=== PATIENT | male | born 1975 | race Caucasian/White ===

== ENCOUNTER 2023-05-13 14:28 | Outpatient (OUT) | payer OTHER, SELFPAY ==
[2023-05-13 14:43] LABS: Basophils Absolute Auto 0.1 10^3/uL (0.0-0.1); Eosinophils Absolute Auto 0.1 10^3/uL (0.0-0.7); Eosinophils Percent Auto 1.3 % (0.9-7.0); Hematocrit 46.4 % (42.0-54.0); Hemoglobin 15.8 g/dL (14.0-18.0); Immature Granulocytes Abs Auto 0.01 10^3/uL (0.00-0.03); Immature Granulocytes Pct Auto 0.2 % (0.0-0.5); Lymphocytes Absolute Auto 1.1 10^3/uL (1.2-3.8); Lymphocytes Percent Auto 17.2 % (20.5-60.0); Mean Corpuscular HGB Conc 34.1 g/dL (29.9-35.2); Mean Corpuscular Hemoglobin 27.5 pg (25.9-34.0); Mean Corpuscular Volume 80.8 fL (80.0-94.0); Mean Platelet Volume 9.5 fL (9.5-13.5); Monocytes Absolute Auto 0.5 10^3/uL (0.3-0.8); Monocytes Percent Auto 7.7 % (1.7-12.0); Neutrophils Absolute Auto 4.4 10^3/uL (1.4-6.5); Neutrophils Percent Auto 72.6 % (43.0-75.0); Platelet Count 240 10^3/uL (150-450); Red Blood Count 5.74 10^6/uL (4.70-6.10); Red Cell Distribution Width 13.4 % (11.0-15.0); White Blood Count 6.1 10^3/uL (4.0-11.0)
[2023-05-13 15:13] LABS: Estimated Average Glucose 111 mg/dL; Glycohemoglobin A1C 5.5 % (4.5-6.2)
[2023-05-13 15:41] LABS: Alanine Aminotransferase 39 U/L (16-63); Albumin Globulin Ratio 1.1; Albumin Level 3.7 g/dL (3.4-5.0); Alkaline Phosphatase 52 U/L (46-116); Anion Gap 12.8; Aspartate Amino Transferase 15 U/L (15-37); BUN Creatinine Ratio 16.7; Bilirubin Direct 0.1 mg/dL (0.0-0.2); Bilirubin Total 0.6 mg/dL (0.2-1.0); Calcium 8.8 mg/dL (8.5-10.1); Carbon Dioxide 25.1 mmol/L (21.0-32.0); Chloride 104 mmol/L (98-107); Chol HDL Ratio 5.1; Cholesterol 205 mg/dL (<=200); Estimated GFR (African America >60 (>=60); Estimated GFR (Non-African Ame >60 (>=60); Globulin 3.4 g/dL; Glucose 104 mg/dL (74-106); HDL Cholesterol 40 mg/dL (40-60); Potassium 3.9 mmol/L (3.5-5.1); Sodium 138 mmol/L (136-145); Thyroid Stimulating Hormone 0.878 uIU/mL (0.358-3.740); Total Protein 7.1 g/dL (6.4-8.2); Triglycerides 163 mg/dL (<=150); VLDL CHOLESTEROL 32.6 mg/dL
[2023-05-13 15:46] LABS: Prostate Specific Antigen Scrn 0.95 ng/mL (<=4.00)
== END 2023-05-13 14:29 | disposition home or self-care (01) ==
LOC: LAB 14:28
PROVIDERS: PCP Family Medicine; Visit Provider Family Medicine
DX: Z00.00 Encounter for general adult medical examination without abnormal findings (principal); E55.9 Vitamin D deficiency, unspecified
CPT/HCPCS: 36415; 80048; 80061; 80076; 82306; 83036; 84443; 85025; G0103

== ENCOUNTER 2023-05-21 10:21 | Outpatient (RCR) | payer OTHER, SELFPAY | END 2023-07-26 08:00 | disposition home or self-care (01) | LOC: PT 10:21 | PROVIDERS: PCP Family Medicine; Visit Provider Family Medicine | DX: M47.816 Spondylosis without myelopathy or radiculopathy, lumbar region (principal) | CPT/HCPCS: 97010; 97014; 97110; 97161 ==

== ENCOUNTER 2023-06-09 11:55 | Outpatient (OUT) | payer OTHER, SELFPAY ==
--- NOTE | 2023-06-09 12:10 | CA_ITS ---
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: : 1975 Requested By: NATALIA STRICKLAND Order Number: [id number] Reading MD: JAGJIT RAUSCH Interpretive Statements Predominant rhythm is sinus w/ average rate of 76 bpm Tachycardia - max rate of 186 bpm, associated w/ PSVT - 77 episodes of PSVT w/ longest duration of 47 beats - longest episode of 46min 45sec with rates between 115-138 bpm Bradycardia - min rate of 46 bpm - longest episode of 40min 23sec with rates between 51-59 bpm Ventricular ectopy] - 405 PVC Patient triggered events: 1 - not associated w/ symptoms - associated w/ NSR Impression: Predominant rhythm is sinus w/ average rate of 76 bpm FAstest rate of 186 (PSVT) and slowest rate of 46 bpm Episodes of supraventricular bigeminy and trigeminy 405 PVC No atrial fibrillation No pauses of blocks Electronically Signed On 06-28-2023 20:19:11 EST by JAGJIT RAUSCH
== END 2023-06-09 11:56 | disposition home or self-care (01) ==
LOC: CARD 11:58
PROVIDERS: PCP Family Medicine; Visit Provider Family Medicine
DX: R00.2 Palpitations (principal)
CPT/HCPCS: 93246

== ENCOUNTER 2023-07-27 09:55 | Outpatient (RCR) | payer OTHER, SELFPAY | END 2023-08-01 16:10 | disposition home or self-care (01) | LOC: PT 09:55 | PROVIDERS: PCP Family Medicine; Visit Provider Family Medicine | DX: M47.816 Spondylosis without myelopathy or radiculopathy, lumbar region (principal) | CPT/HCPCS: 97010; 97014; 97110 ==

== ENCOUNTER 2023-12-15 13:09 | Outpatient (OUT) | payer OTHER, SELFPAY ==
--- NOTE | 2023-12-15 | CONS_ITS ---
CONSULTATION DATE: 12/15/2023 TO: Reddy Alcantara M.D. CHIEF COMPLAINT: Includes right lower back pain. HISTORY: Patient reports the pain as being 6/10, sharp, squeezing type of pain in her right lower back, increased with activities such as standing, walking and performing transitioning maneuvers. She feels most comfortable in the semi- recumbent position. Denies any change in bowel and bladder habits or new sensorimotor changes in his lower extremities. OLEG has been 73%. MEDICATION: Current medications include Lyrica 100 mg t.i.d., Robaxin 750 q.i.d. and Voltaren gel. EXAMINATION: Notable for patient having no clinical radiculopathy or myelopathy involving the lower extremities. Patient had severe pain with lumbar facet loading maneuvers on the right side from L4-S1 with associated myofascial spasm of the lumbar paravertebral muscles. 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 RECOMMENDATIONS: I recommend a diagnostic right sided L4-5, L5-S1 medial branch block under fluoroscopic guidance. I have weaned him off of Robaxin. Will trial him on Flexeril 10 mg one t.i.d. as tolerated. As part of providing excellent, safe, comprehensive care, the following was completed at our patient's visit: 1. A medication reconciliation and review to ensure accurate knowledge of current/active medications, including asking our patients to inform us about any [id number] medications or herbal remedies/nutritional supplements/alternative remedies. 2. A review to specifically ensure our patients have had annual screening for: elevated body mass index (BMI, see intake chart for exact total), tobacco use, screening for depression, and screening for unhealthy alcohol use. When screening is concerning, patients are provided with education and the specific recommendation to discuss the concerning health issue and treatment options with their primary care provider. LINDA
--- OUTSIDE RECORDS SUMMARY | 2023-12-15 13:14 | XMS_ITS | CCD ---
Author Organization [facility] Inform ion Partnership [facility] Care Team Providers Care Intelligence Operations Specialist Name Role Phone Reddy Strickland MD Primary Care Provider FLEX RAMÍREZ Attending Unavailable REDDY STRICKLAND Primary Care UnavailChandler Cosme Unavailable Darwin Yepez Unavailable Reddy Strickland Primary Care Unavailable Chandler Fuller Attending Unavailable Chandler Fuller Admitting Unavailable MARCO A, DR REDDY Roper Admitting Unavailable MARCO A, DR REDDY Roper Attending Unavailable MARCO A, DR REDDY Roper Primary Care Unavailable MARCO A, DR REDDY Roper Primary Care Unavailable BUD DESAI Admitting Unavailable BUD DESAI Attending Unavailable BUD DESAI Consulting Unavailable SALONI BRAND Consulting Unavailable REDDY STRICKLAND Attending Unavailable Allergies Allergy Classification Reported Allergen(s) Allergy Type Date of Onset Reaction(s) Facility (1 source) Chlorhexidine Drug Allergy 01-26-2020 [facility] Medications Current Medications Medication Drug Class(es) Dates Sig (Normalized) Sig (Original) acetaminophen 325 mg / oxyCODONE hydrochloride 5 mg oral tablet (2 sources) Opioid Agonist Start: 08-22-2021 take 1 tablet by mouth every four hours as needed for pain Percocet 5-325 MG 1 tablet as needed for pain Orally up to every 4 hrs for 5 days Jul, Active cephalexin 500 mg oral capsule (2 sources) Cephalosporin Antibacterial Start: 08-22-2021 take 1 capsule by mouth every eight hours Cephalexin 500 MG 1 capsule Orally every 8 hrs for 2 days Jul, Active clindamycin 300 mg oral capsule (1 source) Lincosamide Antibacterial Start: 10-16-2021 End: 10-23-2021 take 1 capsule by mouth three times daily clindamycin (CLEOCIN) 300 MG capsule Take 1 capsule by mouth 3 times daily for 7 days 21 capsule 0 10/16/2021 10/23/2021 Active Knee Brace - (1 source) Start: 12-30-2021 Knee Brace - as directed neoprene sleeve Dec, Active Medical Marijuana / Cannabinoid Product (1 source) Medical Marijuan a / Cannabinoid Product Active traMADol hydrochloride 50 mg oral tablet (1 source) Opioid Agonist Start: 09-02-2021 take 1 tablet by mouth every four hours as needed for pain Ultram 50 MG 1 tablet as needed for pain Orally up to every 4 hrs for 5 days Aug, Active Completed/Discontinued Medications Medication Drug Class(es) Dates Sig (Normalized) Sig (Original) gabapentin (5 sources) Anti-epileptic Agent Gabapentin Not-Taking Gabapentin Activ e triamcinolone acetonide 40 mg/ml injectable suspension (1 source) Corticosteroid Start: 12-30-2021 Kenalog-40 Dec, 40 mg Vitamin D (5 sources) Vitamin D Not-Ta margie Vitamin D Active Problems Active Problems Problem Classification Problem Date Documented Date Episodic/Chronic Osteoarthritis (2 sources) Osteoarthritis of left knee joint; 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: [Unilateral primary osteoarthritis, left knee] Onset: 12-30-2021 Resolved: 12-30-2021 Chronic Other nutritional; endocrine; and metabolic disorders (1 source) Morbid (severe) obesity due to excess calories; 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: [MORBID SEVERE OBES D/T EXCESS KEAGAN] Onset: 12-12-2021 Chronic Other nutritional; endocrine; and metabolic disorders (1 source) Body mass index (BMI) 45.0-49.9, adult; 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: [BODY MASS INDEX BMI 45.0-49.9 ADULT] Onset: 12-12-2021 Chronic Skin and subcutaneous tissue infections (1 source) Abscess of neck; 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: [Cutaneous abscess of neck] Episodic Spondylosis; intervertebral disc disorders; other back problems (4 sources) Spondylosis without myelopathy or radiculopathy, lumbosacral region; 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: [SPONDYLS W/O MYELO-/RADICULOP LS] Onset: 11-17-2022 Chronic Unclassified (1 source) Z98.890 - Other specified postprocedural states; 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: [Z98.890 - Other specified postprocedural states] Onset: 09-02-2021 Past or Other Problems Problem Classification Problem Date Documented Date Episodic/Chronic E Codes: Fall (1 source) Unspecified fall, initial encounter; 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: [UNSPECIFIED FALL INITIAL ENCOUNTER] Onset: 12-12-2021 Episodic Other aftercare (1 source) Other technician terminal and repeater (current) drug therapy; 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: [OTH ALF CURRENT DRUG THERAPY] Onset: 12-12-2021 Episodic Other injuries and conditions due to external causes (1 source) Unspecified injury of left lower leg, initial encounter; 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: [UNS INJURY LT LOWER LEG INITIAL ENC] Onset: 12-12-2021 Episodic Other non-traumatic joint disorders (3 sources) Pain in left knee; 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: [PAIN IN LEFT KNEE] Onset: 12-10-2021 Episodic Residual codes; unclassified (3 sources) Other specified postprocedural states Onset: 08-27-2021 Resolved: 10-31-2021 Episodic Screening and history of mental health and substance abuse codes (1 source) Personal history of nicotine dependence; 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: [PERSONAL HISTORY OF NICOTINE DEPEND] Onset: 12-12-2021 Episodic Sprains and strains (3 sources) Strain of muscle, fascia and tendon of other parts of biceps, right arm, initial encounter; 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: [Strain of muscle, fascia and tendon of other parts of biceps, right arm, subsequent encounter] Onset: 08-12-2021 Resolved: 10-31-2021 Episodic Superficial injury; contusion (1 source) Contusion of right hip, initial encounter; 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: [CONTUSION RIGHT HIP INITIAL ENC] Onset: 12-12-2021 Episodic Results Test Name Value Interpretation Reference Range Facil ity XR HIPS MILY 5V W PELVISon XR HIPS MILY 5V W PELVIS EXAM: XR HIPS MILY 5V W PELVIS HISTORY: Pelvic and hip pain COMPARISON: None. TECHNIQUE: 6 views FINDINGS: No osseous lesion, fracture, dislocation or subluxation. Joint spaces are normal. No visualized effusion. No visualized soft tissue edema. IMPRESSION: Normal x-rays Electronically authenticated by: SALONI BRAND Date: 2021-12-10 22:17 Normal [facility] XR KNEE LT 4V or >on 022 XR KNEE LT 4V or > EXAM: XR KNEE LT 4V or > HISTORY: Left knee pain COMPARISON: None. TECHNIQUE: 4 views FINDINGS: No fracture, dislocation or subluxation. No osseous lesion. Small knee effusion. The joint spaces are maintained. IMPRESSION: Small knee effusion with no visualized osseous abnormality Electronically authenticated by: SALONI BRAND Date: 2021-12-10 22:15 Normal [facility] XR elbow RT 2Von 09-02-2021 XR elbow RT 2V [facility] [place] [address] [place] [address] XRay Report Signed Patient: Na Simon MR#: [id number] : 1975 Acct:[id number] Age/Sex: 46 / M ADM Date: 09/02/21 Loc: [facility] Room: Type: [facility] Attending Dr: Chandler Fuller MD Ordering Provider: Chandler Fuller MD Date of Service: 09/02/21 XR/XR elbow RT 2V: Other specified postprocedural states Copies to: Chandler Fuller MD RIGHT ELBOW - 4 VIEWS CLINICAL HISTORY: Follow-up bicep repair. COMPARISON: None Splint is in place. Biceps repair changes are identified involving the proximal radius. No joint effusion. No focal soft tissue abnormality. Calcification is seen along the medial epicondyle suggestive of prior injury. Mild degenerative changes of the elbow. XR/XR elbow RT 2V IMPRESSION: No hardware complication. No acute bony process. Mild degenerative change. Impression dictated by: Ishan Giles Jr., DOliveOOlive09/02/2021 2:06 PM Dictation Location: [place] [address] Transcribed By: [facility] 09/02/21 1406 Dictated By: Ishan Giles Jr, DO 09/02/21 1403 Signed By: 09/02/[address] [facility] Vital Signs Date Time Vital Sign Value Performing Clinician Facility 10-31-2021 12:00-0400 Body height 182.88 cm Chandler Fuller Other [facility] Other 10-31-2021 12:00-0400 Body mass index (BMI) [Ratio] 33.63 kg/m2 Chandler Fuller Other [facility] Other 10-31-2021 12:00-0400 Body weight 112.49 kg Chandler Fuller Other [facility] Other 10-16-2021 14:45-0400 Body height 193 cm Flex Ramírez MD Work Phone: [employer] 10-16-2021 14:45-0400 Body mass index (BMI) [Ratio] 47.55 kg/m2 Flex Ramírez MD Work Phone: [employer] 10-16-2021 14:45-0400 Body temperature 98.6 [degF] Flex Ramírez MD Work Phone: [employer] 10-16-2021 14:45-0400 Body weight 177.18 kg Flex Ramírez MD Work Phone: [employer] 10-16-2021 14:45-0400 Diastolic blood pressure 104 mm[Hg] Flex Ramírez MD Work Phone: [employer] 10-16-2021 14:45-0400 Heart rate 85 /min Flex Ramírez MD Work Phone: [employer] 10-16-2021 14:45-0400 Respiratory rate 18 /min Flex Ramírez MD Work Phone: [employer] 10-16-2021 14:45-0400 SaO2% (BldA) [Mass fraction] 94 % Flex Ramírez MD Work Phone: [employer] 10-16-2021 14:45-0400 Systolic blood pressure 170 mm[Hg] Flex Ramírez MD Work Phone: [employer] 09-02-2021 12:30-0500 Body height 182.88 cm Chandler Fuller Other [facility] Other 09-02-2021 12:30-0500 Body mass index (BMI) [Ratio] 33.36 kg/m2 Chandler Fuller Other [facility] Other 09-02-2021 12:30-0500 Body weight 111.59 kg Chandler Olexa Other [facility] Other Encounters Encounter Date Encounter Type Care Provider Facility Start: 10-28-2023 End: 10-28-2023 ambulatory REDDY STRICKLAND Not Available Start: 11-17-[address] REDDY STRICKLAND Facil ity:[facility] Start: 12-30-2021 End: 12-30-2021 ambulatory Chandler Olexa Other [facility] Other Start: 12-30-2021 Office outpatient ne w 30 minutes Chandler Olexa [facility] Start: 12-10-2021 End: 12-11-[address] REDDY STRICKLAND Facility:[facility] Start: 10-31-2021 End: 10-31-2021 ambulatory Chandler Olexa Other [facility] Other Start: 10-31-2021 Postop follow up vis it related to original px Chandler Olexa [facility] Start: 10-16-2021 End: 10-16-2021 Emergency department patient visit [facility] Start: 10-16-2021 End: 10-16-2021 Emergency department patient visit [facility] Work Phone: [facility] Comment on above: Cutaneous abscess of neck (Primary Dx) Start: 09-02-2021 Postop follow up vis it related to original px Chandler Olexa [facility] Start: 09-02-2021 End: 09-02-2021 ambulatory Reddy Strickland [employer] [facility] [employer] Other Start: 08-27-2021 End: 08-27-2021 ambulatory Darwin Yepez Other [facility] Other Start: 08-27-2021 Telephone encounter Darwin Yepez [facility] Start: 08-12-2021 End: 08-12-2021 ambulatory Chandler Alina Other [facility] Other Start: 08-12-2021 Office outpatient ne w 45 minutes [facility] Plan of Treatment Date Care Activity Detail Author Start: 03-27-2021 Influenza vaccination Flu vaccine (# 1) [facility] Start: 1978 COVID-19 Vaccine (1) COVID-19 Vaccin e (1) [facility] Payers Date Payer Category Payer Self-pay 1975 Unknown [id number] 1975 Unknown [id number] [id number] 1975 Unknown [id number] [id number] 1975 Unknown [id number] [id number] [id number] 1961 Unknown [id number] 1. [id number] Unknown [id number] 2.16.8 [id number] Social History Date Type Detail Facility Start: 10-16-2021 Tobacco smoking status NHIS Never smoked tobacco [facility] Other Start: 10-16-2021 Tobacco use and exposure Smokeless tobacco non-user [facility] Phone: Start: 1975 Sex Assigned At Not on file [facility] [employer] Phone: Start: 10-06-2021 End: 10-16-2021 Exposure to SARS-CoV-2 (event) Not sure [facility] Phone: Sex Assigned At Sex Assigned At Bir th [facility] Other Evaluation note 12-30-2021 Note Date & Type Note Facility 12-30-2021 Evaluation note Encounter Date Diagnosis Assessment Notes Dec, Primary osteoarthritis of left knee (ICD-10 - M17.12) Xrays were reviewed with patient in detail. We performed a /1cc marcaine / kenalog cortisone injection into the knee joint under sterile technique. Patient tolerated the injection well without adverse reaction. The patient is suffering from degenerative arthritis involving the knee. We discussed the conservative treatment options which can be beneficial in relieving pain, including gentle non-impact motion exercise and non-steroidal anti-inflammato ry medication. We discussed the use of occasional cortisone injections that can provide pain relief as well as hyaluronan lubricant injection. We will provide a prescription for formal physical therapy. The regular use of exercises may be beneficial in relieving painful symptoms. If pain persists we will order an MRI. [facility] Other Evaluation note 10-31-2021 Note Date & Type Note Facility 10-31-2021 Evaluation note Encounter Date Diagnosis Assessment Notes Oct, Other specified postprocedural states (ICD-10 - Z98.890) Oct, Rupture of right distal biceps tendon, subsequent encounter (ICD-10 - S46.211D) Patient instructed that he may begin light strengthening exercises Oct, Other Patient instructed to allow more time for knee issues to improve. Work on light exercises [facility] Other Evaluation note 09-02-2021 Note Date & Type Note Facility 09-02-2021 Evaluation note Encounter Date Diagnosis Assessment Notes Aug, Other specified postprocedural states (ICD-10 - Z98.890) Aug, Rupture of right distal biceps tendon, subsequent encounter (ICD-10 - S46.211D) Radiographs reviewed with patient. Instructed on pronation/sup ination motion, as well as passive elbow flexion exercises. May allow incision to get wet in clean running water. Continue use of the splint during activities. Call with questions/con cerns. Splint shortened today to avoid pinching at the wrist. [facility] Other Evaluation note 08-27-2021 Note Date & Type Note Facility 08-27-2021 Evaluation note Encounter Date Diagnosis Assessment Notes Aug, Other specified postprocedural states (ICD-10 - Z98.890) [facility] Other Evaluation note 08-12-2021 Note Date & Type Note Facility 08-12-2021 Evaluation note Encounter Date Diagnosis Assessment Notes Jul, Tear of right biceps muscle, initial encounter (ICD-10 - S46.211A) Pateint has sustained a distal biceps rupture. This will require surgical repair as soon as possible. We discussed the specific risks of this surgery which include sensory nerve injury over the dorsal forearm. The potential to cause injury to the posterior interosseous nerve and loss of wrist extension strength. We also discussed the potential to cause loss of forearm rotation secodary to synostosis as well as loss of full elbow extension. Patient is aware of this and we will proceed. We would expect at least three months before returning to heavy work activity. THIS APPEAR TO BE CLASSIC DISTAL BICEPS RUPTURE. MRI WILL BE HELPFUL TO DETERMINE REPARABILTIY AND LOCATION OF TEAR. [facility] Other Evaluation note Note Date & Type Note Facility Evaluation note Diagnosis Cutaneous abscess of neck- Primary Cellulitis and abscess of neck documented in this encounter [facility] Phone: History general Narrative - Reported Note Date & Type Note Facility History general Narrative - Reported Type Medical History fibromyalgia Medical History Arthritis Surgical History bilateral carpal tunnel surgery Surgical History mass removed right knee Surgical History back fusion [facility] Other History general Narrative - Reported Note Date & Type Note Facility History general Narrative - Reported Type Medical History fibromyalgia Medical History Arthritis Surgical History bilateral carpal tunnel surgery Surgical History mass removed right knee Surgical History back fusion Surgical History right distal bicep repair 2021 [facility] Other Hospital Discharge instructions Attachments Note Date & Type Note Facility Hospital Discharge instructions The following attachments cannot be sent through Care Everywhere.Abscess: Skin (Palauan)documented in this encounter [facility] Phone: Summary Purpose Family History No Family History Records FoundNo Family History Records FoundNo Family History Records FoundNo Family History Records Found Advance Directives No Advanced Directives Records FoundNo Advanced Directives Records FoundNo Advanced Directives Records FoundNo Advanced Directives Records Found Additional Source Comments Reason for Visit (unrecogniz ed section and content) Reason Comments Insect Bite patient presents to the ED with c/o insect bite to back of neck on the right side - noticed site Thursday night - warm to touch and painful when trying to sleep Ordered Prescriptions (unrec ognized section and content) Prescription Sig Dispensed Refills Start Date End Da te clindamycin (CLEOCIN) 300 MG capsule Take 1 capsule by mouth 3 times daily for 7 days 21 capsule 0 10/16/2021 10/23/2021 Care Teams (unrecognized sec tion and content) Intelligence Operations Specialist Relationship Specialty Start Date End Date Reddy Strickland MD [address] [place] [address] PCP - General Family Medicine 10/16/21 (unrecognized sect ion and content) No Status Records FoundNo Status Records FoundNo Status Records FoundNo Status Records Found INFORMATION SOURCE (unrecogn ized section and content) DATE CREATED AUTHOR 10/17/2021 Alba quiros DATE CREATED AUTHOR AUTHOR'S ORGANIZ ATION 08/30/2022 [facility] DATE CREATED AUTHOR AUTHOR'S ORGANIZ ATION 11/18/2022 [facility] DATE CREATED AUTHOR AUTHOR'S ORGANIZ ATION 10/29/2023 [facility] FOR RECORDS PERTAINING TO PATIENTS WHO ARE OR HAVE BEEN ENROLLED IN A CHEMICAL DEPENDENCY/SUBSTANCEABUSE PROGRAM, SOME INFORMATION MAY BE OMITTED. This clinical summary was aggregated from multiple sources. Caution should be exercised in using it in the provision of clinical care. This summary normalizes information from multiple sources, and as a consequence, information in this document may materially change the coding, format and clinical context of patient data. In addition, data may be omitted in some cases. CLINICAL DECISIONS SHOULD BE BASED ON THE PRIMARY CLINICAL RECORDS. [employer] provides no warranty or guarantee of the accuracy or completeness of information in this document.
== END 2023-12-15 13:10 | disposition home or self-care (01) ==
LOC: PM 13:09
PROVIDERS: PCP Family Medicine; Visit Provider Anesthesiology Pain Medicine
DX: M47.816 Spondylosis without myelopathy or radiculopathy, lumbar region (principal); M62.838 Other muscle spasm
CPT/HCPCS: G0463

== ENCOUNTER 2024-02-09 14:45 | Outpatient (RCR) | payer OTHER, SELFPAY | END 2024-02-27 15:30 | disposition home or self-care (01) | LOC: PT 14:45 | PROVIDERS: PCP Family Medicine; Visit Provider Nurse Practitioner | DX: M54.50 Low back pain, unspecified (principal); M47.816 Spondylosis without myelopathy or radiculopathy, lumbar region | CPT/HCPCS: 97110; 97161 ==

== ENCOUNTER 2024-03-24 12:42 | Outpatient (OUT) | payer OTHER, SELFPAY ==
--- OUTSIDE RECORDS SUMMARY | 2024-03-24 12:58 | XMS_ITS | CCD ---
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 Main [facility] [address] [place] [address] XRay Report Signed Patient: Na Simon MR#: [id number] : 1975 Acct:[id number] Age/Sex: 46 / M ADM Date: 09/02/21 Loc: [facility] [place] Room: Type: [facility] Attending Dr: Chandler Fuller MD Ordering Provider: [...] Giles Jr., DOliveOOlive09/02/2021 2:06 PM Dictation Location: [place] [address] Transcribed By: [facility] 09/02/21 1406 Dictated By: Ishan Giles Jr, DO 09/02/21 1403 Signed By: 09/02/21 1406 Normal [facility] Vital Signs Date Time Vital Sign Value Performing Clinician Facility 10-31-2021 12:00-0400 Body height 182.88 cm Chandler Fuller Other [facility] Other 10-31-2021 12:00-0400 Body mass index (BMI) [Ratio] 33.63 kg/m2 Chandler Fuller Other [facility] Other 10-31-2021 12:00-0400 Body weight 112.49 kg Chandler Fuller Other [facility] Other 10-16-2021 14:45-0400 Body height 193 cm Flex Ramírez MD Work Phone: [employer] 10-16-2021 14:45-0400 Body mass index (BMI) [Ratio] 47.55 kg/m2 Flex Ramírez MD Work Phone: [employer] 10-16-2021 14:45-0400 Body temperature 98.6 [degF] Flex Ramírez MD Work Phone: [employer] 10-16-2021 14:45-0400 Body weight 177.18 kg Flex Ramírez MD Work Phone: [employer] 10-16-2021 14:45-0400 Diastolic blood pressure 104 mm[Hg] Flex Ramírez MD Work Phone: [employer] 10-16-2021 14:45-0400 Heart rate 85 /min Flex Ramírez MD Work Phone: [employer] 10-16-2021 14:45-0400 Respiratory rate 18 /min Flex Ramírez MD Work Phone: [employer] 10-16-2021 14:45-0400 SaO2% (BldA) [Mass fraction] 94 % Flex Ramírez MD Work Phone: [employer] 10-16-2021 14:45-0400 Systolic blood pressure 170 mm[Hg] Flex Ramírez MD Work Phone: [employer] 09-02-2021 12:30-0500 Body height 182.88 cm Chandler Fuller Other [facility] Other 09-02-2021 12:30-0500 Body mass index (BMI) [Ratio] 33.36 kg/m2 Chandler Fuller Other [facility] Other 09-02-2021 12:30-0500 Body weight 111.59 kg Chandler Olexa Other [facility] Other Encounters Encounter Date Encounter Type Care Provider Facility Start: 10-28-2023 End: 10-28-2023 ambulatory REDDY STRICKLAND Not Available Start: 11-17-[address] REDDY STRICKLAND Facil ity:H1 Start: 12-30-2021 End: 12-30-2021 ambulatory Chandler Olexa Other [facility] Other Start: 12-30-2021 Office outpatient ne w 30 minutes Chandler Olexa [facility] Start: 12-10-2021 End: 12-11-[address] REDDY STRICKLAND Facility:H1 Start: 10-31-2021 End: 10-31-2021 ambulatory Chandler Olexa Other [facility] Other Start: 10-31-2021 Postop follow up vis it related to original px Chandler Olexa [facility] Start: 10-16-2021 End: 10-16-2021 Emergency department patient visit [facility] Start: 10-16-2021 End: 10-16-2021 Emergency department patient visit [facility] Work Phone: [facility] ED Comment on above: Cutaneous abscess of neck (Primary Dx) Start: 09-02-2021 Postop follow up vis it related to original px Chandler Olexa [facility] Start: 09-02-2021 End: 09-02-2021 ambulatory Reddy Strickland [employer] Other Start: 08-27-2021 End: 08-27-2021 ambulatory Darwin Yepez Other [facility] Other Start: 08-27-2021 Telephone encounter Darwin Yepez [facility] Start: 08-12-2021 End: 08-12-2021 ambulatory Chandler Alina Other [facility] Other Start: 08-12-2021 Office outpatient ne w 45 minutes [facility] Plan of Treatment Date Care Activity Detail Author Start: 03-27-2021 Influenza vaccination Flu vaccine (# 1) [employer] Start: 1978 COVID-19 Vaccine (1) COVID-19 Vaccin e (1) [employer] Payers Date Payer Category Payer Self-pay 1975 Unknown [id number] 2.16.8 [id number] 1975 Unknown [id number] 2.16.84 [id number] 1975 Unknown [id number] 2.16.84 [id number] 1975 Unknown [id number] 2.16.84 [id number] 1959 Unknown [id number] 1. [id number] Unknown [id number] 2.16.8 [id number] Social History Date Type Detail Facility Start: 10-16-2021 Tobacco smoking status NHIS Never smoked tobacco [facility] Other Start: 10-16-2021 Tobacco use and exposure Smokeless tobacco non-user [employer] Phone: Start: 1975 Sex Assigned At Not on file M [employer] Phone: Start: 10-06-2021 End: 10-16-2021 Exposure to SARS-CoV-2 (event) Not sure [employer] Phone: Sex Assigned At Sex Assigned At Bir th [facility] Other Evaluation note 12-30-2021 Note Date & [...] pain persists we will order an MRI. [facility] Other Evaluation note 10-31-2021 Note Date & [...] issues to improve. Work on light exercises [facility] Other Evaluation note 09-02-2021 Note Date & [...] today to avoid pinching at the wrist. [facility] Other Evaluation note 08-27-2021 Note Date & Type Note Facility 08-27-2021 Evaluation note Encounter Date Diagnosis Assessment Notes Aug, Other specified postprocedural states (ICD-10 - Z98.890) [facility] Other Evaluation note 08-12-2021 Note Date & [...] TO DETERMINE REPARABILTIY AND LOCATION OF TEAR. [facility] Other Evaluation note Note Date & Type Note Facility Evaluation note Diagnosis Cutaneous abscess of neck- Primary Cellulitis and abscess of neck documented in this encounter [employer] Phone: History general Narrative - Reported Note Date & Type Note Facility History general Narrative - Reported Type Medical History fibromyalgia Medical History Arthritis Surgical History bilateral carpal tunnel surgery Surgical History mass removed right knee Surgical History back fusion [facility] Other History general Narrative - Reported Note Date & Type Note Facility History general Narrative - Reported Type Medical History fibromyalgia Medical History Arthritis Surgical History bilateral carpal tunnel surgery Surgical History mass removed right knee Surgical History back fusion Surgical History right distal bicep repair 2021 [facility] Other Hospital Discharge instructions Attachments Note Date & Type Note Facility Hospital Discharge instructions The following attachments cannot be sent through Care Everywhere.Abscess: Skin (Mohawk)documented in this encounter [employer] Phone: Summary Purpose Family History No Family [...] Care Teams (unrecognized sec tion and content) Director Camp Relationship Specialty Start Date End Date Reddy Strickland MD [address] [place] [address] PCP - General Family Medicine 10/16/21 (unrecognized sect ion and content) No Status Records FoundNo Status Records FoundNo Status Records FoundNo Status Records Found INFORMATION SOURCE (unrecogn ized section and content) DATE CREATED AUTHOR 10/17/2021 Alba quiros DATE CREATED AUTHOR AUTHOR'S ORGANIZ ATION 08/30/2022 [facility] DATE CREATED AUTHOR AUTHOR'S ORGANIZ ATION 11/18/2022 [facility] DATE CREATED AUTHOR AUTHOR'S ORGANIZ ATION 10/29/2023 [facility] dical Specialists [facility] FOR RECORDS PERTAINING TO PATIENTS WHO [...] BE BASED ON THE PRIMARY CLINICAL RECORDS. [employer] provides no warranty or guarantee of the accuracy or completeness of information in this document.
--- NOTE | 2024-03-24 13:04 | P.CN_ITS ---
Consult Note: HPI Data of Consult Patient: known to practice within the last 3 years Requesting Physician: Josefa Alvarado NP Primary Care Provider: Reddy Alcantara MD Consult Narrative Reason for consult: chronic low back pain Narrative: Ruel Simon a pleasant 48 year old male presents for evaluation and management of chronic low back pain. Patient has had chronic low back pain greater than 1 year unresponsive to tylenol, NSAIDs, pregabalin, duloxetine, medical marijauana. patient completed 4 PT visits 1 month ago without improvement. continues to have pain secondary to lumbar spondylosis and facet arthropathy. Pain increased with standing walking pushing pulling acvitiy and ADLS, improved with sitting. patient denies loss of bowel or bladder. pain today 6/10 sharp intermittent, increasing to 10/10. cc:: CC: Josefa Alvarado NP Review of Systems ROS Status of ROS 10 or more systems reviewed and unremark able except as noted in history and below Musculoskeletal Reports: back pain Exam Constitutional Documenting provider has reviewed patient's vital signs: yes Common normals: no apparent distress, oriented x3, healthy appearing, alert and well nourished General appearance: cooperative HENMT Common normals: normocephalic, hearing grossly normal bilaterally and moist oral mucous membranes Head and scalp: normocephalic Eye Common normals: PERRL Pupil: PERRL Neck & C-Spine Common normals: full ROM General: normal visual inspection Chest Common normals: inspection of chest normal Respiratory Common normals: normal respiratory effort, no retractions and no use of accessory muscles Back & Pelvis Lumbar spine/lower back: ROM limited, pain with ROM and straight leg raise negative bilaterally Other: positive facet loading bilaterally, right greater than left negative SLR and radiculopathy sensation intact BLE strength 4/5 in BLE Extremity Common normals: normal to inspection and full ROM Neuro Common normals: oriented x3, CN's II-XII intact bilaterally, moves all extremities, no focal motor deficits, no sensory deficits noted and deep tendon reflexes 2+ bilaterally Sensorium/orientation: alert Motor exam: no movement abnormalities noted and strength abnormal Psych Common normals: mental status grossly normal, thought process normal, cooperative, affect normal, speech normal and activity/motor behavior normal Speech: normal speech Thought process: normal thought process Results Additional Findings Additional findings: If on a controlled substance or opioids, I have checked an OARRS report on this patient and there are no aberrancies noted in the prescribing history.??If on a controlled substance or opioid a drug screen was completed and reviewed within the last year, and if there has not been a drug screen completed we ordered one today to monitor higher risk, state monitored pain medication use. As part of providing excellent, safe, comprehensive care, the following was completed at our patient's visit: 1. A medication reconciliation and review to ensure accurate knowledge of current/active medications, including asking our patients to inform us about any [id number] medications or herbal remedies/nutritional supplements/alternative remedies. 2. A review to specifically ensure our patients have had annual screening for screening for depression, screening for tobacco use, and screening for unhealthy alcohol use. For concerning screenings had a discussion with the patient, provided patient education, and recommended follow-up with primary care provider when appropriate. If patient noted with a risk of falling, they received education on strength, gait, and balance training to prevent future risk of falling. Assessment and Plan Assessment and Plan (1) Lumbar spondylosis: Assessment and Plan: The patient has had over 3 months of moderate to severe low back pain with functional impairment and inadequate response to conservative care including NSAIDS (unless there are contraindication such as concurrent blood thinners), multiple oral or topical pain medications, and home exercise program/physical therapy.? (2) Myofascial pain: Plan bilateral L4-5 L5-S1 MBB x2 under fluoroscopy, risks vs benefits reviewed continue current medications f/u after each injection
== END 2024-03-24 12:43 | disposition home or self-care (01) ==
LOC: PM 12:43
PROVIDERS: PCP Family Medicine; Visit Provider Nurse Practitioner
DX: M47.816 Spondylosis without myelopathy or radiculopathy, lumbar region (principal); M79.18 Myalgia, other site
CPT/HCPCS: G0463

== ENCOUNTER 2024-04-12 09:45 | Day surgery (SDC) | payer OTHER, SELFPAY ==
--- OUTSIDE RECORDS SUMMARY | 2024-04-12 10:10 | XMS_ITS | CCD ---
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; 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: [OTH HALFWAY CURRENT DRUG THERAPY] Onset: 12-12-2021 Episodic Other [...] SALONI BRAND Date: 2021-12-10 22:17 Normal [facility] XR KNEE LT 4V or >on 022 [...] by: SALONI BRAND Date: 2021-12-10 22:15 Normal [facility] XR elbow RT 2Von 09-02-2021 XR elbow RT 2V [facility] Main [place] [address] [place] [address] XRay Report Signed Patient: Na Simon MR#: [id number] : 1975 Acct:[id number] Age/Sex: 46 / M ADM Date: 09/02/21 Loc: [facility] [place] [facility] [place] Room: Type: [facility] Attending Dr: Chandler Fuller MD Ordering Provider: [...] Giles Jr., DOliveOOlive09/02/2021 2:06 PM Dictation Location: [place] [address] Transcribed By: [facility] 09/02/21 1406 Dictated By: Ishan Giles Jr, DO 09/02/21 1403 Signed By: 09/02/21 1406 Normal [facility] Vital Signs Date Time Vital Sign Value Performing Clinician Facility 10-31-2021 12:00-0400 Body height 182.88 cm Chandler Fuller Other [facility] Other 10-31-2021 12:00-0400 Body mass index (BMI) [Ratio] 33.63 kg/m2 Chandler Fuller Other [facility] Other 10-31-2021 12:00-0400 Body weight 112.49 kg Chandler Fuller Other [facility] Other 10-16-2021 14:45-0400 Body height 193 cm Flex Ramírez MD Work Phone: [email or web address] 10-16-2021 14:45-0400 Body mass index (BMI) [Ratio] 47.55 kg/m2 Flex Ramírez MD Work Phone: [email or web address] 10-16-2021 14:45-0400 Body temperature 98.6 [degF] Flex Ramírez MD Work Phone: [email or web address] 10-16-2021 14:45-0400 Body weight 177.18 kg Flex Ramírez MD Work Phone: [email or web address] 10-16-2021 14:45-0400 Diastolic blood pressure 104 mm[Hg] Flex Ramírez MD Work Phone: [email or web address] 10-16-2021 14:45-0400 Heart rate 85 /min Flex Ramírez MD Work Phone: [email or web address] 10-16-2021 14:45-0400 Respiratory rate 18 /min Flex Ramírez MD Work Phone: [email or web address] 10-16-2021 14:45-0400 SaO2% (BldA) [Mass fraction] 94 % Flex Ramírez MD Work Phone: [email or web address] 10-16-2021 14:45-0400 Systolic blood pressure 170 mm[Hg] Flex Ramírez MD Work Phone: [email or web address] 09-02-2021 12:30-0500 Body height 182.88 cm Chandler Fuller Other [facility] Other 09-02-2021 12:30-0500 Body mass index (BMI) [Ratio] 33.36 kg/m2 Chandler Fuller Other [facility] Other 09-02-2021 12:30-0500 Body weight 111.59 kg Chandler Olexa Other [facility] Other Encounters Encounter Date Encounter Type Care Provider Facility Start: 10-28-2023 End: 10-28-2023 ambulatory REDDY STRICKLAND Not Available Start: 11-17-[address] REDDY STRICKLAND Facil ity:H1 Start: 12-30-2021 End: 12-30-2021 ambulatory Chandler Olexa Other [facility] Other Start: 12-30-2021 Office outpatient ne w 30 minutes Chandler Olexa [facility] Start: 12-10-2021 End: 12-11-[address] REDDY STRICKLAND Facility:H1 Start: 10-31-2021 End: 10-31-2021 ambulatory Chandler Olexa Other [facility] Other Start: 10-31-2021 Postop follow up vis it related to original px Chandler Olexa [facility] Start: 10-16-2021 End: 10-16-2021 Emergency department patient visit [facility] Start: 10-16-2021 End: 10-16-2021 Emergency department patient visit [facility] Work Phone: [facility] ED Comment on above: Cutaneous abscess of neck (Primary Dx) Start: 09-02-2021 Postop follow up vis it related to original px Chandler Olexa [facility] Start: 09-02-2021 End: 09-02-2021 ambulatory Reddy Strickland [facility] Other Start: 08-27-2021 End: 08-27-2021 ambulatory Darwin Yepez Other [facility] Other Start: 08-27-2021 Telephone encounter Darwin Yepez [facility] Start: 08-12-2021 End: 08-12-2021 ambulatory Chandler Alina Other [facility] Other Start: 08-12-2021 Office outpatient ne w 45 minutes [facility] Plan of Treatment Date Care Activity Detail Author Start: 03-27-2021 Influenza vaccination Flu vaccine (# 1) [email or web address] Start: 1978 COVID-19 Vaccine (1) COVID-19 Vaccin e (1) [email or web address] Payers Date Payer Category Payer Self-pay 1975 Unknown [id number] 2.16.8 [id number] 1975 Unknown [id number] 2.16.84 [id number] 1975 Unknown [id number] 2.16.84 [id number] 1975 Unknown [id number] 2.16.84 [id number] 1959 Unknown [id number]. [id number] Unknown [id number] 2.16.8 [id number] Social History Date Type Detail Facility Start: 10-16-2021 Tobacco smoking status NHIS Never smoked tobacco [facility] Other Start: 10-16-2021 Tobacco use and exposure Smokeless tobacco non-user [employer] Phone: Start: 1975 Sex Assigned At Not on file M [employer] Phone: Start: 10-06-2021 End: 10-16-2021 Exposure to SARS-CoV-2 (event) Not sure [employer] Phone: Sex Assigned At Sex Assigned At Bir th [facility] Other Evaluation note 12-30-2021 Note Date & [...] pain persists we will order an MRI. [facility] Other Evaluation note 10-31-2021 Note Date & [...] issues to improve. Work on light exercises [facility] Other Evaluation note 09-02-2021 Note Date & [...] today to avoid pinching at the wrist. [facility] Other Evaluation note 08-27-2021 Note Date & Type Note Facility 08-27-2021 Evaluation note Encounter Date Diagnosis Assessment Notes Aug, Other specified postprocedural states (ICD-10 - Z98.890) [facility] Other Evaluation note 08-12-2021 Note Date & [...] TO DETERMINE REPARABILTIY AND LOCATION OF TEAR. [facility] Other Evaluation note Note Date & Type Note Facility Evaluation note Diagnosis Cutaneous abscess of neck- Primary Cellulitis and abscess of neck documented in this encounter [employer] Phone: History general Narrative - Reported Note Date & Type Note Facility History general Narrative - Reported Type Medical History fibromyalgia Medical History Arthritis Surgical History bilateral carpal tunnel surgery Surgical History mass removed right knee Surgical History back fusion [facility] Other History general Narrative - Reported Note Date & Type Note Facility History general Narrative - Reported Type Medical History fibromyalgia Medical History Arthritis Surgical History bilateral carpal tunnel surgery Surgical History mass removed right knee Surgical History back fusion Surgical History right distal bicep repair 2021 [facility] Other Hospital Discharge instructions Attachments Note Date & Type Note Facility Hospital Discharge instructions The following attachments cannot be sent through Care Everywhere.Abscess: Skin (German)documented in this encounter [employer] Phone: Summary Purpose Family History No Family [...] Care Teams (unrecognized sec tion and content) 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 [employer] Relationship Specialty Start Date End Date Reddy Strickland MD [address] [place] [address] PCP - General Family Medicine 10/16/21 (unrecognized sect ion and content) No Status Records FoundNo Status Records FoundNo Status Records FoundNo Status Records Found INFORMATION SOURCE (unrecogn ized section and content) DATE CREATED AUTHOR 10/17/2021 Alba quiros DATE CREATED AUTHOR AUTHOR'S ORGANIZ ATION 08/30/2022 [facility] DATE CREATED AUTHOR AUTHOR'S ORGANIZ ATION 11/18/2022 [facility] DATE CREATED AUTHOR AUTHOR'S ORGANIZ ATION 10/29/2023 [facility] dical Specialists [facility] FOR RECORDS PERTAINING TO PATIENTS WHO [...] BE BASED ON THE PRIMARY CLINICAL RECORDS. [employer] provides no warranty or guarantee of the accuracy or completeness of information in this document.
[2024-04-12 10:20] VITALS: BP 153/93; PULSE 82; TEMP 36.2; O2SAT 95
[2024-04-12 10:56] VITALS: BP 138/88; PULSE 70; O2SAT 96
[2024-04-12 10:57] VITALS: BP 146/85; PULSE 68; O2SAT 95
[2024-04-12] MEDS: BUPIVACAINE HCL 0.25% PF 25 MG/10 ML VIAL 4 ML INJ (11:01)
--- NOTE | 2024-04-12 11:07 | P.ON_ITS ---
Date of procedure: 04/12/24 Pre-op diagnosis: Lumbar spondylosis Post-op diagnosis: same as pre-op Procedure: Bilateral Lumbar 4/5, 5/sacral 1 medial branch block Preop diagnosis includes pain secondary to spondylosis, Postop diagnosis same Under fluoroscopic guidance Solution injected: 2milliliters Marcaine 0.25% Anesthesia :none Immediate complications none Time out process compliant After informed consent obtained from the patient placed in the [employer]one proposition . area was prepped and draped in a sterile fashion using betadine .25 gauge spinal needle inserted over each of the above mentioned target areas . [place] were directed towards the target under fluoroscopic guidance . after encountering each of the targets , no indication of intravascular intraneuronal or intrathecal needle tip placement. Then 0 .5 to 1 Milliliter was injected at each level. [place] removed postoperatively. patient transferred to recovery in stable condition to be discharged home after meeting criteria Anesthesia: Local Surgeon: Darian Bernal Condition: stable
== END 2024-04-12 11:06 | disposition home or self-care (01) ==
LOC: SURGOUT 09:48
PROVIDERS: PCP Family Medicine; Visit Provider Anesthesiology Pain Medicine
DX: M47.816 Spondylosis without myelopathy or radiculopathy, lumbar region (principal)
CPT/HCPCS: 64493; 64494; J0665

== ENCOUNTER 2024-04-14 10:50 | Outpatient (OUT) | payer OTHER, SELFPAY ==
--- OUTSIDE RECORDS SUMMARY | 2024-04-14 10:53 | XMS_ITS | CCD ---
Author Organization [facility] Inform ion Partnership 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; 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: [OTH GROUP HOME CURRENT DRUG THERAPY] Onset: 12-12-2021 Episodic Other [...] SALONI BRAND Date: 2021-12-10 22:17 Normal [facility] XR KNEE LT 4V or >on 022 [...] by: SALONI BRAND Date: 2021-12-10 22:15 Normal [facility] XR elbow RT 2Von 09-02-2021 XR elbow RT 2V [facility] Main [place] [address] [place] [address] XRay Report Signed Patient: Na Simon MR#: [id number] : 1975 Acct:[id number] Age/Sex: 46 / M ADM Date: 09/02/21 Loc: [facility] [place] Room: Type: [facility] Attending Dr: Chandler Fuller MD Ordering [...] Giles Jr., DOliveOOlive09/02/2021 2:06 PM Dictation Location: [place] [address] Transcribed By: [facility] 09/02/21 1406 Dictated By: Ishan Giles Jr, DO 09/02/21 1403 Signed By: 09/02/21 1406 Normal [facility] Vital Signs Date Time Vital Sign Value Performing Clinician Facility 10-31-2021 12:00-0400 Body height 182.88 cm Chandler Fuller Other [facility] Other 10-31-2021 12:00-0400 Body mass index (BMI) [Ratio] 33.63 kg/m2 Chandler Fuller Other [facility] Other 10-31-2021 12:00-0400 Body weight 112.49 kg Chandler Fuller Other [facility] Other 10-16-2021 14:45-0400 Body height 193 cm Flex Ramírez MD Work Phone: [facility] 10-16-2021 14:45-0400 Body mass index (BMI) [Ratio] 47.55 kg/m2 Flex Ramírez MD Work Phone: [facility] 10-16-2021 14:45-0400 Body temperature 98.6 [degF] Flex Ramírez MD Work Phone: [facility] 10-16-2021 14:45-0400 Body weight 177.18 kg Flex Ramírez MD Work Phone: [facility] 10-16-2021 14:45-0400 Diastolic blood pressure 104 mm[Hg] Flex Ramírez MD Work Phone: [facility] 10-16-2021 14:45-0400 Heart rate 85 /min Flex Ramírez MD Work Phone: [facility] 10-16-2021 14:45-0400 Respiratory rate 18 /min Flex Ramírez MD Work Phone: [facility] 10-16-2021 14:45-0400 SaO2% (BldA) [Mass fraction] 94 % Flex Ramírez MD Work Phone: [facility] 10-16-2021 14:45-0400 Systolic blood pressure 170 mm[Hg] Flex Ramírez MD Work Phone: [facility] 09-02-2021 12:30-0500 Body height 182.88 cm Chandler Fuller Other [facility] Other 09-02-2021 12:30-0500 Body mass index (BMI) [Ratio] 33.36 kg/m2 Chandler Fuller Other [facility] [employer] Other 09-02-2021 12:30-0500 Body weight 111.59 kg Chandler Olexa Other [facility] Other Encounters Encounter Date Encounter Type Care Provider Facility Start: 10-28-2023 End: 10-28-2023 ambulatory REDDY STRICKLAND Not Available Start: 11-17-[address] REDDY STRICKLAND Facil ity:[facility]1 Start: 12-30-2021 End: 12-30-2021 ambulatory Chandler Olexa Other [employer] Other Start: 12-30-2021 Office outpatient ne w 30 minutes Chandler Olexa [facility] Start: 12-10-2021 End: 12-11-[address] REDDY STRICKLAND Facility:[facility]1 Start: 10-31-2021 End: 10-31-2021 ambulatory Chandler Olexa Other [employer] Other Start: 10-31-2021 Postop follow up vis it related to original px Chandler Olexa [facility] Start: 10-16-2021 End: 10-16-2021 Emergency department patient visit [facility] Start: 10-16-2021 End: 10-16-2021 Emergency department patient visit [facility] Work Phone: [facility] ED Comment on above: Cutaneous abscess of neck (Primary Dx) Start: 09-02-2021 Postop follow up vis it related to original px Chandler Olexa [facility] Start: 09-02-2021 End: 09-02-2021 ambulatory Reddy Strickland [place] [facility] Other Start: 08-27-2021 End: 08-27-2021 ambulatory Darwin Yepez Other [employer] Other Start: 08-27-2021 Telephone encounter Darwin Yepez [facility] Start: 08-12-2021 End: 08-12-2021 ambulatory Chandler Alina Other [employer] Other Start: 08-12-2021 Office outpatient ne w 45 minutes [facility] Plan of Treatment Date Care Activity Detail Author Start: 03-27-2021 Influenza vaccination Flu vaccine (# 1) [facility] Start: 1978 COVID-19 Vaccine (1) COVID-19 Vaccin e (1) [facility] Payers Date Payer Category Payer Self-pay 1975 Unknown [id number] [id number] [id number] 1975 Unknown [id number] 2.16.84 [id number] 1975 Unknown [id number] 2.16.84 [id number] 1975 Unknown [id number] 2.16.84 [id number] 1959 Unknown [id number]. [id number] Unknown [id number] 2.16.8 [id number] Social History Date Type Detail Facility Start: 10-16-2021 Tobacco smoking status NHIS Never smoked tobacco [facility] [employer] Other Start: 10-16-2021 Tobacco use and exposure Smokeless tobacco non-user [facility] Phone: Start: 1975 Sex Assigned At Not on file [facility] [employer] Phone: Start: 10-06-2021 End: 10-16-2021 Exposure to SARS-CoV-2 (event) Not sure [facility] Phone: Sex Assigned At Sex Assigned At Bir th [facility] Other Evaluation note 12-30-2021 Note Date & [...] pain persists we will order an MRI. [facility] Other Evaluation note 10-31-2021 Note Date & [...] issues to improve. Work on light exercises [facility] Other Evaluation note 09-02-2021 Note Date & [...] today to avoid pinching at the wrist. [facility] Other Evaluation note 08-27-2021 Note Date & Type Note Facility 08-27-2021 Evaluation note Encounter Date Diagnosis Assessment Notes Aug, Other specified postprocedural states (ICD-10 - Z98.890) [facility] Other Evaluation note 08-12-2021 Note Date & [...] TO DETERMINE REPARABILTIY AND LOCATION OF TEAR. [facility] Other Evaluation note Note Date & Type Note Facility Evaluation note Diagnosis Cutaneous abscess of neck- Primary Cellulitis and abscess of neck documented in this encounter [facility] Phone: History general Narrative - Reported Note Date & Type Note Facility History general Narrative - Reported Type Medical History fibromyalgia Medical History Arthritis Surgical History bilateral carpal tunnel surgery Surgical History mass removed right knee Surgical History back fusion [facility] Other History general Narrative - Reported Note Date & Type Note Facility History general Narrative - Reported Type Medical History fibromyalgia Medical History Arthritis Surgical History bilateral carpal tunnel surgery Surgical History mass removed right knee Surgical History back fusion Surgical History right distal bicep repair 2021 [facility] Other Hospital Discharge instructions Attachments Note Date & Type Note Facility Hospital Discharge instructions The following attachments cannot be sent through Care Everywhere.Abscess: Skin (Montserratian)documented in this encounter [facility] Phone: Summary Purpose Family History No Family [...] Care Teams (unrecognized sec tion and content) Drafting Clerk Relationship Specialty Start Date End Date Reddy Strickland MD [address] [place] [address] PCP - General Family Medicine 10/16/21 (unrecognized sect ion and content) No Status Records FoundNo Status Records FoundNo Status Records FoundNo Status Records Found INFORMATION SOURCE (unrecogn ized section and content) DATE CREATED AUTHOR 10/17/2021 Alba quiros DATE CREATED AUTHOR AUTHOR'S ORGANIZ ATION 08/30/2022 [facility] DATE CREATED AUTHOR AUTHOR'S ORGANIZ ATION 11/18/2022 [facility] DATE CREATED AUTHOR AUTHOR'S ORGANIZ ATION 10/29/2023 [facility] dical Specialists [facility] FOR RECORDS PERTAINING TO PATIENTS WHO [...] BE BASED ON THE PRIMARY CLINICAL RECORDS. [employer] provides no warranty or guarantee of the accuracy or completeness of information in this document.
--- NOTE | 2024-04-14 11:05 | P.CN_ITS ---
Consult Note: HPI Data of Consult Patient: known to practice within the last 3 years Requesting Physician: Josefa Alvarado NP Primary Care Provider: Reddy Alcantara MD Consult Narrative Reason for consult: chronic low back pain Narrative: Ruel Simon a pleasant 48 year old male presents for evaluation and management of chronic low back pain. Patient has had chronic low back pain greater than 1 year unresponsive to tylenol, NSAIDs, pregabalin, duloxetine, medical marijauana. patient completed 4 PT visits 2 months ago without improvement. continues to have pain secondary to lumbar spondylosis and facet arthropathy. Pain increased with standing walking pushing pulling acvitiy and ADLS, improved with sitting. patient denies loss of bowel or bladder. pain today 5/10 sharp intermittent, increasing to 10/10. Recently underwent bilateral L4/5 L5/S1 MBB #1 with 100% improvement greater than 3.5-4 hours following the injection. cc:: CC: Josefa Alvarado NP Review of Systems ROS Status of ROS 10 or more systems reviewed and unremark able except as noted in history and below Musculoskeletal Reports: back pain Meds Home Medications and Allergies Home Medications ?Medication ?Instructions ?Recorded ?Confirmed ?Type cholecalciferol (vitamin D3) 50 2,000 unit PO DAILY 03/24/24 03/24/24 History mcg (2,000 unit) capsule (D3-2000) duloxetine 60 mg capsule,delayed 60 mg PO BID 03/24/24 03/24/24 History release meloxicam 7.5 mg tablet 7.5 mg PO DAILY 03/24/24 03/24/24 History pregabalin 100 mg capsule (Lyrica) 100 mg PO Q8H 03/24/24 03/24/24 History Allergies Allergy/AdvReac Type Severity Reaction Status Date / Time iodine Allergy Unknown Unknown Verified 03/24/24 13:42 Exam Constitutional Documenting provider has reviewed patient's vital signs: yes Common normals: no apparent distress, oriented x3, healthy appearing, alert and well nourished General appearance: cooperative HENMT Common normals: normocephalic, hearing grossly normal bilaterally and moist oral mucous membranes Head and scalp: normocephalic Eye Common normals: PERRL Pupil: PERRL Neck & C-Spine Common normals: full ROM General: normal visual inspection Chest Common normals: inspection of chest normal Respiratory Common normals: normal respiratory effort, no retractions and no use of accessory muscles Back & Pelvis Lumbar spine/lower back: ROM limited, pain with ROM and straight leg raise negative bilaterally Other: positive facet loading bilaterally, right greater than left negative SLR and radiculopathy sensation intact BLE strength 4/5 in BLE Extremity Common normals: normal to inspection and full ROM Neuro Common normals: oriented x3, CN's II-XII intact bilaterally, moves all extremities, no focal motor deficits, no sensory deficits noted and deep tendon reflexes 2+ bilaterally Sensorium/orientation: alert Motor exam: strength 5/5 throughout and no movement abnormalities noted Psych Common normals: mental status grossly normal, thought process normal, cooperative, affect normal, speech normal and activity/motor behavior normal Speech: normal speech Thought process: normal thought process Results Additional Findings Additional findings: If on a controlled substance or opioids, I have checked an OARRS report on this patient and there are no aberrancies noted in the prescribing history.??If on a controlled substance or opioid a drug screen was completed and reviewed within the last year, and if there has not been a drug screen completed we ordered one today to monitor higher risk, state monitored pain medication use. As part of providing excellent, safe, comprehensive care, the following was completed at our patient's visit: 1. A medication reconciliation and review to ensure accurate knowledge of current/active medications, including asking our patients to inform us about any [id number] medications or herbal remedies/nutritional supplements/alternative remedies. 2. A review to specifically ensure our patients have had annual screening for screening for depression, screening for tobacco use, and screening for unhealthy alcohol use. For concerning screenings had a discussion with the patient, provided patient education, and recommended follow-up with primary care provider when appropriate. If patient noted with a risk of falling, they received education on strength, gait, and balance training to prevent future risk of fall ing. Assessment and Plan Assessment and Plan (1) Lumbar spondylosis: Assessment and Plan: The patient has had over 3 months of moderate to severe low back pain with functional impairment and inadequate response to conservative care including NSAIDS (unless there are contraindication such as concurrent blood thinners), multiple oral or topical pain medications, and home exercise program/physical therapy.? (2) Myofascial pain: Plan bilateral L4-5 L5-S1 MBB x2 under fluoroscopy, risks vs benefits reviewed continue current medications f/u after each injection
== END 2024-04-14 10:51 | disposition home or self-care (01) ==
LOC: PM 10:50
PROVIDERS: PCP Family Medicine; Visit Provider Nurse Practitioner
DX: M47.816 Spondylosis without myelopathy or radiculopathy, lumbar region (principal); M79.18 Myalgia, other site
CPT/HCPCS: G0463

== ENCOUNTER 2024-04-26 07:22 | Day surgery (SDC) | payer OTHER, SELFPAY ==
--- OUTSIDE RECORDS SUMMARY | 2024-04-26 07:25 | XMS_ITS | CCD ---
Author Organization [facility] Inform ion Partnership [facility] Care Team Providers Care Artist'S Representative Name Role Phone Reddy Strickland MD Primary [...] Primary Care Unavailable BUD DESAI Admitting Unavailable UBD DESAI Attending Unavailable BUD DESAI Consulting Unavailable SALONI BRAND Consulting Unavailable REDDY STRICKLAND Attending Unavailable Allergies Allergy Classification Reported Allergen(s) Allergy Type Date of Onset Reaction(s) Facility (1 source) Chlorhexidine Drug Allergy 01-26-2020 [facility] Medications Current Medications Medication Drug Class(es) [...] 12-12-2021 Episodic Other aftercare (1 source) Other fci (current) drug therapy; 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: [OTH 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] Onset: 12-12-2021 Episodic Other [...] SALONI BRAND Date: 2021-12-10 22:17 Normal [facility] XR KNEE LT 4V or >on [...] by: SALONI BRAND Date: 2021-12-10 22:15 Normal [facility] XR elbow RT 2Von 09-02-2021 XR elbow RT 2V [facility] Main [place] [address] [place] [address] XRay Report Signed Patient: Na Simon MR#: [id number] : 1975 Acct:[id number] Age/Sex: 46 / M ADM Date: 09/02/21 Loc: [facility] [place] Room: Type: [facility] Attending Dr: Chandler Fuller MD Ordering Provider: [...] Giles Jr., DOliveOOlive09/02/2021 2:06 PM Dictation Location: [place] [address] Transcribed By: [facility] 09/02/21 1406 Dictated By: Ishan Giles Jr, DO 09/02/21 1403 Signed By: 09/02/21 1406 Normal [facility] Vital Signs Date Time Vital Sign Value Performing Clinician Facility 10-31-2021 12:00-0400 Body height 182.88 cm Chandler Fuller Other [facility] Other 10-31-2021 12:00-0400 Body mass index (BMI) [Ratio] 33.63 kg/m2 Chandler Fuller Other [facility] Other 10-31-2021 12:00-0400 Body weight 112.49 kg Chandler Fuller Other [facility] Other 10-16-2021 14:45-0400 Body height 193 cm Flex Ramírez MD Work Phone: [employer] 10-16-2021 14:45-0400 Body mass index (BMI) [Ratio] 47.55 kg/m2 Flex Ramírez MD Work Phone: [employer] 10-16-2021 14:45-0400 Body temperature 98.6 [degF] Flex Ramírez MD Work Phone: [employer] 10-16-2021 14:45-0400 Body weight 177.18 kg Flex Ramírez MD Work Phone: [employer] 10-16-2021 14:45-0400 Diastolic blood pressure 104 mm[Hg] Flex Ramírez MD Work Phone: [employer] 10-16-2021 14:45-0400 Heart rate 85 /min Flex Ramírez MD Work Phone: [employer] 10-16-2021 14:45-0400 Respiratory rate 18 /min Flex Ramírez MD Work Phone: [employer] 10-16-2021 14:45-0400 SaO2% (BldA) [Mass fraction] 94 % Flex Ramírez MD Work Phone: [employer] 10-16-2021 14:45-0400 Systolic blood pressure 170 mm[Hg] Flex Ramírez MD Work Phone: [employer] 09-02-2021 12:30-0500 Body height 182.88 cm Chandler Fuller Other [facility] Other 09-02-2021 12:30-0500 Body mass index (BMI) [Ratio] 33.36 kg/m2 Chandler Fuller Other [facility] Other 09-02-2021 12:30-0500 Body weight 111.59 kg Chandler Olexa Other [employer] Other Encounters Encounter Date Encounter Type Care Provider Facility Start: 10-28-2023 End: 10-28-2023 ambulatory REDDY STRICKLAND Not Available Start: 11-17-[address] REDDY STRICKLAND Facil ity:H1 Start: 12-30-2021 End: 12-30-2021 ambulatory Chandler Olexa Other [employer] Other Start: 12-30-2021 Office outpatient ne w 30 minutes Chandler Olexa [facility] Start: 12-10-2021 End: 12-11-[address] REDDY STRICKLAND Facility:[facility]1 Start: 10-31-2021 End: 10-31-2021 ambulatory Chandler Olexa Other [facility] Other Start: 10-31-2021 Postop follow up vis it related to original px Chandler Olexa [facility] Start: 10-16-2021 End: 10-16-2021 Emergency department patient visit [facility] Start: 10-16-2021 End: 10-16-2021 Emergency department patient visit [facility] Work Phone: [facility] ED Comment on above: Cutaneous abscess of neck (Primary Dx) Start: 09-02-2021 Postop follow up vis it related to original px Chandler Olexa [facility] Start: 09-02-2021 End: 09-02-2021 ambulatory Reddy Strickland [place] [email or web address] Other Start: 08-27-2021 End: 08-27-2021 ambulatory Darwin Ypeez Other [facility] Other Start: 08-27-2021 Telephone encounter Darwin Yepez [facility] Start: 08-12-2021 End: 08-12-2021 ambulatory Chandler Alina Other [facility] Other Start: 08-12-2021 Office outpatient ne w 45 minutes [facility] Plan of Treatment Date Care Activity Detail Author Start: 03-27-2021 Influenza vaccination Flu vaccine (# 1) [facility] Start: 1978 COVID-19 Vaccine (1) COVID-19 Vaccin e (1) [facility] Payers Date Payer Category Payer Self-pay 1975 Unknown [id number] 2.16.8 [id number] 1975 Unknown [id number] 2.16.84 [id number] 1975 Unknown [id number] 2.16.84 [id number] 1975 Unknown [id number] 2.16.84 [id number] 1959 Unknown [id number] 1. [id number] Unknown [id number] 2.16.8 [id number] Social History Date Type Detail Facility Start: 10-16-2021 Tobacco smoking status NHIS Never smoked tobacco [facility] Other Start: 10-16-2021 Tobacco use and exposure Smokeless tobacco non-user [facility] Phone: Start: 1975 Sex Assigned At Not on file [facility] Phone: Start: 10-06-2021 End: 10-16-2021 Exposure to SARS-CoV-2 (event) Not sure [facility] Phone: Sex Assigned At Sex Assigned At Bir th [facility] Other Evaluation note 12-30-2021 Note Date & [...] pain persists we will order an MRI. [facility] Other Evaluation note 10-31-2021 Note Date & [...] issues to improve. Work on light exercises [facility] Other Evaluation note 09-02-2021 Note Date & [...] today to avoid pinching at the wrist. [facility] Other Evaluation note 08-27-2021 Note Date & Type Note Facility 08-27-2021 Evaluation note Encounter Date Diagnosis Assessment Notes Aug, Other specified postprocedural states (ICD-10 - Z98.890) [facility] Other Evaluation note 08-12-2021 Note Date & [...] TO DETERMINE REPARABILTIY AND LOCATION OF TEAR. [facility] Other Evaluation note Note Date & Type Note Facility Evaluation note Diagnosis Cutaneous abscess of neck- Primary Cellulitis and abscess of neck documented in this encounter [facility] Phone: History general Narrative - Reported Note Date & Type Note Facility History general Narrative - Reported Type Medical History fibromyalgia Medical History Arthritis Surgical History bilateral carpal tunnel surgery Surgical History mass removed right knee Surgical History back fusion [facility] Other History general Narrative - Reported Note Date & Type Note Facility History general Narrative - Reported Type Medical History fibromyalgia Medical History Arthritis Surgical History bilateral carpal tunnel surgery Surgical History mass removed right knee Surgical History back fusion Surgical History right distal bicep repair 2021 [facility] Other Hospital Discharge instructions Attachments Note Date & Type Note Facility Hospital Discharge instructions The following attachments cannot be sent through Care Everywhere.Abscess: Skin (Greek)documented in this encounter [facility] Phone: Summary Purpose Family History No Family [...] Care Teams (unrecognized sec tion and content) Artist'S Representative Relationship Specialty Start Date End Date Reddy Strickland MD [address] [place] [address] PCP - General Family Medicine 10/16/21 (unrecognized sect ion and content) No Status Records FoundNo Status Records FoundNo Status Records FoundNo Status Records Found INFORMATION SOURCE (unrecogn ized section and content) DATE CREATED AUTHOR 10/17/2021 Alba quiros DATE CREATED AUTHOR AUTHOR'S ORGANIZ ATION 08/30/2022 [facility] DATE CREATED AUTHOR AUTHOR'S ORGANIZ ATION 11/18/2022 [facility] DATE CREATED AUTHOR AUTHOR'S ORGANIZ ATION 10/29/2023 [facility] dical Specialists [facility] FOR RECORDS PERTAINING TO PATIENTS WHO [...] BE BASED ON THE PRIMARY CLINICAL RECORDS. [employer] provides no warranty or guarantee of the accuracy or completeness of information in this document.
[2024-04-26 07:28] VITALS: BP 135/90; PULSE 96; TEMP 36.2; O2SAT 95
[2024-04-26 08:23] VITALS: BP 137/80; PULSE 78; O2SAT 93
[2024-04-26 08:25] VITALS: BP 138/80; PULSE 82; O2SAT 92
[2024-04-26] MEDS: BUPIVACAINE HCL 0.25% PF 25 MG/10 ML VIAL 6 ML INJ (08:27)
--- NOTE | 2024-04-26 08:38 | W.PM.PROCNOT ---
Date of procedure: 04/26/24 Pre-op diagnosis: Lumbar spondylosis Post-op diagnosis: same as pre-op Procedure: Bilateral Lumbar 4/5, 5/sacral 1 medial branch block Preop diagnosis includes pain secondary to spondylosis, Postop diagnosis same Under fluoroscopic guidance Solution injected: 2milliliters Marcaine 0.25% Anesthesia :none Immediate complications none Time out process compliant After informed consent obtained from the patient placed in the [employer] . area was prepped and draped in a sterile fashion using betadine .25 gauge spinal needle inserted over each of the above mentioned target areas . [place] were directed towards the target under fluoroscopic guidance . after encountering each of the targets , no indication of intravascular intraneuronal or intrathecal needle tip placement. Then 0 .5 to 1 Milliliter was injected at each level. [place] removed postoperatively. patient transferred to recovery in stable condition to be discharged home after meeting criteria Anesthesia: Local Surgeon: Darian Bernal Condition: stable
== END 2024-04-26 08:32 | disposition home or self-care (01) ==
LOC: SURGOUT 07:22
PROVIDERS: PCP Family Medicine; Visit Provider Anesthesiology Pain Medicine
DX: M47.816 Spondylosis without myelopathy or radiculopathy, lumbar region (principal)
CPT/HCPCS: 64493; 64494; J0665

== ENCOUNTER 2024-05-04 12:38 | Outpatient (OUT) | payer OTHER, SELFPAY ==
--- OUTSIDE RECORDS SUMMARY | 2024-05-04 12:42 | XMS_ITS | CCD ---
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 CURRENT DRUG THERAPY] Onset: 12-12-2021 Episodic Other [...] SALONI BRAND Date: 2021-12-10 22:17 Normal [facility] XR KNEE LT 4V or >on [...] by: SALONI BRAND Date: 2021-12-10 22:15 Normal [facility] XR elbow RT 2Von 09-02-2021 XR elbow RT 2V [facility] Main [place] [address] [place] [address] XRay Report Signed Patient: Na Simon MR#: [id number] : 1975 Acct:[id number] Age/Sex: 46 / M ADM Date: 09/02/21 Loc: [facility] Room: Type: [facility] Attending Dr: Chandler Fuller MD Ordering [...] Giles Jr., DOliveOOlive09/02/2021 2:06 PM Dictation Location: [place] [address] Transcribed By: [facility] 09/02/21 1406 Dictated By: Ishan Giles Jr, DO 09/02/21 1403 Signed By: 09/02/21 1406 Normal [facility] Vital Signs Date Time Vital Sign Value Performing Clinician Facility 10-31-2021 12:00-0400 Body height 182.88 cm Chandler Fuller Other [facility] Other 10-31-2021 12:00-0400 Body mass index (BMI) [Ratio] 33.63 kg/m2 Chandler Fuller Other [facility] Other 10-31-2021 12:00-0400 Body weight 112.49 kg Chandler Fuller Other [facility] Other 10-16-2021 14:45-0400 Body height 193 cm Flex Ramírez MD Work Phone: [facility] 10-16-2021 14:45-0400 Body mass index (BMI) [Ratio] 47.55 kg/m2 Flex Ramírez MD Work Phone: [facility] 10-16-2021 14:45-0400 Body temperature 98.6 [degF] Flex Ramírez MD Work Phone: [facility] 10-16-2021 14:45-0400 Body weight 177.18 kg Flex Ramírez MD Work Phone: [facility] 10-16-2021 14:45-0400 Diastolic blood pressure 104 mm[Hg] Flex Ramírez MD Work Phone: [facility] 10-16-2021 14:45-0400 Heart rate 85 /min Flex Ramírez MD Work Phone: [facility] 10-16-2021 14:45-0400 Respiratory rate 18 /min Flex Ramírez MD Work Phone: [facility] 10-16-2021 14:45-0400 SaO2% (BldA) [Mass fraction] 94 % Flex Ramírez MD Work Phone: [facility] 10-16-2021 14:45-0400 Systolic blood pressure 170 mm[Hg] Flex Ramírez MD Work Phone: [facility] 09-02-2021 12:30-0500 Body height 182.88 cm Chandler Fuller Other [facility] Other 09-02-2021 12:30-0500 Body mass index (BMI) [Ratio] 33.36 kg/m2 Chandler Fuller Other [facility] Other 09-02-2021 12:30-0500 Body weight 111.59 kg Chandler Olexa Other [facility] Other Encounters Encounter Date Encounter Type Care Provider Facility Start: 10-28-2023 End: 10-28-2023 ambulatory REDDY STRICKLAND Not Available Start: 11-17-[address] REDDY STRICKLAND Facil ity:[facility]1 Start: 12-30-2021 End: 12-30-2021 ambulatory Chandler Olexa Other [facility] Other Start: 12-30-2021 Office outpatient ne w 30 minutes Chandler Olexa [facility] Start: 12-10-2021 End: 12-11-[address] REDDY STRICKLAND Facility:[facility]1 Start: 10-31-2021 End: 10-31-2021 ambulatory Chandler Olexa Other [facility] Other Start: 10-31-2021 Postop follow up vis it related to original px Chandler Olexa [facility] Start: 10-16-2021 End: 10-16-2021 Emergency department patient visit [facility] Start: 10-16-2021 End: 10-16-2021 Emergency department patient visit [facility] Work Phone: [facility] ED Comment on above: Cutaneous abscess of neck (Primary Dx) Start: 09-02-2021 Postop follow up vis it related to original px Chandler Olexa [facility] Start: 09-02-2021 End: 09-02-2021 ambulatory Reddy Strickland [employer] Other Start: 08-27-2021 End: 08-27-2021 ambulatory Darwin Yepez Other [facility] Other Start: 08-27-2021 Telephone encounter Darwin Yepez [facility] Start: 08-12-2021 End: 08-12-2021 ambulatory Chandler Alina Other [facility] Other Start: 08-12-2021 Office outpatient ne w 45 minutes [facility] Plan of Treatment Date Care Activity Detail Author Start: 03-27-2021 Influenza vaccination Flu vaccine (# 1) [facility] Start: 1978 COVID-19 Vaccine (1) COVID-19 Vaccin e (1) [facility] Payers Date Payer Category Payer Self-pay 1975 Unknown [id number] [id number] [id number] 1975 Unknown [id number] 2.16.84 [id number] 1975 Unknown [id number] 2.16.84 [id number] 1975 Unknown [id number] 2.16.84 [id number] 1959 Unknown [id number]. [id number] Unknown [id number] 2.16.8 [id number] Social History Date Type Detail Facility Start: 10-16-2021 Tobacco smoking status NHIS Never smoked tobacco [facility] Other Start: 10-16-2021 Tobacco use and exposure Smokeless tobacco non-user [facility] Phone: Start: 1975 Sex Assigned At Not on file M [employer] [place] Phone: Start: 10-06-2021 End: 10-16-2021 Exposure to SARS-CoV-2 (event) Not sure [facility] Phone: Sex Assigned At Sex Assigned At Bir th [facility] Other Evaluation note 12-30-2021 Note Date & [...] pain persists we will order an MRI. [facility] Other Evaluation note 10-31-2021 Note Date & [...] issues to improve. Work on light exercises [facility] Other Evaluation note 09-02-2021 Note Date & [...] today to avoid pinching at the wrist. [facility] Other Evaluation note 08-27-2021 Note Date & Type Note Facility 08-27-2021 Evaluation note Encounter Date Diagnosis Assessment Notes Aug, Other specified postprocedural states (ICD-10 - Z98.890) [facility] Other Evaluation note 08-12-2021 Note Date & [...] TO DETERMINE REPARABILTIY AND LOCATION OF TEAR. [facility] Other Evaluation note Note Date & Type Note Facility Evaluation note Diagnosis Cutaneous abscess of neck- Primary Cellulitis and abscess of neck documented in this encounter [facility] Phone: History general Narrative - Reported Note Date & Type Note Facility History general Narrative - Reported Type Medical History fibromyalgia Medical History Arthritis Surgical History bilateral carpal tunnel surgery Surgical History mass removed right knee Surgical History back fusion [facility] Other History general Narrative - Reported Note Date & Type Note Facility History general Narrative - Reported Type Medical History fibromyalgia Medical History Arthritis Surgical History bilateral carpal tunnel surgery Surgical History mass removed right knee Surgical History back fusion Surgical History right distal bicep repair 2021 [facility] Other Hospital Discharge instructions Attachments Note Date & Type Note Facility Hospital Discharge instructions The following attachments cannot be sent through Care Everywhere.Abscess: Skin (Syriac)documented in this encounter [facility] Phone: Summary Purpose Family History No Family [...] Care Teams (unrecognized sec tion and content) Manager E Learning Relationship Specialty Start Date End Date Reddy Strickland MD [address] [place] [address] PCP - General Family Medicine 10/16/21 (unrecognized sect ion and content) No Status Records FoundNo Status Records FoundNo Status Records FoundNo Status Records Found INFORMATION SOURCE (unrecogn ized section and content) DATE CREATED AUTHOR 10/17/2021 Alba quiros DATE CREATED AUTHOR AUTHOR'S ORGANIZ ATION 08/30/2022 [facility] DATE CREATED AUTHOR AUTHOR'S ORGANIZ ATION 11/18/2022 [facility] DATE CREATED AUTHOR AUTHOR'S ORGANIZ ATION 10/29/2023 [facility] dical Specialists [facility] FOR RECORDS PERTAINING TO PATIENTS [...] BE BASED ON THE PRIMARY CLINICAL RECORDS. [employer]. provides no warranty or guarantee of the accuracy or completeness of information in this document.
--- NOTE | 2024-05-04 13:07 | P.CN_ITS ---
Consult Note: HPI Data of Consult Patient: known to practice within the last 3 years Requesting Physician: Josefa Alvarado NP Primary Care Provider: Reddy Alcantara MD Consult Narrative Reason for consult: chronic low back pain Narrative: Ruel Simon a pleasant 48 year old male presents for evaluation and management of chronic low back pain. Patient has had chronic low back pain greater than 1 year unresponsive to tylenol, NSAIDs, pregabalin, duloxetine, medical marijauana. patient completed 4 PT visits 2 months ago without improvement. continues to have pain secondary to lumbar spondylosis and facet arthropathy. Pain increased with standing walking pushing pulling acvitiy and ADLS, improved with sitting. patient denies loss of bowel or bladder. pain today 5/10 sharp intermittent, increasing to 10/10. Recently underwent bilateral L4/5 L5/S1 MBB #1 with 100% improvement greater than 3.5-4 hours following the injection. Unfortunately with MBB #2 patient noted no improvement and increased FM pain. significant right sided myofascial pain throughout neck to buttocks. shayy numbness tingling and weakness to LEs. cc:: CC: Josefa Alvarado NP Review of Systems ROS Status of ROS 10 or more systems reviewed and unremark able except as noted in history and below Musculoskeletal Reports: back pain PFSH PFSH Medical History (Updated 05/04/24 @ 13:10 by Josefa Alvarado NP) Biceps tendon rupture ?S46.219A - Strain of muscle, fascia and tendon of other parts of biceps, unspecified arm, initial encounter (ICD-10) Carpal tunnel syndrome ?G56.00 - Carpal tunnel syndrome, unspecified upper limb (ICD-10) HTN (hypertension) ?I10 - Essential (primary) hypertension (ICD-10) Surgical History History of carpal tunnel release ?Z98.890 - Other specified postprocedural states (ICD-10) Meds Home Medications and Allergies Home Medications ?Medication ?Instructions ?Recorded ?Confirmed ?Type cholecalciferol (vitamin D3) 50 2,000 unit PO DAILY 03/24/24 04/26/24 History mcg (2,000 unit) capsule (D3-2000) duloxetine 60 mg capsule,delayed 60 mg PO BID 03/24/24 04/26/24 History release meloxicam 7.5 mg tablet 7.5 mg PO DAILY 03/24/24 04/26/24 History pregabalin 100 mg capsule (Lyrica) 100 mg PO Q8H 03/24/24 04/26/24 History Allergies Allergy/AdvReac Type Severity Reaction Status Date / Time povidone-iodine Allergy Unknown Verified 04/26/24 08:29 [From Betadine] Exam Constitutional Documenting provider has reviewed patient's vital signs: yes Common normals: no apparent distress, oriented x3, healthy appearing, alert and well nourished General appearance: cooperative HENMT Common normals: normocephalic, hearing grossly normal bilaterally and moist oral mucous membranes Head and scalp: normocephalic Eye Common normals: PERRL Pupil: PERRL Neck & C-Spine Common normals: full ROM General: normal visual inspection Chest Common normals: inspection of chest normal Respiratory Common normals: normal respiratory effort, no retractions and no use of accessory muscles Back & Pelvis Lumbar spine/lower back: ROM limited, pain with ROM and straight leg raise negative bilaterally Sacroiliac joints: SI joint(s) abnormal Other: positive facet loading bilaterally, right greater than left negative SLR and radiculopathy sensation intact BLE strength 4/5 in BLE right SIJ positive brooke(patricks), gaenslens, thigh thrust, compression test pain and spasming to right superior gluteal nerve Extremity Common normals: normal to inspection and full ROM Neuro Common normals: oriented x3, CN's II-XII intact bilaterally, moves all extremities, no focal motor deficits, no sensory deficits noted and deep tendon reflexes 2+ bilaterally Sensorium/orientation: alert Motor exam: strength 5/5 throughout and no movement abnormalities noted Psych Common normals: mental status grossly normal, thought process normal, cooperative, affect normal, speech normal and activity/motor behavior normal Speech: normal speech Thought process: normal thought process Results Additional Findings Additional findings: If on a controlled substance or opioids, I have checked an OARRS report on this patient and there are no aberrancies noted in the prescribing history.??If on a controlled substance or opioid a drug screen was completed and reviewed within the last year, and if there has not been a drug screen completed we ordered one today to monitor higher risk, state monitored pain medication use. As part of providing excellent, safe, comprehensive care, the following was completed at our patient's visit: 1. A medication reconciliation and review to ensure accurate knowledge of current/active medications, including asking our patients to inform us about any [id number]-kciyuoz medications or herbal remedies/nutritional supplements/alternative remedies. 2. A review to specifically ensure our patients have had annual screening for screening for depression, screening for tobacco use, and screening for unhealthy alcohol use. For concerning screenings had a discussion with the patient, provided patient education, and recommended follow-up with primary care provider when appropriate. If patient noted with a risk of falling, they received education on strength, gait, and balance training to prevent future risk of falling. Assessment and Plan Assessment and Plan (1) Unspecified mononeuropathy of right lower limb: (2) Lumbar spondylosis: (3) Myofascial pain: (4) Fibromyalgia: Plan will not proceed with L4-5 L5-S1 facet RFA at this time, trial right superior gluteal nerve block x1 working towards RFA for superior gluteal neuropathy continue current medications start medrol dose pack for FM flare f/u after injeciton
== END 2024-05-04 12:39 | disposition home or self-care (01) ==
LOC: PM 12:38
PROVIDERS: PCP Family Medicine; Visit Provider Nurse Practitioner
DX: G57.91 Unspecified mononeuropathy of right lower limb (principal); M47.816 Spondylosis without myelopathy or radiculopathy, lumbar region; M79.18 Myalgia, other site
CPT/HCPCS: G0463

== ENCOUNTER 2024-05-09 14:52 | Outpatient (OUT) | payer OTHER, SELFPAY ==
--- OUTSIDE RECORDS SUMMARY | 2024-05-09 15:04 | XMS_ITS | CCD ---
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 THERAPY] Onset: 12-12-2021 Episodic Other [...] SALONI BRAND Date: 2021-12-10 22:17 Normal [facility] XR KNEE LT 4V or >on [...] by: SALONI BRAND Date: 2021-12-10 22:15 Normal [facility] XR elbow RT 2Von 09-02-2021 XR elbow RT 2V [facility] Main [place] [address] [place] [address] XRay Report Signed Patient: Na Simon MR#: [id number] : 1975 Acct:[id number] Age/Sex: 46 / M ADM Date: 09/02/21 Loc: [facility] Room: Type: [facility] Attending Dr: Chandler Fuller MD Ordering Provider: [...] Giles Jr., DOliveOOlive09/02/2021 2:06 PM Dictation Location: [place] [address] Transcribed By: [facility] 09/02/21 1406 Dictated By: Ishan Giles Jr, DO 09/02/21 1403 Signed By: 09/02/21 1406 Normal [facility] Vital Signs Date Time Vital Sign Value Performing Clinician Facility 10-31-2021 12:00-0400 Body height 182.88 cm Chandler Fuller Other [facility] Other 10-31-2021 12:00-0400 Body mass index (BMI) [Ratio] 33.63 kg/m2 Chandler Fuller Other [facility] Other 10-31-2021 12:00-0400 Body weight 112.49 kg Chandler Fuller Other [facility] Other 10-16-2021 14:45-0400 Body height 193 cm Flex Ramírez MD Work Phone: [employer] 10-16-2021 14:45-0400 Body mass index (BMI) [Ratio] 47.55 kg/m2 Flex Ramírez MD Work Phone: [employer] 10-16-2021 14:45-0400 Body temperature 98.6 [degF] Flex Ramírez MD Work Phone: [employer] 10-16-2021 14:45-0400 Body weight 177.18 kg Flex Ramírez MD Work Phone: [employer] 10-16-2021 14:45-0400 Diastolic blood pressure 104 mm[Hg] Flex Ramírez MD Work Phone: [employer] 10-16-2021 14:45-0400 Heart rate 85 /min Flex Ramírez MD Work Phone: [employer] 10-16-2021 14:45-0400 Respiratory rate 18 /min Flex Ramírez MD Work Phone: [employer] 10-16-2021 14:45-0400 SaO2% (BldA) [Mass fraction] 94 % Flex Ramírez MD Work Phone: [employer] 10-16-2021 14:45-0400 Systolic blood pressure 170 mm[Hg] Flex Ramírez MD Work Phone: [employer] 09-02-2021 12:30-0500 Body height 182.88 cm Chandler Fuller Other [facility] Other 09-02-2021 12:30-0500 Body mass index (BMI) [Ratio] 33.36 kg/m2 Chandler Fuller Other [facility] Other 09-02-2021 12:30-0500 Body weight 111.59 kg Chandler Olexa Other [facility] Other Encounters Encounter Date Encounter Type Care Provider Facility Start: 10-28-2023 End: 10-28-2023 ambulatory REDDY STRICKLAND Not Available Start: 11-17-[address] REDDY STRICKLAND Facil ity:[facility]1 Start: 12-30-2021 End: 12-30-2021 ambulatory Chandler Olexa Other [facility] Other Start: 12-30-2021 Office outpatient ne w 30 minutes Chandler Olexa [facility] Start: 12-10-2021 End: 12-11-[address] REDDY STRICKLAND Facility:[facility]1 Start: 10-31-2021 End: 10-31-2021 ambulatory Chandler Olexa Other [facility] Other Start: 10-31-2021 Postop follow up vis it related to original px Chandler Olexa [facility] Start: 10-16-2021 End: 10-16-2021 Emergency department patient visit [facility] Start: 10-16-2021 End: 10-16-2021 Emergency department patient visit [facility] Work Phone: [facility] ED Comment on above: Cutaneous abscess of neck (Primary Dx) Start: 09-02-2021 Postop follow up vis it related to original px Chandler Olexa [facility] Start: 09-02-2021 End: 09-02-2021 ambulatory Reddy Strickland [facility] Other Start: 08-27-2021 End: 08-27-2021 ambulatory Darwin Yepez Other [facility] Other Start: 08-27-2021 Telephone encounter Darwin Yepez [facility] Start: 08-12-2021 End: 08-12-2021 ambulatory Chandler Alina Other [facility] Other Start: 08-12-2021 Office outpatient ne w 45 minutes [facility] Plan of Treatment Date Care Activity Detail Author Start: 03-27-2021 Influenza vaccination Flu vaccine (# 1) [facility] Start: 1978 COVID-19 Vaccine (1) COVID-19 Vaccin e (1) [facility] Payers Date Payer Category Payer Self-pay 1975 Unknown [id number] 2.16.8 [id number] 1975 Unknown [id number] 2.16.84 [id number] 1975 Unknown [id number] 2.16.84 [id number] 1975 Unknown [id number] 2.16.84 [id number] 1959 Unknown [id number] 1. [id number] Unknown [id number] 2.16.8 [id number] Social History Date Type Detail Facility Start: 10-16-2021 Tobacco smoking status NHIS Never smoked tobacco [facility] Other Start: 10-16-2021 Tobacco use and exposure Smokeless tobacco non-user [employer] Phone: Start: 1975 Sex Assigned At Not on file M [employer] Phone: Start: 10-06-2021 End: 10-16-2021 Exposure to SARS-CoV-2 (event) Not sure [employer] Phone: Sex Assigned At Sex Assigned At Bir th [facility] Other Evaluation note 12-30-2021 Note Date & [...] pain persists we will order an MRI. [facility] Other Evaluation note 10-31-2021 Note Date & [...] issues to improve. Work on light exercises [facility] Other Evaluation note 09-02-2021 Note Date & [...] today to avoid pinching at the wrist. [facility] Other Evaluation note 08-27-2021 Note Date & Type Note Facility 08-27-2021 Evaluation note Encounter Date Diagnosis Assessment Notes Aug, Other specified postprocedural states (ICD-10 - Z98.890) [facility] Other Evaluation note 08-12-2021 Note Date & [...] TO DETERMINE REPARABILTIY AND LOCATION OF TEAR. [facility] Other Evaluation note Note Date & Type Note Facility Evaluation note Diagnosis Cutaneous abscess of neck- Primary Cellulitis and abscess of neck documented in this encounter [employer] [employer] Phone: History general Narrative - Reported Note Date & Type Note Facility History general Narrative - Reported Type Medical History fibromyalgia Medical History Arthritis Surgical History bilateral carpal tunnel surgery Surgical History mass removed right knee Surgical History back fusion [facility] Other History general Narrative - Reported Note Date & Type Note Facility History general Narrative - Reported Type Medical History fibromyalgia Medical History Arthritis Surgical History bilateral carpal tunnel surgery Surgical History mass removed right knee Surgical History back fusion Surgical History right distal bicep repair 2021 [facility] Other Hospital Discharge instructions Attachments Note Date & Type Note Facility Hospital Discharge instructions The following attachments cannot be sent through Care Everywhere.Abscess: Skin (Palestinian)documented in this encounter [employer] Phone: Summary Purpose Family History No Family [...] Care Teams (unrecognized sec tion and content) Fourdrinier Machine Tender Relationship Specialty Start Date End Date Reddy Strickland MD [address] [place] [address] PCP - General Family Medicine 10/16/21 (unrecognized sect ion and content) No Status Records FoundNo Status Records FoundNo Status Records FoundNo Status Records Found INFORMATION SOURCE (unrecogn ized section and content) DATE CREATED AUTHOR 10/17/2021 Alba quiros DATE CREATED AUTHOR AUTHOR'S ORGANIZ ATION 08/30/2022 [facility] DATE CREATED AUTHOR AUTHOR'S ORGANIZ ATION 11/18/2022 [facility] DATE CREATED AUTHOR AUTHOR'S ORGANIZ ATION 10/29/2023 [facility] dical Specialists [facility] FOR RECORDS PERTAINING TO PATIENTS WHO [...] BE BASED ON THE PRIMARY CLINICAL RECORDS. [employer]. provides no warranty or guarantee of the accuracy or completeness of information in this document.
[2024-05-09 15:25] LABS: Basophils Absolute Auto 0.1 10^3/uL (0.0-0.1); Eosinophils Absolute Auto 0.3 10^3/uL (0.0-0.7); Eosinophils Percent Auto 3.4 % (0.9-7.0); Hemoglobin 14.8 g/dL (14.0-18.0); Immature Granulocytes Abs Auto 0.04 10^3/uL (0.00-0.03); Immature Granulocytes Pct Auto 0.5 % (0.0-0.5); Lymphocytes Absolute Auto 1.2 10^3/uL (1.2-3.8); Lymphocytes Percent Auto 16.7 % (20.5-60.0); Mean Corpuscular HGB Conc 32.9 g/dL (29.9-35.2); Mean Corpuscular Hemoglobin 26.9 pg (25.9-34.0); Mean Corpuscular Volume 81.7 fL (80.0-94.0); Mean Platelet Volume 9.2 fL (9.5-13.5); Monocytes Absolute Auto 0.5 10^3/uL (0.3-0.8); Monocytes Percent Auto 6.7 % (1.7-12.0); Neutrophils Absolute Auto 5.3 10^3/uL (1.4-6.5); Neutrophils Percent Auto 71.7 % (43.0-75.0); Platelet Count 211 10^3/uL (150-450); Red Blood Count 5.51 10^6/uL (4.70-6.10); Red Cell Distribution Width 14.1 % (11.0-15.0); White Blood Count 7.4 10^3/uL (4.0-11.0)
[2024-05-09 15:35] LABS: Estimated Average Glucose 114 mg/dL; Glycohemoglobin A1C 5.6 % (4.5-6.2)
[2024-05-09 15:57] LABS: Anion Gap 14.1; BUN Creatinine Ratio 22.8; Bilirubin Direct 0.1 mg/dL (0.0-0.2); Calcium 9.1 mg/dL (8.5-10.1); Carbon Dioxide 24.8 mmol/L (21.0-32.0); Chloride 107 mmol/L (98-107); Chol HDL Ratio 4.2; Cholesterol 187 mg/dL (<=200); Estimated GFR (African America >60 (>=60 mL/min/1.73m^2); Estimated GFR (Non-African Ame >60 (>=60 mL/min/1.73m^2); Glucose 118 mg/dL (74-106); HDL Cholesterol 45 mg/dL (40-60); LDL Cholesterol Calculated 116.2 mg/dL; Potassium 3.9 mmol/L (3.5-5.1); Sodium 142 mmol/L (136-145); Thyroid Stimulating Hormone 1.916 uIU/mL (0.358-3.740); Triglycerides 129 mg/dL (<=150); VLDL CHOLESTEROL 25.8 mg/dL
[2024-05-09 16:02] LABS: Prostate Specific Antigen Scrn 1.49 ng/mL (<=4.00)
== END 2024-05-09 14:53 | disposition home or self-care (01) ==
LOC: LAB 14:54
PROVIDERS: PCP Family Medicine; Visit Provider Family Medicine
DX: Z00.00 Encounter for general adult medical examination without abnormal findings (principal)
CPT/HCPCS: 36415; 80048; 80061; 82248; 83036; 84443; 85025; G0103

== ENCOUNTER 2024-05-28 21:10 | Emergency (ER) | payer OTHER, SELFPAY ==
[2024-05-28 21:16] VITALS: BP 131/94; PULSE 102; TEMP 36.7; O2SAT 95; BMI 51.9
--- OUTSIDE RECORDS SUMMARY | 2024-05-28 21:17 | XMS_ITS | CCD ---
Author Organization [facility] Care Team Providers Care Mission Assessment Specialist Name Role Phone Reddy Strickland MD Primary Care Provider FLEX RAMÍREZ Attending Unavailable REDDY STRICKLAND Primary Care UnavailChandler Cosme Unavailable Darwin Yepez Unavailable Reddy Strickland Primary Care Unavailable Chandler Fuller Attending Unavailable Alnia, Chandler Admitting Unavailable MARC OA, DR REDDY Roper Admitting Unavailable MARCO A, DR REDDY Roper Attending Unavailable MARCO A, DR REDDY Roper Primary Care Unavailable MARCO A, DR REDDY Roper Primary Care Unavailable BUD DESAI Admitting Unavailable BUD DESAI Attending Unavailable LLOYD, BUD Consulting Unavailable SALONI BRAND Consulting Unavailable REDDY STRICKLAND Attending Unavailable REDDY STRICKLAND Attending Unavailable Reddy Strickland MD Primary Care Provider [phone] Reddy Strickland MD Unavailable Allergies Allergy Classification Reported Allergen(s) Allergy Type Date of Onset Reaction(s) Facility (1 source) Chlorhexidine Drug Allergy 01-26-2020 [facility] Medications Current Medications Medication Drug Class(es) Dates Sig (Normalized) Sig (Original) acetaminophen 325 mg / oxyCODONE hydrochloride 5 mg oral tablet (2 sources) Opioid Agonist Start: 2 take 1 tablet by mouth every four hours as needed for pain Percocet 5-325 MG 1 tablet as needed for pain Orally up to every 4 hrs for 5 days Jul, Active cephalexin 500 mg oral capsule (2 sources) Cephalosporin Antibacterial Start: 2 take 1 capsule by mouth every eight hours Cephalexin 500 MG 1 capsule Orally every 8 hrs for 2 days Jul, Active cholecalciferol 0.025 mg oral tablet (5 sources) Vitamin D cholecalciferol (Vitamin D3) 25 MCG (1000 UT) tablet 1 (one) time each day at the same time Active clindamycin 300 mg oral capsule (1 source) Lincosamide Antibacterial Start: 2 End: 2 take 1 capsule by mouth three times daily clindamycin (CLEOCIN) 300 MG capsule Take 1 capsule by mouth 3 times daily for 7 days 21 capsule 0 10/16/2021 10/23/2021 Active cyclobenzaprine hydrochloride 10 mg oral tablet (4 sources) Muscle Relaxant Start: 4 take 1 tablet by mouth in the morning, then take 1 tablet by mouth in the evening, then take 1 tablet by mouth at bedtime cyclobenzaprine (Flexeril) 10 MG tablet Take 10 mg by mouth in the morning and 10 mg in the evening and 10 mg before bedtime. 05/02/2024 Active DULoxetine 60 mg delayed release oral capsule (5 sources) Serotonin and Norepinephrine Reuptake Inhibitor Start: 4 take 1 capsule by mouth twice daily DULoxetine (Cymbalta) [address] capsule Indications: Anxiety Take 1 capsule by mouth twice daily 60 capsule 5 02/18/2024 Active hydroCHLOROthiazide 12.5 mg / losartan potassium 50 mg oral tablet (4 sources) Thiazide Diuretic, Angiotensin 2 Receptor Talisha Start: 4 take 1 tablet by mouth once daily losartan-hydroCHLOR Othiazide (Hyzaar) 50-12.5 MG tablet Indications: Benign essential hypertension (CMS/HCC) Take 1 tablet by mouth Daily 30 tablet 5 05/09/2024 Active Knee Brace - (1 source) Start: 2 Knee Brace - as directed neoprene sleeve Dec, Active Medical Marijuana / Cannabinoid Product (1 source) Medical Marijuan a / Cannabinoid Product Active meloxicam 7.5 mg oral tablet (4 sources) Nonsteroidal Anti-inflammatory Drug Start: 4 take 1 tablet by mouth twice daily as needed meloxicam (Mobic) 7.5 MG tablet Take 7.5 mg by mouth 2 (two) times a day as needed 04/17/2024 Active pregabalin 100 mg oral capsule (6 sources) Start: 4 take 1 capsule by mouth in the morning, then take 1 capsule by mouth in the evening, then take 1 capsule by mouth at bedtime pregabalin (Lyrica) 100 MG capsule Indications: [facility] arthritis TAKE 1 CAPSULE BY MOUTH IN THE MORNING, 1 IN THE EVENING AND 1 AT BEDTIME 90 capsule 2 05/23/2024 Active Start: 02-25-2024 End: 05-23-2024 take 1 capsule by mouth in the morning, then take 1 capsule by mouth in the evening, then take 1 capsule by mouth at bedtime pregabalin (Lyrica) 100 MG capsule Indications: [facility] arthritis TAKE 1 CAPSULE BY MOUTH IN THE MORNING, 1 IN THE EVENING AND 1 AT BEDTIME 90 capsule 2 02/25/2024 05/23/2024 Discontinued traMADol hydrochloride 50 mg oral tablet (1 [...] Anti-epileptic Agent Gabapentin Not-Taking Gabapentin Activ e losartan potassium 50 mg oral tablet (3 sources) Angiotensin 2 Receptor Talisha Start: 10-28-2023 End: 05-09-2024 take 1 tablet by mouth once daily losartan (Cozaar) 50 MG tablet Indications: Essential hypertension, malignant (CMS/HCC) Take 1 tablet (50 mg) by mouth Daily 30 tablet 5 10/28/2023 05/09/2024 Discontinued methocarbamol 750 mg oral tablet (3 sources) Muscle Relaxant Start: 12-09-2023 End: 05-09-2024 take 1 tablet by mouth four times daily as needed methocarbamol (Robaxin) 750 MG tablet Indications: Lumbosacral spondylosis without myelopathy TAKE 1 TABLET BY MOUTH 4 TIMES DAILY NEEDED 60 tablet 12/09/2023 05/09/2024 Discontinued triamcinolone acetonide 40 mg/ml injectable suspension (1 source) Corticosteroid Start: 12-30-2021 Kenalog-40 Dec, 40 mg Vitamin D (5 sources) Vitamin D Not-Taking Vitamin D Active Problems Active Problems Problem Classification Problem Date Documented Date Episodic/Chronic Anxiety disorders (5 sources) Generalized anxiety disorder; 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: [Generalized anxiety disorder] Onset: 10-28-2023 10-28-2023 Chronic Diabetes mellitus without complication (1 source) Prediabetes; 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: [Prediabetes] Onset: 05-10-2024 05-10-2024 Episodic Essential hypertension (7 sources) Benign essential hypertension; 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: [Essential (primary) hypertension] Onset: 07-24-2023 10-28-2023 Chronic Osteoarthritis (8 sources) Osteoarthritis of left knee joint; 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: [Unilateral primary osteoarthritis, left knee] Onset: 12-30-2021 Resolved: 10-28-2023 Chronic Other nervous system disorders (5 sources) Carpal tunnel syndrome of left wrist; 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: [Carpal tunnel syndrome, left upper limb] Onset: 07-24-2023 07-24-2023 Chronic Other nervous system disorders (5 sources) Carpal tunnel syndrome of right wrist; 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: [Carpal tunnel syndrome, right upper limb] Onset: 07-24-2023 07-24-2023 Chronic Other nutritional; endocrine; and metabolic disorders (1 source) Morbid (severe) obesity due to excess calories; 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: [MORBID SEVERE OBES D/T EXCESS KEAGAN] Onset: 12-12-2021 Chronic Other nutritional; endocrine; and metabolic disorders (1 source) Body mass index (BMI) 45.0-49.9, adult; 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: [BODY MASS INDEX BMI 45.0-49.9 ADULT] Onset: 12-12-2021 Chronic Other nutritional; endocrine; and metabolic disorders (6 sources) Morbid obesity; 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: [Morbid (severe) obesity due to excess calories] Onset: 05-09-2024 05-09-2024 Chronic Other nutritional; endocrine; and metabolic disorders (2 sources) Body mass index 40+ - severely obese; 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: [Body mass index (BMI) 45.0-49.9, adult] 05-09-2024 Chronic Other screening for suspected conditions (not mental disorders or infectious disease) (2 sources) Patient encounter status; 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: [Encounter for screening for malignant neoplasm of colon] 05-09-2024 Episodic Skin and subcutaneous tissue infections (1 source) Abscess of neck; 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: [Cutaneous abscess of neck] Episodic Spondylosis; intervertebral disc disorders; other back problems (11 sources) Spondylosis without myelopathy or radiculopathy, lumbosacral region; 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: [Lumbosacral spondylosis without myelopathy] Onset: 11-17-2022 Chronic Unclassified (1 source) Z98.890 - Other specified postprocedural states; 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: [Z98.890 - Other specified postprocedural states] Onset: 09-02-2021 Past or Other Problems Problem Classification Problem Date Documented Date Episodic/Chronic Cardiac dysrhythmias (5 sources) Palpitations; 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: [Palpitations] Onset: 06-29-2023 06-29-2023 Episodic E Codes: Fall (1 source) Unspecified fall, initial encounter; 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: [UNSPECIFIED FALL INITIAL ENCOUNTER] Onset: 12-12-2021 Episodic Other aftercare (1 source) Other halfway (current) drug therapy; 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: [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] Onset: 12-12-2021 Episodic Other circulatory disease (5 sources) Acquired arteriovenous malformation; 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: [Other specified disorders of arteries and arterioles] Onset: 07-24-2023 Resolved: 05-09-2024 07-24-2023 Chronic Other connective tissue disease (7 sources) Fibromyalgia; 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: [Fibromyalgia] Onset: 10-28-2023 10-28-2023 Episodic Other injuries and conditions due to external causes (1 source) Unspecified injury of left lower leg, initial encounter; 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: [UNS INJURY LT LOWER LEG INITIAL ENC] Onset: 12-12-2021 Episodic Other nervous system disorders (5 sources) Paresthesia; 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: [Paresthesia of skin] Onset: 10-28-2023 10-28-2023 Episodic Other non-traumatic joint disorders (3 sources) Pain in left knee; 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: [PAIN IN LEFT KNEE] Onset: 12-10-2021 Episodic Other non-traumatic joint disorders (5 sources) Hip pain; 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: [Pain in unspecified hip] Onset: 07-24-2023 07-24-2023 Episodic Other non-traumatic joint disorders (5 sources) Pain in elbow; 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: [Pain in right elbow] Onset: 10-28-2023 10-28-2023 Episodic Residual codes; unclassified (3 sources) Other [...] Name Value Interpretation Reference Range Facil ity ALL CBC WITH AUTO DIFFon BASOPHILS ABSOLUTE AUTO 0.1 [facility] Basophils/100 WBC (Bld) 1 % 0.2 - 2.0 % [facility] Eosinophils/100 WBC (Bld) 3.4 % 0.9 - 7.0 % [facility] Erythrocyte distribution width (RBC) [Ratio] 14.1 % 11.0 - 15.0 % [facility] Hematocrit (Bld) [Volume fraction] 45 % 42.0 - 54.0 % [facility] [Mass/Vol] 14.8 g/dL 14.0 - 18.0 g/dL [facility] IMMATURE GRANULOCYTES ABS AUTO 0.04 High [facility] Immature granulocytes/100 WBC (Bld) 0.5 % 0.0 - 0.5 % [facility] Interpretation and review of laboratory results Abnormal [facility] LYMPHOCYTES ABSOLUTE AUTO 1.2 [facility] Lymphocytes/100 WBC (Bld) 16.7 % Low 20.5 - 60.0 % [facility] MCH (RBC) [Entitic mass] 26.9 pg 25.9 - 34.0 pg [facility] MCHC (RBC) [Mass/Vol] 32.9 g/dL 29.9 - 35.2 g/dL [facility] MCV (RBC) [Entitic vol] 81.7 fL 80.0 - 94.0 fL [facility] MONOCYTES ABSOLUTE AUTO 0.5 [facility] Monocytes/100 WBC (Bld) 6.7 % 1.7 - 12.0 % [facility] NEUTROPHILS ABSOLUTE AUTO 5.3 [facility] Neutrophils/100 WBC (Bld) 71.7 % 43.0 - 75.0 % [facility] Platelet mean volume (Bld) [Entitic vol] 9.2 fL Low 9.5 - 13.5 fL [facility] EO # 0.3 [facility] PLT 211 [facility] RBC 5.51 [facility] WBC 7.4 [facility] XR HIPS MILY 5V W PELVISon XR HIPS MILY 5V W PELVIS EXAM: XR HIPS MILY 5V W PELVIS HISTORY: Pelvic and hip pain COMPARISON: None. TECHNIQUE: 6 views FINDINGS: No osseous lesion, fracture, dislocation or subluxation. Joint spaces are normal. No visualized effusion. No visualized soft tissue edema. IMPRESSION: Normal x-rays Electronically authenticated by: SALONI BRAND Date: 2021-12-10 22:17 Normal [facility] XR KNEE LT 4V or >on [...] by: SALONI BRAND Date: 2021-12-10 22:15 Normal [facility] XR elbow RT 2Von 09-02-2021 XR elbow RT 2V [facility] [address] [place] [address] XRay Report Signed Patient: Ruel Simon MR#: [id number] : 1975 Acct:[id number] Age/Sex: 46 / M ADM Date: 09/02/21 Loc: [facility] Room: Type: [facility] Attending Dr: Chandler Fuller MD Ordering [...] change. Impression dictated by: Ishan Giles Jr., D.OOlive09/02/2021 2:06 PM Dictation Location: [place] [address] Transcribed By: [facility] 09/02/21 1406 Dictated By: Ishan Giles Jr, DO 09/02/21 1403 Signed By: 09/02/21 1406 [facility] Vital Signs Date Time Vital Sign Value Performing Clinician Facility 05-09-2024 14:03-0400 Body height 190.5 cm Reddy Strickland MD Work Phone: [facility] 05-09-2024 14:03-0400 Body mass index (BMI) [Ratio] 50.75 kg/m2 Reddy Strickland MD Work Phone: [facility] 05-09-2024 14:03-0400 Body temperature 97.3 [degF] Reddy Strickland MD Work Phone: [facility] 05-09-2024 14:03-0400 Body weight 184.16 kg Reddy Strickland MD Work Phone: [facility] 05-09-2024 14:03-0400 Diastolic blood pressure 78 mm[Hg] Reddy Strickland MD Work Phone: [facility] 05-09-2024 14:03-0400 Heart rate 75 /min Reddy Strickland MD Work Phone: [facility] 05-09-2024 14:03-0400 Respiratory rate 22 /min Reddy Strickland MD Work Phone: [facility] 05-09-2024 14:03-0400 SaO2% (BldA) [Mass fraction] 93 % Reddy Strickland MD Work Phone: [facility] 05-09-2024 14:03-0400 Systolic blood pressure 152 mm[Hg] Reddy Strickland MD Work Phone: [facility] 10-31-2021 12:00-0400 Body height 182.88 cm Chandler Fuller Other [facility] Other 10-31-2021 12:00-0400 Body mass index (BMI) [Ratio] 33.63 kg/m2 Chandler Robertsxa Other [facility] Other 10-31-2021 12:00-0400 Body weight 112.49 kg Chandler Robertsxa Other [facility] Other 10-16-2021 14:45-0400 Body height 193 cm Flex Ramírez MD Work Phone: [facility] 10-16-2021 14:45-0400 Body mass index (BMI) [Ratio] 47.55 kg/m2 Flex Ramírez MD Work Phone: [facility] 10-16-2021 14:45-0400 Body temperature 98.6 [degF] Flex Ramírez MD Work Phone: [facility] 10-16-2021 14:45-0400 Body weight 177.18 kg Flex Ramírez MD Work Phone: [facility] 10-16-2021 14:45-0400 Diastolic blood pressure 104 mm[Hg] Flex Ramírez MD Work Phone: [facility] 10-16-2021 14:45-0400 Heart rate 85 /min Flex Ramírez MD Work Phone: [facility] 10-16-2021 14:45-0400 Respiratory rate 18 /min Flex Ramírez MD Work Phone: [facility] 10-16-2021 14:45-0400 SaO2% (BldA) [Mass fraction] 94 % Flex Ramírez MD Work Phone: [facility] 10-16-2021 14:45-0400 Systolic blood pressure 170 mm[Hg] Flex Ramírez MD Work Phone: [facility] 09-02-2021 12:30-0500 Body height 182.88 cm Chandler Fuller Other [facility] Other 09-02-2021 12:30-0500 Body mass index (BMI) [Ratio] 33.36 kg/m2 Chandler Fuller Other [facility] Other 09-02-2021 12:30-0500 Body weight 111.59 kg Chandler Fuller Other [facility] Other Encounters Encounter Date Encounter Type Care Provider Facility Start: 05-21-2024 End: 05-23-2024 Refill Reddy Strickland MD Work Phone: [facility] Comment on above: [facility] arthritis Start: 05-09-2024 End: 05-09-2024 Bamboo flowsheet Reddy Strickland MD Work Phone: [facility] Start: 05-09-2024 End: 05-09-2024 Bamboo flowsheet Reddy Strickland MD Work Phone: [facility] Start: 05-09-2024 End: 05-09-2024 [facility] Result Encounter Reddy Strickland MD Work Phone: [facility] Unsolicited Start: 05-09-2024 End: 05-09-2024 Office outpatient visit 25 minutes Reddy Strickland MD Work Phone: [facility] Comment on above: Benign essential hyp ertension (CMS/HCC) (Primary Dx); Lumbosacral spondylosis without myelopathy; Fibromyalgia; Annual physical exam; Colon cancer screening; Morbid obesity due to excess calories (CMS/HCC); Body mass index (BMI) 45.0-49.9, adult (CMS/HCC) Start: 05-09-2024 End: 05-09-2024 Patient encounter procedure Reddy Strickland MD Work Phone: [facility] Start: 05-09-2024 End: 05-09-2024 ambulatory REDDY STRICKLAND Not Available Start: 10-28-2023 End: 10-28-2023 ambulatory REDDY STRICKLAND Not Available Start: 11-17-[address] REDDY STRICKLAND Facil ity:[facility] Start: 12-30-2021 End: 12-30-2021 ambulatory Chandler Olexa Other [facility] Other Start: 12-30-2021 Office outpatient ne w 30 minutes Chandler Olexa [facility] Start: 12-10-2021 End: 12-11-[address] REDDY STRICKLAND Facility:[facility] Start: 10-31-2021 End: 10-31-2021 ambulatory Chandler Olexa Other [facility] Other Start: 10-31-2021 Postop follow up vis it related to original px Chandler Olexa [facility] Start: 10-16-2021 End: 10-16-2021 Emergency department patient visit [facility] Start: 10-16-2021 End: 10-16-2021 Emergency department patient visit [facility] Work Phone: [facility] Comment on above: Cutaneous abscess of neck (Primary Dx) Start: 09-02-2021 Postop follow up vis it related to original px Chandler Olexa [facility] Start: 09-02-2021 End: 09-02-2021 ambulatory Reddy Strickladn [facility] Other Start: 08-27-2021 End: 08-27-2021 ambulatory Darwin Yepez Other [facility] Other Start: 08-27-2021 Telephone encounter Darwin DAMON [facility] Start: 08-12-2021 End: 08-12-2021 ambulatory Chandler Olexa Other [facility] Other Start: 08-12-2021 Office outpatient ne w 45 minutes Chandler Olexa [facility] Procedures Date Procedure Procedure Detail Performing Clinician Start: 05-09-2024 ALL CBC WITH AUTO DIFF Reddy Strickland MD Work Phone: Plan of Treatment Date Care Activity Detail Author Start: 08-09-2024 End: 08-09-2024 Patient encounter procedure 08/09/2024 2:00 PM EST Office Visit [facility] [address] [place] [address] Reddy Strickland MD [address] [place] [address] [facility] Start: 05-09-2024 End: 05-09-2025 Basic metabolic 1998 panel - Serum or Plasma Basic metabolic panel Lab Routine Annual physical exam Expected: 05/09/2024 (Approximate), Expires: 05/09/2025 [facility] Comment on above: Expected: 05/09/2024 (Approximate), Expires: 05/09/2025 Start: 05-09-2024 End: 05-09-2025 CBC W Auto Differential panel - Blood CBC and differential Lab Routine Annual physical exam Expected: 05/09/2024 (Approximate), Expires: 05/09/2025 [facility] Comment on above: Expected: 05/09/2024 (Approximate), Expires: 05/09/2025 Start: 05-09-2024 End: 05-09-2025 Hemoglobin A1c/Hemoglobin.total in Blood Hemoglobin A1c Lab Routine Annual physical exam Expected: 05/09/2024 (Approximate), Expires: 05/09/2025 [facility] Work Phone: Comment on above: Expected: 05/09/2024 (Approximate), Expires: 05/09/2025 Start: 05-09-2024 End: 05-09-2025 Hepatic function 2000 panel - Serum or Plasma Hepatic function panel Lab Routine Annual physical exam Expected: 05/09/2024 (Approximate), Expires: 05/09/2025 [facility] Comment on above: Expected: 05/09/2024 (Approximate), Expires: 05/09/2025 Start: 05-09-2024 End: 05-09-2025 Lipid 1996 panel - Serum or Plasma Lipid panel Lab Routine Annual physical exam Expected: 05/09/2024 (Approximate), Expires: 05/09/2025 [facility] Comment on above: Expected: 05/09/2024 (Approximate), Expires: 05/09/2025 Start: 05-09-2024 End: 05-09-2025 Noninvasive colorectal cancer DNA and occult blood screening [Presence] in Stool Cologuard colon cancer screening Lab Routine Colon cancer screening Expected: 05/09/2024 (Approximate), Expires: 05/09/2025 [facility] Comment on above: Expected: 05/09/2024 (Approximate), Expires: 05/09/2025 Start: 05-09-2024 End: 05-09-2024 Patient encounter procedure 05/09/2024 2:00 PM EDT Office Visit [facility] [address] [place] [address] Reddy Strickland MD [address] [place] [address] Arrived [facility] Comment on above: Arrived Start: 05-09-2024 End: 05-09-2025 Prostate specific Ag [Mass/volume] in Serum or Plasma PSA Lab Routine Annual physical exam Expected: 05/09/2024 (Approximate), Expires: 05/09/2025 [facility] Comment on above: Expected: 05/09/2024 (Approximate), Expires: 05/09/2025 Start: 05-09-2024 End: 05-09-2025 Thyrotropin [Units/volume] in Serum or Plasma TSH Lab Routine Annual physical exam Expected: 05/09/2024 (Approximate), Expires: 05/09/2025 [facility] Comment on above: Expected: 05/09/2024 (Approximate), Expires: 05/09/2025 Start: 03-27-2024 Influenza vaccination Influenza Vacc ine (#1) [facility] Start: 03-27-2021 Influenza vaccination Flu vaccine (# 1) [facility] Start: 1980 COVID-19 Vaccine (1) COVID-19 Vaccin e (1) [facility] Start: 1975 Screening for malign ant neoplasm of colon [facility] Immunizations Immunization Date Immunization Notes Care Provider Ney reinoso 05-27-2018 influenza virus vacc ine, unspecified formulation Reddy Strickland MD Work Phone: [facility] Payers Date Payer Category Payer Medicaid (Managed Care) [employer] [id number] 2021 Self-pay 1975 Unknown [id number] 1975 Unknown [id number] 1975 Unknown [id number] 1975 Unknown [id number] 1975 Unknown [id number] 1959 Unknown [id number] Unknown [id number] Social History Date Type Detail Facility Start: 10-16-2021 End: 10-28-2023 Tobacco smoking status ORIS Never smoked tobacco [facility] Other Start: 10-16-2021 End: 10-28-2023 Tobacco use and exposure Smokeless tobacco non-user [facility] Phone: Start: 1975 Sex Assigned At Not on file [facility] Phone: Start: 10-06-2021 End: 10-16-2021 Exposure to SARS-CoV-2 (event) Not sure [facility] Phone: Start: 10-28-2023 End: 05-09-2024 Sex Assigned At [facility] Other Start: 10-28-2023 End: 05-09-2024 History of Social function [facility] Clinical Notes 08-12-2021 to 05-09-2024 Reddy Strickland MD - 05/09/2024 2:38 PM Serina Strickland MD - 05/09/2024 2:37 PM Serina Strickland MD - 05/09/2024 2:37 PM EDElisabeth Strickland MD - 05/09/2024 2:37 PM EDT Note Date & Type Note Facility 05-09-2024 History of Presen t illness Narrative Associated Problem(s): Morbid obesity due to excess calories (CMS/HCC) Weight loss indicated. Check labs. Associated Problem(s): Lumbosacral spondylosis without myelopathy Pain unchanged and continue medication. Follow with pain management. Associated Problem(s): Fibromyalgia Pain unchanged and continue medication. Follow with pain management. Associated Problem(s): Benign essential hypertension (CMS/HCC) BP elevated and add hydrochlorothiazide to losartan. Monitor BP PRN. Discussed DASH diet. Images from the original note were not included. Subjective Patient ID: Ruel Simon is a 49 y.o. male who presents for Follow-up (6m). Follow up HTN and back pain. BP elevated today at 152/78. Taking medication daily. Not checking at home but goes to pain management and 130-155 there. Tolerating medication without side effects. Pain unchanged. Continued pain in low back and across top hips. Pain radiates into gluteal region and down legs. Pain worse with walking and standing. Getting procedures and specialist adjusted medication. Review of Systems Constitutional: Negative for fatigue. Respiratory: Negative for cough, shortness of breath and wheezing. Cardiovascular: Negative for chest pain and palpitations. Gastrointestinal: Negative for abdominal pain, diarrhea, nausea and vomiting. Genitourinary: Negative for dysuria. Objective Physical Exam Constitutional: General: He is not in acute distress. Appearance: Normal appearance. HENT: Head: Normocephalic. Right Ear: Tympanic membrane and ear canal normal. Left Ear: Tympanic membrane and ear canal normal. Eyes: Extraocular Movements: Extraocular movements intact. Pupils: Pupils are equal, round, and reactive to light. Cardiovascular: Rate and Rhythm: Normal rate and regular rhythm. Heart sounds: No murmur heard. No friction rub. No gallop. Pulmonary: Breath sounds: Normal breath sounds. No wheezing, rhonchi or rales. Abdominal: General: Bowel sounds are normal. There is no distension. Palpations: Abdomen is soft. Tenderness: There is no abdominal tenderness. There is no guarding or rebound. Musculoskeletal: Left lower leg: No edema. Neurological: Mental Status: He is alert. Assessment/Plan Problem List Items Addressed This Visit Benign essential hypertension (CMS/HCC) - Primary BP elevated and add hydrochlorothiazide to losartan. Monitor BP PRN. Discussed DASH diet. Relevant Medications losartan-hydroCHLOROthiazide (Hyzaar) 50-12.5 MG tablet Lumbosacral spondylosis without myelopathy Pain unchanged and continue medication. Follow with pain management. Fibromyalgia Pain unchanged and continue medication. Follow with pain management. Annual physical exam Relevant Orders Hemoglobin A1c Basic metabolic panel CBC and differential Lipid panel TSH PSA Hepatic function panel Morbid obesity due to excess calories (CMS/HCC) Weight loss indicated. Check labs. Other Visit Diagnoses Colon cancer screening Relevant Orders Cologuard colon cancer screening documented in this encounter [facility] 12-30-2021 Evaluation note Encounter Date Diagnosis Assessment Notes Dec, Primary osteoarthritis of left knee (ICD-10 - M17.12) Xrays were reviewed with patient in detail. We performed a 1/1cc marcaine / kenalog cortisone injection into the [...] pain persists we will order an MRI. [facility] Other 04-07-2022 Evaluation note* Encounter Date Diagnosis Assessment Notes Treatment Notes Treatment Clinical Notes Oct, Other specified postprocedural states (ICD-10 - Z98.890) Oct, Rupture of right distal biceps tendon, subsequent encounter (ICD-10 - S46.211D) Patient instructed that he may begin light strengthening exercises Oct, Other Patient instruc matthew to allow more time for knee issues to improve. Work on light exercises [facility] Other 02-07-2022 Evaluation note* Encounter Date Diagnosis Assessment Notes Treatment Notes Treatment Clinical Notes Aug, Other specified postprocedural states (ICD-10 - Z98.890) Aug, Rupture of right distal biceps tendon, subsequent encounter (ICD-10 - S46.211D) Radiographs reviewed with patient. Instructed on pronation/supinat ion motion, as well as passive elbow flexion exercises. May allow incision to get wet in clean running water. Continue use of the splint during activities. Call with questions/concern s. Splint shortened today to avoid pinching at the wrist. [facility] Other 02-01-2022 Evaluation note* Encounter Date Diagnosis Assessment Notes Treatment Notes Treatment Clinical Notes Aug, Other specified postprocedural states (ICD-10 - Z98.890) [facility] Other 01-17-2022 Evaluation note* Encounter Date Diagnosis Assessment Notes Treatment Notes Treatment Clinical Notes Jul, Tear of right biceps muscle, [...] TO DETERMINE REPARABILTIY AND LOCATION OF TEAR. [facility] Other Evaluation note* Diagnosis Cutaneous abscess of neck- Primary Cellulitis and abscess of neck documented in this encounter [employer] Phone: evaluation note* Diagnosis Benign essential hypertension (CMS/HCC)- Primary Essential hypertension, benign Fibromyalgia Unspecified myalgia and myositis Lumbosacral spondylosis without myelopathy Right elbow pain Pain in joint, upper arm CMC arthritis Essential hypertension, malignant (CMS/HCC) Essential hypertension, malignant Benign essential hypertension (CMS/HCC)- Primary Essential hypertension, benign Lumbosacral spondylosis without myelopathy Fibromyalgia Unspecified myalgia and myositis Annual physical exam Routine general medical examination at a health care facility Colon cancer screening Special screening for malignant neoplasms, colon Morbid obesity due to excess calories (CMS/HCC) Body mass index (BMI) 45.0-49.9, adult (CMS/HCC) documented in this encounter [facility] HealthcareEvaluation note* Diagnosis Benign essential hypertension (CMS/HCC)- Primary Essential hypertension, benign Fibromyalgia Unspecified myalgia and myositis Lumbosacral spondylosis without myelopathy Right elbow pain Pain in joint, upper arm CMC arthritis Essential hypertension, malignant (CMS/HCC) Essential hypertension, malignant Benign essential hypertension (CMS/HCC)- Primary Essential hypertension, benign Lumbosacral spondylosis without myelopathy Fibromyalgia Unspecified myalgia and myositis Annual physical exam Routine general medical examination at a health care facility Colon cancer screening Special screening for malignant neoplasms, colon Morbid obesity due to excess calories (CMS/HCC) Body mass index (BMI) 45.0-49.9, adult (CMS/HCC) CMC arthritis documented in this encounter [facility] general Narrative - Reported* Type Description Date Medical History fibromyalgia Medical History Arthritis Surgical History bilateral carpal tunnel surgery Surgical History mass removed right knee Surgical History back fusion [facility] Other History general Narrative - Reported* Type Description Date Medical History fibromyalgia Medical History Arthritis Surgical History bilateral carpal tunnel surgery Surgical History mass removed right knee Surgical History back fusion Surgical History right distal bicep repair 2021 [facility] Other Hospital Discharge instructions* Attachments The following attachments cannot be sent through Care Everywhere. * Abscess: Skin (Egyptian) [facility]: Summary Purpose Family History No Family [...] touch and painful when trying to sleep Reason Comments Follow-up 6m Reason Comments Med Refill Ordered Prescriptions (unrec ognized section and content) Prescription Sig Dispensed Refills Start Date End Da te clindamycin (CLEOCIN) 300 MG capsule Take 1 capsule by mouth 3 times daily for 7 days 21 capsule 0 10/16/2021 10/23/2021 Care Teams (unrecognized sec tion and content) Mission Assessment Specialist Relationship Specialty Start Date End Date Reddy Strickland MD [address] [place] [address] PCP - General Family Medicine 10/16/21 Mission Assessment Specialist Relationship Specialty Start Date End Date Reddy Strickland MD [address] [place] [phone] PCP [facility] 10/28/23 Reddy Strickland MD [address] [place] [address] [facility] 01/25/24 Mission Assessment Specialist Relationship Specialty Start Date End Date Reddy Strickland MD [address] [place] [address] [facility] 10/28/23 Reddy Strickland MD [address] [place] [address] [facility] 01/25/24 Mission Assessment Specialist Relationship Specialty Start Date End Date Reddy Strickland MD [address] [place] [phone] [facility] 10/28/23 Reddy Strickland MD [address] [place] [address] [facility] 01/25/24 Mission Assessment Specialist Relationship Specialty Start Date End Date Reddy Strickland MD [address] [place] [address] [facility] 10/28/23 Reddy Strickland MD [address] [place] [address] PCP - [facility] 01/25/24 (unrecognized sect ion and content) No Status Records FoundNo Status Records FoundNo Status Records FoundNo Status Records Found INFORMATION SOURCE (unrecogn ized section and content) DATE CREATED AUTHOR 10/17/2021 [facility] DATE CREATED AUTHOR AUTHOR'S ORGANIZ ATION 08/30/2022 [facility] DATE CREATED AUTHOR AUTHOR'S ORGANIZ ATION 11/18/2022 [facility] DATE CREATED AUTHOR AUTHOR'S ORGANIZ ATION 05/11/[address] [facility] dical Specialists EPIC FOR RECORDS PERTAINING TO PATIENTS WHO ARE [...] BE BASED ON THE PRIMARY CLINICAL RECORDS. [facility] [employer] [facility]. provides no warranty or guarantee of the accuracy or completeness of information in this document.
--- NOTE | 2024-05-28 21:28 | CT_ITS ---
The [address] [address] Patient Name: NA CASTRO MRN: [id number] date: 1975 Sex: M Assigned Patient Location: ER Current Patient Location: Accession/Order Number: [id number] Exam Date: 05/28/2024 21:59 Report Date: 05/29/2024 00:09 At the request of: ALFIE CARBAJAL Procedure: CT facial bones w con EXAM: CT facial bones w con, CT soft tissue neck w con CT facial bones w con, CT soft tissue neck w con INDICATION: 49 years old; Male . Symptom/Location/Duration: Insect bite on forehead 2 weeks ago. Now with facial and neck pain. TECHNIQUE: CT of the facial bones was performed. IV contrast: None. Axial, coronal, sagittal reformats were created and reviewed. Dose reduction techniques were achieved by using automated exposure control and/or adjustment of mA and/or kV according to patient size and/or use of iterative reconstruction technique. COMPARISON: None Contrast: 100 mL of Omnipaque 300. FINDINGS: FRONTAL BONES: SUPRAORBITAL SOFT TISSUES: Normal without swelling, laceration or foreign body. ORBITS: Globes: Normal without proptosis or evidence of disruption or intraocular foreign body. Retrobulbar fat: normal without mass or hematoma. Extraocular Muscles: Normal and symmetric without prolapse or evidence of entrapment. Optic Nerves: Normal without mass-effect or evidence of disruption. Preseptal Soft Tissues: Normal without swelling, laceration or foreign body. Varma: No orbital wall fracture or bony dehiscence is present. MAXILLA AND MANDIBLE: Maxillary and buccal soft tissues: Normal without swelling, laceration or foreign body. Maxillary bones: No alveolar ridge fracture. Missing teeth on the right. No periapical lucencies. No maxillary fracture. Mandible: No alveolar ridge fracture. No periapical lucency. No mandibular body or neck fracture. TMJ are intact. Nasal bones and septum: There is chronic appearing deformity the nasal bones consistent with old fracture. Nasal septal deviation to the left with spur formation. Maxillary spine is intact. PARANASAL SINUSES: Frontal: Clear. Ethmoid: Clear. Maxillary: Clear. Sphenoid: Clear. Zygomatic arch: Intact bilaterally. Pterygoid plates: Intact bilaterally. TECHNIQUE: CT examination of the neck. Axial, coronal and sagittal reformats were reviewed. Ionizing radiation dose reduced via iterative reconstruction/FBP blend and body size kV/mA adjustment. COMPARISON: None FINDINGS: AIRWAY: PARANASAL SINUSES AND MASTOID AIR CELLS: Please see discussion above. Mastoids and middle ears are clear. NASOPHARYNX: Normal in appearance. OROPHARYNX: Normal in appearance. ORAL CAVITY: Normal in appearance. HYPOPHARYNX: Normal in appearance. LARYNX: Normal in appearance. TRACHEA: Patent. SOFT TISSUES: PARAPHARYNGEAL SPACE: Normal and symmetric. CAROTID SPACE: Normal in appearance. COOK PRESSURE SPACE: Normal in appearance. RETROPHARYNGEAL SPACE: Normal in appearance. LYMPH NODES: No pathologic adenopathy is present. No matted or necrotic lymph nodes are seen. There is evidence of reactive lymph node enlargement in level 2 and 3 on the right. GLANDS: PAROTID: There is enlargement of intraparotid lymph nodes on the right. The glands are otherwise within normal limits. SUBMANDIBULAR: Normal in appearance. THYROID: No thyroid nodule or adenopathy. MISCELLANEOUS: LUNG APICES: Respiratory motion. No gross evidence of lobar consolidation. The study does not adequately evaluate the pulmonary parenchyma. BONY CERVICAL SPINE: Poorly evaluated due to extensive streak artifacts. There is multilevel cervical spondylosis. VISUALIZED BRAIN: A portion of brain is included in the examination. No pathologic enhancement or mass effect. The study cannot exclude all brain pathology. CT/CT facial bones w con IMPRESSION: 1. No drainable fluid collections are appreciated. Recommend direct clinical evaluation. 2. Findings consistent with reactive adenopathy on the right within levels 2 and 3 as well as within intraparotid lymph nodes. No necrotic or matted lymph nodes are appreciated. 3. Airway is patent. No enhancing masses or drainable fluid collections are seen. Electronically authenticated by: MILANA SHEA Date: 05/29/2024 00:09
--- NOTE | 2024-05-28 21:28 | CT_ITS ---
The [address] [address] Patient Name: NA CASTRO MRN: [id number] date: 1975 Sex: M Assigned Patient Location: ER Current Patient Location: Accession/Order Number: [id number] Exam Date: 05/28/2024 21:59 Report Date: 05/29/2024 00:09 At the request of: ALFIE CARBAJAL Procedure: CT soft tissue neck w con EXAM: CT facial bones w con, CT soft tissue neck w con CT facial bones w con, CT soft tissue neck w con INDICATION: 49 years old; Male . Symptom/Location/Duration: Insect bite on forehead 2 weeks ago. Now with facial and neck pain. TECHNIQUE: CT of the facial bones was performed. IV contrast: None. Axial, coronal, sagittal reformats were created and reviewed. Dose reduction techniques were achieved by using automated exposure control and/or adjustment of mA and/or kV according to patient size and/or use of iterative reconstruction technique. COMPARISON: None Contrast: 100 mL of Omnipaque 300. FINDINGS: FRONTAL BONES: SUPRAORBITAL SOFT TISSUES: Normal without swelling, laceration or foreign body. ORBITS: Globes: Normal without proptosis or evidence of disruption or intraocular foreign body. Retrobulbar fat: normal without mass or hematoma. Extraocular Muscles: Normal and symmetric without prolapse or evidence of entrapment. Optic Nerves: Normal without mass-effect or evidence of disruption. Preseptal Soft Tissues: Normal without swelling, laceration or foreign body. Varma: No orbital wall fracture or bony dehiscence is present. MAXILLA AND MANDIBLE: Maxillary and buccal soft tissues: Normal without swelling, laceration or foreign body. Maxillary bones: No alveolar ridge fracture. Missing teeth on the right. No periapical lucencies. No maxillary fracture. Mandible: No alveolar ridge fracture. No periapical lucency. No mandibular body or neck fracture. TMJ are intact. Nasal bones and septum: There is chronic appearing deformity the nasal bones consistent with old fracture. Nasal septal deviation to the left with spur formation. Maxillary spine is intact. PARANASAL SINUSES: Frontal: Clear. Ethmoid: Clear. Maxillary: Clear. Sphenoid: Clear. Zygomatic arch: Intact bilaterally. Pterygoid plates: Intact bilaterally. TECHNIQUE: CT examination of the neck. Axial, coronal and sagittal reformats were reviewed. Ionizing radiation dose reduced via iterative reconstruction/FBP blend and body size kV/mA adjustment. COMPARISON: None FINDINGS: AIRWAY: PARANASAL SINUSES AND MASTOID AIR CELLS: Please see discussion above. Mastoids and middle ears are clear. NASOPHARYNX: Normal in appearance. OROPHARYNX: Normal in appearance. ORAL CAVITY: Normal in appearance. HYPOPHARYNX: Normal in appearance. LARYNX: Normal in appearance. TRACHEA: Patent. SOFT TISSUES: PARAPHARYNGEAL SPACE: Normal and symmetric. CAROTID SPACE: Normal in appearance. CROSS COUNTRY/TRACK AND FIELD COACH SPACE: Normal in appearance. RETROPHARYNGEAL SPACE: Normal in appearance. LYMPH NODES: No pathologic adenopathy is present. No matted or necrotic lymph nodes are seen. There is evidence of reactive lymph node enlargement in level 2 and 3 on the right. GLANDS: PAROTID: There is enlargement of intraparotid lymph nodes on the right. The glands are otherwise within normal limits. SUBMANDIBULAR: Normal in appearance. THYROID: No thyroid nodule or adenopathy. MISCELLANEOUS: LUNG APICES: Respiratory motion. No gross evidence of lobar consolidation. The study does not adequately evaluate the pulmonary parenchyma. BONY CERVICAL SPINE: Poorly evaluated due to extensive streak artifacts. There is multilevel cervical spondylosis. VISUALIZED BRAIN: A portion of brain is included in the examination. No pathologic enhancement or mass effect. The study cannot exclude all brain pathology. CT/CT soft tissue neck w con IMPRESSION: 1. No drainable fluid collections are appreciated. Recommend direct clinical evaluation. 2. Findings consistent with reactive adenopathy on the right within levels 2 and 3 as well as within intraparotid lymph nodes. No necrotic or matted lymph nodes are appreciated. 3. Airway is patent. No enhancing masses or drainable fluid collections are seen. Electronically authenticated by: MILANA SHEA Date: 05/29/2024 00:09
--- NOTE | 2024-05-28 21:29 | ED_ITS ---
Documented by User: VERITO Zabala 05/28/24 21:33 HPI - Skin/Abscess/Foreign Bdy General Chief complaint: Skin/Abscess/Foreign Body Stated complaint: INSECT/SPIDER BITE ON FACE Time Seen by Provider: 05/28/24 21:13 Source: patient Mode of arrival: walk-in Limitations: no limitations History of Present Illness HPI narrative: Patient is a 49-year-old male who presents to the emergency department for worsening swelling into the right side of the face and neck. Patient states 2 weeks ago he developed a swollen red area above the right eyebrow that he believes to be an insect bite. He did scrape at the area and there is a scab present, he has not had any drainage from the area above the right eyebrow. No fevers or vomiting. He states in the last several days he has noted increasing swelling to the right side of the face extending into the neck where he believes there is a swollen lymph node. He states he presented to the ER tonight because he does not want the infection to go to his heart. No medications taken prior to arrival. He denies any history of diabetes. Related Data Home Medications ?Medication ?Instructions ?Recorded ?Confirmed duloxetine 60 mg capsule,delayed 60 mg PO BID 03/24/24 05/28/24 release meloxicam 7.5 mg tablet 7.5 mg PO DAILY 03/24/24 05/28/24 pregabalin 100 mg capsule (Lyrica) 100 mg PO Q8H 03/24/24 05/28/24 losartan 50 mg-hydrochlorothiazide tab 05/28/24 12.5 mg tablet Previous Rx's ?Medication ?Instructions ?Recorded cephalexin 500 mg capsule 500 mg PO Q6H 7 days #28 caps 05/29/24 doxycycline monohydrate 100 mg 100 mg PO BID 7 days #14 caps 05/29/24 capsule Allergies Allergy/AdvReac Type Severity Reaction Status Date / Time povidone-iodine (From Allergy Unknown Verified 05/28/24 21:22 Betadine) Review of Systems ROS Constitutional Denies: fever or chills Ears, nose, mouth, and throat Reports: throat swelling; Denies: throat pain Cardiovascular Denies: chest pain Respiratory Denies: shortness of breath Gastrointestinal Denies: nausea or vomiting Integumentary/Breast Reports: redness, skin pain and skin swelling Hematologic/Lymphatic Denies: easy bruising or easy bleeding PFSH [facility] Medical History (Updated 05/28/24 @ 21:33 by VERITO Zabala) Biceps tendon rupture ?S46.219A - Strain of muscle, fascia and tendon of other parts of biceps, unspecified arm, initial encounter (ICD-10) Carpal tunnel syndrome ?G56.00 - Carpal tunnel syndrome, unspecified upper limb (ICD-10) HTN (hypertension) ?I10 - Essential (primary) hypertension (ICD-10) Surgical History History of carpal tunnel release ?Z98.890 - Other specified postprocedural states (ICD-10) Social History Little interest or pleasure in doing things: several days Feeling down, depressed, or hopeless: several days Exam Narrative Exam Narrative: Gen.: Awake, alert, in no distress Head: Normocephalic, atraumatic ENT: Moist mucous membranes edematous area with a central scab to the forehead above the right eyebrow. No palpable fluctuance. Induration and swelling noted to the right side of the face anterior to the ear and on the right posterior aspect of the mandible extending to the neck. Multiple swollen lymph nodes palpated in the right neck anteriorly. No significant redness noted of the face distal to the eyebrow Respiratory: No respiratory distress Extremities: Moves extremities equally Psych: Normal mood and affect Neuro: No focal neuro deficit Skin: Warm, dry, intact Constitutional Vital Signs, click to edit/add: Last Vital Signs Temp 98.0 F 05/28/24 21:16 Pulse 102 H 05/28/24 21:16 Resp 20 05/28/24 21:16 BP 131/94 H 05/28/24 21:16 Pulse Ox 95 05/28/24 21:16 O2 Del Method Room Air 05/28/24 21:16 Course Vital Signs Vital signs: Vital Signs Temperature 98.0 F 05/28/24 21:16 Pulse Rate 102 H 05/28/24 21:16 Respiratory Rate 20 05/28/24 21:16 Blood Pressure 131/94 H 05/28/24 21:16 Pulse Oximetry 95 05/28/24 21:16 Oxygen Delivery Method Room Air 05/28/24 21:16 Temperature 98.0 F 05/28/24 21:16 Pulse Rate 102 H 05/28/24 21:16 Respiratory Rate 20 05/28/24 21:16 Blood Pressure 131/94 H 05/28/24 21:16 Pulse Oximetry 95 05/28/24 21:16 Oxygen Delivery Method Room Air 05/28/24 21:16 MDM - Skin/Abscess/Foreign Bdy MDM Narrative Medical decision making narrative: 2131: Patient was ordered to have IV placement with labs drawn, CTs of the soft tissue of the neck as well as facial bones with contrast. Patient was ordered to have IV clindamycin given in the ER. Case is turned over to attending physician at this time for disposition. SHARED APC VISIT, PHYSICIAN ATTESTATION: [id number] I performed a substantive part of the MDM during the patient?s E/M visit. I personally evaluated and examined the patient. I personally made or approved the documented management plan and acknowledge its risk of complications. Medical Records Attestation: I reviewed the patient's medical records. Lab Data Attestation: I reviewed the patient's lab results. Labs: Lab Results 05/28/24 Range/Units 21:45 WBC 6.7 (4.0-11.0) 10^3/uL RBC 5.38 (4.70-6.10) 10^6/uL Hgb 14.7 (14.0-18.0) g/dL Hct 42.9 (42.0-54.0) % MCV 79.7 L (80.0-94.0) fL MCH 27.3 (25.9-34.0) pg MCHC 34.3 (29.9-35.2) g/dL RDW 13.7 (11.0-15.0) % Plt Count 212 (150-450) 10^3/uL MPV 8.8 L (9.5-13.5) fL Neut % (Auto) 77.0 H (43.0-75.0) % Lymph % (Auto) 12.6 L (20.5-60.0) % [place] % (Auto) 7.4 (1.7-12.0) % Eos % (Auto) 1.8 (0.9-7.0) % Baso % (Auto) 0.6 (0.2-2.0) % Neut # (Auto) 5.1 (1.4-6.5) 10^3/uL Lymph # (Auto) 0.8 L (1.2-3.8) 10^3/uL [place] # (Auto) 0.5 (0.3-0.8) 10^3/uL Eos # (Auto) 0.1 (0.0-0.7) 10^3/uL Baso # (Auto) 0.0 (0.0-0.1) 10^3/uL Abs Immat Gran (auto) 0.04 H (0.00-0.03) 10^3/uL Imm/Tot Granulo (auto) 0.6 H (0.0-0.5) % Sodium 139 (136-145) mmol/L Potassium 3.6 (3.5-5.1) mmol/L Chloride 103 (98-107) mmol/L Carbon Dioxide 25.3 (21.0-32.0) mmol/L Anion Gap 14.3 BUN 18.0 (7.0-18.0) mg/dL Creatinine 1.21 (0.70-1.30) mg/dL Est GFR ( Amer) >60 (>=60 mL/min/1.73m^2) Est GFR (Non-Af Amer) >60 (>=60 mL/min/1.73m^2) BUN/Creatinine Ratio 14.9 Glucose 88 (74-106) mg/dL Lactate 0.7 (0.4-2.0) mmol/L Calcium 9.3 (8.5-10.1) mg/dL Total Bilirubin 0.6 (0.2-1.0) mg/dL AST 19 (15-37) U/L ALT 37 (16-63) U/L Alkaline Phosphatase 58 (46-116) U/L Total Protein 7.2 (6.4-8.2) g/dL Albumin 3.6 (3.4-5.0) g/dL Globulin 3.6 g/dL Albumin/Globulin Ratio 1.[address] scans: Radiologist's impression: ITS Impressions Facial Bones CT 05/28/24 21:28 IMPRESSION: 1. No drainable fluid collections are appreciated. Recommend direct clinical evaluation. 2. Findings consistent with reactive adenopathy on the right within levels 2 and 3 as well as within intraparotid lymph nodes. No necrotic or matted lymph nodes are appreciated. 3. Airway is patent. No enhancing masses or drainable fluid collections are seen. Electronically authenticated by: MILANA SHEA Date: 05/29/2024 00:[address] 05/28/24 21:28 IMPRESSION: 1. No drainable fluid collections are appreciated. Recommend direct clinical evaluation. 2. Findings consistent with reactive adenopathy on the right within levels 2 and 3 as well as within intraparotid lymph nodes. No necrotic or matted lymph nodes are appreciated. 3. Airway is patent. No enhancing masses or drainable fluid collections are seen. Electronically authenticated by: MILANA SHEA Date: 05/29/2024 00:09 Discharge Plan Discharge Chief Complaint: Skin/Abscess/Foreign Body Clinical Impression: Facial swelling Patient Disposition: Home, Self-Care Condition: Good Prescriptions / Home Meds: New doxycycline monohydrate 100 mg capsule 100 mg PO BID 7 Days Qty: 14 0RF cephalexin 500 mg capsule 500 mg PO Q6H 7 Days Qty: 28 0RF No Action duloxetine 60 mg capsule,delayed release(DR/EC) 60 mg PO BID meloxicam 7.5 mg tablet 7.5 mg PO DAILY pregabalin [Lyrica] 100 mg capsule 100 mg PO Q8H losartan-hydrochlorothiazide 50-12.5 mg tablet Print Language: [place] Instructions: Cellulitis (ED) Additional Instructions: Call the office of your primary care doctor to arrange for follow-up within the above-stated timeframe. Your ED visit was focused on your acute issue and does not replace primary care. You should review your labs, imaging, and diagnoses from this ED visit with your primary care physician. There may be non-emergent/ incidental findings that need further evaluation. You should review your vital signs including blood pressure with your PCP. If you were prescribed medications you should discuss possible side-effects and drug interactions with your pharmacist. Call 911 or go to the nearest Emergency Department if you develop any new or worsening symptoms. Referrals: Reddy Alcantara MD [Primary Care Provider] - 1 week Documented by User: Carmelo Mitchell MD 05/29/24 00:24 HPI - Skin/Abscess/Foreign Bdy General Chief complaint: Skin/Abscess/Foreign Body Stated complaint: INSECT/SPIDER BITE ON FACE Time Seen by Provider: 05/28/24 21:13 Related Data Home Medications ?Medication ?Instructions ?Recorded ?Confirmed duloxetine 60 mg capsule,delayed 60 mg PO BID 03/24/24 05/28/24 release meloxicam 7.5 mg tablet 7.5 mg PO DAILY 03/24/24 05/28/24 pregabalin 100 mg capsule (Lyrica) 100 mg PO Q8H 03/24/24 05/28/24 losartan 50 mg-hydrochlorothiazide tab 05/28/24 12.5 mg tablet Previous Rx's ?Medication ?Instructions ?Recorded cephalexin 500 mg capsule 500 mg PO Q6H 7 days #28 caps 05/29/24 doxycycline monohydrate 100 mg 100 mg PO BID 7 days #14 caps 05/29/24 capsule Allergies Allergy/AdvReac Type Severity Reaction Status Date / Time povidone-iodine (From Allergy Unknown Verified 05/28/24 21:22 Betadine) [facility] Medical History (Updated 05/28/24 @ 21:33 by VERITO Zabala) Biceps tendon rupture ?S46.219A - Strain of muscle, fascia and tendon of other parts of biceps, unspecified arm, initial encounter (ICD-10) Carpal tunnel syndrome ?G56.00 - Carpal tunnel syndrome, unspecified upper limb (ICD-10) HTN (hypertension) ?I10 - Essential (primary) hypertension (ICD-10) Surgical History History of carpal tunnel release ?Z98.890 - Other specified postprocedural states (ICD-10) Social History Little interest or pleasure in doing things: several days Feeling down, depressed, or hopeless: several days Exam Constitutional Vital Signs, click to edit/add: Last Vital Signs Temp 98.0 F 05/28/24 21:16 Pulse 102 H 05/28/24 21:16 Resp 20 05/28/24 21:16 BP 131/94 H 05/28/24 21:16 Pulse Ox 95 05/28/24 21:16 O2 Del Method Room Air 05/28/24 21:16 Course Vital Signs Vital signs: Vital Signs Temperature 98.0 F 05/28/24 21:16 Pulse Rate 102 H 05/28/24 21:16 Respiratory Rate 20 05/28/24 21:16 Blood Pressure 131/94 H 05/28/24 21:16 Pulse Oximetry 95 05/28/24 21:16 Oxygen Delivery Method Room Air 05/28/24 21:16 Temperature 98.0 F 05/28/24 21:16 Pulse Rate 102 H 05/28/24 21:16 Respiratory Rate 20 05/28/24 21:16 Blood Pressure 131/94 H 05/28/24 21:16 Pulse Oximetry 95 05/28/24 21:16 Oxygen Delivery Method Room Air 05/28/24 21:16 MDM - Skin/Abscess/Foreign Bdy MDM Narrative Medical decision making narrative: 2131: Patient was ordered to have IV placement with labs drawn, CTs of the soft tissue of the neck as well as facial bones with contrast. Patient was ordered to have IV clindamycin given in the ER. Case is turned over to attending physician at this time for disposition. Attending note: Lab work and CT scan reviewed. No abscess. No deep space infection. Keflex and doxycycline were prescribed. He has follow-up already on Thursday with his PCP. Return precautions were discussed. All questions were answered. The patient was discharged home. SHARED APC VISIT, PHYSICIAN ATTESTATION: [id number] I performed a substantive part of the MDM during the patient?s E/M visit. I personally evaluated and examined the patient. I personally made or approved the documented management plan and acknowledge its risk of complications. Lab Data Labs: Lab Results 05/28/24 Range/Units 21:45 WBC 6.7 (4.0-11.0) 10^3/uL RBC 5.38 (4.70-6.10) 10^6/uL Hgb 14.7 (14.0-18.0) g/dL Hct 42.9 (42.0-54.0) % MCV 79.7 L (80.0-94.0) fL MCH 27.3 (25.9-34.0) pg MCHC 34.3 (29.9-35.2) g/dL RDW 13.7 (11.0-15.0) % Plt Count 212 (150-450) 10^3/uL MPV 8.8 L (9.5-13.5) fL Neut % (Auto) 77.0 H (43.0-75.0) % Lymph % (Auto) 12.6 L (20.5-60.0) % [place] % (Auto) 7.4 (1.7-12.0) % Eos % (Auto) 1.8 (0.9-7.0) % Baso % (Auto) 0.6 (0.2-2.0) % Neut # (Auto) 5.1 (1.4-6.5) 10^3/uL Lymph # (Auto) 0.8 L (1.2-3.8) 10^3/uL [place] # (Auto) 0.5 (0.3-0.8) 10^3/uL Eos # (Auto) 0.1 (0.0-0.7) 10^3/uL Baso # (Auto) 0.0 (0.0-0.1) 10^3/uL Abs Immat Gran (auto) 0.04 H (0.00-0.03) 10^3/uL Imm/Tot Granulo (auto) 0.6 H (0.0-0.5) % Sodium 139 (136-145) mmol/L Potassium 3.6 (3.5-5.1) mmol/L Chloride 103 (98-107) mmol/L Carbon Dioxide 25.3 (21.0-32.0) mmol/L Anion Gap 14.3 BUN 18.0 (7.0-18.0) mg/dL Creatinine 1.21 (0.70-1.30) mg/dL Est GFR ( Amer) >60 (>=60 mL/min/1.73m^2) Est GFR (Non-Af Amer) >60 (>=60 mL/min/1.73m^2) BUN/Creatinine Ratio 14.9 Glucose 88 (74-106) mg/dL Lactate 0.7 (0.4-2.0) mmol/L Calcium 9.3 (8.5-10.1) mg/dL Total Bilirubin 0.6 (0.2-1.0) mg/dL AST 19 (15-37) U/L ALT 37 (16-63) U/L Alkaline Phosphatase 58 (46-116) U/L Total Protein 7.2 (6.4-8.2) g/dL Albumin 3.6 (3.4-5.0) g/dL Globulin 3.6 g/dL Albumin/Globulin Ratio 1.[address] scans: Attestation: I have reviewed the pertinent imaging results. Radiologist's impression: ITS Impressions Facial Bones CT 05/28/24 21:28 IMPRESSION: 1. No drainable fluid collections are appreciated. Recommend direct clinical evaluation. 2. Findings consistent with reactive adenopathy on the right within levels 2 and 3 as well as within intraparotid lymph nodes. No necrotic or matted lymph nodes are appreciated. 3. Airway is patent. No enhancing masses or drainable fluid collections are seen. Electronically authenticated by: MILANA SHEA Date: 05/29/2024 00:[address] 05/28/24 21:28 IMPRESSION: 1. No drainable fluid collections are appreciated. Recommend direct clinical evaluation. 2. Findings consistent with reactive adenopathy on the right within levels 2 and 3 as well as within intraparotid lymph nodes. No necrotic or matted lymph nodes are appreciated. 3. Airway is patent. No enhancing masses or drainable fluid collections are seen. Electronically authenticated by: MLIANA SHEA Date: 05/29/2024 00:09 Discharge Plan Discharge Chief Complaint: Skin/Abscess/Foreign Body Clinical Impression: Facial swelling Patient Disposition: Home, Self-Care Condition: Good Prescriptions / Home Meds: New doxycycline monohydrate 100 mg capsule 100 mg PO BID 7 Days Qty: 14 0RF cephalexin 500 mg capsule 500 mg PO Q6H 7 Days Qty: 28 0RF No Action duloxetine 60 mg capsule,delayed release(DR/EC) 60 mg PO BID meloxicam 7.5 mg tablet 7.5 mg PO DAILY pregabalin [Lyrica] 100 mg capsule 100 mg PO Q8H losartan-hydrochlorothiazide 50-12.5 mg tablet Print Language: [place] Instructions: Cellulitis (ED) Additional Instructions: Call the office of your primary care doctor to arrange for follow-up within the above-stated timeframe. Your ED visit was focused on your acute issue and does not replace primary care. You should review your labs, imaging, and diagnoses from this ED visit with your primary care physician. There may be non-emergent/ incidental findings that need further evaluation. You should review your vital signs including blood pressure with your PCP. If you were prescribed medications you should discuss possible side-effects and drug interactions with your pharmacist. Call 911 or go to the nearest Emergency Department if you develop any new or worsening symptoms. Referrals: Reddy Alcantara MD [Primary Care Provider] - 1 week
[2024-05-28 21:58] LABS: Basophils Percent Auto 0.6 % (0.2-2.0); Eosinophils Absolute Auto 0.1 10^3/uL (0.0-0.7); Eosinophils Percent Auto 1.8 % (0.9-7.0); Hematocrit 42.9 % (42.0-54.0); Hemoglobin 14.7 g/dL (14.0-18.0); Immature Granulocytes Abs Auto 0.04 10^3/uL (0.00-0.03); Immature Granulocytes Pct Auto 0.6 % (0.0-0.5); Lymphocytes Absolute Auto 0.8 10^3/uL (1.2-3.8); Lymphocytes Percent Auto 12.6 % (20.5-60.0); Mean Corpuscular HGB Conc 34.3 g/dL (29.9-35.2); Mean Corpuscular Hemoglobin 27.3 pg (25.9-34.0); Mean Corpuscular Volume 79.7 fL (80.0-94.0); Mean Platelet Volume 8.8 fL (9.5-13.5); Monocytes Absolute Auto 0.5 10^3/uL (0.3-0.8); Monocytes Percent Auto 7.4 % (1.7-12.0); Neutrophils Absolute Auto 5.1 10^3/uL (1.4-6.5); Platelet Count 212 10^3/uL (150-450); Red Blood Count 5.38 10^6/uL (4.70-6.10); Red Cell Distribution Width 13.7 % (11.0-15.0); White Blood Count 6.7 10^3/uL (4.0-11.0)
[2024-05-28 22:13] LABS: Alanine Aminotransferase 37 U/L (16-63); Albumin Level 3.6 g/dL (3.4-5.0); Alkaline Phosphatase 58 U/L (46-116); Anion Gap 14.3; Aspartate Amino Transferase 19 U/L (15-37); BUN Creatinine Ratio 14.9; Bilirubin Total 0.6 mg/dL (0.2-1.0); Calcium 9.3 mg/dL (8.5-10.1); Carbon Dioxide 25.3 mmol/L (21.0-32.0); Chloride 103 mmol/L (98-107); Estimated GFR (African America >60 (>=60 mL/min/1.73m^2); Estimated GFR (Non-African Ame >60 (>=60 mL/min/1.73m^2); Globulin 3.6 g/dL; Glucose 88 mg/dL (74-106); Potassium 3.6 mmol/L (3.5-5.1); Sodium 139 mmol/L (136-145); Total Protein 7.2 g/dL (6.4-8.2)
[2024-05-28 22:16] LABS: Lactate/Lactic Acid 0.7 mmol/L (0.4-2.0)
[2024-05-28] MEDS: CLINDAMYCIN PHOSPHATE/D5W 900 MG/50 ML PREMIX 100 MG IV (22:22)
[2024-05-29 00:30] VITALS: BP 142/79; PULSE 68; O2SAT 98
== END 2024-05-29 00:31 | disposition home or self-care (01) ==
PROVIDERS: Physician Assistant; Emergency Provider Student in an Organized Health Care Education/Training Program; PCP Family Medicine
DX: R22.0 Localized swelling, mass and lump, head (principal)
CPT/HCPCS: 36415; 70487; 70491; 80053; 83605; 85025; 96365; 99285; J0736; Q9967

== ENCOUNTER 2024-05-31 08:19 | Day surgery (SDC) | payer OTHER, SELFPAY ==
--- OUTSIDE RECORDS SUMMARY | 2024-05-31 08:26 | XMS_ITS | CCD ---
Author Organization [facility] Care Team Providers Care Work Order Sorting Clerk Name Role Phone Reddy Strickland MD Primary Care Provider FLEX RAMÍREZ Attending Unavailable REDDY STRICKLAND Primary Care UnavailChandler Cosme Unavailable Darwin Yepez Unavailable Reddy Strickland Primary Care Unavailable Chandler Fuller Attending Unavailable Alina, Chandler Admitting Unavailable MARCO A, DR REDDY Roper Admitting Unavailable MARCO A, DR REDDY Roper Attending Unavailable MARCO A, DR REDDY Roper Primary Care Unavailable MARCO A, DR REDDY Roper Primary Care Unavailable BUD DESAI Admitting Unavailable BUD DESAI Attending Unavailable LLOYD, BUD Consulting Unavailable SALONI BRAND Consulting Unavailable REDDY STRICKLAND Attending Unavailable REDDY STRICKLAND Attending Unavailable Reddy Strickland MD Primary Care Provider [phone] Reddy Strickland MD Unavailable Allergies Allergy Classification Reported Allergen(s) Allergy Type Date of Onset Reaction(s) Facility (1 source) Chlorhexidine Drug Allergy 01-26-2020 [facility] Medications Current Medications Medication Drug Class(es) [...] 12-12-2021 Episodic Other aftercare (1 source) Other fdc (current) drug therapy; 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] Onset: 12-12-2021 Episodic Other [...] WITH AUTO DIFFon BASOPHILS ABSOLUTE AUTO 0.1 [facility] Basophils/100 WBC (Bld) 1 % 0.2 - 2.0 % [facility] Eosinophils/100 WBC (Bld) 3.4 % 0.9 - 7.0 % [facility] Erythrocyte distribution width (RBC) [Ratio] 14.1 % 11.0 - 15.0 % [facility] Hematocrit (Bld) [Volume fraction] 45 % 42.0 - 54.0 % [facility] (Bld) [Mass/Vol] 14.8 g/dL 14.0 - 18.0 g/dL [facility] IMMATURE GRANULOCYTES ABS AUTO 0.04 High [facility] Immature granulocytes/100 WBC (Bld) 0.5 % 0.0 - 0.5 % [facility] Interpretation and review of laboratory results Abnormal [facility] LYMPHOCYTES ABSOLUTE AUTO 1.2 [facility] Lymphocytes/100 WBC (Bld) 16.7 % Low 20.5 - 60.0 % [facility] MCH (RBC) [Entitic mass] 26.9 pg 25.9 - 34.0 pg [facility] MCHC (RBC) [Mass/Vol] 32.9 g/dL 29.9 - 35.2 g/dL [facility] MCV (RBC) [Entitic vol] 81.7 fL 80.0 - 94.0 fL [facility] MONOCYTES ABSOLUTE AUTO 0.5 [facility] Monocytes/100 WBC (Bld) 6.7 % 1.7 - 12.0 % [facility] NEUTROPHILS ABSOLUTE AUTO 5.3 [facility] Neutrophils/100 WBC (Bld) 71.7 % 43.0 - [...] BRAND Date: 2021-12-10 22:17 Normal [facility] XR KNEE LT 4V or [...] by: SALONI BRAND Date: 2021-12-10 22:15 Normal [facility] XR elbow RT 2Von 09-02-2021 XR elbow RT 2V [facility] [place] [address] [place] [address] XRay Report Signed Patient: Ruel Simon MR#: [id number] : 1975 Acct:[id number] Age/Sex: 46 / M ADM Date: 09/02/21 Loc: [facility] Room: Type: [facility] Attending Dr: Chandler Fuller MD Ordering [...] Giles Jr., D.OOlive09/02/2021 2:06 PM Dictation Location: [place] [address] Transcribed By: [facility] 09/02/21 1406 Dictated By: Ishan Giles Jr, DO 09/02/21 1403 Signed By: 09/02/21 1406 [facility] Vital Signs Date Time Vital Sign Value Performing Clinician Facility 05-09-2024 14:03-0400 Body height 190.5 cm Reddy Strickland MD Work Phone: [facility] 05-09-2024 14:03-0400 Body mass index (BMI) [Ratio] 50.75 kg/m2 Reddy Strickland MD Work Phone: [facility] 05-09-2024 14:03-0400 Body temperature 97.3 [degF] Reddy Strickland MD Work Phone: [facility] 05-09-2024 14:03-0400 Body weight 184.16 kg Reddy Strickland MD Work Phone: [facility] 05-09-2024 14:03-0400 Diastolic blood pressure 78 mm[Hg] Reddy Strickland MD Work Phone: [facility] 05-09-2024 14:03-0400 Heart rate 75 /min Reddy Strickland MD Work Phone: [facility] 05-09-2024 14:03-0400 Respiratory rate 22 /min Reddy Strickland MD Work Phone: [facility] 05-09-2024 14:03-0400 SaO2% (BldA) [Mass fraction] 93 % Reddy Strickland MD Work Phone: [facility] 05-09-2024 14:03-0400 Systolic blood pressure 152 mm[Hg] Reddy Strickland MD Work Phone: [facility] 10-31-2021 12:00-0400 Body height 182.88 cm Chandlre Fuller Other [facility] Other 10-31-2021 12:00-0400 Body mass index (BMI) [Ratio] 33.63 kg/m2 Chandler Robertsxa Other [facility] Other 10-31-2021 12:00-0400 Body weight 112.49 kg Chandler Robertsxa Other [facility] Other 10-16-2021 14:45-0400 Body height 193 cm Flex Ramírez MD Work Phone: [email or web address] 10-16-2021 14:45-0400 Body mass index (BMI) [Ratio] 47.55 kg/m2 Flex Ramírez MD Work Phone: [email or web address] 10-16-2021 14:45-0400 Body temperature 98.6 [degF] Flex Ramírez MD Work Phone: [email or web address] 10-16-2021 14:45-0400 Body weight 177.18 kg Flex Ramírez MD Work Phone: [email or web address] 10-16-2021 14:45-0400 Diastolic blood pressure 104 mm[Hg] Flex Ramírez MD Work Phone: [email or web address] 10-16-2021 14:45-0400 Heart rate 85 /min Flxe Ramírez MD Work Phone: [email or web address] 10-16-2021 14:45-0400 Respiratory rate 18 /min Flex Ramírez MD Work Phone: [email or web address] 10-16-2021 14:45-0400 SaO2% (BldA) [Mass fraction] 94 % Flex Ramírez MD Work Phone: [email or web address] 10-16-2021 14:45-0400 Systolic blood pressure 170 mm[Hg] Flex Ramírez MD Work Phone: [email or web address] 09-02-2021 12:30-0500 Body height 182.88 cm Chandler Fuller Other [facility] Other 09-02-2021 12:30-0500 Body mass index (BMI) [Ratio] 33.36 kg/m2 Chandler Fuller Other [facility] Other 09-02-2021 12:30-0500 Body weight 111.59 kg Chandler Fuller Other [facility] Other Encounters Encounter Date Encounter Type Care [...] 12-30-2021 End: 12-30-2021 ambulatory Chandler Olexa Other [facility] Other Start: 12-30-2021 Office outpatient ne w 30 minutes Chandler Olexa [facility] Start: 12-10-2021 End: 12-11-[address] REDDY STRICKLAND Facility:[facility] Start: 10-31-2021 End: 10-31-2021 ambulatory Chandler Olexa Other [facility] Other Start: 10-31-2021 Postop follow up vis it related to original px Chandler Olexa [facility] Start: 10-16-2021 End: 10-16-2021 Emergency department patient visit [facility] Start: 10-16-2021 End: 10-16-2021 Emergency department patient visit [facility] Work Phone: [facility] Comment on above: Cutaneous abscess of neck (Primary Dx) Start: 09-02-2021 Postop follow up vis it related to original px Chandler Olexa [facility] Start: 09-02-2021 End: 09-02-2021 ambulatory Reddy Strickland [facility] Start: 08-27-2021 End: 08-27-2021 ambulatory Darwin Yepez Other [facility] Other Start: 08-27-2021 Telephone encounter Darwin DAMON [facility] Start: 08-12-2021 End: 08-12-2021 ambulatory Chandler Olexa Other [facility] Other Start: 08-12-2021 Office outpatient ne w 45 minutes Chandler Olexa [facility] Procedures Date Procedure Procedure Detail Performing Clinician Start: 05-09-2024 ALL CBC WITH AUTO DIFF Reddy Strickland MD Work Phone: Plan of Treatment Date Care Activity Detail Author Start: 08-09-2024 End: 08-09-2024 Patient encounter procedure 08/09/2024 2:00 PM EST Office Visit [facility] [address] [place] [address] Reddy Strickland MD [address] [place] [address] [facility] Start: 05-09-2024 End: 05-09-2025 Basic metabolic 1998 panel - Serum or Plasma Basic metabolic panel Lab Routine Annual physical exam Expected: 05/09/2024 (Approximate), Expires: 05/09/2025 [facility] Comment on above: Expected: 05/09/2024 (Approximate), Expires: 05/09/2025 Start: 05-09-2024 End: 05-09-2025 CBC W Auto Differential panel - Blood CBC and differential Lab Routine Annual physical exam Expected: 05/09/2024 (Approximate), Expires: 05/09/2025 [facility] Comment on above: Expected: 05/09/2024 (Approximate), Expires: 05/09/2025 Start: 05-09-2024 End: 05-09-2025 Hemoglobin A1c/Hemoglobin.total in Blood Hemoglobin A1c Lab Routine Annual physical exam Expected: 05/09/2024 (Approximate), Expires: 05/09/2025 [facility] Work Phone: Comment on above: Expected: 05/09/2024 (Approximate), Expires: 05/09/2025 Start: 05-09-2024 End: 05-09-2025 Hepatic function 2000 panel - Serum or Plasma Hepatic function panel Lab Routine Annual physical exam Expected: 05/09/2024 (Approximate), Expires: 05/09/2025 [facility] Comment on above: Expected: 05/09/2024 (Approximate), Expires: 05/09/2025 Start: 05-09-2024 End: 05-09-2025 Lipid 1996 panel - Serum or Plasma Lipid panel Lab Routine Annual physical exam Expected: 05/09/2024 (Approximate), Expires: 05/09/2025 [facility] Comment on above: Expected: 05/09/2024 (Approximate), Expires: 05/09/2025 Start: 05-09-2024 End: 05-09-2025 Noninvasive colorectal cancer DNA and occult blood screening [Presence] in Stool Cologuard colon cancer screening Lab Routine Colon cancer screening Expected: 05/09/2024 (Approximate), Expires: 05/09/2025 [facility] Comment on above: Expected: 05/09/2024 (Approximate), Expires: 05/09/2025 Start: 05-09-2024 End: 05-09-2024 Patient encounter procedure 05/09/2024 2:00 PM EDT Office Visit [facility] [address] [place] [address] Reddy Strickland MD [address] [place] [address] Arrived [facility] Comment on above: Arrived Start: 05-09-2024 End: 05-09-2025 Prostate specific Ag [Mass/volume] in Serum or Plasma PSA Lab Routine Annual physical exam Expected: 05/09/2024 (Approximate), Expires: 05/09/2025 [facility] Comment on above: Expected: 05/09/2024 (Approximate), Expires: 05/09/2025 Start: 05-09-2024 End: 05-09-2025 Thyrotropin [Units/volume] in Serum or Plasma TSH Lab Routine Annual physical exam Expected: 05/09/2024 (Approximate), Expires: 05/09/2025 [facility] Comment on above: Expected: 05/09/2024 (Approximate), Expires: 05/09/2025 Start: 03-27-2024 Influenza vaccination Influenza Vacc ine (#1) [facility] Start: 03-27-2021 Influenza vaccination Flu vaccine (# 1) [facility] Start: 1978 COVID-19 Vaccine (1) COVID-19 Vaccin e (1) [facility] Start: 1975 Screening for malign ant neoplasm of colon [facility] Immunizations Immunization Date Immunization Notes Care Provider Ney reinoso 05-27-2018 influenza virus vacc ine, unspecified formulation Reddy Strickland MD Work Phone: [facility] Payers Date Payer Category Payer Medicaid (Managed Care) [employer] [id number] 2021 Self-pay 1975 Unknown [id number] 1975 Unknown [id number] 1975 Unknown [id number] 1975 Unknown [id number] 1975 Unknown [id number] 1959 Unknown [id number] Unknown [id number] Social History Date Type Detail Facility Start: 10-16-2021 End: 10-28-2023 Tobacco smoking status NCIS Never smoked tobacco [facility] Other Start: 10-16-2021 End: 10-28-2023 Tobacco use and exposure Smokeless tobacco non-user [facility] Phone: Start: 1975 Sex Assigned At Not on file [facility] [employer] Phone: Start: 10-06-2021 End: 10-16-2021 Exposure to SARS-CoV-2 (event) Not sure [facility] Phone: Start: 10-28-2023 End: 05-09-2024 Sex Assigned At [facility] Other Start: 10-28-2023 End: 05-09-2024 History of Social function [facility] Clinical Notes 08-12-2021 to 05-09-2024 Reddy Strickland [...] colon cancer screening documented in this encounter [facility] 12-30-2021 Evaluation note Encounter Date Diagnosis Assessment [...] pain persists we will order an MRI. [facility] Other 04-07-2022 Evaluation note* Encounter Date Diagnosis Assessment Notes Treatment Notes Treatment Clinical Notes Oct, Other specified postprocedural states (ICD-10 - Z98.890) Oct, Rupture of right distal biceps tendon, subsequent encounter (ICD-10 - S46.211D) Patient instructed that he may begin light strengthening exercises Oct, Other Patient instruc matthew to allow more time for knee issues to improve. Work on light exercises [facility] Other 02-07-2022 Evaluation note* Encounter Date Diagnosis [...] today to avoid pinching at the wrist. [facility] Other 02-01-2022 Evaluation note* Encounter Date Diagnosis Assessment Notes Treatment Notes Treatment Clinical Notes Aug, Other specified postprocedural states (ICD-10 - Z98.890) [facility] Other 01-17-2022 Evaluation note* Encounter Date Diagnosis [...] TO DETERMINE REPARABILTIY AND LOCATION OF TEAR. [facility] Other Evaluation note* Diagnosis Cutaneous abscess of neck- Primary Cellulitis and abscess of neck documented in this encounter [facility] Phone: evaluation note* Diagnosis Benign essential hypertension [...] removed right knee Surgical History back fusion [facility] Other History general Narrative - Reported* Type Description Date Medical History fibromyalgia Medical History Arthritis Surgical History bilateral carpal tunnel surgery Surgical History mass removed right knee Surgical History back fusion Surgical History right distal bicep repair 2021 [facility] Other Hospital Discharge instructions* Attachments The following attachments cannot be sent through Care Everywhere. * Abscess: Skin ([place]) [facility] [place] [facility]: Summary Purpose Family History No [...] Care Teams (unrecognized sec tion and content) Work Order Sorting Clerk Relationship Specialty Start Date End Date Reddy Strickland MD [address] [place] [address] PCP - General Family Medicine 10/16/21 Work Order Sorting Clerk Relationship Specialty Start Date End Date Reddy Strickland MD [address] [place] [phone] PCP [facility] 10/28/23 Reddy Strickland MD [address] [place] [address] [facility] 01/25/24 Work Order Sorting Clerk Relationship Specialty Start Date End Date Reddy Strickland MD [address] [place] [address] [facility] 10/28/23 Reddy Strickland MD [address] [place] [address] [facility] 01/25/24 Work Order Sorting Clerk Relationship Specialty Start Date End Date Reddy Strickland MD [address] [place] [address] [facility] 10/28/23 Reddy Strickland MD [address] [place] [address] [facility] 01/25/24 Work Order Sorting Clerk Relationship Specialty Start Date End Date Reddy Strickland MD [address] [place] [address] [facility] 10/28/23 Reddy Strickland MD [address] [place] [address] PCP - [facility] 01/25/24 (unrecognized sect ion and content) No Status Records FoundNo Status Records FoundNo Status Records FoundNo Status Records Found INFORMATION SOURCE (unrecogn ized section and content) DATE CREATED AUTHOR 10/17/2021 [facility] DATE CREATED AUTHOR AUTHOR'S ORGANIZ ATION 08/30/2022 [facility] DATE CREATED AUTHOR AUTHOR'S ORGANIZ ATION 11/18/2022 [facility] DATE CREATED AUTHOR AUTHOR'S ORGANIZ ATION 05/11/2024 [facility] EPIC FOR RECORDS PERTAINING TO [...] BE BASED ON THE PRIMARY CLINICAL RECORDS. [facility] [employer] [facility]. provides no warranty or guarantee of the accuracy or completeness of information in this document.
[2024-05-31 09:08] LABS: Glucometer 223 mg/dL (74-106)
[2024-05-31 09:09] VITALS: BP 137/78; PULSE 78; TEMP 36.2; O2SAT 94
[2024-05-31 10:13] VITALS: BP 162/77; PULSE 71; O2SAT 95
[2024-05-31] MEDS: BUPIVACAINE HCL 0.25% PF 25 MG/10 ML VIAL INJ (10:13)
[2024-05-31 10:14] VITALS: BP 160/77; PULSE 74; O2SAT 94
--- NOTE | 2024-05-31 10:26 | W.PM.PROCNOT ---
Date of procedure: 05/31/24 Pre-op diagnosis: right superior gluteal neuritis Post-op diagnosis: same as pre-op Procedure: Right Superior gluteal nerve block, diagnostic Performed under fluoroscopic guidance Immediate complications none Anesthesia: none Solution used for injection: In each syringe, 2 milliliters 0.25% Marcaine 2.5 mL is used for injection for each side Time out process compliant After informed consent obtained patient was brought to the procedure room placed in the prone position skin overlying the area was prepped and draped in a sterile fashion using betadine. 25 gauge spinal needle Insert over each of the target areas identified in fluoroscopy corresponding needles were advanced Under fluoroscopic guidance until the target/targets encountered, no indication of intravascular or Intraneuronal needle tip placement. Solution injected.needles removed post procedurally. patient transferred to recovery room in stable condition to be discharged home after meeting criteria Anesthesia: Local Surgeon: Darian Bernal Condition: stable Disposition: PACU
== END 2024-05-31 10:19 | disposition home or self-care (01) ==
LOC: SURGOUT 08:19
PROVIDERS: PCP Family Medicine; Visit Provider Anesthesiology Pain Medicine
DX: G57.81 Other specified mononeuropathies of right lower limb (principal); E11.9 Type 2 diabetes mellitus without complications
CPT/HCPCS: 36415; 64450; 82948; J0665

== ENCOUNTER 2024-06-15 14:51 | Outpatient (OUT) | payer OTHER, SELFPAY ==
--- OUTSIDE RECORDS SUMMARY | 2024-06-15 15:08 | XMS_ITS | CCD ---
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 Name Role Phone Reddy Strickland MD Primary Care Provider FLEX RAMÍREZ Attending Unavailable REDDY STRICKLAND Primary Care Unavailzain Fuller Chandler Unavailable Darwin Yepez Unavailable Reddy Strickland Primary Care Unavailable Chandler Fuller Attending Unavailable Alina, Chandler Admitting Unavailable MARCO A, DR REDDY Roper Admitting Unavailable MARCO A, DR REDDY Roper Attending Unavailable MARCO A, DR REDDY Roper Primary Care Unavailable MARCO A, DR REDDY Roper Primary Care Unavailable BUD DESAI Admitting Unavailable BUD DESAI Attending Unavailable BUD DESAI Consulting Unavailable SALONI BRAND Consulting Unavailable Reddy Strickland MD Primary Care Provider [phone] Reddy Strickland MD Unavailable REDDY STRICKLAND Attending Unavailable REDDY STRICKLAND Attending Unavailable REDDY STRICKLAND Attending Unavailable MICHAEL MCKEON Attending Unavailable REDDY STRICKLAND Referring Unavailable Allergies Allergy Classification Reported Allergen(s) Allergy Type Date of Onset Reaction(s) Facility (1 source) Chlorhexidine Drug Allergy 01-26-2020 [facility] Medications Current Medications Medication Drug Class(es) [...] Jul, Active cholecalciferol 0.025 mg oral tablet (8 sources) Vitamin D cholecalciferol (Vitamin D3) 25 [...] Active cyclobenzaprine hydrochloride 10 mg oral tablet (7 sources) Muscle Relaxant Start: 4 take 1 tablet by mouth in the morning, then take 1 tablet by mouth in the evening, then take 1 tablet by mouth at bedtime cyclobenzaprine (Flexeril) 10 MG tablet Take 10 mg by mouth in the morning and 10 mg in the evening and 10 mg before bedtime. 05/02/2024 Active DULoxetine 60 mg delayed release oral capsule (8 sources) Serotonin and Norepinephrine Reuptake Inhibitor Start: 4 take 1 capsule by mouth twice daily DULoxetine (Cymbalta) [address] capsule Indications: Anxiety Take 1 capsule by mouth twice daily 60 capsule 5 02/18/2024 Active hydroCHLOROthiazide 12.5 mg / losartan potassium 50 mg oral tablet (7 sources) Thiazide Diuretic, Angiotensin 2 Receptor Talisha [...] Product Active meloxicam 7.5 mg oral tablet (7 sources) Nonsteroidal Anti-inflammatory Drug Start: 4 take 1 tablet by mouth twice daily as needed meloxicam (Mobic) 7.5 MG tablet Take 7.5 mg by mouth 2 (two) times a day as needed 04/17/2024 Active pregabalin 100 mg oral capsule (9 sources) Start: 4 End: 4 take 1 capsule by mouth in the morning, then take 1 capsule by mouth in the evening, then take 1 capsule by mouth at bedtime pregabalin (Lyrica) 100 MG capsule Indications: [facility] arthritis TAKE 1 CAPSULE BY MOUTH IN THE MORNING, 1 IN THE EVENING AND 1 AT BEDTIME 90 capsule 2 05/23/2024 Active traMADol hydrochloride 50 mg oral tablet (1 source) Opioid Agonist Start: 2 take 1 tablet [...] Active Problems Problem Classification Problem Date Documented Da te Episodic/Chronic Anxiety disorders (8 sources) Generalized anxiety disorder; 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: [Generalized anxiety disorder] Onset: 10-28-2023 10-28-2023 Chronic Diabetes mellitus without complication (4 sources) Prediabetes; 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: [Prediabetes] Onset: 05-10-2024 05-10-2024 Episodic Essential hypertension (12 sources) Benign essential hypertension; 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: [Essential (primary) hypertension] Onset: 07-24-2023 10-28-2023 Chronic Other gastrointestinal disorders (4 sources) Stool DNA-based colorectal cancer screening positive; 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: [Other fecal abnormalities] Onset: 06-02-2024 06-02-2024 Episodic Other nervous system disorders (8 sources) Carpal tunnel syndrome of left wrist; 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: [Carpal tunnel syndrome, left upper limb] Onset: 07-24-2023 07-24-2023 Chronic Other nervous system disorders (8 sources) Carpal tunnel syndrome of right wrist; [...] Chronic Other nutritional; endocrine; and metabolic disorders (7 sources) Morbid obesity; 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: [Morbid (severe) obesity due to excess calories] Onset: 05-09-2024 05-09-2024 Chronic Other nutritional; endocrine; and metabolic disorders (2 sources) Body mass index 40+ - severely obese; 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: [Body mass index (BMI) 45.0-49.9, adult] 05-09-2024 Chronic Other nutritional; endocrine; and metabolic disorders (2 sources) Severe obesity; 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: [Class 3 severe obesity due to excess calories with serious comorbidity and body mass index (BMI) of 50.0 to 59.9 in adult] Onset: 05-09-2024 06-02-2024 Chronic Other screening for suspected conditions (not mental disorders or infectious disease) (4 sources) Patient encounter status; 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: [Encounter for screening for malignant neoplasm of colon] 05-09-2024 Episodic Skin and subcutaneous tissue infections (5 sources) Abscess of neck; 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: [Cutaneous abscess of neck] Onset: 06-02-2024 Episodic Spondylosis; intervertebral disc disorders; other back problems (14 sources) Spondylosis without myelopathy or radiculopathy, lumbosacral region; 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: [Lumbosacral spondylosis without myelopathy] Onset: 11-17-2022 Chronic Unclassified (1 source) Z98.890 - Other specified postprocedural states; 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: [Z98.890 - Other specified postprocedural states] Onset: 09-02-2021 Past or Other Problems Problem Classification Problem Date Documented Date Episodic/Chronic Cardiac dysrhythmias (8 sources) Palpitations; 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: [Palpitations] Onset: 06-29-2023 06-29-2023 Episodic E Codes: Fall (1 source) Unspecified fall, initial encounter; 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: [UNSPECIFIED FALL INITIAL ENCOUNTER] Onset: 12-12-2021 Episodic Osteoarthritis (11 sources) Osteoarthritis of left knee joint; 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: [Unilateral primary osteoarthritis, left knee] Onset: 12-30-2021 Resolved: 10-28-2023 Chronic Other aftercare (1 source) 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; 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: [OTH DIRECTOR OF LAND CURRENT DRUG THERAPY] Onset: 12-12-2021 Episodic Other circulatory disease (8 sources) Acquired arteriovenous malformation; 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: [Other specified disorders of arteries and arterioles] Onset: 07-24-2023 Resolved: 05-09-2024 07-24-2023 Chronic Other connective tissue disease (10 sources) Fibromyalgia; 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: [Fibromyalgia] Onset: 10-28-2023 10-28-2023 Episodic Other injuries and conditions due to external causes (1 source) Unspecified injury of left lower leg, initial encounter; 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: [UNS INJURY LT LOWER LEG INITIAL ENC] Onset: 12-12-2021 Episodic Other nervous system disorders (8 sources) Paresthesia; 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: [Paresthesia of skin] Onset: 10-28-2023 10-28-2023 Episodic Other non-traumatic joint disorders (3 sources) Pain in left knee; 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: [PAIN IN LEFT KNEE] Onset: 12-10-2021 Episodic Other non-traumatic joint disorders (8 sources) Hip pain; 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: [Pain in unspecified hip] Onset: 07-24-2023 07-24-2023 Episodic Other non-traumatic joint disorders (8 sources) Pain in elbow; 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: [Pain in [...] WITH AUTO DIFFon BASOPHILS ABSOLUTE AUTO 0.1 [facility] Basophils/100 WBC (Bld) 1 % 0.2 - 2.0 % [facility] Eosinophils/100 WBC (Bld) 3.4 % 0.9 - 7.0 % [facility] Erythrocyte distribution width (RBC) [Ratio] 14.1 % 11.0 - 15.0 % [facility] Hematocrit (Bld) [Volume fraction] 45 % 42.0 - 54.0 % [facility] Hem[facility] ([facility]ld) [Mass/Vol] 14.8 g/dL 14.0 - 18.0 g/dL [facility] IMMATURE GRANULOCYTES ABS AUTO 0.04 High [facility] Immature granulocytes/100 WBC (Bld) 0.5 % 0.0 - 0.5 % [facility] Interpretation and review of laboratory results Abnormal [facility] LYMPHOCYTES ABSOLUTE AUTO 1.2 [facility] Lymphocytes/100 WBC (Bld) 16.7 % Low 20.5 - 60.0 % [facility] MCH (RBC) [Entitic mass] 26.9 pg 25.9 - 34.0 pg [facility] MCHC (RBC) [Mass/Vol] 32.9 g/dL 29.9 - 35.2 g/dL [facility] MCV (RBC) [Entitic vol] 81.7 fL 80.0 - 94.0 fL [facility] MONOCYTES ABSOLUTE AUTO 0.5 [facility] Monocytes/100 WBC (Bld) 6.7 % 1.7 - 12.0 % [facility] NEUTROPHILS ABSOLUTE AUTO 5.3 [facility] Neutrophils/100 WBC (Bld) 71.7 % 43.0 - 75.0 % [facility] Platelet mean volume (Bld) [Entitic vol] [...] SALONI BRAND Date: 2021-12-10 22:17 Normal [facility] XR KNEE LT 4V or >on 022 [...] SALONI BRAND Date: 2021-12-10 22:15 Normal [facility] XR elbow RT 2Von 09-02-2021 XR elbow RT 2V [facility] Main [place] [address] [place] [address] XRay Report Signed Patient: Na Simon MR#: [id number] : 1975 Acct:[id number] Age/Sex: 46 / M ADM Date: 09/02/21 Loc: [facility]: [facility] Attending Dr: Chandler Fuller MD Ordering Provider: [...] Giles Jr., DOliveOOlive09/02/2021 2:06 PM Dictation Location: [facility]- Transcribed By: [facility] 09/02/21 1406 Dictated By: Ishan Giles Jr, DO 09/02/21 1403 Signed By: 09/02/21 1406 [facility] Vital Signs Date Time Vital Sign Value Performing Clinician Facility 06-02-2024 10:51-0500 Body height 190.5 cm Reddy Strickland MD Work Phone: [facility] 06-02-2024 10:51-0500 Body mass index (BMI) [Ratio] 50.75 kg/m2 Reddy Strickland MD Work Phone: [facility] 06-02-2024 10:51-0500 Body temperature 96.6 [degF] Reddy Strickland MD Work Phone: [facility] 06-02-2024 10:51-0500 Body weight 184.16 kg Reddy Strickland MD Work Phone: [facility] 06-02-2024 10:51-0500 Diastolic blood pressure 80 mm[Hg] Reddy Strickland MD Work Phone: [facility] 06-02-2024 10:51-0500 Heart rate 79 /min Reddy Strickland MD Work Phone: [facility] 06-02-2024 10:51-0500 Respiratory rate 20 /min Reddy Strickland MD Work Phone: [facility] 06-02-2024 10:51-0500 SaO2% (BldA) [Mass fraction] 94 % Reddy Strickland MD Work Phone: [facility] 06-02-2024 10:51-0500 Systolic blood pressure 136 mm[Hg] Reddy Strickland MD Work Phone: [facility] 05-09-2024 14:03-0400 Body height 190.5 cm Reddy Strickland MD Work Phone: [facility] 05-09-2024 14:03-0400 Body mass index (BMI) [Ratio] 50.75 kg/m2 Reddy Strickland MD Work Phone: [facility] 05-09-2024 14:03-0400 Body temperature 97.3 [degF] Reddy Strickland MD Work Phone: [facility] 05-09-2024 14:03-0400 Body weight 184.16 kg Reddy Strickland MD Work Phone: [facility] 05-09-2024 14:03-0400 Diastolic blood pressure 78 mm[Hg] Reddy Strickland MD Work Phone: [facility] 05-09-2024 14:03-0400 Heart rate 75 /min Reddy Strickland MD Work Phone: [facility] 05-09-2024 14:03-0400 Respiratory rate 22 /min Reddy Strickland MD Work Phone: [facility] 05-09-2024 14:03-0400 SaO2% (BldA) [Mass fraction] 93 % Reddy Strickland MD Work Phone: [facility] 05-09-2024 14:03-0400 Systolic blood pressure 152 mm[Hg] Reddy Strickland MD Work Phone: [facility] 10-31-2021 12:00-0400 Body height 182.88 cm Chandler Fuller Other [employer] Other 10-31-2021 12:00-0400 Body mass index (BMI) [Ratio] 33.63 kg/m2 Chandler Fuller Other [employer] Other 10-31-2021 12:00-0400 Body weight 112.49 kg Chandler Fuller Other [employer] Other 10-16-2021 14:45-0400 Body height 193 cm Flex Ramírez MD Work Phone: [email or web address] 10-16-2021 14:45-0400 Body mass index (BMI) [Ratio] 47.55 kg/m2 Flex Ramírez MD Work Phone: [email or web address] 10-16-2021 14:45-0400 Body temperature 98.6 [degF] Flex Ramírez MD Work Phone: [email or web address] 10-16-2021 14:45-0400 Body weight 177.18 kg Flex Ramírez MD Work Phone: [email or web address] 10-16-2021 14:45-0400 Diastolic blood pressure 104 mm[Hg] Flex Ramírez MD Work Phone: [email or web address] 10-16-2021 14:45-0400 Heart rate 85 /min Flex Ramírez MD Work Phone: [email or web address] 10-16-2021 14:45-0400 Respiratory rate 18 /min Flex Ramírez MD Work Phone: [email or web address] 10-16-2021 14:45-0400 SaO2% (BldA) [Mass fraction] 94 % Flex Ramírez MD Work Phone: [email or web address] 10-16-2021 14:45-0400 Systolic blood pressure 170 mm[Hg] Flex Ramírez MD Work Phone: [email or web address] 09-02-2021 12:30-0500 Body height 182.88 cm Chandler Fuller Other [employer] Other 09-02-2021 12:30-0500 Body mass index (BMI) [Ratio] 33.36 kg/m2 Chandler Fuller Other [employer] Other 09-02-2021 12:30-0500 Body weight 111.59 kg Chandler Fuller Other [employer] Other Encounters Encounter Date Encounter Type Care Provider Facility Start: 06-13-2024 End: 06-13-2024 ambulatory MICHAEL MCKEON Not Available Start: 06-02-2024 End: 06-02-2024 Bamboo flowsheet Reddy Strickland MD Work Phone: [facility] Start: 06-02-2024 End: 06-02-2024 Bamboo flowsheet Reddy Strickland MD Work Phone: [facility] Start: 06-02-2024 End: 06-02-2024 Office outpatient visit 25 minutes Reddy Strickland MD Work Phone: [facility] Comment on above: Cellulitis of face ( Primary Dx); Benign essential hypertension (CMS/HCC); Positive colorectal cancer screening using Cologuard test Start: 06-02-2024 End: 06-02-2024 ambulatory REDDY STRICKLAND Not Available Start: 05-21-2024 End: 05-23-2024 Refill Reddy Strickland [...] Comment on above: Benign essential hyp ertension ([facility]/HCC) (Primary Dx); Lumbosacral spondylosis without myelopathy; Fibromyalgia; Annual physical exam; Colon cancer screening; Morbid obesity due to excess calories ([facility]/HCC); Body mass index (BMI) 45.0-49.9, adult (CMS/HCC) Start: 05-09-2024 End: 05-09-2024 Patient encounter procedure Reddy Strickland MD Work Phone: [facility] Start: 05-09-2024 End: 05-09-2024 ambulatory REDDY STRICKLAND Not Available Start: 10-28-2023 End: 10-28-2023 ambulatory REDDY STRICKLAND Not Available Start: 11-17-[address] REDDY STRICKLAND [facility] ity:H1 Start: 12-30-2021 End: 12-30-2021 ambulatory Chandler Olexa Other [employer] Other Start: 12-30-2021 Office outpatient ne w 30 minutes Chandler Olexa [facility] Start: 12-10-2021 End: 12-11-[address] REDDY STRICKLAND Facility:H1 Start: 10-31-2021 End: 10-31-2021 ambulatory Chandler Olexa Other [employer] Other Start: 10-31-2021 Postop follow up vis it related to original px Chandler Olexa [facility] Start: 10-16-2021 End: 10-16-2021 Emergency department patient visit [facility] Start: 10-16-2021 End: 10-16-2021 Emergency department patient visit Flex Ramírez MD Work Phone: [facility] Comment on above: Cutaneous abscess of neck (Primary Dx) Start: 09-02-2021 Postop follow up vis it related to original px Chandler Olexa [facility] Start: 09-02-2021 End: 09-02-2021 ambulatory Reddy Strickland [employer] Other Start: 08-27-2021 End: 08-27-2021 ambulatory Darwin Yepez Other [employer] Other Start: 08-27-2021 Telephone encounter Darwin Marleni [facility] Start: 08-12-2021 End: 08-12-2021 ambulatory Chandler Fuller Other [employer] Other Start: 08-12-2021 Office outpatient ne w 45 minutes Chandler Olexa [facility] Procedures Date Procedure Procedure Detail Performing Clinician Start: 05-09-2024 ALL CBC WITH AUTO DIFF Reddy Strickland MD Work Phone: Plan of Treatment Date Care Activity Detail Author Start: 05-16-2027 Screening for malign ant neoplasm of colon [facility] Start: 08-09-2024 End: 08-09-2024 Patient encounter procedure 08/09/2024 2:00 PM EST Office Visit [facility] [address] [place] [address] Reddy Strickland MD [address] [place] [phone] [facility] Start: 06-02-2024 End: 06-02-2024 Patient encounter procedure 06/02/2024 10:45 AM EST Office Visit [facility] [address] [place] [phone] Reddy Strickland MD [address] [place] [phone] Arrived [facility] Comment on above: Arrived Start: 05-09-2024 End: 05-09-2025 Basic metabolic 1998 panel - Serum or Plasma Basic metabolic panel Lab Routine Annual physical exam Expected: 05/09/2024 (Approximate), Expires: 05/09/2025 [facility] Comment on above: Expected: 05/09/2024 (Approximate), Expires: 05/09/2025 Start: 05-09-2024 End: 05-09-2025 CBC W Auto Differential panel - Blood CBC and differential Lab Routine Annual physical exam Expected: 05/09/2024 (Approximate), Expires: 05/09/2025 [facility] Comment on above: Expected: 05/09/2024 (Approximate), Expires: 05/09/2025 Start: 05-09-2024 End: 05-09-2025 Hemoglobin A1c/Hemoglobin.total in Blood Hemoglobin A1c Lab Routine Annual physical exam Expected: 05/09/2024 (Approximate), Expires: 05/09/2025 [facility] Work Phone: Comment on above: Expected: 05/09/2024 (Approximate), Expires: 05/09/2025 Start: 05-09-2024 End: 05-09-2025 Hepatic function 2000 panel - Serum or Plasma Hepatic function panel Lab Routine Annual physical exam Expected: 05/09/2024 (Approximate), Expires: 05/09/2025 [facility] Comment on above: Expected: 05/09/2024 (Approximate), Expires: 05/09/2025 Start: 05-09-2024 End: 05-09-2025 Lipid 1996 panel - Serum or Plasma Lipid panel Lab Routine Annual physical exam Expected: 05/09/2024 (Approximate), Expires: 05/09/2025 [facility] Comment on above: Expected: 05/09/2024 (Approximate), Expires: 05/09/2025 Start: 05-09-2024 End: 05-09-2025 Noninvasive colorectal cancer DNA and occult blood screening [Presence] in Stool Cologuard colon cancer screening Lab Routine Colon cancer screening Expected: 05/09/2024 (Approximate), Expires: 05/09/2025 [facility] Comment on above: Expected: 05/09/2024 (Approximate), Expires: 05/09/2025 Start: 05-09-2024 End: 05-09-2024 Patient encounter procedure 05/09/2024 2:00 PM EDT [facility] [address] [place] [address] Reddy Strickland MD [address] [place] [address] Arrived [facility] Comment on above: Arrived Start: 05-09-2024 End: 05-09-2025 Prostate specific Ag [Mass/volume] in Serum or Plasma PSA Lab Routine Annual physical exam Expected: 05/09/2024 (Approximate), Expires: 05/09/2025 [facility] Comment on above: Expected: 05/09/2024 (Approximate), Expires: 05/09/2025 Start: 05-09-2024 End: 05-09-2025 Thyrotropin [Units/volume] in Serum or Plasma TSH Lab Routine Annual physical exam Expected: 05/09/2024 (Approximate), Expires: 05/09/2025 [facility] Comment on above: Expected: 05/09/2024 (Approximate), Expires: 05/09/2025 Start: 03-27-2024 Influenza vaccination Influenza Vacc ine (#1) [facility] Start: 03-27-2021 Influenza vaccination Flu vaccine (# 1) [facility] Start: 1980 COVID-19 Vaccine (1) COVID-19 Vaccin e (1) [facility] Start: 1975 Screening for malign ant neoplasm of colon [facility] Healthcare Immunizations Immunization Date Immunization Notes Care Provider Fa cili 05-27-2018 influenza virus vacc ine, unspecified formulation Reddy Strickland MD Work Phone: [facility] Healthcare Payers Date Payer Category Payer Medicaid (Managed Care) [facility] [place] [id number] 2021 Self-pay 1975 Unknown [id number] 1975 Unknown [id number] 1975 Unknown [id number] 1975 Unknown [id number] 1259 1975 Unknown [id number] 1259 1975 Unknown [id number] 1259 1975 Unknown [id number] 1259 1959 Unknown [id number] Unknown [id number] 531 Social History Date Type Detail Facility Start: 10-16-2021 End: 10-28-2023 Tobacco smoking status [facility] Never smoked tobacco [employer] Other Start: 10-16-2021 End: 10-28-2023 Tobacco use and exposure Smokeless tobacco non-user [employer] Phone: Start: 1975 Sex Assigned At Not on file [facility] [employer] Phone: Start: 10-06-2021 End: 10-16-2021 Exposure to SARS-CoV-2 (event) Not sure [employer] Phone: Start: 10-28-2023 End: 06-02-2024 Sex Assigned At [place] [employer] Other Start: 10-28-2023 End: 06-02-2024 History of Social function [facility] Clinical Notes 08-12-2021 to 06-02-2024 Reddy Strickland MD - 06/02/2024 11:29 AM Carlota Strickland MD - 06/02/2024 11:29 AM Carlota Strickland MD - 06/02/2024 11:29 AM Carlota Strickland MD - 06/02/2024 10:45 AM EST Note Date & Type Note Facility 06-02-2024 History of Presen t illness Narrative Associated Problem(s): Positive colorectal cancer screening using Cologuard test Positive cologuard and refer to surgeon. Associated Problem(s): Cellulitis of face Redness improved and complete antibiotics. Associated Problem(s): Benign essential hypertension (CMS/HCC) BP controlled and monitor PRN. Images from the original note were not included. Subjective Patient ID: Na Simon is a 49 y.o. male who presents for Follow-up (Spider bite over eye). ER follow up from 05/28 for cellulitis. Developed spider bite above right eyebrow and skin red, raised and painful. Developed redness down orthodox and cheek. Increased pain and to ER. CT negative for abscess. Given IV clinda and discharged home with oral doxy and keflex. Much improved today. Redness and swelling improved. Not having as much pain and skin not hot to touch. Checking BP PRN and typically controlled. BP normal today. Taking medication daily and tolerating without side effects. Patient had cologuard come back positive and needs colonoscopy. Review of Systems Constitutional: Negative for fatigue. [...] Addressed This Visit Benign essential hypertension (CMS/HCC) BP controlled and monitor PRN. Cellulitis of face - Primary Redness improved and complete antibiotics. Positive colorectal cancer screening using Cologuard test Positive cologuard and refer to surgeon. Relevant Orders Ambulatory referral to General Surgery documented in this encounter [facility] 05-09-2024 History of Presen t illness Narrative [...] note were not included. Subjective Patient ID: Na Simon is a 49 y.o. male who [...] colon cancer screening documented in this encounter [facility] 12-30-2021 Evaluation note Encounter Date Diagnosis Assessment [...] pain persists we will order an MRI. [employer] Other 04-07-2022 Evaluation note* Encounter Date Diagnosis Assessment Notes Treatment Notes Treatment Clinical Notes Oct, Other specified postprocedural states (ICD-10 - Z98.890) Oct, Rupture of right distal biceps tendon, subsequent encounter (ICD-10 - S46.211D) Patient instructed that he may begin light strengthening exercises Oct, Other Patient instruc matthew to allow more time for knee issues to improve. Work on light exercises [employer] Other 02-07-2022 Evaluation note* Encounter Date Diagnosis [...] today to avoid pinching at the wrist. [employer] Other 02-01-2022 Evaluation note* Encounter Date Diagnosis Assessment Notes Treatment Notes Treatment Clinical Notes Aug, Other specified postprocedural states (ICD-10 - Z98.890) [employer] Other 01-17-2022 Evaluation note* Encounter Date Diagnosis [...] TO DETERMINE REPARABILTIY AND LOCATION OF TEAR. [employer] Other Evaluation note* Diagnosis Cutaneous abscess of neck- Primary Cellulitis and abscess of neck documented in this encounter [employer] Phone: evaluation note* Diagnosis Benign essential hypertension [...] 45.0-49.9, adult (CMS/HCC) documented in this encounter [facility] HealthcareEvaluation note* Diagnosis Benign essential hypertension (CMS/HCC)- [...] [facility] arthritis documented in this encounter [facility] HealthcareEvaluation note* Diagnosis Benign essential hypertension (CMS/HCC)- [...] Body mass index (BMI) 45.0-49.9, adult (CMS/HCC) Cellulitis of face- Primary Cellulitis and abscess of face Benign essential hypertension (CMS/HCC) Essential hypertension, benign Positive colorectal cancer screening using Cologuard test documented in this encounter [facility] HealthcareHistory general Narrative - Reported* Type Description Date Medical History fibromyalgia Medical History Arthritis Surgical History bilateral carpal tunnel surgery Surgical History mass removed right knee Surgical History back fusion [employer] Other History general Narrative - Reported* Type Description Date Medical History fibromyalgia Medical History Arthritis Surgical History bilateral carpal tunnel surgery Surgical History mass removed right knee Surgical History back fusion Surgical History right distal bicep repair 2021 [employer] Other Hospital Discharge instructions* Attachments The following attachments cannot be sent through Care Everywhere. * Abscess: Skin (Arabic) [facility] Work Phone: Summary Purpose Family History No [...] Comments Follow-up 6m Reason Comments Med Refill Reason Comments Follow-up Spider bite over eye Ordered Prescriptions (unrec ognized section and content) Prescription Sig Dispensed Refills Start Date End Da te clindamycin (CLEOCIN) 300 MG capsule Take 1 capsule by mouth 3 times daily for 7 days 21 capsule 0 10/16/2021 10/23/2021 Care Teams (unrecognized sec tion and content) [employer] Relationship Specialty Start Date End Date Reddy Strickland MD [address] [place], [place] [id number] PCP - [facility] 10/16/21 [employer] Relationship Specialty Start Date End Date Reddy Strickland MD [address] [place] [phone] PCP - [facility] 10/28/23 Reddy Strickland MD [address] [place] [phone] [facility] 01/25/24 [employer] Relationship Specialty Start Date End Date Reddy Strickland MD [address] [place] [phone] PCP - [facility] 10/28/23 Reddy Strickland MD [address] [place] [phone] [facility] 01/25/24 [employer] Relationship Specialty Start Date End Date Reddy Strickland MD [address] [place] [phone] [facility] 10/28/23 Reddy Strickland MD [address] [place] [address] [facility] 01/25/24 [employer] Relationship Specialty Start Date End Date Reddy Strickland MD [address] [place] [phone] [facility] 10/28/23 Reddy Strickland MD [address] [place] [phone] [facility] 01/25/24 [employer] Relationship Specialty Start Date End Date Reddy Strickland MD [address] [place] [phone] [facility] 10/28/23 Reddy Strickland MD [address] [place] [phone] [facility] 01/25/24 [employer] Relationship Specialty Start Date End Date Reddy Strickland MD [address] [place] [phone] [facility] 10/28/23 Reddy Strickland MD [address] [place] [phone] [facility] 01/25/24 (unrecognized sect ion and content) No Status Records FoundNo Status Records FoundNo Status Records FoundNo Status Records Found INFORMATION SOURCE (unrecogn ized section and content) DATE CREATED AUTHOR 10/17/2021 Alba quiros DATE CREATED AUTHOR AUTHOR'S ORGANIZ ATION 08/30/2022 [facility] DATE CREATED AUTHOR AUTHOR'S ORGANIZ ATION 11/18/2022 [facility] DATE CREATED AUTHOR AUTHOR'S ORGANIZ ATION 06/14/2024 [facility] FOR RECORDS PERTAINING TO PATIENTS WHO ARE [...] BE BASED ON THE PRIMARY CLINICAL RECORDS. [facility] [employer] [facility]. provides no warranty or guarantee of the accuracy or completeness of information in this document.
--- NOTE | 2024-06-15 15:43 | P.CN_ITS ---
Consult Note: HPI Data of Consult Patient: known to practice within the last 3 years Requesting Physician: Josefa Alvarado NP Primary Care Provider: Reddy Alcantara MD Consult Narrative Reason for consult: chronic low back pain Narrative: Ruel Simon a pleasant 48 year old male presents for evaluation and management of chronic low back pain. Patient has had chronic low back pain greater than 1 year unresponsive to tylenol, NSAIDs, pregabalin, duloxetine, medical marijauana. patient completed 4 PT visits 2 months ago without improvement. continues to have pain secondary to lumbar spondylosis and facet arthropathy. Patient also reports severe FM. Pain increased with standing walking pushing pulling activity and ADLS, improved with sitting. patient denies loss of bowel or bladder. pain today 5/10 sharp intermittent, increasing to 10/10. Recently underwent right superior gluteal nerve block with >80% improvement for 2 hours. cc:: CC: Josefa Alvarado NP Review of Systems ROS Status of ROS 10 or more systems reviewed and unremark able except as noted in history and below Musculoskeletal Reports: back pain, neck pain, extremity pain and joint pain PFSH PFSH Medical History (Updated 06/15/24 @ 15:44 by Josefa Alvarado NP) Biceps tendon rupture ?S46.219A - Strain of muscle, fascia and tendon of other parts of biceps, unspecified arm, initial encounter (ICD-10) Carpal tunnel syndrome ?G56.00 - Carpal tunnel syndrome, unspecified upper limb (ICD-10) HTN (hypertension) ?I10 - Essential (primary) hypertension (ICD-10) Surgical History History of carpal tunnel release ?Z98.890 - Other specified postprocedural states (ICD-10) Social History Little interest or pleasure in doing things: several days Feeling down, depressed, or hopeless: several days Meds Home Medications and Allergies Home Medications ?Medication ?Instructions ?Recorded ?Confirmed ?Type duloxetine 60 mg capsule,delayed 60 mg PO BID 03/24/24 05/31/24 History release meloxicam 7.5 mg tablet 7.5 mg PO DAILY 03/24/24 05/31/24 History pregabalin 100 mg capsule (Lyrica) 100 mg PO Q8H 03/24/24 05/31/24 History cephalexin 500 mg capsule 500 mg PO Q6H 7 days #28 caps 05/29/24 05/31/24 Rx doxycycline monohydrate 100 mg 100 mg PO BID 7 days #14 caps 05/29/24 05/31/24 Rx capsule Allergies Allergy/AdvReac Type Severity Reaction Status Date / Time povidone-iodine (From Allergy Unknown Verified 05/31/24 09:11 Betadine) Exam Constitutional Documenting provider has reviewed patient's vital signs: yes Common normals: no apparent distress, oriented x3, healthy appearing, alert and well nourished General appearance: cooperative HENMT Common normals: normocephalic, hearing grossly normal bilaterally and moist oral mucous membranes Head and scalp: normocephalic Eye Common normals: PERRL Pupil: PERRL Neck & C-Spine Common normals: full ROM General: normal visual inspection Chest Common normals: inspection of chest normal Respiratory Common normals: normal respiratory effort, no retractions and no use of accessory muscles Back & Pelvis Lumbar spine/lower back: ROM limited, pain with ROM and straight leg raise negative bilaterally Sacroiliac joints: SI joint(s) abnormal Other: positive facet loading bilaterally, right greater than left negative SLR and radiculopathy sensation intact BLE strength 4/5 in BLE right SIJ positive brooke(patricks), gaenslens, thigh thrust, compression test pain and spasming to right and left superior gluteal nerve Extremity Common normals: normal to inspection and full ROM Neuro Common normals: oriented x3, CN's II-XII intact bilaterally, moves all extremities, no focal motor deficits, no sensory deficits noted and deep tendon reflexes 2+ bilaterally Sensorium/orientation: alert Motor exam: strength 5/5 throughout and no movement abnormalities noted Psych Common normals: mental status grossly normal, thought process normal, cooperative, affect normal, speech normal and activity/motor behavior normal Speech: normal speech Thought process: normal thought process Results Additional Findings Additional findings: If on a controlled substance or opioids, I have checked an [place]ARRS report on this patient and there are no aberrancies noted in the prescribing history.??If on a controlled substance or opioid a drug screen was completed and reviewed within the last year, and if there has not been a drug screen completed we ordered one today to monitor higher risk, state monitored pain medication use. As part of providing excellent, safe, comprehensive care, the following was completed at our patient's visit: 1. A medication reconciliation and review to ensure accurate knowledge of current/active medications, including asking our patients to inform us about any [id number] medications or herbal remedies/nutritional supplements/alternative remedies. 2. A review to specifically ensure our patients have had annual screening for screening for depression, screening for tobacco use, and screening for unhealthy alcohol use. For concerning screenings had a discussion with the patient, provided patient education, and recommended follow-up with primary care provider when appropriate. If patient noted with a risk of falling, they received education on strength, gait, and balance training to prevent future risk of falling. Assessment and Plan Assessment and Plan (1) Unspecified mononeuropathy of left lower limb: (2) Unspecified mononeuropathy of right lower limb: (3) Fibromyalgia: (4) Myofascial pain: (5) Lumbar spondylosis: Plan proceed with right superior gluteal nerve RFA pt would like to workup left superior gluteal neuritis, proceed with left superior gluteal nerve block working towards RFA at least 2 weeks after right superior gluteal nerve RFA cannot afford LDN, declining referral to [facility] or [facility] comprehensive pain for FM to assist in comprehensive care. At this time i reccomend pt initiate a regular HEP and work towards weight loss, can discuss medication options and dietary consult with PCP as we do not offer these services with our pain management program locally. continue current medications f/u after NB and 1 month after RFA complete
== END 2024-06-15 14:52 | disposition home or self-care (01) ==
LOC: PM 14:51
PROVIDERS: PCP Family Medicine; Visit Provider Nurse Practitioner
DX: M79.18 Myalgia, other site (principal); M47.816 Spondylosis without myelopathy or radiculopathy, lumbar region; G57.82 Other specified mononeuropathies of left lower limb; G57.81 Other specified mononeuropathies of right lower limb; G57.83 Other specified mononeuropathies of bilateral lower limbs
CPT/HCPCS: G0463

== ENCOUNTER 2024-06-28 07:26 | Day surgery (SDC) | payer OTHER, SELFPAY ==
--- OUTSIDE RECORDS SUMMARY | 2024-06-28 07:31 | XMS_ITS | CCD ---
Author Organization [facility] Care Team Providers Care Filler Room Attendant Name Role Phone Reddy Strickland MD Primary [...] Unavailable Reddy Strickland MD Primary Care Provider Reddy Strickland MD Unavailable REDDY STRICKLAND Attending Unavailable REDDY STRICKLAND Attending Unavailable REDDY STRICKLAND Attending Unavailable MICHAEL POLANCO Attending Unavailable REDDY STRICKLAND Referring Unavailable Allergies Allergy Classification Reported Allergen(s) Allergy Type Date of Onset Reaction(s) Facility (1 source) Chlorhexidine Drug Allergy 01-26-2020 [facility] Medications Current Medications Medication Drug [...] Active cyclobenzaprine hydrochloride 10 mg oral tablet (10 sources) Muscle Relaxant Start: 4 take 1 tablet by mouth in the morning, then take 1 tablet by mouth in the evening, then take 1 tablet by mouth at bedtime cyclobenzaprine (Flexeril) 10 MG tablet Take 10 mg by mouth in the morning and 10 mg in the evening and 10 mg before bedtime. 05/02/2024 Active DULoxetine 60 mg delayed release oral capsule (11 sources) Serotonin and Norepinephrine Reuptake Inhibitor Start: 4 take 1 capsule by mouth twice daily DULoxetine (Cymbalta) [address] capsule Indications: Anxiety Take 1 capsule by mouth twice daily 60 capsule 5 02/18/2024 Active hydroCHLOROthiazide 12.5 mg / losartan potassium 50 mg oral tablet (10 sources) Thiazide Diuretic, Angiotensin 2 Receptor Talisha [...] Product Active meloxicam 7.5 mg oral tablet (10 sources) Nonsteroidal Anti-inflammatory Drug Start: 4 take 1 tablet by mouth twice daily as needed meloxicam (Mobic) 7.5 MG tablet Take 7.5 mg by mouth 2 (two) times a day as needed 04/17/2024 Active pregabalin 100 mg oral capsule (12 sources) Start: 4 End: 4 take 1 [...] oral tablet (1 source) Opioid Agonist Start: take 1 tablet by mouth every four hours as needed for pain Ultram 50 MG 1 tablet as needed for pain Orally up to every 4 hrs for 5 days Aug, Active Completed/Discontinued Medications Medication Drug Class(es) Dates Sig (Normalized) Sig (Original) bisacodyl 5 mg delayed release oral tablet (2 sources) Stimulant Laxative Start: 06-13-2024 End: 06-13-2024 take 1 tablet by mouth once bisacodyl (Dulcolax) 5 MG EC tablet Indications: Positive colorectal cancer screening using Cologuard test Take 1 tablet (5 mg) by mouth 1 time for 1 dose Do not crush, chew, or split. Take as detailed on clinic hand out for colonoscopy prep 4 tablet 06/13/2024 06/13/2024 cholecalciferol 0.025 mg oral tablet (11 sources) Vitamin D End: 06-17-2024 cholecalciferol (Vitamin D3) 25 MCG (1000 UT) tablet 1 (one) time each day at the same time 06/17/2024 Discontinued (Reorder) gabapentin (5 sources) Anti-epileptic Agent Gabapentin Not-Taking [...] DAILY NEEDED 60 tablet 12/09/2023 05/09/2024 Discontinued polyethylene glycol 3350 58520 mg powder for oral solution (2 sources) Osmotic Laxative Start: 06-13-2024 End: 06-13-2024 take 17 g by mouth once polyethylene glycol, PEG, 3350 (Glycolax) 17 GM/SCOOP powder Indications: Colonoscopy Take 238 g by mouth 1 (one) time for 1 dose Take as detailed from clinic hand out for colonoscopy prep 238 g 06/13/2024 06/13/2024 triamcinolone acetonide 40 mg/ml injectable suspension (1 source) Corticosteroid Start: 12-30-2021 Kenalog-40 Dec, 40 mg Vitamin D (5 sources) Vitamin D Not-Taking Vitamin D Active Problems Active Problems Problem Classification Problem Date Documented Da te Episodic/Chronic Anxiety disorders (11 sources) Generalized anxiety disorder; 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: [Generalized anxiety disorder] Onset: 10-28-2023 10-28-2023 Chronic Diabetes mellitus without complication (7 sources) Prediabetes; 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: [Prediabetes] Onset: 05-10-2024 05-10-2024 Episodic Essential hypertension (15 sources) Benign essential hypertension; 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: [Essential (primary) hypertension] Onset: 07-24-2023 10-28-2023 Chronic Other gastrointestinal disorders (9 sources) Stool DNA-based colorectal cancer screening positive; 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: [Other fecal abnormalities] Onset: 06-02-2024 06-02-2024 Episodic Other nervous system disorders (11 sources) Carpal tunnel syndrome of left wrist; 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: [Carpal tunnel syndrome, left upper limb] Onset: 07-24-2023 07-24-2023 Chronic Other nervous system disorders (11 sources) Carpal tunnel syndrome of right wrist; [...] Chronic Other nutritional; endocrine; and metabolic disorders (5 sources) Severe obesity; 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: [Class 3 severe obesity due to excess calories with serious comorbidity and body mass index (BMI) of 50.0 to 59.9 in adult] Onset: 05-09-2024 06-02-2024 Chronic Other screening for suspected conditions (not mental disorders or infectious disease) (4 sources) Patient encounter status; 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: [Encounter for screening for malignant neoplasm of colon] 05-09-2024 Episodic Skin and subcutaneous tissue infections (8 sources) Abscess of neck; 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: [Cutaneous abscess of neck] Onset: 06-02-2024 Episodic Spondylosis; intervertebral disc disorders; other back problems (17 sources) Spondylosis without myelopathy or radiculopathy, lumbosacral region; 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: [Lumbosacral spondylosis without myelopathy] Onset: 11-17-2022 Chronic Unclassified (1 source) Z98.890 - Other specified postprocedural states; 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: [Z98.890 - Other specified postprocedural states] Onset: 09-02-2021 Past or Other Problems Problem Classification Problem Date Documented Date Episodic/Chronic Cardiac dysrhythmias (11 sources) Palpitations; 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: [Palpitations] Onset: 06-29-2023 06-29-2023 Episodic E Codes: Fall (1 source) Unspecified fall, initial encounter; 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: [UNSPECIFIED FALL INITIAL ENCOUNTER] Onset: 12-12-2021 Episodic Osteoarthritis (14 sources) Osteoarthritis of left knee joint; 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: [Unilateral primary osteoarthritis, left knee] Onset: 12-30-2021 Resolved: 10-28-2023 Chronic Other aftercare (1 source) Other porter luggage (current) drug therapy; 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: [OTH LOCK FITTER CURRENT DRUG THERAPY] Onset: 12-12-2021 Episodic Other circulatory disease (11 sources) Acquired arteriovenous malformation; 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: [Other specified disorders of arteries and arterioles] Onset: 07-24-2023 Resolved: 05-09-2024 07-24-2023 Chronic Other connective tissue disease (13 sources) Fibromyalgia; 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: [Fibromyalgia] Onset: 10-28-2023 10-28-2023 Episodic Other injuries and conditions due to external causes (1 source) Unspecified injury of left lower leg, initial encounter; 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: [UNS INJURY LT LOWER LEG INITIAL ENC] Onset: 12-12-2021 Episodic Other nervous system disorders (11 sources) Paresthesia; 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: [Paresthesia of skin] Onset: 10-28-2023 10-28-2023 Episodic Other non-traumatic joint disorders (3 sources) Pain in left knee; 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: [PAIN IN LEFT KNEE] Onset: 12-10-2021 Episodic Other non-traumatic joint disorders (11 sources) Hip pain; 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: [Pain in unspecified hip] Onset: 07-24-2023 07-24-2023 Episodic Other non-traumatic joint disorders (11 sources) Pain in elbow; 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: [Pain in [...] WITH AUTO DIFFon BASOPHILS ABSOLUTE AUTO 0.1 [facility] Basophils/100 WBC (Bld) 1 % 0.2 - 2.0 % [facility] Eosinophils/100 WBC (Bld) 3.4 % 0.9 - 7.0 % [facility] Erythrocyte distribution width (RBC) [Ratio] 14.1 % 11.0 - 15.0 % [facility] Hematocrit (Bld) [Volume fraction] 45 % 42.0 - 54.0 % [facility] Healthcar e Hemoglobin (Bld) [Mass/Vol] 14.8 g/dL 14.0 - 18.0 g/dL [facility] IMMATURE GRANULOCYTES ABS AUTO 0.04 High [facility] Immature granulocytes/100 WBC (Bld) 0.5 % 0.0 - 0.5 % [facility] Interpretation and review of laboratory results Abnormal [facility] LYMPHOCYTES ABSOLUTE AUTO 1.2 [facility] Lymphocytes/100 WBC (Bld) 16.7 % Low 20.5 - 60.0 % [facility] MCH (RBC) [Entitic mass] 26.9 pg 25.9 - 34.0 pg [facility] MCHC (RBC) [Mass/Vol] 32.9 g/dL 29.9 - 35.2 g/dL [facility] MCV (RBC) [Entitic vol] 81.7 fL 80.0 - 94.0 fL [facility] MONOCYTES ABSOLUTE AUTO 0.5 [facility] Monocytes/100 WBC (Bld) 6.7 % 1.7 - 12.0 % [facility] NEUTROPHILS ABSOLUTE AUTO 5.3 [facility] Neutrophils/100 WBC (Bld) 71.7 % 43.0 - 75.0 % [facility] Platelet mean volume (Bld) [Entitic vol] 9.2 fL Low 9.5 - 13.5 fL [facility] Healthc are TBH EO # 0.3 [facility] TB PLT 211 [facility] TB RBC 5.51 [facility] TBH WBC 7.4 [facility] e XR HIPS MILY 5V W [...] BRAND Date: 2021-12-10 22:17 Normal [facility] XR KNEE LT 4V or >on [...] by: SALONI BRAND Date: 2021-12-10 22:15 Normal [facility] XR elbow RT 2Von 09-02-2021 XR elbow RT 2V [facility] Main [place] [address] [place] [address] XRay Report Signed Patient: Ruel Simon MR#: [id number] : 1975 Acct:[id number] Age/Sex: 46 / M ADM Date: 09/02/21 [place] [facility] [place] Type: [facility] Attending Dr: Chandler Fuller MD Ordering Provider: Chandler Fuller MD Date of Service: 09/02/21 XR/XR elbow RT 2V: Other specified postprocedural states Copies to: Chandelr Fuller MD RIGHT ELBOW - 4 VIEWS [...] change. Impression dictated by: Ishan Giles Jr., D.O.09/02/2021 2:06 PM Dictation Location: [place] [address] Transcribed By: [facility] 09/02/21 1406 Dictated By: Ishan Giles Jr, DO 09/02/21 1403 Signed By: 09/02/21 1406 Normal [facility] Vital Signs Date Time Vital Sign Value Performing Clinician Facility 06-13-2024 [id number] Body height 190.5 cm Michael Polanco [facility] Work Phone: [facility] 06-13-2024 09:10-0500 Body mass index (BMI) [Ratio] 50.45 kg/m2 Michael Polanco DO Work Phone: [facility] 06-13-2024 09:10-0500 Body weight 183.07 kg Michael Polanco DO Work Phone: [facility] 06-13-2024 09:10-0500 Diastolic blood pressure 82 mm[Hg] Michael Polanco DO Work Phone: [facility] 06-13-2024 09:10-0500 Heart rate 93 /min Michael Polanco DO Work Phone: [facility] 06-13-2024 09:10-0500 Respiratory rate 18 /min Michael Polanco DO Work Phone: [facility] 06-13-2024 09:10-0500 SaO2% (BldA) [Mass fraction] 99 % Michael Polanco DO Work Phone: [facility] 06-13-2024 09:10-0500 Systolic blood pressure 138 mm[Hg] Michael Polanco DO Work Phone: [facility] 06-02-2024 10:51-0500 Body height 190.5 cm Reddy Strickland MD Work Phone: [facility] 06-02-2024 10:51-0500 Body mass index (BMI) [Ratio] 50.75 kg/m2 Reddy Strickland MD Work Phone: [facility] 06-02-2024 10:51-0500 Body temperature 96.6 [degF] Reddy Strickland MD Work Phone: [facility] 06-02-2024 10:51-0500 Body weight 184.16 kg Reddy Strickland MD Work Phone: [facility] 06-02-2024 10:51-0500 Diastolic blood pressure 80 mm[Hg] Reddy Strickland MD Work Phone: [facility] 06-02-2024 10:51-0500 Heart rate 79 /min Reddy Strickland MD Work Phone: [facility] 06-02-2024 10:51-0500 Respiratory rate 20 /min Reddy Strickland MD Work Phone: [facility] 06-02-2024 10:51-0500 SaO2% (BldA) [Mass fraction] 94 % Reddy Strickland MD Work Phone: [facility] 06-02-2024 10:51-0500 Systolic blood pressure 136 mm[Hg] Reddy Strickland MD Work Phone: [facility] 05-09-2024 14:03-0400 Body height 190.5 cm Reddy Strickland MD Work Phone: [facility] 05-09-2024 14:03-0400 Body mass index (BMI) [Ratio] 50.75 kg/m2 Reddy Strickland MD Work Phone: [facility] 05-09-2024 14:03-0400 Body temperature 97.3 [degF] Reddy Strickland MD Work Phone: [facility] 05-09-2024 14:03-0400 Body weight 184.16 kg Reddy Strickland MD Work Phone: [facility] 05-09-2024 14:03-0400 Diastolic blood pressure 78 mm[Hg] Reddy Strickland MD Work Phone: [facility] 05-09-2024 14:03-0400 Heart rate 75 /min Reddy Strickland MD Work Phone: [facility] 05-09-2024 14:03-0400 Respiratory rate 22 /min Reddy Strickland MD Work Phone: [facility] 05-09-2024 14:03-0400 SaO2% (BldA) [Mass fraction] 93 % Reddy Strickland MD Work Phone: [facility] 05-09-2024 14:03-0400 Systolic blood pressure 152 mm[Hg] Reddy Strickland MD Work Phone: [facility] 10-31-2021 12:00-0400 Body height 182.88 cm Chandler Fuller Other [employer] Other 10-31-2021 12:00-0400 Body mass index (BMI) [Ratio] 33.63 kg/m2 Chandler Fuller Other [employer] Other 10-31-2021 12:00-0400 Body weight 112.49 kg Chandler Fuller Other [employer] Other 10-16-2021 14:45-0400 Body height 193 cm Flex Ramírez MD Work Phone: [employer] 10-16-2021 14:45-0400 Body mass index (BMI) [Ratio] 47.55 kg/m2 Flex Ramírez MD Work Phone: [employer] 10-16-2021 14:45-0400 Body temperature 98.6 [degF] Flex Ramírez MD Work Phone: [employer] 10-16-2021 14:45-0400 Body weight 177.18 kg Flex Ramírez MD Work Phone: [employer] 10-16-2021 14:45-0400 Diastolic blood pressure 104 mm[Hg] Flex Ramírez MD Work Phone: [employer] 10-16-2021 14:45-0400 Heart rate 85 /min Flex Ramírez MD Work Phone: [employer] 10-16-2021 14:45-0400 Respiratory rate 18 /min Flex Ramírez MD Work Phone: [employer] 10-16-2021 14:45-0400 SaO2% (BldA) [Mass fraction] 94 % Flex Ramírez MD Work Phone: [employer] 10-16-2021 14:45-0400 Systolic blood pressure 170 mm[Hg] Flex Ramírez MD Work Phone: [employer] 09-02-2021 12:30-0500 Body height 182.88 cm Chandler Fuller Other [employer] Other 09-02-2021 12:30-0500 Body mass index (BMI) [Ratio] 33.36 kg/m2 Chandler Fuller Other [employer] Other 09-02-2021 12:30-0500 Body weight 111.59 kg Chandler Fuller Other [employer] Other Encounters Encounter Date Encounter Type Care Provider Facility Start: 06-13-2024 End: 06-13-2024 Bamboo flowsheet Michael Polanco DO Work Phone: [facility] Start: 06-13-2024 End: 06-13-2024 Bamboo flowsheet Michaelzoë Chavezett DO Work Phone: [facility] Start: 06-13-2024 End: 06-13-2024 Office outpatient new 30 minutes Michael Polanco DO Work Phone: [facility] Comment on above: Positive colorectal cancer screening using Cologuard test (Primary Dx) Start: 06-13-2024 End: 06-13-2024 ambulatory MICHAEL POLANCO Not Available Start: 06-02-2024 End: 06-02-2024 Bamboo [...] Result Encounter Reddy Strickland MD Work Phone: [facility] External Department Unsolicited Start: 05-09-2024 End: 05-09-2024 [...] encounter procedure Reddy Strickland MD Work Phone: [facility] Start: 05-09-2024 End: 05-09-2024 ambulatory REDDY STRICKLAND Not Available Start: 10-28-2023 End: 10-28-2023 ambulatory REDDY STRICKLAND Not Available Start: 11-17-[address] REDDY STRICKLAND Facil ity:[facility] Start: 12-30-2021 End: 12-30-2021 ambulatory Chandler Olechristoph Other [employer] Other Start: 12-30-2021 Office outpatient ne w 30 minutes Chandler Olechristoph [facility] Start: 12-10-2021 End: 12-11-[address] REDDY STRICKLAND Facility:[facility] Start: 10-31-2021 End: 10-31-2021 ambulatory Chandler Olexa Other [employer] Other Start: 10-31-2021 Postop follow up vis it related to original px Chandler Olexa [facility] Start: 10-16-2021 End: 10-16-2021 Emergency department patient visit FLEX RAMÍREZ [facility] Start: 10-16-2021 End: 10-16-2021 Emergency department patient visit Flex Ramírez MD Work Phone: [facility] Comment on above: Cutaneous abscess of neck (Primary Dx) Start: 09-02-2021 Postop follow up vis it related to original px Chandler Olexa [facility] Start: 09-02-2021 End: 09-02-2021 ambulatory Reddy Strickland [employer] Other Start: 08-27-2021 End: 08-27-2021 ambulatory Darwin Yepez Other [employer] Other Start: 08-27-2021 Telephone encounter Darwin Yepez [facility] Start: 08-12-2021 End: 08-12-2021 ambulatory Chandler Olexa Other [employer] Other Start: 08-12-2021 Office outpatient ne w 45 minutes Chandler Olexa [facility] Procedures Date Procedure Procedure Detail Performing Clinician Start: 05-09-2024 ALL CBC WITH AUTO DIFF Reddy Strickland MD Work Phone: Plan of Treatment Date Care Activity Detail Author Start: 05-16-2027 Screening for malign ant neoplasm of colon [facility] Start: 08-09-2024 End: 08-09-2024 Patient encounter procedure 08/09/2024 2:00 PM EST Office Visit [facility] [address] [place] [id number] Reddy Strickland MD [address] [place] [phone] [facility] Start: 06-02-2024 End: 06-02-2024 Patient encounter procedure 06/02/2024 10:45 AM EST Office Visit [facility] [address] [place] [address] Reddy Strickland MD [address] [place] [address] Arrived [facility] Comment on above: Arrived Start: 05-09-2024 End: 05-09-2025 Basic metabolic 1998 panel - Serum or Plasma Basic metabolic panel Lab Routine Annual physical exam Expected: 05/09/2024 (Approximate), Expires: 05/09/2025 [facility] Comment on above: Expected: 05/09/2024 (Approximate), Expires: 05/09/2025 Start: 05-09-2024 End: 05-09-2025 CBC W Auto Differential panel - Blood CBC and differential Lab Routine Annual physical exam Expected: 05/09/2024 (Approximate), Expires: 05/09/2025 [facility] Comment on above: Expected: 05/09/2024 (Approximate), Expires: 05/09/2025 Start: 05-09-2024 End: 05-09-2025 Hemoglobin A1c/Hemoglobin.total in Blood Hemoglobin A1c Lab Routine Annual physical exam Expected: 05/09/2024 (Approximate), Expires: 05/09/2025 [facility] Work Phone: Comment on above: Expected: 05/09/2024 (Approximate), Expires: 05/09/2025 Start: 05-09-2024 End: 05-09-2025 Hepatic function 2000 panel - Serum or Plasma Hepatic function panel Lab Routine Annual physical exam Expected: 05/09/2024 (Approximate), Expires: 05/09/2025 [facility] Comment on above: Expected: 05/09/2024 (Approximate), [...] cancer screening Expected: 05/09/2024 (Approximate), Expires: 05/09/2025 [facility] Comment on above: Expected: 05/09/2024 (Approximate), Expires: 05/09/2025 Start: 05-09-2024 End: 05-09-2024 Patient encounter procedure 05/09/2024 2:00 PM EDT Office Visit [facility] [address] [place] [address] Reddy Strickland MD [address] [place] [phone] Arrived [facility] Comment on above: Arrived Start: 05-09-2024 End: 05-09-2025 Prostate specific Ag [Mass/volume] in Serum or Plasma PSA Lab Routine Annual physical exam Expected: 05/09/2024 (Approximate), Expires: 05/09/2025 [facility] Comment on above: Expected: 05/09/2024 (Approximate), Expires: 05/09/2025 Start: 05-09-2024 End: 05-09-2025 Thyrotropin [Units/volume] in Serum or Plasma TSH Lab Routine Annual physical exam Expected: 05/09/2024 (Approximate), Expires: 05/09/2025 [facility] Comment on above: Expected: 05/09/2024 (Approximate), Expires: 05/09/2025 Start: 03-27-2024 Influenza vaccination Influenza Vacc ine (#1) [facility] Start: 03-27-2021 Influenza vaccination Flu vaccine (# 1) [facility] Start: 1980 COVID-19 Vaccine (1) COVID-19 Vaccin e (1) [facility] Start: 1975 Screening for malign ant neoplasm of colon [facility] Immunizations Immunization Date Immunization Notes Care Provider Fa cility 05-27-2018 influenza virus vacc ine, unspecified formulation Reddy Strickland MD Work Phone: [facility] Payers Date Payer Category Payer Medicaid (Managed Care) [employer] [id number] 2021 Self-pay 1975 Unknown [id number] 1975 Unknown [id number] 1975 Unknown [id number] 1975 Unknown [id number] 1259 1975 Unknown [id number] 1259 1975 Unknown [id number]. 1259 1975 Unknown [id number]. 1259 1959 Unknown [id number] Unknown [id number] 531 Social History Date Type Detail Facility Start: 10-16-2021 End: 10-28-2023 Tobacco smoking status [facility] Never smoked tobacco [employer] Other Start: 10-16-2021 End: 10-28-2023 Tobacco use and exposure Smokeless tobacco non-user [employer] Phone: Start: 1975 Sex Assigned At Not on file [employer] Phone: Start: 10-06-2021 End: 10-16-2021 Exposure to SARS-CoV-2 (event) Not sure [employer] Phone: Start: 10-28-2023 End: 06-13-2024 Sex Assigned At [facility] Other Start: 10-28-2023 End: 06-13-2024 History of Social function [facility] Clinical Notes 08-12-2021 to 06-13-2024 Michael Polanco DO - 06/13/2024 9:15 AM Carlota Strickland MD - 06/02/2024 11:29 AM Carlota Strickland MD - 06/02/2024 11:29 AM Carlota Strickland MD - 06/02/2024 11:29 AM EST Note Date & Type Note Facility 06-13-2024 History of Presen t illness Narrative General Surgery H&P Ruel Simon 1975 Ruel Simon is a 49 y.o. male presents for a Colonoscopy. Pt denies having a colonoscopy before. Pt denies abdominal pain. Pt admits to occasional blood per rectum. Resolves on its own. No masses or bulges from his anus. Pt admits to changes in bowel movements. He believes his brother had colon cancer recently and was treated for it and now cancer free. This was a couple years ago. Pt states that he was told he has possible internal hemorrhoids. Pt did have a positive cologuard test 2-3 weeks ago. Denies hx of unplanned weight loss. Denies fevers, chills, or sweats. Denies nausea or vomiting. SUBJECTIVE: MEDICATIONS: ALLERGIES Current Outpatient Medications Medication Instructions bisacodyl (DULCOLAX) 5 mg, Oral, Once, Do not crush, chew, or split. Take as detailed on clinic hand out for colonoscopy prep cholecalciferol (Vitamin D3) 25 MCG (1000 UT) tablet Every 24 hours cyclobenzaprine (FLEXERIL) 10 mg, 3 times daily DULoxetine (CYMBALTA) 60 mg, Oral, 2 times daily losartan-hydroCHLOROthiazide (Hyzaar) 50-12.5 MG tablet 1 tablet, Oral, Daily meloxicam (MOBIC) 7.5 mg, 2 times daily PRN polyethylene glycol (PEG) 3350 (GLYCOLAX) 238 g, Oral, Once, Take as detailed from clinic hand out for colonoscopy prep pregabalin (Lyrica) 100 MG capsule TAKE 1 CAPSULE BY MOUTH IN THE MORNING, 1 IN THE EVENING AND 1 AT BEDTIME No Known Allergies PAST MEDICAL HISTORY: SOCIAL HISTORY SURGICAL HISTORY: History reviewed. No pertinent past medical history. Social History Tobacco Use Smoking status: Never Smokeless tobacco: Never History reviewed. No pertinent surgical history. No family history on file. No Known Allergies History reviewed. No pertinent surgical history. Tobacco Use: Low Risk (06/13/2024) Patient History Smoking Tobacco Use: Never Smokeless Tobacco Use: Never Passive Exposure: Not on file Alcohol Use: Not At Risk (01/26/2020) Received from [employer], [employer] [facility] Frequency of Alcohol Consumption: Never Average Number of Drinks: Not on file Frequency of Binge Drinking: Not on file Depression: Not on file Physical Activity: Not on file REVIEW OF SYMPTOMS: Review of Systems All other systems reviewed and are negative. 10 systems were reviewed. Positives noted above. Remainder are negative per CMS guidelines. OBJECTIVE: Visit Vitals BP 138/82 Pulse 93 Resp 18 Ht 6' 3 Wt (!) 403 lb 9.6 oz SpO2 99% BMI 50.45 kg/m Smoking Status Never BSA 3.11 m Physical Exam Vitals reviewed. General: AAOx3, NAD Head: atraumatic normocephalic Neck: trachea midline. No masses or lymphadenopathy Heart: Regular rate and rhythm Lungs: equal chest rise and fall, non labored breathing Abdomen: soft, nontender, and non distended Ext: motor 5/5 all extremities with no gross deformities Psych: alert and oriented, behavior appropriate ASSESSMENT AND PLAN: Assessment/Plan Diagnoses and all orders for this visit: Positive colorectal cancer screening using Cologuard test - Ambulatory referral to General Surgery - bisacodyl (Dulcolax) 5 MG EC tablet; Take 1 tablet (5 mg) by mouth 1 time for 1 dose Do not crush, chew, or split. Take as detailed on clinic hand out for colonoscopy prep - polyethylene glycol, PEG, 3350 (Glycolax) 17 GM/SCOOP powder; Take 238 g by mouth 1 (one) time for 1 dose Take as detailed from clinic hand out for colonoscopy prep Plan: Patient is at increased risk for colon cancer. Colonoscopy can be scheduled electively. Patient informed of the risks of procedure which include but not limited to bleeding, perforation, and risks of anesthesia. Patient understood risks and signed informed consent for the procedure under monitored anesthesia care. Handout for bowel prep provided in clinic. Patient was informed of the need for a ride home from the hospital and the need for someone to be with them for the following 24 hrs post procedure. Thank you, Yareli Polanco DO documented in this encounter [facility] 06-02-2024 History of Presen t illness Narrative [...] red, raised and painful. Developed redness down islam and cheek. Increased pain and to ER. [...] to General Surgery documented in this encounter [facility] 05-09-2024 History of Presen t illness Narrative [...] colon cancer screening documented in this encounter [facility] 12-30-2021 Evaluation note Encounter Date Diagnosis [...] pain persists we will order an MRI. [employer] Other 04-07-2022 Evaluation note* Encounter Date Diagnosis Assessment Notes Treatment Notes Treatment Clinical Notes Oct, Other specified postprocedural states (ICD-10 - Z98.890) Oct, Rupture of right distal biceps tendon, subsequent encounter (ICD-10 - S46.211D) Patient instructed that he may begin light strengthening exercises Oct, Other Patient instruc matthew to allow more time for knee issues to improve. Work on light exercises [employer] Other 02-07-2022 Evaluation note* Encounter Date Diagnosis [...] today to avoid pinching at the wrist. [employer] Other 02-01-2022 Evaluation note* Encounter Date Diagnosis Assessment Notes Treatment Notes Treatment Clinical Notes Aug, Other specified postprocedural states (ICD-10 - Z98.890) [employer] Other 01-17-2022 Evaluation note* Encounter Date Diagnosis [...] TO DETERMINE REPARABILTIY AND LOCATION OF TEAR. [employer] Other Evaluation note* Diagnosis Cutaneous abscess of neck- Primary Cellulitis and abscess of neck documented in this encounter [facility] Phone: evaluation note* Diagnosis Benign essential hypertension [...] 45.0-49.9, adult (CMS/HCC) [facility] [...] (CMS/HCC) [facility] arthritis documented [facility] encounter [facility]* Diagnosis Benign essential hypertension (CMS/HCC)- [...] using Cologuard test [facility] [...] colorectal cancer screening using Cologuard test Positive colorectal cancer screening using Cologuard test- Primary [facility] N[facility]ative - Reported* Type Description Date Medical History fibromyalgia Medical History Arthritis Surgical History bilateral carpal tunnel surgery Surgical History mass removed right knee Surgical History back fusion [employer] Other History general Narrative - Reported* Type Description Date Medical History fibromyalgia Medical History Arthritis Surgical History bilateral carpal tunnel surgery Surgical History mass removed right knee Surgical History back fusion Surgical History right distal bicep repair 2021 [employer] Other Hospital Discharge instructions* Attachments The following attachments cannot be sent through Care Everywhere. * Abscess: Skin ([place]) documented in this [facility] Phone: Summary Purpose Family History No [...] Reason Comments Follow-up Spider bite over eye Reason Comments Colonoscopy Pt presents today fo r a colonoscopy consult. Pt denies/admits to: denies having a colonoscopy before. Last colonoscopy was never. Pt denies abdominal pain. Pt admits rectal bleeding. Pt admits to changes in bowel movements. Pt admits to a family history of colon cancer that they know of. Pt's brother has colon cancer. Pt states that he was told he has possible internal hemorrhoids. Pt did have a positive cologuard test 2-3 weeks ago. Specialty Diagnoses / Procedures Referred By Tracey t Referred To Contact General Surgery Diagnoses Positive colorectal cancer screening using Cologuard test Procedures SD OFFICE/OUTPATIENT NEW HIGH MDM 60 MINUTES Reddy Strickland MD [address] [place] [address] Phone: tel: fax: Michael Polanco, [address] [place] [address] Phone: tel: fax: Referral ID Status Reason Start Date Expiration Date V isits Requested Visits Authorized [id number] Closed Specialty Services Required 06/02/2024 11/29/2024 1 1 Ordered Prescriptions (unrec ognized section and content) Prescription Sig Dispensed Refills Start Date End Da te clindamycin (CLEOCIN) 300 MG capsule Take 1 capsule by mouth 3 times daily for 7 days 21 capsule 0 10/16/2021 10/23/2021 Care Teams (unrecognized sec tion and content) Filler Room Attendant Relationship Specialty Start Date End Date Reddy Strickland MD [address] [place], [place] [id number] PCP - General Family Medicine 10/16/21 Filler Room Attendant Relationship Specialty Start Date End Date Reddy Strickland MD [address] [place] [phone] PCP - General Family Medicine 10/28/23 Reddy Strickland MD [address] [place] [phone] PCP - [facility] 01/25/24 Filler Room Attendant Relationship Specialty Start Date End Date Reddy Strickland MD [address] [place] [phone] PCP - General Family Medicine 10/28/23 Reddy Strickland MD [address] [place] [phone] [facility] 01/25/24 Filler Room Attendant Relationship Specialty Start Date End Date Reddy Strickland MD [address] [place] [address] [facility] 10/28/23 Reddy Strickland MD [address] [place] [address] [facility] 01/25/24 Filler Room Attendant Relationship Specialty Start Date End Date Reddy Strickland MD [address] [place] [address] [facility] 10/28/23 Reddy Strickland MD [address] [place] [address] [facility] 01/25/24 Filler Room Attendant Relationship Specialty Start Date End Date Reddy Strickland MD [address] [place] [address] [facility] 10/28/23 Reddy Strickland MD [address] [place] [phone] [facility] 01/25/24 Filler Room Attendant Relationship Specialty Start Date End Date Reddy Strickland MD [address] [place] [phone] PCP - General Family [facility] 10/28/23 Reddy Strickland MD [address] [place] [phone] [facility] 01/25/24 Filler Room Attendant Relationship Specialty Start Date End Date Reddy Strickland MD [address] [place] [phone] PCP - [facility] 10/28/23 Reddy Strickland MD [address] [place] [phone] [facility] 01/25/24 Filler Room Attendant Relationship Specialty Start Date End Date Reddy Strickland MD [address] [place] [phone] PCP - [facility] 10/28/23 Reddy Strickland MD [address] [place] [phone] [facility] - [facility] 01/25/24 (unrecognized sect ion and content) No Status Records FoundNo Status Records FoundNo Status Records FoundNo Status Records Found INFORMATION SOURCE (unrecogn ized section and content) DATE CREATED AUTHOR 10/17/2021 Alba quiros DATE CREATED AUTHOR AUTHOR'S ORGANIZ ATION 08/30/2022 [facility] DATE CREATED AUTHOR AUTHOR'S ORGANIZ ATION 11/18/2022 [facility] DATE CREATED AUTHOR AUTHOR'S ORGANIZ ATION 06/14/2024 [facility] EPIC FOR RECORDS PERTAINING TO PATIENTS [...] BE BASED ON THE PRIMARY CLINICAL RECORDS. [facility]. provides no warranty or guarantee of the accuracy or completeness of information in this document.
[2024-06-28 07:57] VITALS: BP 132/80; PULSE 82; TEMP 36.2; O2SAT 94
[2024-06-28 08:02] LABS: Glucometer 138 mg/dL (74-106)
[2024-06-28] MEDS: 0.9 % SODIUM CHLORIDE 500 ML IV (08:10)
[2024-06-28] MEDS: BUPIVACAINE HCL 0.25% PF 25 MG/10 ML VIAL 4 ML INJ (09:18)
[2024-06-28] MEDS: METHYLPREDNISOLONE ACETATE 40 MG/ML VIAL INJ (09:19)
[2024-06-28] MEDS: LIDOCAINE HCL 2% 400 MG/20 ML MDV 8 ML INJ (09:19)
[2024-06-28 09:20] VITALS: BP 92/70; PULSE 77; TEMP 36.4; O2SAT 94
[2024-06-28 09:24] VITALS: BP 102/79; PULSE 82; TEMP 36.4; O2SAT 92
--- NOTE | 2024-06-28 10:06 | W.PM.PROCNOT ---
Date of procedure: 06/28/24 Pre-op diagnosis: Right superior gluteal neuritis Post-op diagnosis: same as pre-op Procedure: Right Superior gluteal nerve Radiofrequency ablation PreOp diagnosis: pain secondary to superior gluteal neuritis Postop diagnosis same Under fluoroscopic guidance Rhizotomy was created using radio frequency ablation at 80?C for 90 seconds 1 to 2 lesions created at each site. Post lesioning injection of 2 mL each of 0.25% Marcaine and 2% lidocaine with Depo-Medrol 40mg. 0.5 to 1 mL injected at each site IV in place yes If Intravenous fluids: NS at KVO Anesthesia local 2% lidocaine for Anesthesia Other: MAC Timeout process compliant After informed consent obtained. Patient brought to the procedure room placed in the prone position skin overlying the area was prepped and draped in a sterile fashion using betadine. 25 gauge needle was used to create a skin wheal over each of the targeted areas utilizing 2% lidocaine. A rhizotomy needle with a 10 mm active tip was inserted over each of the anesthetized areas and directed towards four different areas in the distribution of the superior gluteal nerve, accomplished under fluoroscopic guidance. After encountering the same we had positive sensory stimulation, negative motor stimulation was noted. lesions were then created. Post lesioning, steroid solution was injected needles removed. Patient was transferred to recovery room in stable condition to be discharged home after meeting criteria. Anesthesia: MAC Surgeon: Darian Bernal Condition: stable
== END 2024-06-28 09:46 | disposition home or self-care (01) ==
LOC: SURGOUT 07:26
PROVIDERS: PCP Family Medicine; Visit Provider Anesthesiology Pain Medicine
PROC: (CPT 1991; principal; 2024-06-28 08:50)
DX: G57.81 Other specified mononeuropathies of right lower limb (principal)
CPT/HCPCS: 36415; 64640; 82948; J0665; J1010; J2704

== ENCOUNTER 2024-06-30 08:12 | Outpatient (OUT) | payer OTHER, SELFPAY ==
--- OUTSIDE RECORDS SUMMARY | 2024-06-30 08:20 | XMS_ITS | CCD ---
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] Onset: 12-12-2021 Episodic [...] fraction] 45 % 42.0 - 54.0 % [facility] Healthcar e Hemoglobin (Bld) [Mass/Vol] 14.8 g/dL 14.0 - 18.0 g/dL [facility] IMMATURE GRANULOCYTES ABS AUTO 0.04 High [facility] Immature granulocytes/100 WBC (Bld) 0.5 % 0.0 - 0.5 % [facility] Interpretation and review of laboratory results Abnormal [facility] LYMPHOCYTES ABSOLUTE AUTO 1.2 [facility] Lymphocytes/100 WBC (Bld) 16.7 % Low 20.5 - 60.0 % [facility] MCH (RBC) [Entitic mass] 26.9 pg 25.9 - 34.0 pg [facility] MCHC (RBC) [Mass/Vol] 32.9 g/dL 29.9 - 35.2 g/dL [facility] MCV (RBC) [Entitic vol] 81.7 fL 80.0 - 94.0 fL [facility] MONOCYTES ABSOLUTE AUTO 0.5 [facility] Monocytes/100 WBC (Bld) 6.7 % 1.7 - 12.0 % [facility] NEUTROPHILS ABSOLUTE AUTO 5.3 [facility] Neutrophils/100 WBC (Bld) 71.7 % 43.0 - 75.0 % [facility] Platelet mean volume (Bld) [Entitic vol] 9.2 fL Low 9.5 - 13.5 fL [facility] Healthc are TBH EO # 0.3 [facility] Health[facility] e TB PLT 211 [facility] e TB RBC 5.51 [facility] Health[facility] e TBH WBC 7.4 [facility] Healthcar e [facility] Healthcar e XR HIPS MILY 5V W [...] SALONI BRAND Date: 2021-12-10 22:17 Normal [facility] XR KNEE LT 4V or >on [...] BRAND Date: 2021-12-10 22:15 Normal [facility] XR elbow RT 2Von 09-02-2021 XR elbow RT 2V [facility] Main [place] [address] [place] [address] XRay Report Signed Patient: Ruel Simon MR#: [id number] : 1975 Acct:[id number] Age/Sex: 46 / M ADM Date: 09/02/21 Loc: [place] Room: Type: [facility] Attending Dr: Chandler Fuller MD Ordering Provider: [...] Giles Jr., D.O.09/02/2021 2:06 PM Dictation Location: [place] [address] Transcribed By: [facility] 09/02/21 1406 Dictated By: Ishan Giles Jr, DO 09/02/21 1403 Signed By: 09/02/21 1406 Normal [facility] Vital Signs Date Time Vital Sign Value Performing Clinician Facility 06-13-2024 [id number] Body height 190.5 cm Michael Polanco [employer] Work Phone: [facility] 06-13-2024 09:10-0500 Body mass index (BMI) [Ratio] 50.45 kg/m2 Michael Polanco DO Work Phone: [facility] 06-13-2024 09:10-0500 Body weight 183.07 kg Michael Polanco DO Work Phone: [facility] 06-13-2024 09:10-0500 Diastolic blood pressure 82 mm[Hg] Michael Polanco DO Work Phone: [facility] 06-13-2024 09:10-0500 Heart rate 93 /min Michael Polanco DO Work Phone: [facility] 06-13-2024 09:10-0500 Respiratory rate 18 /min Michael Polanco DO Work Phone: [facility] 06-13-2024 09:10-0500 SaO2% (BldA) [Mass fraction] 99 % Michael Polanco DO Work Phone: [facility] 06-13-2024 09:10-0500 Systolic blood pressure 138 mm[Hg] Michael Polanco DO Work Phone: [facility] 06-02-2024 10:51-0500 Body height 190.5 cm Reddy Strickland MD Work Phone: [facility] 06-02-2024 10:51-0500 Body mass index (BMI) [Ratio] 50.75 kg/m2 Reddy Strickland MD Work Phone: [facility] 06-02-2024 10:51-0500 Body temperature 96.6 [degF] Reddy Strickland MD Work Phone: [facility] 06-02-2024 10:51-0500 Body weight 184.16 kg Reddy Strickland MD Work Phone: [facility] 06-02-2024 10:51-0500 Diastolic blood pressure 80 mm[Hg] Reddy Strickland MD Work Phone: [facility] 06-02-2024 10:51-0500 Heart rate 79 /min Reddy Strickland MD Work Phone: [facility] 06-02-2024 10:51-0500 Respiratory rate 20 /min Reddy Strickland MD Work Phone: [facility] 06-02-2024 10:51-0500 SaO2% (BldA) [Mass fraction] 94 % Reddy Strickland MD Work Phone: [facility] 06-02-2024 10:51-0500 Systolic blood pressure 136 mm[Hg] Reddy Strickland MD Work Phone: [facility] 05-09-2024 14:03-0400 Body height 190.5 cm Reddy Strickland MD Work Phone: [facility] 05-09-2024 14:03-0400 Body mass index (BMI) [Ratio] 50.75 kg/m2 Reddy Strickland MD Work Phone: [facility] 05-09-2024 14:03-0400 Body temperature 97.3 [degF] Reddy Strickland MD Work Phone: [facility] 05-09-2024 14:03-0400 Body weight 184.16 kg Reddy Strickland MD Work Phone: [facility] 05-09-2024 14:03-0400 Diastolic blood pressure 78 mm[Hg] Reddy Strickland MD Work Phone: [facility] 05-09-2024 14:03-0400 Heart rate 75 /min Reddy Strickland MD Work Phone: [facility] 05-09-2024 14:03-0400 Respiratory rate 22 /min Reddy Strickland MD Work Phone: [facility] 05-09-2024 14:03-0400 SaO2% (BldA) [Mass fraction] 93 % Reddy Strickland MD Work Phone: [facility] 05-09-2024 14:03-0400 Systolic blood pressure 152 mm[Hg] Reddy Strickland MD Work Phone: [facility] 10-31-2021 12:00-0400 Body height 182.88 cm Chandler Fuller Other [facility] Other 10-31-2021 12:00-0400 Body mass index (BMI) [Ratio] 33.63 kg/m2 Chandler Fuller Other [facility] Other 10-31-2021 12:00-0400 Body weight 112.49 kg Chandler Fuller Other [facility] Other 10-16-2021 14:45-0400 Body height 193 cm Flex Ramírez MD Work Phone: [facility] 10-16-2021 14:45-0400 Body mass index (BMI) [Ratio] 47.55 kg/m2 Flex Ramírez MD Work Phone: [facility] 10-16-2021 14:45-0400 Body temperature 98.6 [degF] Flex Ramírez MD Work Phone: [facility] 10-16-2021 14:45-0400 Body weight 177.18 kg Flex Ramírez MD Work Phone: [facility] 10-16-2021 14:45-0400 Diastolic blood pressure 104 mm[Hg] Flex Ramírez MD Work Phone: [facility] 10-16-2021 14:45-0400 Heart rate 85 /min Flex Ramírez MD Work Phone: [facility] 10-16-2021 14:45-0400 Respiratory rate 18 /min Flex Ramírez MD Work Phone: [facility] 10-16-2021 14:45-0400 SaO2% (BldA) [Mass fraction] 94 % Flex Ramírez MD Work Phone: [facility] 10-16-2021 14:45-0400 Systolic blood pressure 170 mm[Hg] Flex Ramírez MD Work Phone: [facility] 09-02-2021 12:30-0500 Body height 182.88 cm Chandler Fuller Other [facility] Other 09-02-2021 12:30-0500 Body mass index (BMI) [Ratio] 33.36 kg/m2 Chandler Fuller Other [facility] Other 09-02-2021 12:30-0500 Body weight 111.59 kg Chandler Fuller Other [facility] Other Encounters Encounter Date Encounter Type Care [...] Result Encounter Reddy Strickland MD Work Phone: [facility] External Department Unsolicited Start: 05-09-2024 End: 05-09-2024 [...] encounter procedure Reddy Strickland MD Work Phone: [facility] Healthcare Start: 05-09-2024 End: 05-09-2024 ambulatory REDDY STRICKLAND Not Available Start: 10-28-2023 End: 10-28-2023 ambulatory REDDY STRICKLAND Not Available Start: 11-17-[address] REDDY STRICKLAND Facil ity:H1 Start: 12-30-2021 End: 12-30-2021 ambulatory Chandler Olechristoph Other [facility] Other Start: 12-30-2021 Office outpatient ne w 30 minutes Chandler Olechristoph [facility] Start: 12-10-2021 End: 12-11-[address] REDDY STRICKLAND Facility:[facility]1 Start: 10-31-2021 End: 10-31-2021 ambulatory Chandler Olexa Other [facility] Other Start: 10-31-2021 Postop follow up vis it related to original px Chandler Olexa [facility] Start: 10-16-2021 End: 10-16-2021 Emergency department patient visit FLEX RAMÍREZ [facility] Start: 10-16-2021 End: 10-16-2021 Emergency department patient visit Flex Ramírez MD Work Phone: [facility] ED Comment on above: Cutaneous abscess of neck (Primary Dx) Start: 09-02-2021 Postop follow up vis it related to original px Chandler Olexa [facility] Start: 09-02-2021 End: 09-02-2021 ambulatory Reddy Strickland [facility] Other Start: 08-27-2021 End: 08-27-2021 ambulatory Darwin Yepez Other [facility] Other Start: 08-27-2021 Telephone encounter Darwin Yepez [facility] Start: 08-12-2021 End: 08-12-2021 ambulatory Chandler Olexa Other [facility] Other Start: 08-12-2021 Office outpatient ne w 45 minutes Chandler Olexa [facility] Procedures Date Procedure Procedure Detail Performing Clinician Start: 05-09-2024 ALL CBC WITH AUTO DIFF Reddy Strickland MD Work Phone: Plan of Treatment Date Care Activity Detail Author Start: 05-16-2027 Screening for malign ant neoplasm of colon [facility] Start: 08-09-2024 End: 08-09-2024 Patient encounter procedure 08/09/2024 2:00 PM EST Office Visit [facility] [address] [place] [phone] Reddy Strickland MD [address] [place] [phone] [facility] Start: 06-02-2024 End: 06-02-2024 Patient encounter procedure 06/02/2024 10:45 AM EST Office Visit [facility] [address] [place] [address] Reddy Strickland MD [address] [place] [address] Arrived [facility] Comment on above: Arrived Start: 05-09-2024 End: 05-09-2025 Basic metabolic 1998 panel - Serum or Plasma Basic metabolic panel Lab Routine Annual physical exam Expected: 05/09/2024 (Approximate), Expires: 05/09/2025 [facility] Comment on above: Expected: 05/09/2024 (Approximate), Expires: 05/09/2025 Start: 05-09-2024 End: 05-09-2025 CBC W Auto Differential panel - Blood CBC and differential Lab Routine Annual physical exam Expected: 05/09/2024 (Approximate), Expires: 05/09/2025 [facility] Comment on above: Expected: 05/09/2024 (Approximate), Expires: 05/09/2025 Start: 05-09-2024 End: 05-09-2025 Hemoglobin A1c/Hemoglobin.total in Blood Hemoglobin A1c Lab Routine Annual physical exam Expected: 05/09/2024 (Approximate), Expires: 05/09/2025 [facility] Work Phone: Comment on above: Expected: 05/09/2024 (Approximate), Expires: 05/09/2025 Start: 05-09-2024 End: 05-09-2025 Hepatic function 2000 panel - Serum or Plasma Hepatic function panel Lab Routine Annual physical exam Expected: 05/09/2024 (Approximate), Expires: 05/09/2025 [facility] Comment on above: Expected: 05/09/2024 (Approximate), Expires: [...] cancer screening Expected: 05/09/2024 (Approximate), Expires: 05/09/2025 [facility] Healthcare Comment on above: Expected: 05/09/2024 (Approximate), Expires: 05/09/2025 Start: 05-09-2024 End: 05-09-2024 Patient encounter procedure 05/09/2024 2:00 PM EDT Office Visit [facility] [address] [place] [address] Reddy Strickland MD [address] [place] [phone] Arrived [facility] Comment on above: Arrived Start: 05-09-2024 End: 05-09-2025 Prostate specific Ag [Mass/volume] in Serum or Plasma PSA Lab Routine Annual physical exam Expected: 05/09/2024 (Approximate), Expires: 05/09/2025 [facility] Healthcare Comment on above: Expected: 05/09/2024 (Approximate), Expires: 05/09/2025 Start: 05-09-2024 End: 05-09-2025 Thyrotropin [Units/volume] in Serum or Plasma TSH Lab Routine Annual physical exam Expected: 05/09/2024 (Approximate), Expires: 05/09/2025 [facility] Healthcare Comment on above: Expected: 05/09/2024 (Approximate), Expires: 05/09/2025 Start: 03-27-2024 Influenza vaccination Influenza Vacc ine (#1) [facility] Start: 03-27-2021 Influenza vaccination Flu vaccine (# 1) [facility] Start: 1978 COVID-19 Vaccine (1) COVID-19 Vaccin e (1) [facility] Start: 1975 Screening for malign ant neoplasm of colon [facility] Immunizations Immunization Date Immunization Notes Care Provider Fa cility 05-27-2018 influenza virus vacc ine, unspecified formulation Reddy Strickland MD Work Phone: [facility] Payers Date Payer Category Payer Medicaid (Managed Care) [employer] [id number] 2021 Self-pay 1975 Unknown [id number] 1975 Unknown [id number] 593 1975 Unknown [id number] 593 1975 Unknown [id number]. 1259 1975 Unknown [id number] [id number]. 1259 1975 Unknown [id number] [id number]. 1259 1975 Unknown [id number] [id number]. 1259 1959 Unknown [id number] Unknown [id number] 531 Social History Date Type Detail Facility Start: 10-16-2021 End: 10-28-2023 Tobacco smoking status [facility] Never smoked tobacco [facility] Other Start: 10-16-2021 End: 10-28-2023 Tobacco use and exposure Smokeless tobacco non-user [facility] Phone: Start: 1975 Sex Assigned At Not on file [facility] Phone: Start: 10-06-2021 End: 10-16-2021 Exposure to SARS-CoV-2 (event) Not sure [facility] Phone: Start: 10-28-2023 End: 06-13-2024 Sex Assigned At [facility] [employer] Other Start: 10-28-2023 End: 06-13-2024 History of Social function [facility] Clinical Notes 08-12-2021 to 06-13-2024 Michael Polanco [...] Use: Not At Risk (01/26/2020) Received from [employer] [employer] [facility] Frequency of Alcohol Consumption: Never Average [...] Yareli Polanco DO documented in this encounter [facility] 06-02-2024 History of Presen t illness Narrative [...] red, raised and painful. Developed redness down gnosticism and cheek. Increased pain and to ER. [...] to General Surgery documented in this encounter [facility] 05-09-2024 History of Presen t illness Narrative [...] colon cancer screening documented in this encounter [facility] 12-30-2021 Evaluation note Encounter Date Diagnosis Assessment [...] pain persists we will order an MRI. [facility] Other 04-07-2022 Evaluation note* Encounter Date Diagnosis Assessment Notes Treatment Notes Treatment Clinical Notes Oct, Other specified postprocedural states (ICD-10 - Z98.890) Oct, Rupture of right distal biceps tendon, subsequent encounter (ICD-10 - S46.211D) Patient instructed that he may begin light strengthening exercises Oct, Other Patient instruc matthew to allow more time for knee issues to improve. Work on light exercises [facility] Other 02-07-2022 Evaluation note* Encounter Date Diagnosis [...] today to avoid pinching at the wrist. [facility] Other 02-01-2022 Evaluation note* Encounter Date Diagnosis Assessment Notes Treatment Notes Treatment Clinical Notes Aug, Other specified postprocedural states (ICD-10 - Z98.890) [facility] Other 01-17-2022 Evaluation note* Encounter Date Diagnosis [...] TO DETERMINE REPARABILTIY AND LOCATION OF TEAR. [facility] Other Evaluation note* Diagnosis Cutaneous abscess of neck- Primary Cellulitis and abscess of neck documented in this encounter [facility] Phone: evaluation note* Diagnosis Benign essential hypertension [...] (CMS/HCC) [facility] arthritis documented in this encounter [facility] Healthcare[facility] note* Diagnosis Benign essential hypertension (CMS/HCC)- [...] removed right knee Surgical History back fusion [facility] Other History general Narrative - Reported* Type Description Date Medical History fibromyalgia Medical History Arthritis Surgical History bilateral carpal tunnel surgery Surgical History mass removed right knee Surgical History back fusion Surgical History right distal bicep repair 2021 [facility] Other Hospital Discharge instructions* Attachments The following attachments cannot be sent through Care Everywhere. * Abscess: Skin (Yoruba) documented in [facility] Work Phone: Summary Purpose Family History No [...] colorectal cancer screening using Cologuard test Procedures ME OFFICE/OUTPATIENT NEW HIGH MDM 60 MINUTES Reddy Strickland MD [address] [place] [address] Phone: tel: fax: Michael Polanco, [address] [place] [address] Phone: tel: fax: Referral ID Status Reason Start Date Expiration Date V isits Requested Visits Authorized [id number] Closed Specialty Services Required 06/02/2024 11/29/2024 1 1 Ordered Prescriptions (unrec ognized section and content) Prescription Sig Dispensed Refills Start Date End Da te clindamycin (CLEOCIN) 300 MG capsule Take 1 capsule by mouth 3 times daily for 7 days 21 capsule 0 10/16/2021 10/23/2021 Care Teams (unrecognized sec tion and content) Locks Tender Relationship Specialty Start Date End Date Reddy Strickland MD [address] [place], [place] [phone] PCP - General Family Medicine 10/16/21 Locks Tender Relationship Specialty Start Date End Date Reddy Strickland MD [address] [place] [phone] PCP - General Family Medicine 10/28/23 Reddy Strickland MD [address] [place] [phone] PCP - [facility] 01/25/24 Locks Tender Relationship Specialty Start Date End Date Reddy Strickland MD [address] [place] [phone] PCP - General Family Medicine 10/28/23 Reddy Strickland MD [address] [place] [phone] [facility] 01/25/24 Locks Tender Relationship Specialty Start Date End Date Reddy Strickland MD [address] [place] [phone] [facility] 10/28/23 Reddy Strickland MD [address] [place] [phone] [facility] 01/25/24 Locks Tender Relationship Specialty Start Date End Date Reddy Strickland MD [address] [place] [address] [facility] 10/28/23 Reddy Strickland MD [address] [place] [address] [facility] 01/25/24 Locks Tender Relationship Specialty Start Date End Date Reddy Strickland MD [address] [place] [address] [facility] 10/28/23 Reddy Strickland MD [address] [place] [phone] [facility] 01/25/24 Locks Tender Relationship Specialty Start Date End Date Reddy Strickland MD [address] [place] [phone] PCP - General Family [facility] 10/28/23 Reddy Strickland MD [address] [place] [phone] [facility] 01/25/24 Locks Tender Relationship Specialty Start Date End Date Reddy Strickland MD [address] [place] [phone] PCP - [facility] 10/28/23 Reddy Strickland MD [address] [place] [phone] [facility] 01/25/24 Locks Tender Relationship Specialty Start Date End Date Reddy Strickland MD [address] [place] [phone] PCP - [facility] 10/28/23 Reddy Strickland MD [address] [place] [address] [facility] 01/25/24 (unrecognized sect ion and content) No Status Records FoundNo Status Records FoundNo Status Records FoundNo Status Records Found INFORMATION SOURCE (unrecogn ized section and content) DATE CREATED AUTHOR 10/17/2021 Alba quiros DATE CREATED AUTHOR AUTHOR'S ORGANIZ ATION 08/30/2022 [facility] DATE CREATED AUTHOR AUTHOR'S ORGANIZ ATION 11/18/2022 [facility] DATE CREATED AUTHOR AUTHOR'S ORGANIZ ATION 06/14/[address] [facility] dictn Specialists EPIC FOR RECORDS PERTAINING TO PATIENTS [...] BE BASED ON THE PRIMARY CLINICAL RECORDS. [facility]. provides no warranty or guarantee of the accuracy or completeness of information in this document.
== END 2024-06-30 08:13 | disposition home or self-care (01) ==
LOC: PST 08:12
PROVIDERS: PCP Family Medicine; Visit Provider Surgery
DX: Z01.818 Encounter for other preprocedural examination (principal); Z12.11 Encounter for screening for malignant neoplasm of colon

== ENCOUNTER 2024-07-12 09:34 | Day surgery (SDC) | payer OTHER, SELFPAY ==
--- OUTSIDE RECORDS SUMMARY | 2024-07-12 09:43 | XMS_ITS | CCD ---
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; 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: [OTH CLINICAL OUTCOMES MANAGER CURRENT DRUG THERAPY] Onset: 12-12-2021 Episodic [...] fraction] 45 % 42.0 - 54.0 % [facility] Healthcar e Hemoglobin (Bld) [Mass/Vol] 14.8 g/dL 14.0 - 18.0 g/dL [facility] IMMATURE GRANULOCYTES ABS AUTO 0.04 High [facility] Immature granulocytes/100 WBC (Bld) 0.5 % 0.0 - 0.5 % [facility] Interpretation and review of laboratory results Abnormal [facility] LYMPHOCYTES ABSOLUTE AUTO 1.2 [facility] Lymphocytes/100 WBC (Bld) 16.7 % Low 20.5 - 60.0 % [facility] MCH (RBC) [Entitic mass] 26.9 pg 25.9 - 34.0 pg [facility] MCHC (RBC) [Mass/Vol] 32.9 g/dL 29.9 - 35.2 g/dL [facility] MCV (RBC) [Entitic vol] 81.7 fL 80.0 - 94.0 fL [facility] MONOCYTES ABSOLUTE AUTO 0.5 [facility] Monocytes/100 WBC (Bld) 6.7 % 1.7 - 12.0 % [facility] NEUTROPHILS ABSOLUTE AUTO 5.3 [facility] Neutrophils/100 WBC (Bld) 71.7 % 43.0 - 75.0 % [facility] Platelet mean volume (Bld) [Entitic vol] 9.2 fL Low 9.5 - 13.5 fL [facility] Healthc are TBH EO # 0.3 [facility] Health[facility] e TB PLT 211 [facility] e TB RBC 5.51 [facility] e TBH WBC 7.4 [facility]car e [facility] Healthcar e XR HIPS MILY 5V W [...] SALONI BRAND Date: 2021-12-10 22:17 Normal [facility] XR KNEE LT 4V or >on [...] by: SALONI BRAND Date: 2021-12-10 22:15 Normal [facility] XR elbow RT 2Von 09-02-2021 XR elbow RT 2V [facility] Main [place] [address] [place] [address] XRay Report Signed Patient: Ruel Siomn MR#: [id number] : 1975 Acct:[id number] Age/Sex: 46 / M ADM Date: 09/02/21 Loc: [facility] Room: Type: [facility] Attending Dr: Chandler Fuller MD [...] Giles Jr., D.O.09/02/2021 2:06 PM Dictation Location: [place] [address] Transcribed By: [facility] 09/02/21 1406 Dictated By: Ishan Giles Jr, DO 09/02/21 1403 Signed By: 09/02/21 1406 Normal [facility] Vital Signs Date Time Vital Sign Value Performing Clinician Facility 06-13-2024 [id number] Body height 190.5 cm Michael Polanco [employer] Work Phone: [facility] 06-13-2024 09:10-0500 Body mass index (BMI) [Ratio] 50.45 kg/m2 Michael Polanco DO Work Phone: [facility] 06-13-2024 09:10-0500 Body weight 183.07 kg Michael Polanco DO Work Phone: [facility] 06-13-2024 09:10-0500 Diastolic blood pressure 82 mm[Hg] Michael Polanco DO Work Phone: [facility] 06-13-2024 09:10-0500 Heart rate 93 /min Michael Polanco DO Work Phone: [facility] 06-13-2024 09:10-0500 Respiratory rate 18 /min Michael Polanco DO Work Phone: [facility] 06-13-2024 09:10-0500 SaO2% (BldA) [Mass fraction] 99 % Michael Polanco DO Work Phone: [facility] 06-13-2024 09:10-0500 Systolic blood pressure 138 mm[Hg] Michael Polanco DO Work Phone: [facility] 06-02-2024 10:51-0500 Body height 190.5 cm Reddy Strickland MD Work Phone: [facility] 06-02-2024 10:51-0500 Body mass index (BMI) [Ratio] 50.75 kg/m2 Reddy Strickland MD Work Phone: [facility] 06-02-2024 10:51-0500 Body temperature 96.6 [degF] Reddy Strickland MD Work Phone: [facility] 06-02-2024 10:51-0500 Body weight 184.16 kg Reddy Strickland MD Work Phone: [facility] 06-02-2024 10:51-0500 Diastolic blood pressure 80 mm[Hg] Reddy Strickland MD Work Phone: [facility] 06-02-2024 10:51-0500 Heart rate 79 /min Reddy Strickland MD Work Phone: [facility] 06-02-2024 10:51-0500 Respiratory rate 20 /min Reddy Strickland MD Work Phone: [facility] 06-02-2024 10:51-0500 SaO2% (BldA) [Mass fraction] 94 % Reddy Strickland MD Work Phone: [facility] 06-02-2024 10:51-0500 Systolic blood pressure 136 mm[Hg] Reddy Strickland MD Work Phone: [facility] 05-09-2024 14:03-0400 Body height 190.5 cm Reddy Strickland MD Work Phone: [facility] 05-09-2024 14:03-0400 Body mass index (BMI) [Ratio] 50.75 kg/m2 Reddy Strickland MD Work Phone: [facility] 05-09-2024 14:03-0400 Body temperature 97.3 [degF] Reddy Strickland MD Work Phone: [facility] 05-09-2024 14:03-0400 Body weight 184.16 kg Reddy Strickland MD Work Phone: [facility] 05-09-2024 14:03-0400 Diastolic blood pressure 78 mm[Hg] Reddy Strickland MD Work Phone: [facility] 05-09-2024 14:03-0400 Heart rate 75 /min Reddy Strickland MD Work Phone: [facility] 05-09-2024 14:03-0400 Respiratory rate 22 /min Reddy Strickland MD Work Phone: [facility] 05-09-2024 14:03-0400 SaO2% (BldA) [Mass fraction] 93 % Reddy Strickland MD Work Phone: [facility] 05-09-2024 14:03-0400 Systolic blood pressure 152 mm[Hg] Reddy Strickland MD Work Phone: [facility] 10-31-2021 12:00-0400 Body height 182.88 cm Chandler Fuller Other [facility] Other 10-31-2021 12:00-0400 Body mass index (BMI) [Ratio] 33.63 kg/m2 Chandler Fuller Other [facility] Other 10-31-2021 12:00-0400 Body weight 112.49 kg Chandler Fuller Other [facility] Other 10-16-2021 14:45-0400 Body height 193 cm Flex Ramírez MD Work Phone: [employer] 10-16-2021 14:45-0400 Body mass index (BMI) [Ratio] 47.55 kg/m2 Flex Ramírez MD Work Phone: [employer] 10-16-2021 14:45-0400 Body temperature 98.6 [degF] Flex Ramírez MD Work Phone: [employer] 10-16-2021 14:45-0400 Body weight 177.18 kg Flex Ramírez MD Work Phone: [employer] 10-16-2021 14:45-0400 Diastolic blood pressure 104 mm[Hg] Flex Ramírez MD Work Phone: [employer] 10-16-2021 14:45-0400 Heart rate 85 /min Flex Ramírez MD Work Phone: [employer] 10-16-2021 14:45-0400 Respiratory rate 18 /min Flex Ramírez MD Work Phone: [employer] 10-16-2021 14:45-0400 SaO2% (BldA) [Mass fraction] 94 % Flex Ramírez MD Work Phone: [employer] 10-16-2021 14:45-0400 Systolic blood pressure 170 mm[Hg] Flex Ramírez MD Work Phone: [employer] 09-02-2021 12:30-0500 Body height 182.88 cm Chandler Fuller Other [facility] Other 09-02-2021 12:30-0500 Body mass index (BMI) [Ratio] 33.36 kg/m2 Chandler Fuller Other [facility] Other 09-02-2021 12:30-0500 Body weight 111.59 kg Chandler Fuller Other [facility] Other Encounters Encounter Date Encounter Type Care [...] Result Encounter Reddy Strickland MD Work Phone: [facility] External Department Unsolicited Start: 05-09-2024 End: [...] encounter procedure Reddy Strickland MD Work Phone: [facility] Healthcare Start: 05-09-2024 End: 05-09-2024 ambulatory REDDY STRICKLAND Not Available Start: 10-28-2023 End: 10-28-2023 ambulatory REDDY STRICKLAND Not Available Start: 11-17-[address] REDDY STRICKLAND Facil ity:[facility]1 Start: 12-30-2021 End: 12-30-2021 ambulatory Chandler Olechristoph Other [facility] Other Start: 12-30-2021 Office outpatient ne w 30 minutes Chandler Olechristoph [facility] Start: 12-10-2021 End: 12-11-[address] REDDY STRICKLAND Facility:[facility]1 Start: 10-31-2021 End: 10-31-2021 ambulatory Chandler Olexa Other [facility] Other Start: 10-31-2021 Postop follow up vis it related to original px Chandler Olexa [facility] Start: 10-16-2021 End: 10-16-2021 Emergency department patient visit FLEX RAMÍREZ [facility] Start: 10-16-2021 End: 10-16-2021 Emergency department patient visit Flex Ramírez MD Work Phone: [facility] ED Comment on above: Cutaneous abscess of neck (Primary Dx) Start: 09-02-2021 Postop follow up vis it related to original px Chandler Olexa [facility] Start: 09-02-2021 End: 09-02-2021 ambulatory Reddy Strickland [facility] Other Start: 08-27-2021 End: 08-27-2021 ambulatory Darwin Yepez Other [facility] Other Start: 08-27-2021 Telephone encounter Darwin Yepez [facility] Start: 08-12-2021 End: 08-12-2021 ambulatory Chandler Olexa Other [facility] Other Start: 08-12-2021 Office outpatient ne w 45 minutes Chandler Olexa [facility] Procedures Date Procedure Procedure Detail Performing Clinician Start: 05-09-2024 ALL CBC WITH AUTO DIFF Reddy Strickland MD Work Phone: Plan of Treatment Date Care Activity Detail Author Start: 05-16-2027 Screening for malign ant neoplasm of colon [facility] Start: 08-09-2024 End: 08-09-2024 Patient encounter procedure 08/09/2024 2:00 PM EST Office Visit [facility] [address] [place] [phone] Reddy Strickland MD [address] [place] [phone] [facility] Start: 06-02-2024 End: 06-02-2024 Patient encounter procedure 06/02/2024 10:45 AM EST Office Visit [facility] [address] [place] [address] Reddy Strickland MD [address] [place] [address] Arrived [facility] Comment on above: Arrived Start: 05-09-2024 End: 05-09-2025 Basic metabolic 1998 panel - Serum or Plasma Basic metabolic panel Lab Routine Annual physical exam Expected: 05/09/2024 (Approximate), Expires: 05/09/2025 [facility] Comment on above: Expected: 05/09/2024 (Approximate), Expires: 05/09/2025 Start: 05-09-2024 End: 05-09-2025 CBC W Auto Differential panel - Blood CBC and differential Lab Routine Annual physical exam Expected: 05/09/2024 (Approximate), Expires: 05/09/2025 [facility] Comment on above: Expected: 05/09/2024 (Approximate), Expires: 05/09/2025 Start: 05-09-2024 End: 05-09-2025 Hemoglobin A1c/Hemoglobin.total in Blood Hemoglobin A1c Lab Routine Annual physical exam Expected: 05/09/2024 (Approximate), Expires: 05/09/2025 [facility] Work Phone: Comment on above: Expected: 05/09/2024 (Approximate), Expires: 05/09/2025 Start: 05-09-2024 End: 05-09-2025 Hepatic function 2000 panel - Serum or Plasma Hepatic function panel Lab Routine Annual physical exam Expected: 05/09/2024 (Approximate), Expires: 05/09/2025 [facility] Comment on above: Expected: 05/09/2024 (Approximate), [...] cancer screening Expected: 05/09/2024 (Approximate), Expires: 05/09/2025 [facility] Comment on above: Expected: 05/09/2024 (Approximate), Expires: 05/09/2025 Start: 05-09-2024 End: 05-09-2024 Patient encounter procedure 05/09/2024 2:00 PM EDT Office Visit [facility] [address] [place] [address] Reddy Strickland MD [address] [place] [phone] [facility] Comment on above: Arrived Start: 05-09-2024 End: 05-09-2025 Prostate specific Ag [Mass/volume] in Serum or Plasma PSA Lab Routine Annual physical exam Expected: 05/09/2024 (Approximate), Expires: 05/09/2025 [facility] Comment on above: Expected: 05/09/2024 (Approximate), Expires: 05/09/2025 Start: 05-09-2024 End: 05-09-2025 Thyrotropin [Units/volume] in Serum or Plasma TSH Lab Routine Annual physical exam Expected: 05/09/2024 (Approximate), Expires: 05/09/2025 [facility] Comment on above: Expected: 05/09/2024 (Approximate), Expires: 05/09/2025 Start: 03-27-2024 Influenza vaccination Influenza Vacc ine (#1) [facility] Start: 03-27-2021 Influenza vaccination Flu vaccine (# 1) [facility] Start: 1978 COVID-19 Vaccine (1) COVID-19 Vaccin e (1) [facility] Start: 1975 Screening for malign ant neoplasm of colon [facility] Immunizations Immunization Date Immunization Notes Care Provider Fa cility 05-27-2018 influenza virus vacc ine, unspecified formulation Reddy Strickland MD Work Phone: [facility] Payers Date Payer Category Payer Medicaid (Managed Care) [employer] [id number] 2021 Self-pay 1975 Unknown [id number] 1975 Unknown [id number] 593 1975 Unknown [id number] 593 1975 Unknown [id number]. 1259 1975 Unknown [id number] [id number]. 1259 1975 Unknown [id number] [id number]. 1259 1975 Unknown [id number] [id number]. 1259 1959 Unknown [id number] Unknown [id number] 531 Social History Date Type Detail Facility Start: 10-16-2021 End: 10-28-2023 Tobacco smoking status [facility] Never smoked tobacco [facility] Other Start: 10-16-2021 End: 10-28-2023 Tobacco use and exposure Smokeless tobacco non-user [employer] Phone: Start: 1975 Sex Assigned At Not on file [facility] [employer] Phone: Start: 10-06-2021 End: 10-16-2021 Exposure to SARS-CoV-2 (event) Not sure [employer] Phone: Start: 10-28-2023 End: 06-13-[address] [facility] [employer] Other Start: 10-28-2023 End: 06-13-2024 History of Social function [facility] Clinical Notes 08-12-2021 to 06-13-2024 Michael [...] Use: Not At Risk (01/26/2020) Received from [facility] Frequency of Alcohol Consumption: Never Average [...] Yareli Polanco DO documented in this encounter [facility] 06-02-2024 History of Presen t illness [...] red, raised and painful. Developed redness down adventism and cheek. Increased pain and to ER. [...] General Surgery documented in this encounter [facility] 05-09-2024 History of Presen t illness [...] cancer screening documented in this encounter [facility] 12-30-2021 Evaluation note Encounter Date Diagnosis [...] pain persists we will order an MRI. [facility] Other 04-07-2022 Evaluation note* Encounter Date Diagnosis Assessment Notes Treatment Notes Treatment Clinical Notes Oct, Other specified postprocedural states (ICD-10 - Z98.890) Oct, Rupture of right distal biceps tendon, subsequent encounter (ICD-10 - S46.211D) Patient instructed that he may begin light strengthening exercises Oct, Other Patient instruc matthew to allow more time for knee issues to improve. Work on light exercises [facility] Other 02-07-2022 Evaluation note* Encounter Date Diagnosis [...] today to avoid pinching at the wrist. [facility] Other 02-01-2022 Evaluation note* Encounter Date Diagnosis Assessment Notes Treatment Notes Treatment Clinical Notes Aug, Other specified postprocedural states (ICD-10 - Z98.890) [facility] Other 01-17-2022 Evaluation note* Encounter Date Diagnosis [...] TO DETERMINE REPARABILTIY AND LOCATION OF TEAR. [facility] Other Evaluation note* Diagnosis Cutaneous abscess of neck- Primary Cellulitis and abscess of neck documented in this encounter [employer] Phone: evaluation note* Diagnosis Benign essential hypertension [...] (CMS/HCC) [facility] arthritis documented in this encounter [facility] HealthcareEvaluation note* Diagnosis Benign essential hypertension [...] removed right knee Surgical History back fusion [facility] Other History general Narrative - Reported* Type Description Date Medical History fibromyalgia Medical History Arthritis Surgical History bilateral carpal tunnel surgery Surgical History mass removed right knee Surgical History back fusion Surgical History right distal bicep repair 2021 [facility] Other Hospital Discharge instructions* Attachments The following attachments cannot be sent through Care Everywhere. * Abscess: Skin (Colombian) documented in [facility] Work Phone: Summary Purpose Family History No [...] colorectal cancer screening using Cologuard test Procedures [place] OFFICE/OUTPATIENT NEW HIGH MDM 60 MINUTES Reddy Strickland MD [address] [place] [address] Phone: tel: fax: Michael Polanco, [address] [facility] [address] [place] [address] Phone: tel: fax: Referral ID Status Reason Start Date Expiration Date V isits Requested Visits Authorized [id number] Closed Specialty Services Required 06/02/2024 11/29/2024 1 1 Ordered Prescriptions (unrec ognized section and content) Prescription Sig Dispensed Refills Start Date End Da te clindamycin (CLEOCIN) 300 MG capsule Take 1 capsule by mouth 3 times daily for 7 days 21 capsule 0 10/16/2021 10/23/2021 Care Teams (unrecognized sec tion and content) Client Services Director Relationship Specialty Start Date End Date Reddy Strickland MD [address] [place], [place] [phone] PCP - General Family Medicine 10/16/21 Client Services Director Relationship Specialty Start Date End Date Reddy Strickland MD [address] [place] [phone] PCP - General Family Medicine 10/28/23 Reddy Strickland MD [address] [place] [phone] PCP - [facility] 01/25/24 Client Services Director Relationship Specialty Start Date End Date Reddy Strickland MD [address] [place] [phone] PCP - General Family Medicine 10/28/23 Reddy Strickland MD [address] [place] [address] [facility] 01/25/24 Client Services Director Relationship Specialty Start Date End Date Reddy Strickland MD [address] [place] [address] [facility] 10/28/23 Reddy Strickland MD [address] [place] [address] [facility] 01/25/24 Client Services Director Relationship Specialty Start Date End Date Reddy Strickland MD [address] [place] [address] [facility] 10/28/23 Reddy Strickland MD [address] [place] [address] [facility] 01/25/24 Client Services Director Relationship Specialty Start Date End Date Reddy Strickland MD [address] [place] [address] [facility] 10/28/23 Reddy Strickland MD [address] [place] [phone] [facility] 01/25/24 Client Services Director Relationship Specialty Start Date End Date Reddy Strickland MD [address] [place] [phone] PCP - General Family [facility] 10/28/23 Reddy Strickland MD [address] [place] [phone] [facility] 01/25/24 Client Services Director Relationship Specialty Start Date End Date Reddy Strickland MD [address] [place] [phone] PCP - [facility] 10/28/23 Reddy Strickland MD [address] [place] [phone] [facility] 01/25/24 Client Services Director Relationship Specialty Start Date End Date Reddy Strickland MD [address] [place] [phone] PCP - [facility] 10/28/23 Reddy Strickland MD [address] [place] [phone] [facility] - [facility] 01/25/24 (unrecognized sect ion and content) No Status Records FoundNo Status Records FoundNo Status Records FoundNo Status Records Found INFORMATION SOURCE (unrecogn ized section and content) DATE CREATED AUTHOR 10/17/2021 Alba quiros DATE CREATED AUTHOR AUTHOR'S ORGANIZ ATION 08/30/2022 [facility] DATE CREATED AUTHOR AUTHOR'S ORGANIZ ATION 11/18/2022 [facility] DATE CREATED AUTHOR AUTHOR'S ORGANIZ ATION 06/14/2024 [facility] EPIC FOR RECORDS PERTAINING TO PATIENTS [...] BE BASED ON THE PRIMARY CLINICAL RECORDS. [facility]. provides no warranty or guarantee of the accuracy or completeness of information in this document.
[2024-07-12 10:03] VITALS: BP 136/90; PULSE 77; TEMP 36.4; O2SAT 94
[2024-07-12 10:09] LABS: Glucometer 132 mg/dL (74-106)
[2024-07-12 11:15] VITALS: BP 141/87; PULSE 69; O2SAT 93
[2024-07-12 11:16] VITALS: BP 138/91; PULSE 74; O2SAT 92
[2024-07-12] MEDS: BUPIVACAINE HCL 0.25% PF 25 MG/10 ML VIAL 3 ML INJ (11:17)
--- NOTE | 2024-07-12 14:51 | W.PM.PROCNOT ---
Date of procedure: 07/12/24 Pre-op diagnosis: Left superior gluteal neuritis Post-op diagnosis: same as pre-op Procedure: left Superior gluteal nerve block, diagnostic Performed under fluoroscopic guidance Immediate complications none Anesthesia: none Solution used for injection: In each syringe, 2 milliliters 0.25% Marcaine 2.5 mL is used for injection for each side Time out process compliant After informed consent obtained patient was brought to the procedure room placed in the prone position skin overlying the area was prepped and draped in a sterile fashion using betadine. 25 gauge spinal needle Insert over each of the target areas identified in fluoroscopy corresponding needles were advanced Under fluoroscopic guidance until the target/targets encountered, no indication of intravascular or Intraneuronal needle tip placement. Solution injected.needles removed post procedurally. patient transferred to recovery room in stable condition to be discharged home after meeting criteria Anesthesia: Local Surgeon: Darian Bernal Condition: stable Disposition: PACU
== END 2024-07-12 11:20 | disposition home or self-care (01) ==
LOC: SURGOUT 09:35
PROVIDERS: PCP Family Medicine; Visit Provider Anesthesiology Pain Medicine
DX: G57.82 Other specified mononeuropathies of left lower limb (principal); E11.9 Type 2 diabetes mellitus without complications
CPT/HCPCS: 36415; 64450; 82948; J0665

== ENCOUNTER 2025-05-22 14:32 | Outpatient (OUT) | payer OTHER, SELFPAY ==
--- OUTSIDE RECORDS SUMMARY | 2025-05-22 14:49 | XMS_ITS | CCD ---
Author Organization [facility] Care Team Providers Care Launch Leader Name Role Phone Reddy Strickland MD Primary Care Provider FLEX RAMÍREZ Attending Unavailable REDDY STRICKLAND Primary Care Unavailzain e Alina Chandler Unavailable Darwin Yepez Unavailable Reddy Strickland Primary Care Unavailable Olexa, Chandler Attending Unavailable OlexaChandler Admitting Unavailable NADERER, DR REDDY Roper Admitting Unavailable NADEREAnderson, DR REDDY Roper Attending Unavailable MARCO A, DR REDDY Roper Primary Care Unavailable NADERER, DR REDDY Roper Primary Care Unavailable BUD DESAI Admitting Unavailable BUD DESAI Attending Unavailable BUD DESAI Consulting Unavailable SALONI BRAND Consulting Unavailable Reddy Strickland MD Primary Care Provider Reddy Strickland MD Unavailable Reddy Strickland MD Primary Care Provider [phone] ELIZABETH BRYSON Attending Unavailable REDDY STRICKLAND Referring Unavailable REDDY STRICKLAND Primary Care Unavailable ELMO HERRMANN Admitting Unavailable ELMO HERRMANN Attending Unavailable ELMO HERRMANN Referring Unavailable REDDY STRICKALND Primary Care Unavailable REDDY STRICKLAND Referring Unavailable REDDY STRICKLAND Primary Care Unavailable SALONI SALDIVAR Attending Unavailable SALONI SALDIVAR Referring Unavailable REDDY STRICKLAND Primary Care Unavailable REDDY STRICKLAND Attending Unavailable REDDY STRICKLAND Attending Unavailable REDDY STRICKLAND Attending Unavailable MICHAEL POLANCO Attending Unavailable REDDY STRICKLAND Referring Unavailable REDDY STRICKLAND Attending Unavailable Reddy Strickland MD Primary Care Provider Reddy Strickland MD Attending Provider [phone] Allergies Allergy ClassificationReported Allergen(s)Allergy TypeDate of OnsetReaction(s) Facility (6 sources)Chlorhexidine; 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: [CHLORHEXIDINE]Drug Tvaeiwf29-08-0090 [facility] Medications Current Medications MedicationDrug Class(es)DatesSig (Normalized)Sig (Original)acetaminophen 325 mg / oxyCODONE hydrochloride 5 mg oral tablet (3 sources)Opioid AgonistStart: 80-91-0678dstt 1 tablet by mouth every four hours as needed for painPercocet 5-325 MG 1 tablet as needed for pain Orally up to every 4 hrs for 5 days Jul, ActiveStart: 08-22-2021 End: 20-05-8247bxyl 1 tablet by mouth four times daily as needed for pain Oxycodone-Acetaminophen 5-325 mg tablet Discontinued 1 TAB PO Four times daily as needed for Pain August 22, 2021 1:00am May 09, 2025 11:51am amitriptyline hydrochloride 25 mg oral tablet (3 sources)Tricyclic AntidepressantStart: 10-01-2762ptji 1 tablet by mouth once daily at bedtimeAmitriptyline 25 mg tablet Active 25 MG PO Daily at bedtime May 09, 2025 12:00am Complies with drug therapyStart: 48-13-9287oluh 1 tablet by mouth at bedtimeamitriptyline (Elavil) 25 MG tablet Indications: Lumbosacral spondylosis without myelopathy Take 1 tablet (25 mg) by mouth at bedtime 30 tablet 3 02/07/2025 Activecephalexin 500 mg oral capsule (2 sources)Cephalosporin AntibacterialStart: 67-50-8509acbr 1 capsule by mouth every eight hoursCephalexin 500 MG 1 capsule Orally every 8 hrs for 2 days Jul, Activecholecalciferol 0.025 mg oral tablet (20 sources)Vitamin DStart: 04-21-2070gtha 1 tablet by mouth once daily Cholecalciferol (Vitamin D3) 25 mcg (1,000 unit) tablet Active 25 MCG PO Daily May 09, 2025 12:00am Complies with drug therapyStart: 78-49-9410rvip 1 tablet by mouth once dailycholecalciferol (Vitamin D-3) 25 MCG (1000 UT) tablet Indications: Vitamin D deficiency TAKE 1 TABLET BY MOUTH ONCE DAILY AT THE SAME TIME EVERY DAY 60 tablet 01/09/2025 ActiveStart: 06-17-2024 End: 39-26-2684fmqq 1 tablet by mouth once dailycholecalciferol (Vitamin D3) 25 MCG (1000 UT) tablet Indications: Vitamin D deficiency Take 1 tablet (1,000 Units) by mouth 1 (one) time each day at the same time 60 tablet 3 06/17/2024 ActiveStart: 08-22-2021 End: 23-84-8722fdey 1 capsule by mouth once dailyCholecalciferol (Vitamin D3) (Vitamin D3) 50 mcg (2,000 unit) Capsule Discontinued 50 MCG PO Daily August 22, 2021 1:00am May 09, 2025 11:50amtake 1 tablet by mouth in the morningcholecalciferol, vitamin D3, 5,000 units tablet Take 1 tablet (5,000 Units total) by mouth in the morning. Activetake 1 tablet by mouth once daily cholecalciferol, vitamin D3, 5,000 units tablet Take 5,000 Units by mouth daily. Activeclindamycin 300 mg oral capsule (1 source)Lincosamide AntibacterialStart: 10-16-2021 End: 93-98-7568lzbw 1 capsule by mouth three times dailyclindamycin (CLEOCIN) 300 MG capsule Take 1 capsule by mouth 3 times daily for 7 days 21 capsule 0 0 10/16/2021 10/23/2021 Active0.5 ml dulaglutide 1.5 mg/ml auto-injector (1 source)GLP-1 Receptor AgonistStart: 74-28-7146Dzjxvaaebue (Trulicity) 0.75 mg/0.5 mL pen injector Active 0.75 MG SUBCUT every week 2 May 17, 2025 12:00am Complies with drug therapyDULoxetine 60 mg delayed release oral capsule (20 sources)Serotonin and Norepinephrine Reuptake InhibitorStart: 53-60-4380fnlq 1 capsule by mouth twice dailyDuloxetine 60 mg capsule,delayed release(DR/EC) Active 60 MG PO Twice daily 60 30 March 12:00am Anxiety, F41.9 Complies with drug therapyStart: 40-85-6526bepo 1 capsule by mouth twice daily DULoxetine (Cymbalta) [address] capsule Indications: Anxiety Take 1 capsule by mouth twice daily 60 capsule 02/06/2025 ActiveStart: 02-18-2024 End: 08-40-4077hrhy 1 capsule by mouth twice dailyDULoxetine (Cymbalta) [address] capsule Indications: Anxiety Take 1 capsule by mouth twice daily 60 capsule 5 08/17/2024 ActiveStart: 08-22-2021 End: 87-39-5651njqq 1 capsule by mouth once dailyDuloxetine 60 mg capsule,delayed release(DR/EC) Discontinued 60 MG PO Daily August 22, 2021 1:00am May 09, 2025 11:53amerythromycin 0.005 mg/mg ophthalmic ointment (2 sources)Macrolide, Macrolide AntimicrobialStart: 02-07-2025 End: 73-92-6485evwsr 3.5 g into the eye(s) every four hourserythromycin (Romycin) 5 MG/GM ophthalmic ointment Indications: Acute bacterial conjunctivitis of both eyes Apply to both eyes every 4 (four) hours for 7 days 3.5 g 02/07/2025 02/14/2025 ActivehydroCHLOROthiazide 12.5 mg / losartan potassium 50 mg oral tablet (20 sources)Thiazide Diuretic, Angiotensin 2 Receptor BlockerStart: 05-09-2025 take 1 tablet by mouth once dailyLosartan-Hydrochlorothiazide 50-12.5 mg tablet Active 1 TAB PO Daily May 09, 2025 12:00am Complies with drug therapy Start: 14-84-5531dnks 1 tablet by mouth once in the morninglosartan- hydroCHLOROthiazide (HYZAAR) 50-12.5 mg per tablet Take 1 tablet by mouth in the morning. 11/14/2024 ActiveStart: 11-10-2024 End: 81-17-0178fpnp 1 tablet by mouth once dailylosartan-hydroCHLOROthiazide (Hyzaar) 50-12.5 MG tablet Indications: Benign essential hypertension Take 1 tablet by mouth once daily 30 tablet 5 11/14/2024 ActiveStart: 77-09-9851vuli 1 tablet by mouth once dailylosartan-hydroCHLOROthiazide (Hyzaar) 50-12.5 MG tablet Indications: Benign essential hypertension (CMS/HCC) Take 1 tablet by mouth Daily 30 tablet 5 05/09/2024 ActiveKnee Brace - (1 source)Start: 66-92-2766Rvvb Brace - as directed neoprene sleeve Dec, ActiveMedical Marijuana / Cannabinoid Product (1 source)Medical Marijuana / Cannabinoid Product Activemeloxicam 7.5 mg oral tablet (20 sources)Nonsteroidal Anti-inflammatory DrugStart: 63-28-8444lsuf 1 tablet by mouth twice daily as needed for painMeloxicam 7.5 mg tablet Active 7.5 MG PO Twice daily as needed for moderate pain May 092:00am Complies with drug therapyStart: 08-57-1588sxye 1 tablet by mouth twice daily as needed for painmeloxicam (Mobic) 7.5 MG tablet Indications: Lumbosacral spondylosis without myelopathy Take 1 tablet (7.5 mg) by mouth 2 (two) times a day as needed for moderate pain 60 tablet 3 09/21/2024 Activepregabalin 150 mg oral capsule (20 sources)Start: 05-09-2025 End: 07-09-2937huai 1 capsule by mouth three times dailyPregabalin 150 mg capsule Active 150 MG PO Three times daily 90 30 2 May 11, 2025 11:03am Spondylosis of lumbosacral spine without myelopathy Spondylosis without myelopathy or radiculopathy, lumbosacral region Complies with drug therapyStart: 21-45-7274vakh 1 capsule by mouth in the morning, then take 1 capsule by mouth in the evening, then take 1 capsule by mouth at bedtimepregabalin (Lyrica) 150 MG capsule Indications: Lumbosacral spondylosis without myelopathy Take 1 ca psule (150 mg) by mouth in the morning and 1 capsule (150 mg) in the evening and 1 capsule (150 mg)before bedtime. 90 capsule 2 02/07/2025 ActiveStart: 02-25-2024 End: 06-39-1375pdcq 1 capsule by mouth three times daily at bedtimepregabalin (Lyrica) 100 MG capsule Indications: CMC arthritis TAKE 1 CAPSULE BY MOUTH THREE TIMES DAILY IN THE MORNING AND IN THE EVENING AND AT BEDTIME 90 capsule 2 11/14/2024 02/07/2025 Discontinuedsod sulf-pot chloride-mag sulf 1.479-0.188- 0.225 gram tablet (2 sources)Start: 27-49-7965egb sulf-pot chloride-mag sulf 1.479-0.188- 0.225 gram tablet Indications: Positive colorectal cancer screening using Cologuard test Please see instructional sheet given by physicians office. 24 tablet 11/17/2024 ActivetraMADol hydrochloride 50 mg oral tablet (1 source)Opioid AgonistStart: 07-08-1690nise 1 tablet by mouth every four hours as needed for painUltram 50 MG 1 tablet as needed for pain Orally up to every 4 hrs for 5 days Aug, Active Completed/Discontinued Medications MedicationDrug Class(es)DatesSig (Normalized)Sig (Original)8 hr acetaminophen 650 mg extended release oral tablet (1 source)Start: 08-22-2021 End: 50-27-2021ajdk 1 tablet by mouth every eight hours as needed for pain Acetaminophen (Tylenol Arthritis) 650 mg Tablet Extended Release Discontinued 650 MG PO Q8H as needed for Pain August 22, 2021 1:00am May 09, 2025 11:49amacetaminophen 300 mg / codeine phosphate 30 mg oral tablet (2 sources)Opioid Agonist End: 00-47-7978cdsw 1 tablet by mouth every four hours as needed for pain acetaminophen-codeine (TYLENOL #3) 300-30 mg per tablet Take 1 tablet by mouth every 4 (four) hoursas needed for pain. 11/17/2024 Discontinued (Therapy completed)[id number] 200 actuat albuterol 0.09 mg/actuat metered dose inhaler (1 source)beta2-Adrenergic AgonistStart: 08-22-2021 End: 44-27-3085dctz 1 puff(s) by inhalation four times daily as neededAlbuterol Sulfate 90 mcg/actuation HFA aerosol inhaler Discontinued 2 PUFF INHALATION Four times daily as needed for Shortness Of Breath August 22, 2021 1:00am May 09, 2025 11:49ambisacodyl 5 mg delayed release oral tablet (2 sources)Stimulant LaxativeStart: 06-13-2024 End: 23-94-8081vewv 1 tablet by mouth oncebisacodyl (Dulcolax) 5 MG EC tablet Indications: Positive colorectal cancer screening using Cologuard test Take 1 tablet (5 mg) by mouth 1 time for 1 dose Do not crush, chew, or split. Take as detailed on clinic hand out for colonoscopy prep 4 tablet 06/13/2024 06/13/2024 Expiredcyclobenzaprine hydrochloride 10 mg oral tablet (20 sources)Muscle RelaxantStart: 05-02-2024 End: 92-99-8352ybfi 1 tablet by mouth three times dailyCyclobenzaprine 10 mg tablet Discontinued 10 MG PO Three times daily 90 30 0 April 11, 2025 12 :00am May 16, 2025 9:55am M47.817gabapentin 300 mg oral capsule (6 sources)Anti-epileptic AgentStart: 08-22-2021 End: 10-84-4906iwcw 1 capsule by mouth twice dailyGabapentin 300 mg capsule Discontinued 300 MG PO Twice daily August 22, 2021 1:00am May 09, 2025 11:51amGabapentin Not-TakingGabapentin ActivehydroCHLOROthiazide 25 mg oral tablet (2 sources)Thiazide Diuretic End: 45-06-6061txdz 1 tablet by mouth once dailyhydroCHLOROthiazide (HYDRODIURIL) 25 mg tablet Take 25 mg by mouth daily. 11/17/2024 Discontinued (T herapy completed)lisinopril 5 mg oral tablet (3 sources)Angiotensin Converting Enzyme Inhibitor End: 30-02-1871jarz 4 tablets by mouth in the morninglisinopriL (PRINIVIL,ZESTRIL) 5 mg tablet Take 4 tablets (20 mg total) by mouth in the morning. 11/24/2024 Discontinued (Therapy completed)losartan potassium 50 mg oral tablet (3 sources)Angiotensin 2 Receptor BlockerStart: 10-28-2023 End: 33-24-0803fbes 1 tablet by mouth once dailylosartan (Cozaar) 50 MG tablet Indications: Essential hypertension, malignant (CMS/HCC) Take 1 tablet (50 mg) by mouth Daily 30 tablet 5 10/28/2023 05/09/2024 Discontinuedmethocarbamol 750 mg oral tablet (3 sources)Muscle RelaxantStart: 12-09-2023 End: 53-96-5682ymtp 1 tablet by mouth four times daily as neededmethocarbamol (Robaxin) 750 MG tablet Indications: Lumbosacral spondylosis without myelopathy TAKE 1 TABLET BY MOUTH 4 TIMES DAILY NEEDED 60 tablet 12/09/2023 05/09/2024 NvvluacteykgHteutnqeehmb-Gqurbwnc-Pgnnvo (Multivitamin 50 Plus) Tablet (1 source)Start: 08-22-2021 End: 52-84-7509Erpuwpppuotv-Minerals-Lutein (Multivitamin 50 Plus) Tablet Discontinued 1 TAB PO Daily August 22, 2021 1:00am May 09, 2025 11:51am nabumetone 500 mg oral tablet (1 source)Nonsteroidal Anti-inflammatory DrugStart: 08-22-2021 End: 23-35-5861inqr 1 tablet by mouth twice dailyNabumetone 500 mg tablet Discontinued 500 MG PO Twice daily August 22, 2021 1:00am April 11:51am12 hr orphenadrine citrate 100 mg extended release oral tablet (1 source)Muscle RelaxantStart: 08-22-2021 End: 16-25-6171tbtu 1 tablet by mouth twice dailyOrphenadrine Citrate 100 mg tablet extended release Discontinued 100 MG PO Twice daily August 22, 2021 1:00am May 09, 2025 11:51ampolyethylene glycol 3350 32541 mg powder for oral solution (2 sources)Osmotic LaxativeStart: 06-13-2024 End: 57-97-2462gyhp 17 g by mouth oncepolyethylene glycol, PEG, 3350 (Glycolax) 17 GM/SCOOP powder Indications: Colonoscopy Take 238 g bymouth 1 (one) time for 1 dose Take as detailed from clinic hand out for colonoscopy prep 238 g 06/1306/13/2024 ExpiredtiZANidine 4 mg oral tablet (1 source)Central alpha-2 Adrenergic AgonistStart: 08-22-2021 End: 88-57-5670vptq 1 tablet by mouth three times dailyTizanidine 4 mg tablet Discontinued 4 MG PO Three times daily August 22, 2021 1:00am May 09, 2025 11:51amtriamcinolone acetonide 40 mg/ml injectable suspension (1 source)CorticosteroidStart: 61-85-4666Hxieixa-40 Dec, 40 mgVitamin D (5 sources)Vitamin D Not-TakingVitamin D Active Problems Active Problems Problem ClassificationProblemDateDocumented DateEpisodic/ChronicAnxiety disorders (20 sources)Generalized anxiety disorder; 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: [Generalized anxiety disorder]Onset: 618929-52-9230ZewtipsCvcyeuw dysrhythmias (20 sources)Palpitations; 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: [Palpitations]Onset: 06-29-2023 30-47-4450CdsrgsydDrhrlneu mellitus without complication (18 sources)Prediabetes; 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: [Prediabetes]Onset: EpisodicEssential hypertension (20 sources)Benign essential hypertension; 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: [Essential (primary) hypertension]Onset: 439440-95-5087QzksovrEkhviijkozdu; infection of eye (except that caused by tuberculosis or sexually transmitteddisease) (4 sources)Acute infectious conjunctivitis; 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: [Unspecified acute conjunctivitis, bilateral]Onset: 613373-09-4999XcnkzscaJlfvr connective tissue disease (20 sources)Fibromyalgia; 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: [Fibromyalgia]Onset: 10-28-2023 71-71-5975VvrvkbkhMtqfl gastrointestinal disorders (20 sources)Stool DNA-based colorectal cancer screening positive; 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: [Other fecal abnormalities]Onset: 149241-17-5989ZgvyxtjoXmxet gastrointestinal disorders (1 source)Other fecal abnormalities; 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: [Other fecal abnormalities] Onset: 56-57-6116JacujkmrNumot nervous system disorders (20 sources)Carpal tunnel syndrome of left wrist; 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: [Carpal tunnel syndrome, left upper limb]Onset: 791951-32-1533SteybyrTfsvi nervous system disorders (20 sources)Carpal tunnel syndrome of right wrist; 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: [Carpal tunnel syndrome, right upper limb]Onset: 694318-23-6946OhvkrvxSaicg nervous system disorders (20 sources)Paresthesia; 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: [Paresthesia of skin]Onset: 10-28-2023 94-64-5421BtgoledjDgdjp non-traumatic joint disorders (20 sources)Hip pain; 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: [Pain in unspecified hip]Onset: 07-24-2023 42-35-7917UrxsrqmoIjqbb non-traumatic joint disorders (20 sources)Pain in elbow; 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: [Pain in right elbow]Onset: 10-28-2023 02-91-7740FrrbjdvlWtxbb nutritional; endocrine; and metabolic disorders (2 sources)Morbid (severe) obesity due to excess calories; 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: [MORBID SEVERE OBES D/T EXCESS KEGAAN]Onset: 87-93-2258HzvumzdOeoxh nutritional; endocrine; and metabolic disorders (1 source)Body mass index (BMI) 45.0-49.9, adult; 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: [BODY MASS INDEX BMI 45.0-49.9 ADULT]Onset: 89-51-1474ZeqxkjyYnepg nutritional; endocrine; and metabolic disorders (7 sources)Morbid obesity; 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: [Morbid (severe) obesity due to excess calories]Onset: 779819-34-3663SrcezgqFvtjm nutritional; endocrine; and metabolic disorders (4 sources)Body mass index 40+ - severely obese; 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: [Body mass index (BMI) 45.0-49.9, adult]58-51-1721SxrislrNrtms nutritional; endocrine; and metabolic disorders (17 sources)Severe obesity; 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: [Class 3 severe obesity due to excess calories with serious comorbidity and body mass index (BMI) of 50.0 to 59.9 in adult]Onset: 417362-45-8922AsfufxsAfqhc nutritional; endocrine; and metabolic disorders (1 source)Body mass index (BMI) 50.0-59.9, adult; 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: [Body mass index (BMI) 50.0-59.9, adult]Onset: 81-15-4570JsafpqjWoprh screening for suspected conditions (not mental disorders or infectious disease) (4 sources)Patient encounter status; 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: [Encounter for screening for malignant neoplasm of colon]33-61-1516GoxqqinmNpkqo upper respiratory disease (3 sources)Lesion of skin of nose; 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: [Disorder of the skin and subcutaneous tissue, unspecified]EpisodicSpondylosis; intervertebral disc disorders; other back problems (20 sources)Spondylosis without myelopathy or radiculopathy, lumbosacral region; 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: [Lumbosacral spondylosis without myelopathy]Onset: 11-17-2022 ChronicSpondylosis; intervertebral disc disorders; other back problems (2 sources)Spondylosis; intervertebral disc disorders; other back problems Unclassified (1 source)Z98.890 - Other specified postprocedural states; 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: [Z98.890 - Other specified postprocedural states]Onset: 18-73-9305Lcjjdzmchrys (2 sources)Autogenerated ProblemOnset: 500739-17-8689Zlpqiyyvbxql (2 sources)Positive CologuardOnset: 35-99-6965Nwemjjputzrl (2 sources)L98.9 - Disorder of the skin and subcutaneous tissue, unspecified Past or Other Problems Problem ClassificationProblemDateDocumented DateEpisodic/ChronicE Codes: Fall (1 source)Unspecified fall, initial encounter; 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: [UNSPECIFIED FALL INITIAL ENCOUNTER]Onset: 16-12-9898SifdqiqmNgdqnacnjfknpl (20 sources)Osteoarthritis of left knee joint; 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: [Unilateral primary osteoarthritis, left knee]Onset: 12-30-2021 Resolved: 36-72-6152IpjasxwXmljt aftercare (1 source)Other long-term (current) drug therapy; 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: [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]Onset: 58-23-4550NugippyfXzuts circulatory disease (20 sources)Acquired arteriovenous malformation; 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: [Other specified disorders of arteries and arterioles]Onset: 07-24-2023 Resolved: 011748-04-0269DwkkqqdMbyxv injuries and conditions due to external causes (1 source)Unspecified injury of left lower leg, initial encounter; 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: [UNS INJURY LT LOWER LEG INITIAL ENC]Onset: 36-76-0323DghhbzwqQrmhd non- traumatic joint disorders (3 sources)Pain in left knee; 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: [PAIN IN LEFT KNEE]Onset: 12-10-2021 EpisodicResidual codes; unclassified (3 sources)Other specified postprocedural statesOnset: 08-27-2021 Resolved: 75-11-1175RcdnesbbUxdsyovya and history of mental health and substance abuse codes (1 source)Personal history of nicotine dependence; 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: [PERSONAL HISTORY OF NICOTINE DEPEND]Onset: 52-14-6274GbclygieAsau and subcutaneous tissue infections (17 sources)Abscess of neck; 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: [Cutaneous abscess of neck]Onset: 06-02-2024 Resolved: 77-38-3878YcduqtikBkbwphm and strains (3 sources)Strain of muscle, fascia and tendon of other parts of biceps, right arm, initial encounter; 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: [Strain of muscle, fascia and tendon of other parts of biceps, right arm, subsequent encounter]Onset: 08-12-2021 Resolved: 30-20-0317ZrxlpgxvUhqvuacmyxj injury; contusion (1 source)Contusion of right hip, initial encounter; 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: [CONTUSION RIGHT HIP INITIAL ENC]Onset: 27-07-3115CvkfvfkgMleamudyyutn (1 source)Preprocedural examination bnpb93-37-2567 Results Test NameValueInterpretationReference RangeFacilityALL CBC WITH AUTO DIFFon 86-13-6335WTSGVVWSD ABSOLUTE AUTO0.1NOMS HealthcareBasophils/100 WBC (Bld)1 %0.2 - 2.0 %NOMUniversity HospitalEosinophils/100 WBC (Bld)3.4 %0.9 - 7.0 %[facility] Erythrocyte distribution width (RBC) [Ratio]14.1 %11.0 - 15.0 %[facility] Hematocrit (Bld) [Volume fraction]45 %42.0 - 54.0 %[facility] InstituteHemoglobin (Bld) [Mass/Vol]14.8 g/dL14.0 - 18.0 g/dLFreeman Cancer InstituteIMMATURE GRANULOCYTES ABS AUTO0.04HighNOScotland County Memorial HospitalImmature granulocytes/100 WBC (Bld)0.5 %0.0 - 0.5 %[facility] InstituteInterpretation and review of laboratory resultsAbnormalNOScotland County Memorial HospitalLYMPHOCYTES ABSOLUTE AUTO1.2NOMS [facility] MemorialLymphocytes/100 WBC (Bld) 16.7 %Low20.5 - 60.0 %[facility] CenterH (RBC) [Entitic mass]26.9 pg25.9 - 34.0 pgNOScotland County Memorial HospitalMCHC (RBC) [Mass/Vol]32.9 g/dL29.9 - 35.2 g/dLFreeman Cancer Institute MCV (RBC) [Entitic vol]81.7 fL80.0 - 94.0 fLFreeman Cancer InstituteMONOCYTES ABSOLUTE AUTO0.5NOScotland County Memorial HospitalMonocytes/100 WBC (Bld)6.7 %1.7 - 12.0 %[facility] NEUTROPHILS ABSOLUTE AUTO5.3NOMS [facility] MemorialNeutrophils/100 WBC (Bld)71.7 %43.0 - 75.0 %[facility] HealthcarePlatelet mean volume (Bld) [Entitic vol]9.2 fLLow9.5 - 13.5 fLFreeman Cancer InstituteTBH EO #0.3NOMS [facility] MemorialTBH [id number] [facility] MemorialTB RBC5.51 NOMS [facility] MemorialTBH WBC7.4NOMS HealthcareCLINISYNCNOMS HealthcareXR HIPS MILY 5V W PELVISon 97-15-0147TK HIPS MILY 5V W PELVISEXAM: XR HIPS MILY 5V W PELVIS HISTORY: Pelvic and hip pain COMPARISON: None. TECHNIQUE: 6 views FINDINGS: No osseous lesion, fracture, dislocation or subluxation. Joint spaces are normal. No visualized effusion. No visualized soft tissue edema. IMPRESSION: Normal x-rays Electronically authenticated by: SALONI BRAND Date: 2021-12-10 22:17NoAultman Orrville HospitalXR KNEE LT 4V or >on 44-81-2473AI KNEE LT 4V or >EXAM: XR KNEE LT 4V or > HISTORY: Left knee pain COMPARISON: None. TECHNIQUE: 4 views FINDINGS: No fracture, dislocation or subluxation. No osseous lesion. Small knee effusion. The joint spaces are maintained. IMPRESSION: Small knee effusion with no visualized osseous abnormality Electronically authenticated by: SALONI BRAND Date: 2021-12-10 22:15NKettering Health Main CampusXR elbow RT 2Von 88-59-1759DS elbow RT 2VMERCY HEALTH ANDERSON [facility] [place] [address] [place] [address] XRay Report Signed Patient: Ruel Simon MR#: [id number] : 1975 Acct:[id number] Age/Sex: 46 / M ADM Date: 09/02/21 Loc: SOXD Room: Type: [facility] CLI Attending Dr: Chandler Fuller MD Ordering Provider: [...] Giles Jr., D.OOlive09/02/2021 2:06 PM Dictation Location: [facility]13 Transcribed By: [facility] 09/02/21 1406 Dictated By: Ishan Giles Jr, DO 09/02/21 1403 Signed By: 09/02/21 140[facility] Vital Signs Date TimeVital SignValuePerforming WsaezvsnbUyhvyavi46-82-4679 13:53-0400Body txkdqe672.04 cmReddy Strickland MD Work Phone: [phone] [place], [place] 2676110-22-2025 13:53-0400 Body mass index (BMI) [Ratio]49.8 kg/m2Reddy Strickland MD Work Phone: [phone] [place], [place] 2676110-22-2025 13:53-0400 Body qnjovzhmbsz81.8 [degF]Reddy Strickland MD Work Phone: [phone] [place], [place] 2676110-22-2025 13:53-0400 Body .97 kgReddy Strickland MD Work Phone: [phone] [place], [place] 2676110-22-2025 13:53-0400 Diastolic blood beendwyz41 mm[Hg]Reddy Strickland MD Work Phone: [phone]10-22-2025 13:53-0400 Heart rate85 /minReddy Strickland MD Work Phone: [phone] [place], [place] 2676110-22-2025 13:53-0400 Respiratory rate20 /minReddy Strickland MD Work Phone: [phone])[address] [place], [place] 2676110-22-2025 13:53-0400 SaO2% (BldA) [Mass fraction]92 %Reddy Strickland MD Work Phone: [facility]10-22-2025 13:53-0400 Systolic blood luamfltf705 mm[Hg]Reddy Strickland MD Work Phone: [phone]07-15-2025 14:16-0400 Body .5 cmReddy Strickland MD Work Phone: 1(519)821-[address] [place], [place] [address]Lyhiwxfdpz42-14-6733 14:16-0400Body mass index (BMI) [Ratio]51 kg/m2Reddy Strickland MD Work Phone: [facility] InstituteUjyenxginq99-79-6099 14:16-0400Body temperature 97.3 [degF]Reddy Strickland MD Work Phone: [facility] InstituteYejamjjrlr56-67-1166 14:16-0400Body iqbadb532.07 kgReddy Strickland MD Work Phone: [facility] InstituteIjvgixpqmh72-64-0809 14:16-0400Diastolic blood ywhfnttc31 mm[Hg]Reddy Strickland MD Work Phone: [facility] InstituteOvjqewxhjx15-51-5808 14:16-0400Heart rate75 /min Reddy Strickland MD Work Phone: [facility] InstituteOzewvmrkyo21-82-5012 14:16-0400Respiratory rate18 /minReddy Strickland MD Work Phone: [facility] InstituteFesbfpglim54-39-6838 14:16-6502GnX4% (BldA) [Mass fraction]93 %Reddy Strickland MD Work Phone: [facility] InstituteSpspjreyws49-66-7206 14:16-0400Systolic blood bacfknxb132 mm[Hg]Reddy Strickland MD Work Phone: [facility] InstituteNemangyyho43-01-0957 13:55-0400Body .[address]05-01-2025 13:55-0400Body mass index (BMI) [Ratio] 50.25 kg/m[address]05-01-2025 13:55-0400Body aeafzj473.[address]04-24-2025 14:02-0400Body .5 cmElizabeth Bryson VISUAL MERCHANDISING ASSISTANT-MICROWAVE OVEN ASSEMBLER Work Phone: [facility]04-24-2025 14:02-0400Body mass index (BMI) [Ratio]50.25 kg/t7PnwetmjElizabeth Bryson VISUAL MERCHANDISING ASSISTANT-MICROWAVE OVEN ASSEMBLER Work Phone: [facility]04-24-2025 14:02-0400Body kjdmpo688.35 kgElizabeth Bryson VISUAL MERCHANDISING ASSISTANT-MICROWAVE OVEN ASSEMBLER Work Phone: [phone]04-24-2025 14:02-0400Diastolic blood uwwznvmz71 mm[Hg]Elizabeth Bryson VISUAL MERCHANDISING ASSISTANT-MICROWAVE OVEN ASSEMBLER Work Phone: [facility]04-24-2025 14:02-0400Heart rate 79 /minElizabeth Bryson VISUAL MERCHANDISING ASSISTANT-MICROWAVE OVEN ASSEMBLER Work Phone: [facility]04-24-2025 14:02-0400Systolic blood pfeupmzw062 mm[Hg]Elizabeth Bryson VISUAL MERCHANDISING ASSISTANT-MICROWAVE OVEN ASSEMBLER Work Phone: [facility]01-14-2025 14:07-0500Body kohgld307.5 cmReddy Strickland MD Work Phone: [facility] InstituteLcjhngqjbe44-24-1012 14:07-0500Body mass index (BMI) [Ratio]51.12 kg/m2Reddy Strickland MD Work Phone: [facility] InstituteMfyusfwfdf33-45-1567 14:07-0500Body temperature 97.11 [degF]Reddy Strickland MD Work Phone: [facility]Sc[facility] HospitalPjlfkntcag87-99-2584 14:07-0500Body yndwwc613.52 kgReddy Strickland MD Work Phone: [facility] InstituteSffozbwyui79-70-5627 14:07-0500Diastolic blood ctdaduza35 mm[Hg]Reddy Strickland MD Work Phone: [facility] InstituteKdcqggreuv74-41-9422 14:07-0500Heart rate82 /min Reddy Strickland MD Work Phone: [facility] InstituteVeqiscdydy60-76-8555 14:07-0500Respiratory rate20 /minReddy Strickland MD Work Phone: [facility] InstitutePotdbkdbnm71-58-8137 14:07-5075ZhD1% (BldA) [Mass fraction]93 %Reddy Strickland MD Work Phone: [facility] InstituteGjevrskvls37-89-8348 14:07-0500Systolic blood fbavoctd791 mm[Hg]Reddy Strickland MD Work Phone: [facility] InstituteWtjtfdzqya03-94-1745 09:10-0500Body fsytdl016.5 cmMichael Polanco DO Work Phone: [phone] [place], [place] [address]11-18-2024 09:10-0500Body mass index (BMI) [Ratio]50.45 kg/m2Michael Polanco DO Work Phone: 1([phone] [place], [place] [address]Onqysdixvk04-38-4056 09:10-0500Body bpdgfo665.07 kgMichael Polanco DO Work Phone: 1(925)[address] [place] [address]-18-2024 09:10-0500Diastolic blood wojopyvn98 mm[Hg]Michael Polanco DO Work Phone: 1(304)[facility] [place], [place] [address]Eyonpsoioi18-77-0690 09:10-0500Heart rate93 /min Michael Polanco DO Work Phone: 1([phone] [place], [place] [address]Padhblhnxy02-88-3657 09:10-0500Respiratory rate18 /minMichael Polanco DO Work Phone: 1(098)[facility] [place], [place] [address]Knjcfmsuhu94-64-7761 09:10-2249IoQ2% (BldA) [Mass fraction]99 %Michael Polanco DO Work Phone: 1(427)[facility] HospitalMartin [place] [address]Lpjxqtxwou66-52-3215 09:10-0500Systolic blood fvxytovy236 mm[Hg]Michael Polanco DO Work Phone: 1(979)228-[address] [place], [place] [address]Rnvaixaqtv01-78-0998 10:51-0500Body uyzpts334.5 cmReddy Strickland MD Work Phone: [place] [address]Qnjusssnkt06-99-8738 10:51-0500Body mass index (BMI) [Ratio]50.75 kg/m2Reddy Strickland MD Work Phone: [place] [address]Wdpkstivpj06-18-9962 10:51-0500Body temperature 96.6 [degF]Reddy Strickland MD Work Phone: 1([phone] [place], [place] [address]Sfvbfikwkr07-28-5723 10:51-0500Body .16 kgReddy Strickland MD Work Phone: 1(057)[facility]-[address] [address]Damagpquez67-21-3946 10:51-0500Diastolic blood awshxgbt79 mm[Hg]Reddy Strickland MD Work Phone: 1(803)[facility]-[address] [place], [place] [address]Mfsaauqjyi64-93-4779 10:51-0500Heart rate79 /min Reddy Strickland MD Work Phone: 1(579)1-[address] [place], [place] [address]Zlxrqpiazn01-44-8387 10:51-0500Respiratory rate20 /minReddy Strickland MD Work Phone: [place] [address]Pnbxtnektc41-26-4049 10:51-4872HdL0% (BldA) [Mass fraction]94 %Reddy Strickland MD Work Phone: [place] [address]Rmnmxzcgjj80-46-1357 10:51-0500Systolic blood sfihipqs457 mm[Hg]Reddy Strickland MD Work Phone: [place] [address]Kmcngswkoc99-89-4116 14:03-0400Body amvjct307.5 cmReddy Strickland MD Work Phone: [facility] InstituteZnzibzftpe69-96-6776 14:03-0400Body mass index (BMI) [Ratio]50.75 kg/m2Reddy Strickland MD Work Phone: [facility] InstituteMakchzaxao88-47-7124 14:03-0400Body temperature 97.3 [degF]Reddy Strickland MD Work Phone: [phone] [place] [address]-14-2024 14:03-0400Body .16 kgReddy Strickland MD Work Phone: [facility] InstituteHukkbvadqg60-06-8143 14:03-0400Diastolic blood wwnysqlv51 mm[Hg]Reddy Strickland MD Work Phone: [facility] InstituteMdcrqoqmmz55-24-1225 14:03-0400Heart rate75 /min Reddy Strickland MD Work Phone: [facility] InstituteDzeplidovt25-23-1222 14:03-0400Respiratory rate22 /minReddy Strickland MD Work Phone: [facility] InstituteXszxztoxla83-16-3912 14:03-7042YqS5% (BldA) [Mass fraction]93 %Reddy Strickland MD Work Phone: [facility] InstituteSuyrlgosrw62-35-0048 14:03-0400Systolic blood oelwvmpd628 mm[Hg]Reddy Strickland MD Work Phone: [facility] InstituteRsdvelccny06-09-0765 12:00-0400Body ntbtgo417.88 cmThomas Olexa Other [employer] Other 04-07-2022 12:00-0400Body mass index (BMI) [Ratio] 33.63 kg/m9Ekchud Olexa Other [employer] Other 04-07-2022 12:00-0400Body vqoweq692.49 kgThomas Olexa Other [employer] Other 03-23-2022 14:45-0400Body yqvicz072 cmVmalachi Ramírez MD Work Phone: [facility] HospitalGlobalLogicIwsppy38-38-7367 14:45-0400Body mass index (BMI) [Ratio]47.55 kg/p3CyyqxrnFlex Ramírez MD Work Phone: [facility] HospitalGlobalLogicOgjqnd21-67-0748 14:45-0400Body qzsitviixpd95.6 [degF]Flex Ramírez MD Work Phone: [facility] HospitalGlobalLogicFgqhkb14-58-2785 14:45-0400Body .18 kg Flex Ramírez MD Work Phone: [facility] HospitalGlobalLogicDaqzgz41-23-4054 14:45-0400Diastolic blood unxmoxli372 mm[Hg]Flex Ramírez MD Work Phone: [facility] HospitalGlobalLogicMkdxde81-45-8687 14:45-0400Heart rate85 /min Flex Ramírez MD Work Phone: [facility] HospitalGlobalLogicAmrzel04-17-3104 14:45-0400Respiratory rate18 /minFlex Ramírez MD Work Phone: [facility] HospitalGlobalLogicPeitkt76-01-1337 14:45-0973NlM4% (BldA) [Mass fraction]94 %Flex Ramírez MD Work Phone: [facility] HospitalGlobalLogicHshqzc38-73-4625 14:45-0400Systolic blood qjhrayqu961 mm[Hg]Flex Ramírez MD Work Phone: [facility] HospitalGlobalLogicDnydwn61-56-8019 12:30-0500Body biyuye848.88 cm Chandler Alina Other [employer] Other 02-07-2022 12:30-0500Body mass index (BMI) [Ratio] 33.36 kg/h6Clfody Olexa Other [employer] Other 02-07-2022 12:30-0500Body .59 kgThomas Olexa Other [employer] Other Encounters Encounter DateEncounter TypeCare ProviderFacilityStart: 05-17-2025 End: 09-52-9297jfdyomscskFlyn Naderer MD Work Phone: -[facility] ClydeStart: 05-17-2025 End: 76-08-7677Uzyzowe encounter procedureReddy Strickland MD-[facility] [place] Work Phone: Start: 02-07-2025 End: 45-28-9231Supvmr outpatient visit 25 minutesReddy Strickland MD Work Phone: noms CWM FMComment on above:Benign essential hypertension (Primary Dx); Lumbosacral spondylosis without myelopathy; Acute bacterial conjunctivitis of both eyesStart: 02-07-2025 End: 70-69-3525tjoqvnfgpeGTDX NADERERNot AvailableStart: 02-07-2025 End: 44-64-3144Utfncw flowsLatisha Strickland MD Work Phone: [facility]WM FMStart: 02-07-2025 End: 76-99-0738Jehisj Liam Strickland MD Work Phone: [facility] CWM FMStart: 12-07-2024 End: 37-36-4987Tznwdlahrj and management of inpatientRappahannock General Hospitaltart: 11-24-2024 End: 71-17-9526ndwhaearcgQSLFZSelect Medical Specialty Hospital - Trumbulltart: 91-98-4258Dbqtfxade for other preprocedural examinationInova Fair Oaks Hospitaltart: 11-24-2024 End: 61-59-0934Hasbmsf encounter procedurePm Pre-Admission Testing [address] [place] [address] - Pre AdmitComment on above:Preop examination (Primary Dx); Hypertension, unspecified type; Morbid obesity with BMI of 50.0-59.9, adult ([facility]-HCC)Start: 11-24-2024 End: 34-43-4699Zuwcvbylsddfs examination done[address] Streettart: 11-17-2024 End: 46-86-7073Ieytfp outpatient new 30 minutesElizabeth Bryson APRN-MICROWAVE OVEN ASSEMBLER Work Phone: ProWvumedicine [facility] Hospitalca Physicians General SurgeryComment on above: Positive colorectal cancer screening using Cologuard test (Primary Dx)Start: 11-17-2024 End: 92-99-8579pjjyekrkeoWPFCXRP A PALOS HEIGHTSCHETANParkview [facility] Start: 11-14-2024 End: 60-03-1557Aaeqcfuxv Layne Bryson APRN-MICROWAVE OVEN ASSEMBLER Work Phone: [facility] Physicians General SurgeryComment on above: CMC arthritisStart: 11-12-2024 End: 19-81-8433UzkpicFywk Naderer MD Work Phone: [facility] CWM FMComment on above:CMC arthritis; Benign essential hypertension (CMS/HCC)Start: 08-17-2024 End: 84-58-8592MsnsoiGyrw Naderer MD Work Phone: [facility] CWM FMComment on above:Anxiety; CMC arthritisStart: 08-09-2024 End: 32-94-9948Afihqbfarzaneh Strickland MD Work Phone: [facility] CWM FMStart: 08-09-2024 End: 76-88-6258Tkitqgfarzaneh Strickland MD Work Phone: NOYJ CWM FMStart: 08-09-2024 End: 29-03-2608Gbmtld outpatient visit 15 minutesReddy Strickland MD Work Phone: [facility] CWM FMComment on above:Benign essential hypertension (CMS/HCC) (Primary Dx); Lumbosacral spondylosis without myelopathy; Class 3 severe obesity due to excess calories with serious comorbidity and body mass index (BMI) of50.0 to 59.9 in adult (CMS/HCC)Start: 08-09-2024 End: 89-84-2084nxquzlmsysPIAO NADERERNot AvailableStart: 06-13-2024 End: 68-56-2222Lzmdpm Sandra Polanco DO Work Phone: N[facility] BWRach GENSStart: 06-13-2024 End: 63-58-3133Lnfthz Sandra Polanco DO Work Phone: [facility] BWRach GENSStart: 06-13-2024 End: 55-91-6251Ocypyh outpatient new 30 minutesKyle Sherri DO Work Phone: NOST BWM GENSComment on above:Positive colorectal cancer screening using Cologuard test (Primary Dx)Start: 06-13-2024 End: 68-14-0933mrqyncwbicPHMP FANTASMAETTNot AvailableStart: 06-02-2024 End: 50-34-1105Uakann Liam Strickland MD Work Phone: [facility] CWM FMStart: 06-02-2024 End: 71-35-5912Nctxlz Liam Strickland MD Work Phone: [facility] CWM FMStart: 06-02-2024 End: 98-85-8710Gjnbds outpatient visit 25 minutesReddy Strickland MD Work Phone: [facility] CWM FMComment on above:Cellulitis of face (Primary Dx); Benign essential hypertension (CMS/HCC); Positive colorectal cancer screening using Cologuard testStart: 06-02-2024 End: 42-75-4249kumyufhtywEVIW NADERERNot AvailableStart: 05-21-2024 End: 66-79-3108TzqbuqXaqz Naderer MD Work Phone: [facility] CWM FMComment on above:CMC arthritisStart: 05-09-2024 End: 02-41-3611Wxoyad Liam Strickland MD Work Phone: [facility] CWM FMStart: 05-09-2024 End: 77-56-2377Gmnopj Liam Strickland MD Work Phone: [facility] CWM FMStart: 05-09-2024 End: 47-29-8398Pjixuisal Result EncounterReddy Strickland MD Work Phone: NOOR External Department UnsolicitedStart: 05-09-2024 End: 82-17-1846Epiivr outpatient visit 25 minutesReddy Strickland MD Work Phone: [facility] CWM FMComment on above:Benign essential hypertension (CMS/HCC) (Primary Dx); Lumbosacral spondylosis without myelopathy; Fibromyalgia; Annual physical exam; Colon cancer screening; Morbid obesity due to excess calories (CMS/HCC); Body mass index (BMI) 45.0-49.9, adult (CMS/HCC)Start: 05-09-2024 End: 44-01-0106Bakevhb encounter procedureReddy Strickland MD Work Phone: [facility] HealthcareStart: 05-09-2024 End: 99-09-3198wqimsjaqdtEULP NADERERNot AvailableStart: 12-51-4706qvdcqudkidIE MARC A NADERERFacility:P4Bkdyd: 12-30-2021 End: 75-09-0984vandcwdbfcNkhhjn Olexa Other [employer] Other Start: 66-84-7343Satgzp outpatient new 30 minutes Chandler OlexaFPG Danielle OrthopedicsStart: 12-10-2021 End: 27-34-5615fjeppkfkfwYX REDDY Roper NADERERFacility:O5Oelbf: 10-31-2021 End: 15-88-8222sjhvsfjhjiIqjhlc Olexa Other [employer] Other Start: 21-72-5802Bxlhhy follow up visit related to original pxThomas OlexaFPG [facility] [place] OrthopedicsStart: 10-16-2021 End: 96-00-2099Fryhfktep department patient visitVESELIN Rafaela [facility] Centertart: 10-16-2021 End: 72-15-8818Bevehojld department patient visitFlex Ramírez MD Work Phone: [facility] EDComment on above:Cutaneous abscess of neck (Primary Dx)Start: 04-00-0136Bhdknc follow up visit related to original pxThomas OlexaFPG [place] [facility] [place] OrthopedicsStart: 09-02-2021 End: 93-05-1184ddpswwxrhlKdet [employer] Other Start: 08-27-2021 End: 83-66-4744xkirbgovbyBqnlsw Marleni Other nort [place] Kumar [employer] Other Start: 72-12-8545Lkrrbwiqg encounterJustin Fritz Santos OrthopedicsStart: 08-12-2021 End: 29-76-8900aidpjgayseGhjyna Olexa Other noWayfair J Kumar [employer] Other Start: 77-17-2975Xmomxe outpatient new 45 minutes Chandler OlexaFPG [facility] Procedures DateProcedureProcedure DetailPerforming ClinicianStart: 00-08-8387Bfimvvdaktf Reddy Strickland MD Work Phone: Start: 38-60-6663JPY CBC WITH AUTO DIFFMarc Marco A ORELLANA Work Phone: Plan of Treatment DateCare ActivityDetailAuthorStart: 50-26-4599Bjtllwxwh for malignant neoplasm of colonNOMS HealthcareStart: 89-97-7254BDhG,Tdap and Td Vaccines (3 - Td or Tdap)DTaP,Tdap and Td Vaccines (3 - Td or Tdap)ProMSandstone Critical Access Hospital SystemStart: 82-35-9575Ywiglmxob for malignant neoplasm of colonNOMS HealthcareStart: 78-20-9887Gunqj BMI ScreeningAdult BMI ScreeningProWvumedicine Harrison Community Hospitalca Health SystemStart: 15-03-8163Huvrpwa ScreeningTobacco ScreeningProWvumedicine Harrison Community Hospitalca Health SystemStart: 08-67-9367Mfjad BMI ScreeningAdult BMI ScreeningProWvumedicine Harrison Community Hospitalca Health SystemStart: 82-98-8634Cpnjvjc ScreeningTobacco ScreeningProWvumedicine [facility] Hospitalca [facility] SystemStart: 05-11-2025 End: 24-58-9461Jxtumuo encounter /16/2025 1:00 PM EDT Office Visit [facility] [address] [place] [address] Reddy Strickland MD [address] [place] [address] [facility] CWM FMStart: 94-62-9091OxqejypliUnited Health Services Start: 02-07-2025 End: 22-92-4649Sxsxkxo encounter procedureNOMS CWM FMComment on above:Arrived Start: 02-06-2025 End: 91-34-5028Obmhsea encounter uzbwfftcq61/14/2025 2:15 PM EDT Office Visit [facility] [address] [place] [address] Reddy Strickland MD [address] [place] [address] [facility] CWM FMStart: 12-07-2024 End: 84-63-5651Girvxurkh to same day surgery evawij3612/07/2024 12:30 PM EDT - 12/07/2024 1:00 PM EDT Surgery [facility] [address] [place] [address] Elmo Herrmann MD [address] [place] [address] COLONOSCOPY DIAGNOSTIC / SCREENING [27926 (CPT )][facility] HospitalComment on above:COLONOSCOPY DIAGNOSTIC / SCREENING [47732 (CPT )]Start: 12-07-2024 End: 48-96-5639Xwutgomwkf astjacoqthle39/14/2025 12:30 PM EDT Anesthesia Event [facility] [address] [place], [place] [address] Rome Reeves, DO [address] [place] [address] [facility] Start: 12-07-2024 End: 65-97-1725Gyvapdnbhfk flx dx w/collj spec when pfrmdCOLONOSCOPY DIAGNOSTIC / SCREENING positive cologuard 12/07/2024 12:30 PM EDTFREMONT SURGERYStart: 02-31-7019Aymfuxgkrb hospital visit by zmpiovqsi07/14/2025 12:30 PM EDT Hospital Encounter [facility] - Surgery [address] [place] [address] Elmo Herrmann MD [address] [place] [address] [facility] - SurgeryStart: 11-24-2024 End: 44-71-4939Anqaxoz encounter djrmwwome03/01/2025 1:30 PM EDT Procedure visit [facility] - Pre Admit [address] [place] [address] [facility]bWybllpLewis [facility] - Pre AdmitStart: 11-17-2024 End: 76-36-0902Fzoekcv encounter acgfrlcfv01/24/2025 2:00 PM EDT Office Visit [facility] [address] [place], [id number] Elizabeth Bryson APRN-TOMASA [address] [place], [place] [address] [facility] General SurgeryStart: 26-37-6253Owwivfzirccujd of varicella zoster vaccineZoster (Shingles) Vaccine (2 of 2)[facility] SystemStart: 08-09-2024 End: 89-60-6655Vgxkbkl encounter procedureNOMS CWM FMComment on above:Arrived Start: 06-02-2024 End: 38-02-9880Vvozlgc encounter zwbrsohyc92/07/2024 10:45 AM EST Office Visit [facility] [address] [place] [address] Reddy Strickland MD [address] [place] [address] [facility] FMComment on above:ArrivedStart: 05-09-2024 End: 77-30-3091Revpc metabolic 1998 panel - Serum or PlasmaBasic metabolic panel Lab Routine Annual physical exam Expected: 05/09/2024 (Approximate), Expires: 05/09/2025[facility] HealthcareComment on above:Expected: 05/09/2024 (Approximate), Expires: 05/09/2025Start: 05-09-2024 End: 27-15-7816AMG W Auto Differential panel - BloodCBC and differential Lab Routine Annual physical exam Expected: 05/09/2024 (Approximate), Expires: [facility] HealthcareComment on above:Expected: 05/09/2024 (Approximate), Expires: 05/09/2025Start: 05-09-2024 End: 62-50-7537Grenepyhbi A1c/Hemoglobin.total in BloodHemoglobin A1c Lab Routine Annual physical exam Expected: 05/09/2024 (Approximate), Expires: 05/09/2025[facility] Healthcare Work Phone: Comment on above:Expected: 05/09/2024 (Approximate), Expires: 05/09/2025Start: 05-09-2024 End: 30-09-1959Pfmmcvw function 2000 panel - Serum or PlasmaHepatic function panel Lab Routine Annual physical exam Expected: 05/09/2024 (Approximate), Expires: 05/09/2025[facility] HealthcareComment on above:Expected: 05/09/2024 (Approximate), Expires: 05/09/2025Start: 05-09-2024 End: 28-62-7748Kolyg 1996 panel - Serum or PlasmaLipid panel Lab Routine Annual physical exam Expected: 05/09/2024 (Approximate), Expires: 05/09/2025[facility] HealthcareComment on above:Expected: 05/09/2024 (Approximate), Expires: 05/09/2025Start: 05-09-2024 End: 70-10-1435Xqdqubtyhhc colorectal cancer DNA and occult blood screening [Presence] in StoolCologuard colon cancer screening Lab Routine Colon cancer screening Expected: 05/09/2024 (Approximate), Expires: 05/09/2025[facility] Healthcare Comment on above:Expected: 05/09/2024 (Approximate), Expires: 05/09/2025Start: 05-09-2024 End: 74-60-2968Jqyagne encounter xiyngxpbo24/14/2024 2:00 PM EDT Office Visit [facility] [address] [place] [address] Reddy Strickland MD [address] [place] [address] ArrivedNOATOKA COUNTY MEDICAL [facility]OK[facility] FMComment on above:ArrivedStart: 05-09-2024 End: 87-46-2109Zyimnxjn specific Ag [Mass/volume] in Serum or PlasmaPSA Lab Routine Annual physical exam Expected: 05/09/2024 (Approximate), Expires: 05/09/2025[facility] HealthcareComment on above:Expected: 05/09/2024 (Approximate), Expires: 05/09/2025Start: 05-09-2024 End: 04-70-2708Osvvxflwrhe [Units/volume] in Serum or PlasmaTSH Lab Routine Annual physical exam Expected: 05/09/2024 (Approximate), Expires: 05/09/2025[facility] HealthcareComment on above:Expected: 05/09/2024 (Approximate), Expires: 05/09/2025Start: 30-12-0447Nkrejsuwx vaccinationInfluenza Vaccine (#1)[facility] HealthcareStart: 47-47-8531Tspnlesphpnzlz of varicella zoster vaccineZoster (Shingles) Vaccine (1 of 2)[facility] SystemStart: 25-94-7221CJeE,Tdap and Td Vaccines (2 - Td or Tdap)DTaP,Tdap and Td Vaccines (2 - Td or Tdap)[facility] SystemStart: 04-03-2537Nxeksktxv vaccinationFlu vaccine (#1)[facility] Start: 26-99-1276Lguoc BMI Follow Up PlanAdult BMI Follow Up PlanOhioHealth Southeastern Medical Center SystemStart: 53-45-9139Hafae BMI ScreeningAdult BMI ScreeningProWright-Patterson [facility] SystemStart: 69-72-4616Igyogjkdkq ScreeningDepression ScreeningProWright-Patterson Medical Center SystemStart: 64-95-4120Ugwzcot ScreeningTobacco ScreeningProWright-Patterson Medical Center SystemStart: 71-06-8825IJMTS-19 Vaccine (1)COVID-19 Vaccine (1)turboBOTZCarilion Clinic St. [facility] Start: 16-82-6197Xwxkutocd for malignant neoplasm of colonNOME Healthcare End: 88-57-8752IbosimojiyoOgrgsijnxdh GI Routine Positive colorectal cancer screening using Cologuard test 1 Occurrences starting 11/17/2024 until 11/17/2025[facility] Work Phone: Comment on above:1 Occurrences starting 11/17/2024 until 11/17/2025omprehensive metabolic 2000 panel - Serum or PlasmaDayton Osteopathic HospitalXR Lumbar spine 2 or 3 ViewsAscension Sacred Heart Bay Immunizations Immunization DateImmunizationNotesCare PkbvkqwqCrfoiiju04-74-0416cidvbewax virus vaccine, unspecified formulationJessotto Bryson VISUAL MERCHANDISING ASSISTANT-MICROWAVE OVEN ASSEMBLER Work Phone: [facility]11-26-2024zoster vaccine, unspecified formulationJessotto Bryson VISUAL MERCHANDISING ASSISTANT-MICROWAVE OVEN ASSEMBLER Work Phone: [facility] HospitalGqgyiu95-15-7067RHGZG-83 mRNA, Comirnaty (Pfizer)Reddy Strickland MD Work Phone: [facility]04-01-2021COVID-19 mRNA, Comirnaty (Pfizer)Reddy Strickland MD Work Phone: [facility]11-01-2018influenza virus vaccine, unspecified formulationReddy Strickland MD Work Phone: [facility] Payers DatePayer CategoryPayerPolicy ID2025Medicaid [facility] [place] [place] [id number] 2023Medicaid (Managed Care) [facility] [employer] [id number]-kdx [id number] 2.0.1.070707.3.57[id number] 2..1.167943.3.57[id number] 2..1.335885.3.57[id number] 2..1.986244.3.57[id number] 2..1.912546.3.57[id number] 2..1.765959.3.57[id number] 2.0.1.704107.3.57[id number] 2.0.1.106533.3.57[id number] [id number] Social History DateTypeDetailFacilityStart: 10-16-2021 End: 28-50-3507Wihsbsc smoking status NHISNever smoked tobaccoKilbourne J Kumar [employer] Other Start: 10-16-2021 End: 65-18-8073Ifynday use and exposureSmokeless tobacco non-userMerGlobalLogic Work Phone: start: [phone] Assigned At BirthNot on fileRV ID Work Phone: start: 10-06-2021 End: 26-91-3251Wfuoemsn to SARS-CoV-2 (event)Not sureMerGlobalLogic Work Phone: start: 10-28-2023 End: 63-82-9529Gsx [facility] J Kumar [employer] Other Start: 10-28-2023 End: 19-12-2960Ycelbeb of Social functionNOME HealthcareStart: 01-26-2020 End: 44-95-4961Vrjpixi smoking status NHISEx-smokerProW[facility] End: 55-69-2393Gaiojyv of tobacco useCurrent smokerMercer County Community Hospital End: 59-77-6937Rgadtbv of tobacco useCigarette SmokerMercer County Community Hospital Start: 47-71-4801Rhbrrfaqy beverage intakeLifetime non-drinker (finding) [facility] [employer] [facility] HospitalHow often to you have a drink containing alcohol?Never [facility] [employer] [facility] HospitalAverage Number of DrinksNot on fileTrinity Health System [facility] [employer] [facility] Centertart: [phone] (finding)[facility] [employer] SystemStart: 11-17-2024 End: 49-52-2866Gobpasttn beverage intakeEx-drinker (finding)[facility] [employer] [facility] Centertart: 51-28-2578Qrvinhn Commentsober since 2008Mer[facility] Start: 93-25-3916Xqa Assigned At [facility] Medical Equipment Procedure CodeEquipment CodeEquipment Original TextEquipment IdentifierDates Repair, tendonOrthopaedic bone screw, bioabsorbable [id number] FDAStart: 08-22-2021 Goals DatePatient GoalDesired Activity/StatePersonal health goal Clinical Notes 08-12-2021 to 05-17-2025 Note Date & [id number] Hospital Discharge instructionsAmbulatory Orders* Referral to Dermatology Time Frame: 05/17/25, Location: None Selected * AMB POC Hgb A1C Time Frame: 05/17/25, Location: Determined By Patient [facility] Work Phone: 1(622) 246-728807-15-2025 History of Present illness Narrative* Reddy Strickland MD - 02/07/2025 2:46 PM EDTAssociated Problem(s): Lumbosacral spondylosis without myelopathy Pain worse and increased radicular symptoms. Increase lyrica and add elavil. Refer to new pain management. * Reddy Strickland MD - 02/07/2025 2:45 PM EDTAssociated Problem(s): Benign essential hypertension BP controlled and monitor PRN. * Reddy Strickland MD - 02/07/2025 2:44 PM EDTAssociated Problem(s): Acute bacterial conjunctivitis of both eyes Exam shows conjunctivitis and treat with ointment x 7 days. Use warm compresses PRN. Avoid touchingeye and wash hands frequently to prevent spread of illness. * Reddy Strickland MD - 02/07/2025 2:15 PM EDT Images from the original note were not included. Subjective Patient ID: Ruel Simon is a 49 y.o. male who presents for Follow-up, Eye Drainage, and Foot Injury. Follow up HTN and back pain. Checking BP PRN and typically controlled. BP slightly elevated today. Taking medication daily and tolerating without side effects. Pain recently worse. Patient had procedure several months ago and starting to wear off. Increased pain in low back and across top hips. Pain radiates into gluteal region and down legs. Pain worse with walking and standing. Increased pain in left foot. Using medication PRN and not as much relief. C/o problems with eyes for several days. Eyes crusted and matted shut. Occasionally itchy but very watery and increased drainage. Not tried OTC. Foot Injury Review of Systems Constitutional: Negative for fatigue. [...] Items Addressed This Visit Benign essential hypertension - Primary BP controlled and monitor PRN. Lumbosacral spondylosis without myelopathy Pain worse and increased radicular symptoms. Increase lyrica and add elavil. Refer to new pain management. Relevant Medications pregabalin (Lyrica) 150 MG capsule amitriptyline (Elavil) 25 MG tablet Other Relevant Orders Ambulatory referral to Pain Medicine Acute bacterial conjunctivitis of both eyes Exam shows conjunctivitis and treat with ointment x 7 days. Use warm compresses PRN. Avoid touchingeye and wash hands frequently to prevent spread of illness. Relevant Medications erythromycin (Romycin) 5 MG/GM ophthalmic ointment documented in this encounterFreeman Cancer InstituteOuzayipmhu09-03-5020 Instructions* Patient Instructions* Tamanna Kong RN - 11/24/2024 1:30 PM EDT Preoperative Education Checklist- General Surgery date: 12/07/24 Surgery time: 1230 p.m. Arrival time: 1030 a.m. 1. Bring a photo ID and your insurance card with you the day of surgery. You will check in at the main lobby of the [facility]- registration desk is straight ahead as soon as you walk in. Tell them you are here for surgery. 2. If you have a Living Will/Durable Power of Senior Bioinformatics Scientist for Health Care that is not on file here, please bring a copy the day of surgery. 3. Please shower/bathe the night before surgery with the provided soap or wipes. Do not shower the morning of surgery- you will do use wipes when you arrive here at the hospital before getting into your surgical gown. Do not shave the area of your procedure for 2 days prior to your surgery. 4. NO powder, lotion, perfume/cologne, aftershave, make-up, deodorant, or hair products after you have bathed. 5. NO nail colombian/acrylic on at least one finger. If you are having a hand, wrist or foot surgery then all nail colombian and artificial/acrylic nails must be removed from that hand or foot. 6. Avoid ALL Aspirin and non-steroidal anti-inflammatory drugs and certain vitamins (Ibuprofen, Advil, Aleve, Excedrin, Meloxicam, Celebrex, fish/krill oil, etc.) for 7 days prior to surgery as instructed by your surgeon and/or your prescribing doctor. Tylenol IS ALLOWED. If you are on Ticlid, Xarelto, Eliquis, Pradaxa, Plavix or Coumadin, please check with your prescribing doctor for instructions for when to stop them. 7. If you use an inhaler, continue to use it routinely. 8. Nothing to eat or drink (not even water, gum, mints, or hard candy!) AFTER midnight prior to your surgery. 9. Take only medications that you are instructed to on the morning of surgery with a TINY SIP OF WATER. 10. Choose a responsible adult that will be able to drive you home when you are discharged from your hospital stay for your surgery and can stay with you in your home for 24 hours after your procedure. You must NOT drive any vehicle or operate any machinery for 24 hours after surgery. 11. When you dress for your appointment, please wear loose fitting clothing that is appropriate to accommodate your surgical area procedure. BRING WITH YOU ANY DEVICES YOU MAY NEED: CAYETANO hose, ice machine, sling/swath, brace or special shoe, oversized zip-up or button up shirt, CPAP machine if staying overnight. 12. Do NOT wear jewelry, watches, or any piercings or metal for surgery- leave these valuables and money at home. 13. Do NOT wear contact lenses for surgery- glasses are okay if needed. 14. The anesthesiologist will talk with you the day of surgery and will ask you to sign a Consent Form. 15. Refrain from smoking or any type of tobacco use for at least 8 hours and marijuana for 24 hoursprior to arrival for your surgery. 16. If a GREEN BLOOD band is given to you, please bring it with you for the day of surgery. 17. Notify your surgeon if you develop any illness before your surgery. 18. If you are staying overnight, please DO NOT BRING your home medications with you. 19. If you have any questions prior to surgery, please call the Preadmission Testing office at [phone], Mon.-Fri. 7 a.m.-3 p.m. Leave a voicemail if needed. Pre-Surgery Instructions: Medication Instructions cholecalciferol, vitamin D3, 5,000 units tablet Stop taking 0 days prior to procedure cyclobenzaprine (FLEXERIL) 10 mg tablet Stop taking 0 days prior to procedure DULoxetine (CYMBALTA) 60 mg capsule Stop taking 0 days prior to procedure losartan-hydroCHLOROthiazide (HYZAAR) 50-12.5 mg per tablet Continue as prescribed, take morning ofprocedure meloxicam (MOBIC) 7.5 mg tablet Stop taking 1 week prior to procedure pregabalin (LYRICA) 100 mg capsule Stop taking 0 days prior to procedure sod sulf-pot chloride-mag sulf 1.479-0.188- 0.225 gram tablet Stop taking 0 days prior to procedure documented in this encounterOhioHealth Van Wert HospitalPharmMD [facility] [id number] Miscellaneous Notes* Perioperative Nursing Note - Tamanna Kong RN - 11/24/2024 1:30 PM EDT Preoperative Education Checklist- General Surgery date: 12/07/24 Surgery time: 1230 p.m. Arrival time: 1030 a.m. 1. Bring a photo ID and your insurance card with you the day of surgery. You will check in at the main lobby of the [facility]- registration desk is straight ahead as soon as you walk in. Tell them you are here for surgery. 2. If you have a Living Will/Durable Power of Senior Bioinformatics Scientist for Health Care that is not on file here, please bring a copy the day of surgery. 3. Please shower/bathe the night before surgery with the provided soap or wipes. Do not shower the morning of surgery- you will do use wipes when you arrive here at the hospital before getting into your surgical gown. Do not shave the area of your procedure for 2 days prior to your surgery. 4. NO powder, lotion, perfume/cologne, aftershave, make-up, deodorant, or hair products after you have bathed. 5. NO nail colombian/acrylic on at least one finger. If you are having a hand, wrist or foot surgery then all nail colombian and artificial/acrylic nails must be removed from that hand or foot. 6. Avoid ALL Aspirin and non-steroidal anti-inflammatory drugs and certain vitamins (Ibuprofen, Advil, Aleve, Excedrin, Meloxicam, Celebrex, fish/krill oil, etc.) for 7 days prior to surgery as instructed by your surgeon and/or your prescribing doctor. Tylenol IS ALLOWED. If you are on Ticlid, Xarelto, Eliquis, Pradaxa, Plavix or Coumadin, please check with your prescribing doctor for instructions for when to stop them. 7. If you use an inhaler, continue to use it routinely. 8. Nothing to eat or drink (not even water, gum, mints, or hard candy!) AFTER midnight prior to your surgery. 9. Take only medications that you are instructed to on the morning of surgery with a TINY SIP OF WATER. 10. Choose a responsible adult that will be able to drive you home when you are discharged from your hospital stay for your surgery and can stay with you in your home for 24 hours after your procedure. You must NOT drive any vehicle or operate any machinery for 24 hours after surgery. 11. When you dress for your appointment, please wear loose fitting clothing that is appropriate to accommodate your surgical area procedure. BRING WITH YOU ANY DEVICES YOU MAY NEED: CAYETANO hose, ice machine, sling/swath, brace or special shoe, oversized zip-up or button up shirt, CPAP machine if staying overnight. 12. Do NOT wear jewelry, watches, or any piercings or metal for surgery- leave these valuables and money at home. 13. Do NOT wear contact lenses for surgery- glasses are okay if needed. 14. The anesthesiologist will talk with you the day of surgery and will ask you to sign a Consent Form. 15. Refrain from smoking or any type of tobacco use for at least 8 hours and marijuana for 24 hoursprior to arrival for your surgery. 16. If a GREEN BLOOD band is given to you, please bring it with you for the day of surgery. 17. Notify your surgeon if you develop any illness before your surgery. 18. If you are staying overnight, please DO NOT BRING your home medications with you. 19. If you have any questions prior to surgery, please call the Preadmission Testing office at [phone], Mon.-Fri. 7 a.m.-3 p.m. Leave a voicemail if needed. Pre-Surgery Instructions: Medication Instructions cholecalciferol, vitamin D3, 5,000 units tablet Stop taking 0 days prior to procedure cyclobenzaprine (FLEXERIL) 10 mg tablet Stop taking 0 days prior to procedure DULoxetine (CYMBALTA) 60 mg capsule Stop taking 0 days prior to procedure losartan-hydroCHLOROthiazide (HYZAAR) 50-12.5 mg per tablet Continue as prescribed, take morning ofprocedure meloxicam (MOBIC) 7.5 mg tablet Stop taking 1 week prior to procedure pregabalin (LYRICA) 100 mg capsule Stop taking 0 days prior to procedure sod sulf-pot chloride-mag sulf 1.479-0.188- 0.225 gram tablet Stop taking 0 days prior to procedure * Perioperative Nursing Note - Tamanna Kong RN - 11/24/2024 1:30 PM EDT Surgical instructions reviewed. Patient verbalized understanding. documented in this encounterMercer County Community Hospital05-01-2025 Nurse Note* Perioperative Nursing Note - Tamanna Kong RN - 11/24/2024 1:30 PM EDT Preoperative Education Checklist- General Surgery date: 12/07/24 Surgery time: 1230 p.m. Arrival time: 1030 a.m. 1. Bring a photo ID and your insurance card with you the day of surgery. You will check in at the main lobby of the [facility]- registration desk is straight ahead as soon as you walk in. Tell them you are here for surgery. 2. If you have a Living Will/Durable Power of Senior Bioinformatics Scientist for Health Care that is not on file here, please bring a copy the day of surgery. 3. Please shower/bathe the night before surgery with the provided soap or wipes. Do not shower the morning of surgery- you will do use wipes when you arrive here at the hospital before getting into your surgical gown. Do not shave the area of your procedure for 2 days prior to your surgery. 4. NO powder, lotion, perfume/cologne, aftershave, make-up, deodorant, or hair products after you have bathed. 5. NO nail colombian/acrylic on at least one finger. If you are having a hand, wrist or foot surgery then all nail colombian and artificial/acrylic nails must be removed from that hand or foot. 6. Avoid ALL Aspirin and non-steroidal anti-inflammatory drugs and certain vitamins (Ibuprofen, Advil, Aleve, Excedrin, Meloxicam, Celebrex, fish/krill oil, etc.) for 7 days prior to surgery as instructed by your surgeon and/or your prescribing doctor. Tylenol IS ALLOWED. If you are on Ticlid, Xarelto, Eliquis, Pradaxa, Plavix or Coumadin, please check with your prescribing doctor for instructions for when to stop them. 7. If you use an inhaler, continue to use it routinely. 8. Nothing to eat or drink (not even water, gum, mints, or hard candy!) AFTER midnight prior to your surgery. 9. Take only medications that you are instructed to on the morning of surgery with a TINY SIP OF WATER. 10. Choose a responsible adult that will be able to drive you home when you are discharged from your hospital stay for your surgery and can stay with you in your home for 24 hours after your procedure. You must NOT drive any vehicle or operate any machinery for 24 hours after surgery. 11. When you dress for your appointment, please wear loose fitting clothing that is appropriate to accommodate your surgical area procedure. BRING WITH YOU ANY DEVICES YOU MAY NEED: CAYETANO hose, ice machine, sling/swath, brace or special shoe, oversized zip-up or button up shirt, CPAP machine if staying overnight. 12. Do NOT wear jewelry, watches, or any piercings or metal for surgery- leave these valuables and money at home. 13. Do NOT wear contact lenses for surgery- glasses are okay if needed. 14. The anesthesiologist will talk with you the day of surgery and will ask you to sign a Consent Form. 15. Refrain from smoking or any type of tobacco use for at least 8 hours and marijuana for 24 hoursprior to arrival for your surgery. 16. If a GREEN BLOOD band is given to you, please bring it with you for the day of surgery. 17. Notify your surgeon if you develop any illness before your surgery. 18. If you are staying overnight, please DO NOT BRING your home medications with you. 19. If you have any questions prior to surgery, please call the Preadmission Testing office at [phone], Mon.-Fri. 7 a.m.-3 p.m. Leave a voicemail if needed. Pre-Surgery Instructions: Medication Instructions cholecalciferol, vitamin D3, 5,000 units tablet Stop taking 0 days prior to procedure cyclobenzaprine (FLEXERIL) 10 mg tablet Stop taking 0 days prior to procedure DULoxetine (CYMBALTA) 60 mg capsule Stop taking 0 days prior to procedure losartan-hydroCHLOROthiazide (HYZAAR) 50-12.5 mg per tablet Continue as prescribed, take morning ofprocedure meloxicam (MOBIC) 7.5 mg tablet Stop taking 1 week prior to procedure pregabalin (LYRICA) 100 mg capsule Stop taking 0 days prior to procedure sod sulf-pot chloride-mag sulf 1.479-0.188- 0.225 gram tablet Stop taking 0 days prior to procedure [facility] [employer] [id number] Nurse Note* Perioperative Nursing Note - Tamanna Kong RN - 11/24/2024 1:30 PM EDT Surgical instructions reviewed. Patient verbalized understanding. [facility]04-24-20[facility] History of Present illness Narrative* Elizabeth Bryson APRN-TOMASA - 11/17/2024 2:00 PM EDT Images from the original note were not included. Chief Complaint: Positive Cologuard History of Present Illness Ruel Simon is a 49 y.o. male who presents to the office for positive Cologuard. He has never had a colonoscopy. He denies any GI concerns or changes. No diarrhea, constipation or blood in his stool. There is a family history of colon cancer in his brother. He was diagnosed in his mid 50s. Review of Systems Constitutional: Negative for fever and unexpected weight change. HENT: Negative for trouble swallowing. Respiratory: Negative for shortness of breath. Cardiovascular: Negative for chest pain. Gastrointestinal: Negative for abdominal pain, diarrhea, constipation and blood in stool. Genitourinary: Negative for dysuria and difficulty urinating. Musculoskeletal: Negative for gait problem. Skin: Negative for rash and wound. Neurological: Negative for dizziness, weakness and light-headedness. Hematological: Does not bruise/bleed easily. Psychiatric/Behavioral: Negative for confusion. Past Medical History: Diagnosis Date Arthritis Hypertension Obesity Onychomycosis Shortness of breath Past Surgical History: Procedure Laterality Date BICEPS TENDON REPAIR Right CARPAL TUNNEL RELEASE Right MASS EXCISION 2014 right knee RELEASE CARPAL TUNNEL Left 02/07/2020 Performed by Domenico Marcelo Jr., DO at [facility] Allergies Allergen Reactions Chlorhexidine Rash Current Outpatient Medications: cholecalciferol, vitamin D3, 5,000 units tablet, Take 1 tablet (5,000 Units total) by mouth in the morning., Disp: , Rfl: cyclobenzaprine (FLEXERIL) 10 mg tablet, Take 1 tablet (10 mg total) by mouth 3 (three) times a dayas needed., Disp: , Rfl: DULoxetine (CYMBALTA) 60 mg capsule, Take 1 capsule (60 mg total) by mouth in the morning., Disp: ,Rfl: lisinopriL (PRINIVIL,ZESTRIL) 5 mg tablet, Take 4 tablets (20 mg total) by mouth in the morning., Disp: , Rfl: losartan-hydroCHLOROthiazide (HYZAAR) 50-12.5 mg per tablet, Take 1 tablet by mouth in the morning., Disp: , Rfl: meloxicam (MOBIC) 7.5 mg tablet, Take 1 tablet (7.5 mg total) by mouth 2 (two) times a day as needed for pain., Disp: , Rfl: pregabalin (LYRICA) 100 mg capsule, Take 1 capsule (100 mg total) by mouth 3 (three) times a day., Disp: , Rfl: sod sulf-pot chloride-mag sulf 1.479-0.188- 0.225 gram tablet, Please see instructional sheet givenby physicians office., Disp: 24 tablet, Rfl: 0 Social History Socioeconomic History Marital status: Spouse name: Not on file Number of children: Not on file Years of education: Not on file Highest education level: Not on file Occupational History Not on file Tobacco Use Smoking status: Former Current packs/day: 0.00 Types: Cigarettes Quit date: 07/28/2008 Years since quittin.3 Smokeless tobacco: Never Vaping Use Vaping status: Never Used Substance and Sexual Activity Alcohol use: Not 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: Yes Types: Medical Marijuana Sexual activity: Defer Other Topics Concern Not on file Social History Narrative Not on file Social Drivers of Health Financial Resource Strain: Not on file Food Insecurity: Not on file Transportation Needs: Not on file Physical Activity: Not on file Stress: Not on file Social Connections: Not on file Interpersonal Safety: Not on file Housing Instability: Not on file Family History Problem Relation Age of Onset Diabetes Mother Arthritis Mother Fibromyalgia Mother Psoriasis Father COPD Father Colon cancer Brother Objective Physical Exam Constitutional: General: He is not in acute distress. Appearance: Normal appearance. He is obese. He is not ill-appearing. HENT: Head: Normocephalic and atraumatic. Mouth/Throat: Mouth: Mucous membranes are moist. Eyes: Pupils: Pupils are equal, round, and reactive to light. Cardiovascular: Rate and Rhythm: Normal rate. Pulmonary: Effort: Pulmonary effort is normal. No respiratory distress. Abdominal: General: There is no distension. Musculoskeletal: General: Normal range of motion. Skin: General: Skin is warm and dry. Neurological: Mental Status: He is alert and oriented to person, place, and time. Mental status is at baseline. Vital Signs: Blood pressure (!) 158/96, pulse 79, height 190.5 cm (6' 3 ), weight (!) 182.3 kg (402lb). Respiratory Source: No data recorded Admission Weight: Weight: (!) 182.3 kg (402 lb) Labs Lab Results Component Value Date WBC 6.0 2018 HGB 15.1 2018 HCT 44.7 2018 MCV 81 2018 PLT 201 2018 Lab Results Component Value Date GLU 106 (H) 01/26/2020 CALCIUM 9.1 01/26/2020 K 4.2 01/26/2020 CO2 25 01/26/2020 CL 104 01/26/2020 BUN 18 01/26/2020 CREATININE 0.86 01/26/2020 No results found for: AMYLASE No results found for: LIPASE Lab Results Component Value Date ALT 29 2018 AST 17 2018 No results found for: INR , PROTIME Assessment Positive Cologuard Family history of colon cancer in brother Plan Schedule colonoscopy. Evaluation included: Preparing to see the patient (e.g., review of tests) Obtaining and/or reviewing separately obtained history Performing a medically appropriate examination and/or evaluation Counseling and educating the patient/family/caregiver Referring and communicating with other health career specialist Positive colorectal cancer screening using Cologuard test [R19.5] DINORAH ESTRADA [facility] [place] This note was created with the assistance of a speech recognition program. While intending to generate a timely document that accurately reflects the content of the visit, no guarantee can be provided that every grammatical or spelling mistake has been or will be identified or corrected. Thank you for your understanding. DINORAH Estrada 11/17/24 1430 documented in this encounterMercer County Community Hospital04-21-2025 Miscellaneous Notes* Telephone Encounter - Cherise Valadez - 11/14/2024 1:15 PM EDT Called Ruel regarding the screening colonoscopy referral that our office received from Dr Strickland,left a message on his voicemail to call the office back to schedule an appointment. Also called on: 11/10 LM TRC 11/08 LM TRC documented in this encounterMercer County Community Hospital04-21-2025 Telephone encounter Note* Telephone Encounter - Cherise Valadez - 11/14/2024 1:15 PM EDT Called Ruel regarding the screening colonoscopy referral that our office received from Dr Strickland,left a message on his voicemail to call the office back to schedule an appointment. Also called on: 11/10 LM TRC 11/08 LM TRC [facility] [employer] [id number] History of Present illness Narrative* Reddy Strickland MD - 08/09/2024 2:51 PM ESTAssociated Problem(s): Class 3 severe obesity due to excess calories with serious comorbidity and body mass index (BMI) of 50.0 to 59.9 in adult (CMS/HCC) Weight loss indicated. * Reddy Strickland MD - 08/09/2024 2:51 PM ESTAssociated Problem(s): Lumbosacral spondylosis without myelopathy Pain improved after injection and continue medication. Follow with pain management. * Reddy Strickland MD - 08/09/2024 2:51 PM ESTAssociated Problem(s): Benign essential hypertension (CMS/HCC) BP controlled and monitor PRN. * Reddy Strickland MD - 08/09/2024 2:00 PM EST Images from the original note were not included. Subjective Patient ID: Ruel Simon is a 49 y.o. male who presents for Follow-up (3m). Follow up HTN and back pain. Checking BP PRN and typically controlled. BP normal today. Taking medication daily and tolerating without side effects. Pain improved. Patient had procedure last month and overall pain much improved. Mild pain in low back and across top hips. Pain radiates into gluteal region and down legs. Pain worse with walking and standing. Using medication PRN and helps. Review of Systems Constitutional: Negative for fatigue. [...] Benign essential hypertension (CMS/HCC) - Primary BP controlled and monitor PRN. Lumbosacral spondylosis without myelopathy Pain improved after injection and continue medication. Follow with pain management. Class 3 severe obesity due to excess calories with serious comorbidity and body mass index (BMI) of50.0 to 59.9 in adult (CMS/HCC) Weight loss indicated. documented in this [facility]11-18-2024 History of Present illness Narrative* Michael Polanco DO - 06/13/2024 9:15 AM EST General Surgery H&P Ruel Simon 1975 Ruel Simon is a 49 y.o. male presents for a Colonoscopy. Pt denies having a colonoscopy before. Pt denies abdominal pain. Pt admits to occasional blood per rectum. Resolves on its own. No masses orbulges from his anus. Pt admits to changes [...] Use: Not At Risk (01/26/2020) Received from [facility], [facility] Frequency of Alcohol Consumption: Never Average [...] not limited to bleeding, perforation, and risks ofanesthesia. Patient understood risks and signed informed consent for the procedure under monitored anesthesia care. Handout for bowel prep provided in clinic. Patient was informed of the need for a ride home from the hospital and the need for someone to be with them for the following 24 hrs post procedure. Thank you, Yareli Polanco DO documented in this encounterFreeman Cancer [id number] History of Present illness Narrative* Reddy Strickland MD - 06/02/2024 11:29 AM ESTAssociated Problem(s): Positive colorectal cancer screening using Cologuard test Positive cologuard and refer to surgeon. * Reddy Strickland MD - 06/02/2024 11:29 AM ESTAssociated Problem(s): Cellulitis of face Redness improved and complete antibiotics. * Reddy Strickland MD - 06/02/2024 11:29 AM ESTAssociated Problem(s): Benign essential hypertension (CMS/HCC) BP controlled and monitor PRN. * Reddy Strickland MD - 06/02/2024 10:45 AM EST Images from the original note were not included. Subjective Patient ID: Ruel Simon is a 49 y.o. male who presents for Follow-up (Spider bite over eye). ER follow up from 05/28 for cellulitis. Developed spider bite above right eyebrow and skin red, raised and painful. Developed redness down sabianist and cheek. Increased pain and to ER. CT negative forabscess. Given IV clinda and discharged home with [...] referral to General Surgery documented in this encounterFreeman Cancer [id number] History of Present illness Narrative* Reddy tSrickland MD - 05/09/2024 2:38 PM EDTAssociated Problem(s): Morbid obesity due to excess calories (CMS/HCC) Weight loss indicated. Check labs. * Reddy Strickland MD - 05/09/2024 2:37 PM EDTAssociated Problem(s): Lumbosacral spondylosis without myelopathy Pain unchanged and continue medication. Follow with pain management. * Reddy Strickland MD - 05/09/2024 2:37 PM EDTAssociated Problem(s): Fibromyalgia Pain unchanged and continue medication. Follow with pain management. * Reddy Strickland MD - 05/09/2024 2:37 PM EDTAssociated Problem(s): Benign essential hypertension (CMS/HCC) BP elevated and add hydrochlorothiazide to losartan. Monitor BP PRN. Discussed DASH diet. * Reddy Strickland MD - 05/09/2024 2:00 PM EDT Images from the original note were not included. Subjective Patient ID: Ruel Simon is a 49 y.o. male who presents for Follow-up (6m). Follow up HTN and back pain. BP elevated today at 152/78. Taking medication daily. Not checking at home but goes to pain management and 130-155 there. Tolerating medication without side effects. Painunchanged. Continued pain in low back and across [...] Cologuard colon cancer screening documented in this encounterFreeman Cancer [id number] Evaluation note* Encounter Date Diagnosis Assessment Notes Treatment Notes Treatment Clinical Notes Dec, Primary osteoarthritis of left k nee (ICD-10 - M17.12) Xrays were reviewed with [...] including gentle non-impact motion exercise and non-steroidal anti-inflammatory medication. We discussed the use of occasional cortisone injections that can provide pain relief as well as hyaluronan lubricant injection. We will provide a prescription for formal physical therapy. The regular use of exercises may be beneficial in relieving painful symptoms. If pain persists we will order an MRI. [facility] Other 04-07-2022 Evaluation note* Encounter Date Diagnosis Assessment Notes Treatment Notes Treatment Clinical Notes Oct, Other specified postprocedural s tates (ICD-10 - Z98.890) Oct,2Rupture of right distal biceps tendon, subsequent encounter (ICD-10 - S46.211D)Patient instructed that he may begin light strengthening exercises Oct,2OtherPatient instructed to allow more time for knee issues to improve. Work on light exercises [facility] Other 02-07-2022 Evaluation note* Encounter Date Diagnosis Assessment Notes Treatment Notes Treatment Clinical Notes Aug, Other specified postprocedural s tates (ICD-10 - Z98.890) Aug,2Rupture of right distal biceps tendon, subsequent encounter (ICD-10 - S46.211D) Radiographs reviewed with patient. Instructed on pronation/supination motion, as well as passive elbow flexion exercises. May allow incision to get wet in clean running water. Continue use of the splint during activities. Call with questions/concerns. Splint shortened today to avoid pinching at the wrist. [facility] Other 02-01-2022 Evaluation note* Encounter Date Diagnosis Assessment Notes Treatment Notes Treatment Clinical Notes Aug, Other specified postprocedural s tates (ICD-10 - Z98.890) [facility] Other 01-17-2022 Evaluation note* Encounter Date Diagnosis Assessment Notes Treatment Notes Treatment Clinical Notes Jul, Tear of right biceps muscle, ini mireillel encounter (ICD-10 - S46.211A) Pateint has sustained [...] forearm rotation secodary to synostosis as well asloss of full elbow extension. Patient is aware of this and we will proceed. We would expect at least three months before returning to heavy work activity. THIS APPEAR TO BE CLASSIC DISTAL BICEPS RUPTURE. MRI WILL BE HELPFUL TO DETERMINE REPARABILTIY AND LOCATION OF TEAR. [facility] Other Evaluation note* Diagnosis Cutaneous abscess of neck- Primary Cellulitis and abscess of neck documented in this encounter [employer] Phone: evaluation note* Diagnosis Benign essential hypertension [...] 45.0-49.9, adult (CMS/HCC) documented in this encounter [facility] HealthcareEvaluation [facility]* Diagnosis Benign essential hypertension [...] using Cologuard test documented in this encounter [facility] HealthcareEvaluation [facility]* Diagnosis Benign essential hypertension [...] test- Primary documented in this encounter [facility]* [...] Positive colorectal cancer screening using Cologuard test Benign essential hypertension (CMS/HCC)- Primary Essential hypertension, benign Lumbosacral spondylosis without myelopathy Class 3 severe obesity due to excess calories with serious comorbidity and body mass index (BMI) of50.0 to 59.9 in adult (CMS/HCC) documented in this encounter [facility] [...] Positive colorectal cancer screening using Cologuard test Benign essential hypertension (CMS/HCC)- Primary Essential hypertension, benign Lumbosacral spondylosis without myelopathy Class 3 severe obesity due to excess calories with serious comorbidity and body mass index (BMI) of50.0 to 59.9 in adult (CMS/HCC) Anxiety Anxiety state, unspecified CMC arthritis documented in this encounter [facility] [...] Positive colorectal cancer screening using Cologuard test Benign essential hypertension (CMS/HCC)- Primary Essential hypertension, benign Lumbosacral spondylosis without myelopathy Class 3 severe obesity due to excess calories with serious comorbidity and body mass index (BMI) of50.0 to 59.9 in adult CMC arthritis Benign essential hypertension (CMS/HCC) Essential hypertension, benign documented in this encounter [facility] HealthcareEvaluation note* Diagnosis Benign essential hypertension [...] Positive colorectal cancer screening using Cologuard test Benign essential hypertension (CMS/HCC)- Primary Essential hypertension, benign Lumbosacral spondylosis without myelopathy Class 3 severe obesity due to excess calories with serious comorbidity and body mass index (BMI) of50.0 to 59.9 in adult CMC arthritis documented in this encounter [facility] HealthcareEvaluation note* Diagnosis Positive colorectal cancer screening using Cologuard test- Primary documented [facility]* Diagnosis Preop examination- Primary Unspecified pre-operative examination Hypertension, unspecified type Morbid obesity with BMI of 50.0-59.9, adult (CMS-HCC) documented in this encounter [facility]* Diagnosis Benign essential hypertension- Primary Essential hypertension, benign Fibromyalgia Unspecified myalgia and myositis Lumbosacral spondylosis without myelopathy Right elbow pain Pain in joint, upper arm CMC arthritis Essential hypertension, malignant Essential hypertension, malignant Benign essential hypertension- Primary Essential hypertension, benign Lumbosacral spondylosis without myelopathy Fibromyalgia Unspecified myalgia and myositis Annual physical exam Routine general medical examination at a health care facility Colon cancer screening Special screening for malignant neoplasms, colon Morbid obesity due to excess calories ([facility] Body mass index (BMI) 45.0-49.9, adult [place] Cellulitis of face- Primary Cellulitis and abscess of face Benign essential hypertension Essential hypertension, benign Positive colorectal cancer screening using Cologuard test Benign essential hypertension- Primary Essential hypertension, benign Lumbosacral spondylosis without myelopathy Class 3 severe obesity due to excess calories with serious comorbidity and body mass index (BMI) of50.0 to 59.9 in adult ([facility] Benign essential hypertension- Primary Essential hypertension, benign Lumbosacral spondylosis without myelopathy Acute bacterial conjunctivitis of both eyes documented in this encounter [facility] HealthcareEvaluation note* Diagnosis Onset Date Resolution Status Admit Date Annual physical exam acuteOctober 2024 1:29pmBenign essential hypertensionacuteOctober 2024 1:29pmLesion of skin of noseacuteOctober 2024 1:29pmLumbosacral spondylosis without myelopathyacuteOctober 2024 1:29pmPrediabetesacute October 2024 1:29pm [facility] Work Phone: History general Narrative - Reported* Type Description Date Medical History fibromyalgia Medical HistoryArthritisSurgical Historybilateral carpal tunnel surgerySurgical Historymass removed right kneeSurgical Historyback fusion [facility] Other History general Narrative - Reported* Type Description Date Medical History fibromyalgia Medical HistoryArthritisSurgical Historybilateral carpal tunnel surgerySurgical Historymass removed right kneeSurgical Historyback fusionSurgical Historyright distal bicep [id number] [facility] Other Hospital Discharge instructions* Attachments The following attachments cannot be sent through Care Everywhere. * Abscess: Skin (Turkmen) documented in this encounter[facility] Phone: InstructionsNot on filedocumented in this encounter [facility] SystemInstructionsNot on filedocumented in this encounter [facility] Summary Purpose Family History Relationship Condition Age at Onset Recorded Date/T malachi mother Diabetes mellitus Unknown fatherAsthmaUnknownPsoriasisUnknown Advance Directives Advance Directive Response Recorded Date/ Time Advance Directives No August 19, 2021 4:51pm Chief Complaint and Reason for Visit Chief Complaint Admit Date Established Patient May 17, 2025 1 :29pm Reason for Visit Admit Date Annual physical exam May 17, 2025 1:29pm Benign essential hypertension May 172024 1:29pm Lesion of skin of nose May 17 1:29pm Lumbosacral spondylosis without myelopat hy May 17, 2025 1:29pm Prediabetes May 17, 2025 1 :29pm Additional Source Comments Reason for Visit (unrecogniz ed section and content) ReasonCommentsInsect Bitepatient presents to the ED with c/o insect bite to back of neck on the right side - noticed site Thursday night - warm to touch and painful when trying to sleepReasonCommentsFollow-rf9oLqefevCgcrbhevKdu Refill ReasonCommentsFollow-upSpider bite over eyeReasonCommentsColonoscopyPt presents today for a colonoscopy consult. Pt denies/admits to: denies [...] have a positive cologuard test 2-3 weeks ago.SpecialtyDiagnoses / ProceduresReferred By ContactReferred To ContactGeneral Surgery Diagnoses Positive colorectal cancer screening using Cologuard test Procedures [place] OFFICE/OUTPATIENT [facility] 60 MINUTES Reddy Strickland MD [address] [place] [address] Phone: tel: fax: SherriMichael echeverria, [address] [facility] [address] [place] [address] Phone: tel: fax: Referral IDStatusReasonStart DateExpiration DateVisits RequestedVisits [id number] Specialty Services Required /[id number]-me2oSgfivpQqosckqfRlsnuwca Cologuard SpecialtyDiagnoses / ProceduresReferred By ContactReferred To ContactGeneral Surgery Diagnoses Colon cancer screening Procedures [place] OFFICE OUTPATIENT VISIT 60-74 MINS HIGH MDM [id number] (SNOMED CT) - AMB REFERRAL TO GENERAL SURGERY Reddy Strickland MD [address] [place] [address] Phone: tel: fax: [place] [address] [place] [address] Phone: tel: fax: Referral IDStatusReasonStart DateExpiration DateVisits RequestedVisits [id number] Review/[id number]-ysMdn DrainageFoot Injury Ordered Prescriptions (unrec ognized section and content) PrescriptionSigDispensedRefillsStart DateEnd Date clindamycin (CLEOCIN) 300 MG capsule Take 1 capsule by mouth 3 times daily for 7 days 21 capsule / Care Teams (unrecognized sec tion and content) Team MemberRelationshipSpecialtyStart DateEnd Date Reddy Strickland MD [address] [place] [address] PCP - GeneralFamily Medicine10/16/21Team MemberRelationshipSpecialtyStart DateEnd Date Reddy Strickland MD [address] [place] [address] [facility]10/28/23 Reddy Strickland MD [address] [place] [address] [facility]01/25/24Te MemberRelationshipSpecialtyStart DateEnd Date Reddy Strickland MD [address] [place] [address] [facility]10/28/23 Reddy Strickland MD [address] [place] [address] [facility]01/25/24Te MemberRelationshipSpecialtyStart DateEnd Date Reddy Strickland MD [address] [place] [address] [facility]10/28/23 Reddy Strickland MD [address] [place] [address] [facility]01/25/24Te MemberRelationshipSpecialtyStart DateEnd Date Reddy Strickland MD [address] [place] [address] [facility]10/28/23 Reddy Strickland MD [address] [place] [address] [facility]01/25/24Team MemberRelationshipSpecialtyStart DateEnd Date Reddy Strickland MD [address] [place] [address] [facility]10/28/23 Reddy Strickland MD [address] [place] [address] [facility]01/25/24Team MemberRelationshipSpecialtyStart DateEnd Date Reddy Strickland MD [address] [place] [address] [facility]10/28/23 Reddy Strickland MD [address] [place] [address] [facility]01/25/24Team MemberRelationshipSpecialtyStart DateEnd Date Reddy Strickland MD [address] [place] [address] [facility]10/28/23 Reddy Strickland MD [address] [place] [address] [facility]01/25/24Team MemberRelationshipSpecialtyStart DateEnd Date Reddy Strickland MD [address] [place] [address] [facility]10/28/23 Reddy Strickland MD [address] [place] [address] [facility]01/25/24Te MemberRelationshipSpecialtyStart DateEnd Date Reddy Strickland MD [address] [place] [address] [facility]10/28/23 Reddy Strickland MD [address] [place] [address] [facility]01/25/24Team MemberRelationshipSpecialtyStart DateEnd Date Reddy Strickland MD [address] [place] [address] [facility]10/28/23 Reddy Strickland MD [address] [place] [address] [facility]01/25/24Team MemberRelationshipSpecialtyStart DateEnd Date Reddy Strickland MD [address] [place] [address] [facility]10/28/23 Reddy Strickland MD [address] [place] [address] [place] [address]Team MemberRelationshipSpecialtyStart DateEnd Date Reddy Strickland MD [address] [place] [address] [facility]10/28/23 Reddy Strickland MD [address] [place] [address] [facility]01/25/24Team MemberRelationshipSpecialtyStart DateEnd Date Reddy Strickland MD [facility]05/03/18Team MemberRelationshipSpecialtyStart DateEnd Date Reddy Strickland MD [address] [place] [address] [facility]10/28/23 Reddy Strickland MD [address] [place] [address] [facility]01/25/24Team MemberRelationshipSpecialtyStart DateEnd Date Reddy Strickland MD [facility]05/03/18Team MemberRelationshipSpecialtyStart DateEnd Date Reddy Strickland MD [facility]05/03/18Team MemberRelationshipSpecialtyStart DateEnd Date Reddy Strickland MD [address] [place] [address] PCP - [facility]10/28/23 Reddy Strickland MD [address] [place] [address] [facility]01/25/24Team MemberRelationshipSpecialtyStart DateEnd Date Reddy Strickland MD [address] [place] [address] PCP - [facility]10/28/23 Reddy Strickland MD [address] [place] [address] [facility]01/25/24 Team Status: Active Member Role/Relationship Status Dates Reddy Strickland MD Primary Care Provider Active Team Status: Inactive Member Role/Relationship Status Dates Reddy Strickland MD Primary Care Provider Active S tart: May 17, 2025 End: May 17, 2025[facility] BONNIE Stricklandttending ProviderActiveStart: May 17, 2025 End: May 17, 2025 (unrecognized sect ion and content) No Status Records FoundNo Status Records FoundNo Status Records FoundNo Status Records FoundNo Status Records FoundNo Status Records Found INFORMATION SOURCE (unrecogn ized section and content) DATE CREATED AUTHOR 10/17/2021 [facility] DATE CREATED AUTHOR AUTHOR'S ORGANIZ ATION 08/30/2022 [facility] DATE CREATED AUTHOR AUTHOR'S ORGANIZ ATION 11/18/2022 [facility] DATE CREATED AUTHOR AUTHOR'S ORGANIZ ATION 11/18/2024 [facility] DATE CREATED AUTHOR AUTHOR'S ORGANIZ ATION 12/21/2024 [facility] DATE CREATED AUTHOR AUTHOR'S ORGANIZ ATION 02/11/2025 [facility] EPIC Goals (unrecognized section and content) Goals may be documented in a n alternate section FOR RECORDS PERTAINING TO PATIENTS WHO ARE [...] BE BASED ON THE PRIMARY CLINICAL RECORDS. [facility] [employer] [facility]. provides no warranty or guarantee of the accuracy or completeness of information in this document.
[2025-05-22 14:53] LABS: Hematocrit 45.5 % (42.0-54.0); Hemoglobin 15.2 g/dL (14.0-18.0); Immature Granulocytes Abs Auto 0.02 10^3/uL (0.00-0.03); Immature Granulocytes Pct Auto 0.3 % (0.0-0.5); Lymphocytes Absolute Auto 1.0 10^3/uL (1.2-3.8); Mean Corpuscular HGB Conc 33.4 g/dL (29.9-35.2); Mean Corpuscular Hemoglobin 27.0 pg (25.9-34.0); Mean Corpuscular Volume 80.8 fL (80.0-94.0); Platelet Count 215 10^3/uL (150-450); Red Blood Count 5.63 10^6/uL (4.70-6.10); White Blood Count 5.8 10^3/uL (4.0-11.0)
--- NOTE | 2025-05-22 14:53 | XR_ITS ---
[address] [address] Patient Name: NA CASTRO MRN: [facility]:[id number] date: 1975 Sex: M Assigned Patient Location: LAB Current Patient Location: LAB Accession/Order Number: [id number] Exam Date: 05/22/2025 14:55 Report Date: 05/22/2025 21:14 At the request of: NATALIA STRICKLAND MD Procedure: XR lumbar spine 2-3V 3 views of the lumbar spine INDICATION: Spondylosis of lumbar spine without myelopathy COMPARISON: X-rays lumbar spine 12/16/2022 FINDINGS: There is mild straightening of the normal lumbar lordosis. Mild multilevel intervertebral space narrowing and endplate osteophytosis L1-L4.. Moderate intervertebral space narrowing and endplate osteophytosis L4-S1. Moderate severe facet arthropathy identified greatest L5-S1. No definite pars interarticularis defects or spondylolisthesis XR/XR lumbar spine 2-3V IMPRESSION: Multilevel degenerative changes without evidence acute compression fracture malalignment. Impression dictated by: Eleazar Hyde M.D. 05/22/2025 9:14 PM Dictation Location: [email or web address] Electronically authenticated by: [id number] Y Date: 05/22/2025 21:14
--- OUTSIDE RECORDS SUMMARY | 2025-05-22 15:01 | XMS_ITS | Clinical Summary ---
Author Organization [facility] Address [address], [address] [place] [address] Care Team Providers Care Mortgage Lender Name Role Phone Reddy Alcantara MD Primary Care Provider + Allergies Active AllergyReactionsCriticalityNoted DateCommentsChlorhexidineRashLow 01/26/2020 Medications No known medications Social History Tobacco UseTypesPacks/DayYears UsedDateSmoking Tobacco: NeverSmokeless Tobacco: NeverSex and Gender InformationValueDate RecordedSex Assigned at BirthNot on fileLegal FhfPijt8009/05/2012 9:49 PM ESTGender IdentityNot on fileSexual OrientationNot on file Last Filed Vital Signs Vital SignReadingTime TakenCommentsBlood Fjseoklm326/54299 2:45 PM EDT Svbfo753610/16/2021 2:45 PM INISwmvzqgyxue41 ??C (98.6 ??F)10/16/2021 2:45 PM EDT Respiratory Ibuy4216 2:45 PM EDTOxygen Ccsltdcgge97%10/16/2021 2:45 PM EDTInhaled Oxygen Concentration--Hucycx318.2 kg (390 lb 9.6 oz)10/16/2021 2:45 PM RNHQurgrl492 cm (6' 4 )10/16/2021 2:45 PM EDTBody Mass Index47.55010/16/2021 2:45 PM EDT Plan of Treatment Not on file Insurance Care Teams Team MemberRelationshipSpecialtyStart DateEnd Date Reddy Alcantara MD [address] [place] [address] PCP - GeneralFamily Medicine10/16/21
--- OUTSIDE RECORDS SUMMARY | 2025-05-22 15:01 | XMS_ITS | Clinical Summary ---
Author Organization [facility] Healthcare Address [address] [place] [address] Care Team Providers Care Renal Nurse Name Role Phone Reddy Alcantara MD Primary Care Provider [phone] Reddy Alcantara MD Unavailable Allergies No known active allergies Medications MedicationSigDispense QuantityRefillsLast FilledStart DateEnd DateStatus meloxicam (Mobic) 7.5 MG tablet Indications:Lumbosacral spondylosis without myelopathyTake 1 tablet (7.5 mg) by mouth 2 (two) times a day as needed for moderate pain 60 tablet 5Active losartan-hydroCHLOROthiazide (Hyzaar) 50-12.5 MG tablet Indications:Benign essential hypertensionTake 1 tablet by mouth once daily 30 tablet 5Active cholecalciferol (Vitamin D-3) 25 MCG (1000 UT) tablet Indications:Vitamin D deficiencyTAKE 1 TABLET BY MOUTH ONCE DAILY AT THE SAME TIME EVERY DAY 60 tablet 5Active pregabalin (Lyrica) 150 MG capsule Indications:Lumbosacral spondylosis without myelopathyTake 1 capsule (150 mg) by mouth in the morning and 1 capsule (150 mg) in the evening and 1 capsule(150 mg) before bedtime. 90 capsule 5Active amitriptyline (Elavil) 25 MG tablet Indications:Lumbosacral spondylosis without myelopathyTake 1 tablet (25 mg) by mouth at bedtime 30 tablet 5Active DULoxetine (Cymbalta) [address] capsule Indications:AnxietyTake 1 capsule by mouth twice daily 60 capsule 5Active cyclobenzaprine (Flexeril) 10 MG tablet Indications:Lumbosacral spondylosis without myelopathyTAKE 1 TABLET BY MOUTH IN THE MORNING, 1 IN THE EVENING AND 1 AT BEDTIME 90 tablet 5Active Active Problems ProblemNoted DateDiagnosed DateAcute bacterial conjunctivitis of both eyes 02/07/2025 Assessment & Plan (02/07/2025 2:44 PM EDT): Exam shows conjunctivitis and treat with ointment x 7 days. Use warm compresses PRN. Avoid touchingeye and wash hands frequently to prevent spread of illness. Positive colorectal cancer screening using Cologuard test06/02/2024 Assessment & Plan (06/02/2024 11:29 AM EST): Positive cologuard and refer to surgeon. Hchpxaducsy68/15/2024nnual physical exam4Class 3 severe obesity due to excess calories with serious comorbidity and body mass index (BMI) of50.0 to 59.9 in adult05/09/2024 Assessment & Plan (08/09/2024 2:51 PM EST): Weight loss indicated. Assessment & Plan (05/09/2024 2:38 PM EDT): Weight loss indicated. Check labs. Generalized anxiety szxwfave30/03/0765Tprocvgqvea02/03/2024Fibromyalgia 10/28/2023 Assessment & Plan (05/09/2024 2:37 PM EDT): Pain unchanged and continue medication. Follow with pain management. Assessment & Plan (10/28/2023 10:09 AM EDT): Increased pain all over and increase lyrica. Continue robaxin. Need to increase activity and stretch daily. Right elbow pain10/28/2023 Assessment & Plan (10/28/2023 10:09 AM EDT): Pain for weeks and likely inflammation. Treat with prednisone and ice PRN. Carpal tunnel syndrome of left wrist07/24/2023arpal tunnel syndrome of right wrist07/24/2023enign essential xyhrhgretufa43/29/2023 Assessment & Plan (02/07/2025 2:45 PM EDT): BP controlled and monitor PRN. Assessment & Plan (08/09/2024 2:51 PM EST): BP controlled and monitor PRN. Assessment & Plan (06/02/2024 11:29 AM EST): BP controlled and monitor PRN. Assessment & Plan (05/09/2024 2:37 PM EDT): BP elevated and add hydrochlorothiazide to losartan. Monitor BP PRN. Discussed DASH diet. Assessment & Plan (10/28/2023 10:08 AM EDT): BP elevated and increase losartan. Monitor BP PRN. Discussed DASH diet. Chronic hip pain07/24/2023Lumbosacral spondylosis without udvpoltjcu08/29/2023 Assessment & Plan (02/07/2025 2:46 PM EDT): Pain worse and increased radicular symptoms. Increase lyrica and add elavil. Refer to new pain management. Assessment & Plan (08/09/2024 2:51 PM EST): Pain improved after injection and continue medication. Follow with pain management. Assessment & Plan (05/09/2024 2:37 PM EDT): Pain unchanged and continue medication. Follow with pain management. Assessment & Plan (10/28/2023 10:09 AM EDT): Increased pain and radicular symptoms. Increase lyrica. Refer to pain management. Continue PT exercises. Qzmfxpklfrim70/04/2023 Resolved Problems ProblemNoted DateDiagnosed DateResolved DateCellulitis of face06/02/2024 08/09/2024 Assessment & Plan (06/02/2024 11:29 AM EST): Redness improved and complete antibiotics. [facility] kgotsxbvn46/V malformation, ooazfxfa12/ Encounters DateTypeDepartmentCare DxfdEbcfgkkzxbd95/15/2025Refill [facility] [address] [place] [phone] Reddy Alcantara MD Lumbosacral spondylosis without acyiqgktno45/14/2025Refill [facility] [address] [place] [place] [address] Reddy Alcantara MD Anxietyfrom Last 3 Months Social History Tobacco UseTypesPacks/DayYears UsedDateSmoking Tobacco: NeverSmokeless Tobacco: Never Tobacco Cessation:Counseling Given: Not Answered Sex and Gender InformationValueDate RecordedSex Assigned at BirthNot on file Legal KmfBvdn1810/08/2022 7:31 PM EDTGender IdentityNot on fileSexual Orientation Not on file Last Filed Vital Signs Vital SignReadingTime TakenCommentsBlood Xfqcwmjq083/8607 2:16 PM EDT Sxrbm749102/07/2025 2:16 PM OIYAduxcqozkym47.3 ??C (97.3 ??F)02/07/2025 2:16 PM EDTRespiratory Bihk094002/07/2025 2:16 PM EDTOxygen Yxwepwqttw80%02/07/2025 2:16 PM EDTInhaled Oxygen Concentration--Vwproo191 kg (408 lb)02/07/2025 2:16 PM EDT Dqlovf169.5 cm (6' 3 )02/07/2025 2:16 PM EDTBody Mass Wskmn011102/07/2025 2:16 PM EDT Plan of Treatment Health MaintenanceDue DateLast DoneCommentsCT Tgcuixwwznay1973FIT 1973FOBT1975 8520Yabxrnwwyuuqu1973Influenza Vaccine (#1)2025 06/21/2024, 05/27/2018, 09/22/2011FIT-DNA710/21/2024Colonoscopy , 5Colorectal Cancer Avxeopytl76/14/2035 Procedures Procedure NamePriorityDate/TimeAssociated DiagnosisCommentsLAB COLOGUARD?? COLON CANCER WGAMLMCtzxdru68/21/2024 7:45 PM EDT Colon cancer screening from Last 3 Months or Most Recently Relevant to Health Maintenance Results * (ABNORMAL) Cologuard?? colon cancer screening (05/16/2024 7:45 PM EDT) ComponentValueRef RangeTest MethodAnalysis TimePerformed AtPathologist SignatureNONINV COLON CA DNA+OCC BLD SCRN STL-IMPPositive(A)Ygluqfvr08/30/2024 1:58 AM EDTEXArgo Tea (CLIA #:[id number])Comment: POSITIVE TEST RESULT. A positive Cologuard result should be followed with a colonoscopy or visual examination of the colon. The normal value (reference range) for this assay is negative. TEST DESCRIPTION: Composite algorithmic analysis of stool DNA-biomarkers with hemoglobin immunoassay. ?? Quantitative values of individual biomarkers are not reportable and are not associated with individual biomarker result reference ranges. Cologuard is intended for colorectal cancer screening ofadults of either sex, 45 years or older, who are at average-risk for colorectal cancer (CRC). Cologuard has been approved for use by the U.S. FDA. The performance of Cologuard was established in a cross sectional study of average-risk adults aged 50-84. Cologuard performance in patients ages 45 to 49 years was estimated by sub-group analysis of near-age groups. Colonoscopies performed for a positive result may find as the most clinically significant lesion: colorectal cancer [4.0%], advanced adenoma (including sessile serrated polyps greater than or equal to 1cm diameter) [20%] or non- advanced adenoma [31%]; or no colorectal neoplasia [45%]. These estimates are derived from a prospective cross-sectional screening study of 10,000 individuals at average risk for colorectal cancer who were screened with both Cologuard and colonoscopy. (Ilir Dobbins al, N Engl J Med 2014;370(14):4421-3440.) Cologuard may produce a false negative or false positive result (no colorectal cancer or precancerous polyp present at colonoscopy follow up). A negative Cologuard test result does not guarantee the absence of CRC or advanced adenoma (pre-cancer). The current Cologuard screening interval is every 3 years. ([place] [employer] [employer] and U.S. Multi-Society Task Force). Cologuard performance data in a 10,000 patient pivotal study using colonoscopy as the reference method can be accessed at the following location: www.[employer].Scholaroo/results. Additional description of the Cologuard test process, warnings and precautions can be found at www.cologuard.com. Specimen (Source)Anatomical Location / LateralityCollection Method / Volume Collection TimeReceived TimeStool specimen (specimen)05/16/2024 7:45 PM EDT 05/18/2024 1:17 PM EDT Narrative Authorizing ProviderResult TypeResult StatusMarc Maricruz [facility] ORDERABLESFinal ResultPerforming OrganizationAddressCity/State/ZIP CodePhone Number [phone] (CLIA #:[id number]) [address] [place] [address], from Last 3 Months or Most Recently Relevant to Health Maintenance Insurance * Guarantor: Ruel Simon AAccount TypeRelation to PatientDate of BirthPhone Billing AddressPersonal/KohsmxCndt1975 [id number] [place] [id number] Care Teams Team MemberRelationshipSpecialtyStart DateEnd Date Reddy Alcantara MD PCP - GeneralFamily Medicine10/28/23 Reddy Alcantara MD [address] [place] [address] [facility]01/25/24
--- OUTSIDE RECORDS SUMMARY | 2025-05-22 15:01 | XMS_ITS | Clinical Summary ---
Author Organization [facility] Address [id number] [address] [place] [address] Care Team Providers Care Digital Sales Representative Name Role Phone Reddy Alcantara MD Primary Care Provider [phone] Allergies Active AllergyReactionsCriticalityNoted DateCommentsChlorhexidineRashLow 01/26/2020 Medications MedicationSigDispense QuantityRefillsLast FilledStart DateEnd DateStatus DULoxetine (CYMBALTA) 60 mg capsule Take 1 capsule (60 mg total) by mouth in the morning and 1 capsule (60 mg total) before bedtime.Active cholecalciferol, vitamin D3, 5,000 units tablet Take 1 tablet (5,000 Units total) by mouth in the morning.Active pregabalin (LYRICA) 100 mg capsule Take 1 capsule (100 mg total) by mouth 3 (three) times a day.Active losartan-hydroCHLOROthiazide (HYZAAR) 50-12.5 mg per tablet Take 1 tablet by mouth in the morning.5Active cyclobenzaprine (FLEXERIL) 10 mg tablet Take 1 tablet (10 mg total) by mouth 3 (three) times a day as needed.Active meloxicam (MOBIC) 7.5 mg tablet Take 1 tablet (7.5 mg total) by mouth 2 (two) times a day as needed for pain. Active Active Problems No known active problems Family History Medical HistoryRelationNameCommentsColon cancerBrotherCOPDFatherPsoriasisFather ArthritisMotherDiabetesMotherFibromyalgiaMotherRelationNameStatusCommentsBrother FatherAliveMotherAlive Social History Tobacco UseTypesPacks/DayYears UsedDateSmoking Tobacco: FormerCigarettesQuit: 07/28/2008Smokeless Tobacco: Never Tobacco Cessation:Counseling Given: Not Answered Alcohol UseStandard Drinks/WeekCommentsNot Currently0 (1 standard drink = 0.6 oz pure alcohol)sober since 2009AUDIT-CAnswerDate RecordedQ1: How often do you have a drink containing alcohol?Never01/26/2020Average Number of DrinksNot on file 01/26/2020Frequency of Binge DrinkingNot on file01/26/2020ChildcareAnswerDate CiihidcfWkavquenoGyelukb47/12/2019EmploymentAnswerDate RecordedEmploymentUnknown 01/05/2019Purpose - LifeAnswerDate RecordedPurpose and direction in lifeUnknown 1Sex and Gender InformationValueDate RecordedSex Assigned at BirthNot on fileLegal GqrPprx5610/23/2015 8:50 AM EDTGender IdentityNot on fileSexual OrientationNot on file Last Filed Vital Signs Vital SignReadingTime TakenCommentsBlood Esajirlf254/8812/07/2024 12:45 PM EDT Eguxk473112/07/2024 12:45 PM DSRQrlsoyuopui51.8 ??C (98.3 ??F)12/07/2024 10:39 AM EDTRespiratory Krab384612/07/2024 12:45 PM EDTOxygen Etspqcyyej21%12/07/2024 12:45 PM EDTInhaled Oxygen Concentration--Wgukvp479.3 kg (402 lb)12/07/2024 10:39 AM TRQXocufo662.5 cm (6' 3 )12/07/2024 10:39 AM EDTBody Mass Index50.25012/07/2024 10:39 AM EDT Plan of Treatment Health MaintenanceDue DateLast DoneCommentsDepression Cumupqnso11/08/1985Adult BMI Follow Up Plan1991Zoster (Shingles) Vaccine (2 of 2)08/16/2024 06/21/2024Influenza Nyxenpd04, 05/27/2018, 09/22/2011dult BMI Joxgdnxvx84Tobacco Zuwpgpvsi695Colonoscopy 8012/07/2024, 12/07/2024DTaP,Tdap and Td Vaccines (3 - Td or Tdap) , 09/22/2011COVID-19 YputeokEupxcmvqu03/26/2024, 11/15/2020, 10/25/2020 Medical Devices Not on file Procedures Procedure NamePriorityDate/TimeAssociated DiagnosisCommentsPROVATION COLONOSCOPY Diiqpyy4412/07/2024 10:41 AM EDT from Last 3 Months or Most Recently Relevant to Health Maintenance Results * Colonoscopy Report (12/07/2024 10:41 AM EDT)Specimen (Source)Anatomical Location / LateralityCollection Method / VolumeCollection TimeReceived Time Narrative SYSTEMGENERATED, DOCUMENTATION - 12/07/2024 10:41 AM EDT This order has been auto-finalized for image and report archival in PACs. *For full report details, please reach out to your physician. ??This image is visible to you in MyChart.* Authorizing ProviderResult TypeResult StatusMennatbarrie Herrmann MDIMG OR IMG ORDERABLESFinal Result from Last 3 Months or Most Recently Relevant to Health Maintenance Insurance Care Teams Team MemberRelationshipSpecialtyStart DateEnd Date Reddy Alcantara MD PCP - GeneralFamily Qjylkwix00/8/18
[2025-05-22 15:20] LABS: Alanine Aminotransferase 38 U/L (16-63); Albumin Globulin Ratio 1.0; Albumin Level 3.6 g/dL (3.4-5.0); Alkaline Phosphatase 46 U/L (46-116); Anion Gap 11.6; Aspartate Amino Transferase 17 U/L (15-37); Blood Urea Nitrogen 15.0 mg/dL (7.0-18.0); Calcium 9.1 mg/dL (8.5-10.1); Carbon Dioxide 29.8 mmol/L (21.0-32.0); Chloride 105 mmol/L (98-107); Cholesterol 188 mg/dL (<=200); Estimated GFR (African America >60 (>=60 mL/min/1.73m^2); Estimated GFR (Non-African Ame >60 (>=60 mL/min/1.73m^2); Globulin 3.5 g/dL; Glucose 129 mg/dL (74-106); HDL Cholesterol 39 mg/dL (40-60); Potassium 4.4 mmol/L (3.5-5.1); Sodium 142 mmol/L (136-145); Thyroid Stimulating Hormone 1.812 uIU/mL (0.358-3.740); Total Protein 7.1 g/dL (6.4-8.2); Triglycerides 129 mg/dL (<=150); VLDL CHOLESTEROL 25.8 mg/dL
== END 2025-05-22 14:33 | disposition home or self-care (01) ==
LOC: LAB 14:34
PROVIDERS: PCP Family Medicine; Visit Provider Family Medicine
DX: Z00.00 Encounter for general adult medical examination without abnormal findings (principal); R73.03 Prediabetes; Z12.5 Encounter for screening for malignant neoplasm of prostate; M47.817 Spondylosis without myelopathy or radiculopathy, lumbosacral region; M51.369 Other intervertebral disc degeneration, lumbar region without mention of lumbar back pain or lower extremity pain
CPT/HCPCS: 36415; 72100; 80053; 80061; 83036; 84443; 85025; G0103

== ENCOUNTER 2025-05-30 13:55 | Outpatient (RCR) | payer OTHER, SELFPAY | END 2025-06-20 07:01 | disposition home or self-care (01) | LOC: PT 13:55 | PROVIDERS: PCP Family Medicine; Visit Provider Family Medicine | DX: M47.817 Spondylosis without myelopathy or radiculopathy, lumbosacral region (principal) | CPT/HCPCS: 97110; 97140; 97161 ==